=== PATIENT | male | born 1945 ===

== ENCOUNTER 2017-04-29 07:03 | Day surgery (SDC) | payer OTHER ==
[2017-04-29 08:53] VITALS: BMI 33.2
--- NOTE | 2017-04-29 10:20 | CP.SDSHP ---
Same Day Surgery H & P - History Proposed Procedure: EGD Pre-Op Diagnosis: H/o duodenal carcinoid - Previous Medical/Surgical History Previous Surgical History: EGD EMR - Allergies Allergies: Allergies iodine Allergy (Severe, Verified 01/15/17 10:44) ANAPHYLAXIS - Physical Exam General Appearance: nl Vital Signs: Vital Signs 04/29/17 08:54 Temperature 97.8 F Pulse Rate 56 L Respiratory 19 Rate Blood Pressure 126/77 O2 Sat by Pulse 97 Oximetry Mental Status: Alert & Oriented x3 Neuro: WNL Heart: WNL Lungs: WNL GI: WNL - {Optional Preform as Required} Abdomen: WNL - Impression Impression: H/o duodenal carcinoid s/p EMR, f/u egd Pt. Evaluated Today:Candidate for Anesthesia & Procedure: Yes - Date & Time Date: 04/29/17 Time: 10:20 Short Stay Discharge - Short Stay Discharge Admitting Diagnosis/Reason for Visit: MALIGNANT CARCINOID TUMOR OF THE DUODENUM Disposition: HOME/ ROUTINE
[2017-04-29] MEDS ORDERED: Propofol 10 mg/ml Inj (20 ML) ONE (10:23)
[2017-04-29 11:33] VITALS: RESP 12; TEMP 98.7
[2017-04-29 11:37] VITALS: BP 131/78
[2017-04-29 11:39] VITALS: PULSE 53; O2SAT 100
== END 2017-04-29 11:32 | disposition home or self-care (01) ==
LOC: C.ENDO 07:03
PROVIDERS: ATTEND Internal Medicine
DX: Z08 Encounter for follow-up examination after completed treatment for malignant neoplasm (principal); Z85.060 Personal history of malignant carcinoid tumor of small intestine; K44.9 Diaphragmatic hernia without obstruction or gangrene; K29.70 Gastritis, unspecified, without bleeding; I89.0 Lymphedema, not elsewhere classified
CPT/HCPCS: 43239; 88305; 88313; 88342; J2001; J2704; J3010

== ENCOUNTER 2017-12-09 08:36 | Day surgery (SDC) | payer OTHER ==
[2017-12-09 09:31] VITALS: TEMP 97
[2017-12-09] MEDS ORDERED: Propofol 10 mg/ml Inj (20 ML) ONE ×2 (10:01→10:12)
[2017-12-09 12:26] VITALS: O2SAT 100
[2017-12-09 12:32] VITALS: BP 128/75; PULSE 68; RESP 20
== END 2017-12-09 12:30 | disposition home or self-care (01) ==
LOC: C.ENDO 08:36
PROVIDERS: ATTEND Internal Medicine Gastroenterology
DX: D3A.010 Benign carcinoid tumor of the duodenum (principal); Z86.010 Personal history of colon polyps; D12.2 Benign neoplasm of ascending colon
CPT/HCPCS: 45380; 88305; J2704

== ENCOUNTER 2017-12-30 08:46 | Day surgery (SDC) | payer OTHER ==
[~2017-12-30 08:46] MED LIST: Methylene Blue 10 mg/mL(10ml) IV ONE
[2017-12-30] MEDS ORDERED: Methylene Blue 10 mg/mL(10ml) IV ONE (11:35)
[2017-12-30] MEDS ORDERED: Lidocaine Hydrochloride 5 ML INJ ONE (11:41)
[2017-12-30] MEDS ORDERED: Propofol 10 mg/ml Inj (20 ML) ONE ×3 (11:41→12:41)
[2017-12-30] MEDS ORDERED: Etomidate 20 mg/10ml Inj IV ONE ×2 (11:49→12:01)
[2017-12-30] MEDS ORDERED: ePHEDrine 50 mg/ml Inj ONE (12:02)
[2017-12-30 13:19] VITALS: TEMP 97
[2017-12-30 14:07] VITALS: BP 120/83; PULSE 75; RESP 16; O2SAT 98
== END 2017-12-30 14:05 | disposition home or self-care (01) ==
LOC: C.ENDO 08:46
PROVIDERS: ATTEND Internal Medicine
DX: Z86.010 Personal history of colon polyps (principal); D12.2 Benign neoplasm of ascending colon; D12.3 Benign neoplasm of transverse colon; K64.8 Other hemorrhoids; D17.5 Benign lipomatous neoplasm of intra-abdominal organs
CPT/HCPCS: 45380; 45381; 45385; 88305; J2704; J3010

== ENCOUNTER 2018-02-06 05:41 | Inpatient (IN) | payer MEDICAID, OTHER ==
[2018-02-06] MEDS ORDERED: metroNIDAZOLE IV 500 mg/100 ml 500 MG/100 ML BAG ONE (07:34)
[2018-02-06] MEDS ORDERED: ceFAZolin IV 2 gm in Dextrose 2 GM/50 ML BAG IVPB ONE (07:34)
[2018-02-06] MEDS: Bupivacaine HCl 0.25% PF (30 ml) Inj ONE ×2 (08:09→12:56)
[2018-02-06] MEDS ORDERED: Propofol 10 mg/ml Inj (20 ML) ONE (11:04)
[2018-02-06] MEDS ORDERED: Midazolam 2 MG/2 ML VIAL ONE (11:04)
[2018-02-06] MEDS ORDERED: ceFAZolin 1 gm FROZEN Premix 1 GM/50 ML ML IVPB ONE (12:38)
[2018-02-06] MEDS ORDERED: Bupivacaine HCl 0.25% PF (30 ml) Inj ONE (12:46)
[2018-02-06] MEDS ORDERED: Morphine 4 MG/ML VIAL ONE (13:05)
[2018-02-06] MEDS ORDERED: Albuterol 0.083% Inhal Sol (2.5 mg/3 mL) UD INH PRN (13:29)
[2018-02-06] MEDS: HYDROmorphone 0.5 mg/0.5 ml ISec IVP PRN ×4 (13:48→17:12)
--- NOTE | 2018-02-06 13:54 | PCM.SURG1 ---
Surgeon's Initial Post Op Note - Surgeon's Notes Surgeon: Dr. Green Specialty Sales Consultant: Dr. Arreguin PGY3, PGY1, Markel OMS3 Type of Anesthesia: General Endo Pre-Operative Diagnosis: Incomplete polypectomy of right colon. Tubular Adenoma Operative Findings: Tatooed mass on right colon seen on specimen. Duodenum visualized during dissection. Primary anastamosis with ileum and transverse colon with no leak detected. for details see op note Post-Operative Diagnosis: as above Operation Performed: Laparoscopic Right fabiola-colectomy Specimen/Specimens Removed: Right colon Estimated Blood Loss: EBL {In ML}: 150 Blood Products Given: N/A Drains Used: Alberto Post-Op Condition: Fair Date of Surgery/Procedure: 02/06/18 Time of Surgery/Procedure: 08:00
[2018-02-06] MEDS ORDERED: Lactated Ringer's 1,000 ML IV ONE ×2 (14:15→18:00)
[2018-02-06] MEDS ORDERED: ceFAZolin 2 GM in Sodium Chloride 0.9% 100 ML IVPB SCH (15:00)
[2018-02-06] MEDS: metroNIDAZOLE IV 500 mg/100 ml 500 MG/100 ML BAG IVPB SCH (17:10)
[2018-02-06] MEDS ORDERED: HYDROmorphone 0.5 mg/0.5 ml ISec ONE (17:14)
[2018-02-06] MEDS: Lactated Ringer's 1,000 ML IV SCH (21:56)
[2018-02-07] MEDS: ceFAZolin IV 2 gm in Dextrose 2 GM/50 ML BAG IVPB SCH ×3 (00:04→16:33)
[2018-02-07] MEDS: metroNIDAZOLE IV 500 mg/100 ml 500 MG/100 ML BAG IVPB SCH ×2 (00:49→08:44)
[2018-02-07] MEDS: Lactated Ringer's 1,000 ML IV SCH (05:30)
[2018-02-07 07:14] LABS: BASO % 0.1 % (0.0-2.0); HEMOGLOBIN 14.2 g/dL (12.0-18.0); LYMPH # 0.9 K/uL (1.0-4.3); LYMPH % 9.1 % (20.0-40.0); MEAN CORPUSCULAR HEMOGLOBIN 29.2 pg (27.0-31.0); MEAN CORPUSCULAR HGB CONC 34.4 g/dL (33.0-37.0); MEAN PLATELET VOLUME 8.9 fL (7.2-11.7); MONO # 0.7 K/uL (0.0-0.8); MONO % 6.6 % (0.0-10.0); NEUT # 8.5 K/uL (1.8-7.0); NEUT % 84.2 % (50.0-75.0); NRBC % 0.1 % (0.0-2.0); PLATELET COUNT 170 K/uL (130-400); RBC 4.87 Mil/uL (4.40-5.90); RED CELL DISTRIBUTION WIDTH 14.4 % (11.5-14.5)
[2018-02-07 07:20] LABS: WHITE BLOOD COUNT 10.1 K/uL (4.8-10.8)
[2018-02-07 08:29] LABS: BLOOD UREA NITROGEN 11 mg/dL (9-20); CALCIUM 7.8 mg/dl (8.6-10.4); GFR AFRICAN-AMERICAN > 60; GFR NON-AFRICAN AMERICAN > 60
[2018-02-07 08:38] LABS: BANDS 2 % (0-2); LYMPHOCYTE 8 % (20-40); MONOCYTE 5 % (0-10); NEUTROPHIL 85 % (50-75); PLATELET ESTIMATE NORMAL (NORMAL); TOTAL CELLS COUNTED 100
[2018-02-07] MEDS: Lidocaine 5% Patch TD SCH (09:05)
--- NOTE | 2018-02-07 09:38 | CP.PCM.PN ---
<Andrés Monaco D - Last Filed: 02/07/18 09:31> Subjective - Date & Time of Evaluation Date of Evaluation: 02/07/18 Time of Evaluation: 09:31 - Subjective Subjective: SURGERY NOTE FOR DR. COVINGTON 72M seen and examined at bedside. Patient states pain is controlled, admits to mild nausea, denies vomiting denies fevers/chills. He denies flatus/denies BM. Objective - Vital Signs/Intake and Output Vital Signs (last 24 hours): Temp Pulse Resp BP Pulse Ox 99.4 F 108 H 20 149/83 93 L 02/07/18 07:03 02/07/18 07:03 02/07/18 07:03 02/07/18 07:03 02/07/18 07:03 Intake and Output: 02/07/18 02/07/18 06:59 18:59 Output Total 715 Balance -715 - Medications Medications: Current Medications Acetaminophen (Tylenol 325mg Tab) 650 mg PO Q6 PRN PRN Reason: Fever >100.4 F Albuterol Sulfate (Albuterol 0.083% Inhal Ayleen (2.5 Mg/3 Ml) Ud) 2.5 mg INH ONCE PRN PRN Reason: Wheezing Heparin Sodium (Porcine) (Heparin) 5,000 units SC Q8 ANN Last Admin: 02/07/18 09:07 Dose: 5,000 units Hydromorphone/Sodium Chloride (Dilaudid Door Trimmer) 6 mg IV Q4H PRN; Protocol PRN Reason: Pain, moderate (4-7) Last Admin: 02/07/18 06:11 Dose: 6 mg Potassium Chloride/Dextrose/Sod Cl (Potassium Chl 20 Meq In D5-1/2ns) 1,000 mls @ 125 mls/hr IV .Q8H ANN Lactated Ringer's (Lactated Ringer's) 1,000 mls @ 125 mls/hr IV .Q8H ANN Last Admin: 02/07/18 05:30 Dose: 125 mls/hr Cefazolin Sodium/Dextrose (Ancef Iv 2 Gm Duplex) 2 gm in 50 mls @ 100 mls/hr IVPB Q8H ANN PRN Reason: Protocol Stop: 02/07/18 15:29 Last Admin: 02/07/18 06:20 Dose: 100 mls/hr Lidocaine (Lidoderm) 1 ea TD DAILY ANN Last Admin: 02/07/18 09:05 Dose: 1 ea Ondansetron HCl (Zofran Inj) 4 mg IV Q4 PRN PRN Reason: Nausea/Vomiting Last Admin: 02/07/18 09:15 Dose: 4 mg - Labs Labs: 02/07/18 06:51 02/07/18 06:51 - Constitutional Appears: Well, Non-toxic, No Acute Distress - Respiratory Exam Respiratory Exam: Clear to Ausculation Bilateral, NORMAL BREATHING PATTERN - Cardiovascular Exam Cardiovascular Exam: REGULAR RHYTHM, +S1, +S2 - GI/Abdominal Exam GI & Abdominal Exam: Distended, Soft, Tenderness. absent: Firm, Guarding, Rigid , Rebound Additional comments: incisions CDI Drain 135cc since OR of serosanguinous fluid - Extremities Exam Extremities Exam: absent: Pedal Edema, Tenderness - Neurological Exam Neurological Exam: Alert, Awake - Psychiatric Exam Psychiatric exam: Normal Affect, Normal Mood - Skin Skin Exam: Dry, Intact, Normal Color, Warm Assessment and Plan - Assessment and Plan (Free Text) Assessment: 72M s/p Laparoscopic Right Hemicolectomy POD1 for tubular adenoma which was unable to be removed endoscopically POD#1 Plan: - NPO - Pain control, keep MANUFACTURING CONTROLS ENGINEER, Lidoderm around incisions - Monitor Drain output - DC ABX in PM - Nebulizer treatments - Encourage ambulation - DC fregoso after ambulation - SCD/HeparinSC Discussed with Dr. Peter Monaco, PGY2 <Saúl Covington - Last Filed: 02/07/18 10:26> Objective - Vital Signs/Intake and Output Vital Signs (last 24 hours): Temp Pulse Resp BP Pulse Ox 99.4 F 108 H 20 149/83 93 L 02/07/18 07:03 02/07/18 07:03 02/07/18 07:03 02/07/18 07:03 02/07/18 07:03 Intake and Output: 02/07/18 02/07/18 06:59 18:59 Output Total 715 Balance -715 - Medications Medications: Current Medications Acetaminophen (Tylenol 325mg Tab) 650 mg PO Q6 PRN PRN Reason: Fever >100.4 F Albuterol Sulfate (Albuterol 0.083% Inhal Ayleen (2.5 Mg/3 Ml) Ud) 2.5 mg INH ONCE PRN PRN Reason: Wheezing Heparin Sodium (Porcine) (Heparin) 5,000 units SC Q8 ANN Last Admin: 02/07/18 09:07 Dose: 5,000 units Hydromorphone/Sodium Chloride (Dilaudid Door Trimmer) 6 mg IV Q4H PRN; Protocol PRN Reason: Pain, moderate (4-7) Last Admin: 02/07/18 06:11 Dose: 6 mg Potassium Chloride/Dextrose/Sod Cl (Potassium Chl 20 Meq In D5-1/2ns) 1,000 mls @ 125 mls/hr IV .Q8H ANN Lactated Ringer's (Lactated Ringer's) 1,000 mls @ 125 mls/hr IV .Q8H [facility] Last Admin: 02/07/18 05:30 Dose: 125 mls/hr Cefazolin Sodium/Dextrose (Ancef Iv 2 Gm Duplex) 2 gm in 50 mls @ 100 mls/hr IVPB Q8H ANN PRN Reason: Protocol Stop: 02/07/18 15:29 Last Admin: 02/07/18 06:20 Dose: 100 mls/hr Lidocaine (Lidoderm) 1 ea TD DAILY ANN Last Admin: 02/07/18 09:05 Dose: 1 ea Ondansetron HCl (Zofran Inj) 4 mg IV Q4 PRN PRN Reason: Nausea/Vomiting Last Admin: 02/07/18 09:15 Dose: 4 mg - Labs Labs: 02/07/18 06:51 02/07/18 06:51 Assessment and Plan - Assessment and Plan (Free Text) Plan: Patient seen and examined at bedside with residents staff and agree with above. Would expect post-op ileus due to length of operation and bowel manipulation. Cont. NPO. NGT if continued nausea or vomiting. D/c fregoso later today when ambulating. Pain control. DVT prophylaxis HSQ and SCD. Periop Abx to finish today. IS and breathing treatments PRN.
[2018-02-07] MEDS: Potassium Ch 20mEq in D5-1/2NS 1,000 ML IV SCH ×3 (10:11→21:10)
[2018-02-07] MEDS ORDERED: Albuterol 0.083% Inhal Sol (2.5 mg/3 mL) UD INH ONE (10:20)
[2018-02-08] MEDS: Potassium Ch 20mEq in D5-1/2NS 1,000 ML IV SCH ×3 (00:10→09:08)
[2018-02-08] MEDS: Magnesium Sulfate 1 gm in D5W 1 GM/100 ML BAG IVPB SCH ×2 (00:30)
--- NOTE | 2018-02-08 00:35 | CP.PCM.PN ---
Subjective - Date & Time of Evaluation Date of Evaluation: 02/08/18 Time of Evaluation: 00:34 - Subjective Subjective: General Surgery Progress Note for Dr. Green 12:00AM This 72M was seen and examined. Nurse Denied any acute events. Reports urine output improved. Patient reports pain under control increased incentive spirometery from 500 to 750. Patient saturating 98 on 3L when cannula removed saturation decreased to 93% so NC was continued. Of note the patients heart rate was elevated. EKG was done and compared with previous EKG. EKG on 01/28 exhibited sinus nilesh @ 56 with inferior infarct of undermined age, EKG overnight showed sinus tachycardia with inferior infarct of undetermined age. Cardiac enzymes where ordered and cardiology was consulted. Cardiac enzymes were negative. 6:00AM PT seen and examined this AM at bedside, He was awake sitting up, pulling 1000 on the incentive spirometer. He reports nausea and belching, denies vomiting, flatus, BM, chest pain or SOB. Discussed goals for the day of increasing ambulation. Objective - Vital Signs/Intake and Output Vital Signs (last 24 hours): Temp Pulse Resp BP Pulse Ox 98.4 F 100 H 22 148/78 91 L 02/07/18 15:57 02/07/18 18:43 02/07/18 15:57 02/07/18 15:57 02/07/18 18:43 Intake and Output: 02/07/18 02/08/18 18:59 06:59 Intake Total 1150 750 Output Total 50 715 Balance 1100 35 - Medications Medications: Current Medications Acetaminophen (Tylenol 325mg Tab) 650 mg PO Q6 PRN PRN Reason: Fever >100.4 F Albuterol Sulfate (Albuterol 0.083% Inhal Ayleen (2.5 Mg/3 Ml) Ud) 2.5 mg INH ONCE PRN PRN Reason: Wheezing Heparin Sodium (Porcine) (Heparin) 5,000 units SC Q8 ANN Last Admin: 02/07/18 21:10 Dose: 5,000 units Hydromorphone/Sodium Chloride (Dilaudid Casting Assistant) 6 mg IV Q4H PRN; Protocol PRN Reason: Pain, moderate (4-7) Potassium Chloride/Dextrose/Sod Cl (Potassium Chl 20 Meq In D5-1/2ns) 1,000 mls @ 100 mls/hr IV .Q10H ANN Lidocaine (Lidoderm) 1 ea TD DAILY ANN Last Admin: 02/07/18 09:05 Dose: 1 ea Ondansetron HCl (Zofran Inj) 4 mg IV Q4 PRN PRN Reason: Nausea/Vomiting Last Admin: 02/07/18 17:38 Dose: 4 mg - Labs Labs: 02/07/18 06:51 02/07/18 06:51 - Constitutional Appears: Non-toxic, No Acute Distress - Head Exam Head Exam: ATRAUMATIC, NORMOCEPHALIC - Eye Exam Eye Exam: EOMI, Normal appearance - Respiratory Exam Respiratory Exam: NORMAL BREATHING PATTERN Additional comments: 3L NC - Cardiovascular Exam Cardiovascular Exam: Tachycardia (HR 95), +S1, +S2 - GI/Abdominal Exam Additional comments: Full, appropriately tender abdomen with dressings clean dry and intact Alberto drain output 70cc serosang over 12 hours 135cc serosang over 24 hours - Neurological Exam Neurological Exam: Alert, Awake - Psychiatric Exam Psychiatric exam: Normal Affect, Normal Mood - Skin Skin Exam: Dry, Intact Assessment and Plan - Assessment and Plan (Free Text) Assessment: 72M POD#2 s/p laparoscopic right hemicolectomy for Incomplete polypectomy of right colon for tubular Adenoma HR 90-105, BP 134/81 (Baseline) Dilaudid KEG INSPECTOR received 3.4mg over the last 7 hours Urine output 100cc per hour >12 hours Alberto: 135 serosang (65am/70pm) Plan: Continue telemetry Follow up cardiology Continue NPO Continue Pepcid Monitor Outputs Lidoderm patch KEG INSPECTOR for pain D5 1/2 20K @100 Replete Phos Out of bed Ambulate Incentive spriometer SCDs Further recs per Dr. Peter Caldera PGY2
--- NOTE | 2018-02-08 00:44 | OP ---
PROCEDURE DATE: 02/06/2018 PREOPERATIVE DIAGNOSES: 1. Adenomatous polyps of colon 2. Status post colonoscopy with incomplete polypectomy 3. Obesity with body mass index between 30 and 35 4. Umbilical hernia. POSTOPERATIVE DIAGNOSES: 1. Adenomatous polyps of colon 2. Status post colonoscopy with incomplete polypectomy 3. Obesity with body mass index between 30 and 35 4. Umbilical hernia PROCEDURE PERFORMED: 1. Laparoscopic right hemicolectomy. 2. Umbilical hernia repair (as part of closure) OPERATING SURGEON: Saúl Green MD ATTENDANT SELF SERVICE STORE SURGEON: __Varsha Arreguin, PGY-4 resident; Carlin Cunningham, PGY-2 resident. OPERATIVE FINDINGS: Significant visceral adiposity of mesentery and omentum. Normal-appearing large intestine. No evidence of peritoneal or hepatic nodules. Inked margin of right colon is visible within the superior portion of the ascending colon. Please note that due to the patient's weight, obesity and BMI of 33, and the presence of significant amount of visceral adiposity dissection and identification of tissue planes and anatomic land nevarez was very difficult. It added about 60 minutes of additional work over what is considered normal for this procedure, and significant amount of time was taken to meticulously dissect out and define anatomic landmarks, especially within the mesentery while doing both the medial to lateral and also the lateral dissections of the right colon. SPECIMENS REMOVED: Right colon and terminal ileum. Additional 2-cm segment of terminal ileum ESTIMATED BLOOD LOSS: 150 mL. ANESTHESIA: General anesthesia as well as 0.25% Marcaine local anesthesia. INDICATIONS FOR OPERATION: This is a 72-year-old male who had a recent colonoscopy done about two months ago and was found to have a 3-cm and a 2-cm polyp within the ascending colon. Colonoscopic removal was attempted multiple times by the GI doctor, and there was an incomplete piecemeal removal of the more distal lesion in the ascending colon. Because of the difficulty of the procedure, they did not attempt to remove the more proximal lesion closer to the cecum. 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 He was taken to the operating room for a right hemicolectomy to rule out cancer. DESCRIPTION OF THE OPERATION: Informed consent was obtained prior to taking the patient back to the operating room. We discussed at length as well as in clinic with the patient and his the risks of the operation including but not limited to retroperitoneal injury, ureteral injury, possible need for colostomy, injury to intra-abdominal organs, bleeding, infection, and VTE. The patient understood these risks and consented to the following operation. The patient was brought back to the operating room and placed supine on the operating room table. SCDs were applied prior to induction of anesthesia. Heparin subq 5000 units were given in the preoperative area prior to bringing the patient back. Ancef 2 gm and 500 mg of Flagyl antibiotics were given within 30 minutes of incision. Following successful endotracheal intubation, Upper and lower body warmers were placed prior to incision.A Hoffmann was inserted, the patient's abdomen was shaved, prepped and draped in sterile fashion. Of note, the patient has a history of a left arm traumatic injury, which was repaired with fixation, and so his elbow had limited range of motion without full extension at the elbow. This limited my ability to tuck his left arm likely we normally do, but the patient's left arm was padded and placed in a neutral position at the side of the table on armboard. A time-out was performed prior to making the incision. We gained access to the abdominal cavity with a supraumbilical direct cut down for a 12mm port An 11-blade was used to make a skin incision. Kochers were used to grasp the fascia, and the incision was made into the fascia. There was direct visualization into the peritoneal cavity. A 12-mm port was inserted, and the abdomen was insufflated. I then placed a 10-mm 0-degree laparoscope to check for any signs of injury during our initial entry, and there were none. Of note, during this time with initial insufflation pressures up to 15 and flow rate of 40, the patient did become bradycardic, but did not drop his blood pressure. The pneumoperitoneum was immediately released from his abdomen, and the patient's belly did appear tight. As we waited for Anesthesia to catch up and after giving the patient some time as well as more muscle relaxant, the patient's heart rate came back up to his baseline, between 80 and 90. We then waited until Anesthesia was ready to reinsufflate the abdomen. The flow pressures were dropped to half. We slowly resufflated the pneumoperitoneum, the patient tolerated this well, so we proceeded with the operation. The abdominal cavity was then inspected using a 10-mm 30-degree scope for any evidence of any peritoneal lesions or liver lesions, and there were none. Additional working ports were placed. All ports were preanesthetized with 0.25% Marcaine prior to making skin incision. We placed a 5-mm port in the left upper quadrant, a 12-mm port in the left lower quadrant, and a 5-mm port in the suprapubic region. We identified the area of the right colon that was marked with tattoo, and that was easily visible up into the ascending colon, did not involve any of the transverse colon. Greater omentum was placed cephalad over the liver. We then identified the ileocecal junction, and retraction was placed laterally to begin our dissection from a medial lateral approach of the ileocecal pedicle. During this time, because of all of his visceral adiposity, it was very difficult to gain appropriate retraction and counter tension, and so this took about 15 to 20 minutes. I had to add another additional working port for my assistant center director in the the right mid abdomen lateral to the rectus muscles at the level of the umbilicus; this was a 5-mm port. After this was done, we were able to achieve somewhat adequate visualization. I started from a medial lateral approach scoring the mesentery surrounding the ileocecal pedicle, began creating my tunnel. The pedicle was then skeletonized; however, it was very difficult to achieve a clear plane again because of the adiposity and visualization. I was very meticulous to make sure that we are not entering any retroperitoneal structures prior to transecting any vessels. During this time, due to the difficulty of making any progress, I had asked for assistance from a senior colleague, Dr. Carmichael, who came into the room to just evaluate and made suggestion we switch over to a lateral dissection, and we then did that. The lateral attachments of the colon and the retroperitoneum were taken down using a combination of blunt, sharp and electrocautery with ligature energy device. Lot of pictures were taken down. Retroperitoneal fat structures were left in place, and the right colon and mesentery were dissected medially. This was done from a level of the cecum and appendix all the way up to the hepatic flexure. At this point, I then turned our attention to mobilizing the route to the small bowel at the terminal ileum taking care not to get into the retroperitoneum. The right ureter was visualized, and we dissected up further towards the duodenum for about 5 cm. I then transected the terminal ileum about 5 to 6 cm distal to the ileocecal junction. A mesenteric defect was created and a 60-mm Endo AR linear stapling device blue load was used to transect the ileum. We then turned our attention to the more superior dissection taking down the hepatocolic ligaments. I started approximately at the mid point of the transverse colon. The greater omentum was placed cephalad above the liver and identified the transverse colon. With appropriate traction, we were able to get into the lesser sac. The dissection was then continued towards the hepatic flexure without any incident. Again, this was challenging due to the weight of his mesentery from all of the visceral adiposity as well as the large epiploic appendages, so this added about 30 to 45 minutes more than usual to do this part of the procedure. Once there was adequate mobilization of the transverse colon, I then elected to exteriorize the specimen. At this point, the abdomen was desufflated, and the umbilical port site incision was extended in a vertical fashion coming right through the umbilicus for approximately 3 or 4 cm. A wound protector was then placed and the specimen exteriorized. At this point, there was clear delineation of the deascularized right colon, and we transsected the transverse colon approximately 5 to 6 cm distal to the inked margin using a 75-mm AR blue load linear stapler. Once this was done, the specimen was completely extracted and sent off the pathology. I then brought up the transected segment of the terminal ileum was also delivered through the wound protector. At this point, I tried to arrange the anastomosis externally; however due to tension on the transverse colon, I did not like the way it was going to lie, and so I elected to just internalize the specimen and proceed with intracorporeal stapled anastomosis. We reinserted the contents into the abdominal cavity. A 12-mm camera port was then reinserted through the wound protector. We then wrapped umbilical tape to ensure pneumoperitoneum was maintained, and there was no leakage of gas around the enlarged incision. We then lined the terminal ileum to the transverse colon. The orientation was made in an isoperistaltic fashion. Stay suture was placed from the tenia coli of transverse colon to the antimesenteric border of the small bowel. Enterotomies was made both in the colon and small intestine using a monopolar [place] device. Intraluminal entry was confirmed. A 60-mm Endo AR linear stapling device blue load used to make the ileocolonic anastomosis. The anastomosis was inspected from within and that seems to be patent. The common defect was then closed using 2-0 v-lock nonabsorbable barbed suture. Additional interrupted sutures were placed in a Lembert fashion to buttress the common enterotomy closure with 3-0 vicryl. There were total of 4 interrupted sutures placed. The anastomosis appeared patent and no evidence of any leakage. The abdomen was irrigated with about 250 mL of saline and suctioned, cleaned. There was some bleeding noted on the greater omentum. This was stopped with LigaSure device, and hemostasis confirmed. The omentum was then draped over the anastomosis. I placed a 19-Mongolian niko drain in the right lateral gutter where our dissection was, and this was brought out through the patient's right 5-mm port. I then elected to do a TAP block with 30 mL of 0.125 % Marcaine. All the port sites were injected under direct visualization creating a preperitoneal wheal. The remaining ports were then removed under direct visualization. We then closed the midline periumbilical incision with 1 PDS suture to close the fascial incision. The skin was then closed with wes. The laparoscopic incisions were closed with 4-0 Monocryl. Dermabond was applied to the skin incisions. The patient tolerated the operation without any complication. I was present for the entirety of the operation. All sponge, needle and instrument counts were correct at the end of the case before closing. The patient was then extubated into the operating room and taken to the PACU in stable condition. Saúl Green MD GENET
[2018-02-08] MEDS ORDERED: Metoprolol 1 mg/ml Inj IVP ONE (01:03)
[2018-02-08] MEDS ORDERED: Metoprolol 1 mg/ml Inj IVP STA (01:03)
[2018-02-08 01:22] LABS: ALB/GLOB RATIO 1.1 (1.0-2.1); ALBUMIN 2.9 g/dL (3.5-5.0); ALT/SGPT 16 U/L (21-72); AST/SGOT 26 U/L (17-59); BLOOD UREA NITROGEN 10 mg/dL (9-20); CALCIUM 7.9 mg/dl (8.6-10.4); GFR AFRICAN-AMERICAN > 60; GFR NON-AFRICAN AMERICAN > 60
[2018-02-08 01:34] LABS: CK-MB 1.53 ng/mL (0.0-3.38)
[2018-02-08] MEDS ORDERED: Sodium Phosphate 15 MMOLE in Sodium Chloride 0.9% 250 ML IVPB ONE (05:32)
[2018-02-08] MEDS: Lidocaine 5% Patch TD SCH ×2 (07:34→09:26)
--- NOTE | 2018-02-08 07:59 | RAD ---
Chest x-ray single frontal view History: Tachycardia. Comparison: 01/28/2018 Findings: Biapical pleural thickening with upper lobe granulomatous changes. Diffuse increased interstitial lung markings with some scattered nodular densities throughout both lungs. Prominent linear consolidative changes at both lung bases which may represent atelectasis and or infiltrate. Enlarged ectatic aorta. Cardiomegaly. Degenerative changes in the spine and shoulders. Impression: Biapical pleural thickening with upper lobe granulomatous changes. Diffuse increased interstitial lung markings with some scattered nodular densities throughout both lungs. Prominent linear consolidative changes at both lung bases which may represent atelectasis and or infiltrate. Enlarged ectatic aorta. Cardiomegaly.
[2018-02-08 08:25] LABS: BASO % 0.2 % (0.0-2.0); EOS # 0.1 K/uL (0.0-0.7); EOS % 0.7 % (0.0-4.0); HEMOGLOBIN 13.7 g/dL (12.0-18.0); LYMPH # 0.5 K/uL (1.0-4.3); MEAN CELL VOLUME 86.5 fL (80.0-94.0); MEAN CORPUSCULAR HEMOGLOBIN 29.9 pg (27.0-31.0); MEAN CORPUSCULAR HGB CONC 34.5 g/dL (33.0-37.0); MEAN PLATELET VOLUME 9.1 fL (7.2-11.7); MONO # 0.5 K/uL (0.0-0.8); MONO % 5.1 % (0.0-10.0); NEUT # 7.8 K/uL (1.8-7.0); PLATELET COUNT 177 K/uL (130-400); RBC 4.58 Mil/uL (4.40-5.90); RED CELL DISTRIBUTION WIDTH 14.3 % (11.5-14.5); WHITE BLOOD COUNT 8.9 K/uL (4.8-10.8)
[2018-02-08 09:14] LABS: LYMPHOCYTE 4 % (20-40); MONOCYTE 4 % (0-10); NEUTROPHIL 92 % (50-75); TOTAL CELLS COUNTED 100
[2018-02-08 09:15] LABS: PLATELET ESTIMATE NORMAL (NORMAL)
--- NOTE | 2018-02-08 14:36 | CP.PCM.CON ---
History of Present Illness - History of Present Illness History of Present Illness: 72-year-old male postoperatively, hemicolectomy, developed rapid heart rate and cardiology consult was requested. On further review of the chart patient was cleared by the medical clinic as patient has no cardiac history. EKG preop shows some Q waves in inferior leads with sinus bradycardia of 56. No investigation was done concerning low heart rate. Postoperatively patient heart rate is was in 120 sinus tachycardia with stable blood pressure. EKG showed no change from previous one with small Q's in inferior leads with sinus tachycardia. Patient has no history of diabetes coronary artery disease or [place] in the past. Physical examination patient is not in acute distress Heart S1-S2 normal. Currently the heart rate is normal after previously given IV beta-mohan. There is no murmurs or gallops. Lungs are clear to auscultation percussion Abdomen is postop with slight distention Extremity is no edema. Another repeat EKG was done incorrectly with reversal of leads. Cardiac enzymes 2 are negative. Plan Continue observation on telemetry. If the heart rate is more than 120 can give when necessary IV Lopressor if the blood pressure is more than 110 systolic. Currently patient does not need any further cardiac intervention Past Patient History - Past Medical History & Family History Past Medical History?: Yes - Past Social History Smoking Status: Never Smoked - CARDIAC Hx Cardiac Disorders: Yes - PULMONARY Hx Respiratory Disorders: Yes Hx Sleep Apnea: Yes (POSITIVE STUDY, DOES NOT HAVE C PAP MACHINE) - NEUROLOGICAL Hx Neurological Disorder: No - HEENT Hx HEENT Problems: No - RENAL Hx Chronic Kidney Disease: No - ENDOCRINE/METABOLIC Hx Endocrine Disorders: No - HEMATOLOGICAL/ONCOLOGICAL Hx Blood Disorders: No - INTEGUMENTARY Hx Dermatological Problems: No - MUSCULOSKELETAL/RHEUMATOLOGICAL Hx Musculoskeletal Disorders: No Hx Falls: No - GASTROINTESTINAL Hx Gastrointestinal Disorders: Yes Hx Gastritis: Yes Other/Comment: HX DUODENAL CARCINOID - GENITOURINARY/GYNECOLOGICAL Hx Genitourinary Disorders: No - PSYCHIATRIC Hx Psychophysiologic Disorder: No Hx Substance Use: No - SURGICAL HISTORY Hx Surgeries: Yes Hx Orthopedic Surgery: Yes (ORIF LEFT ELBOW W PLATE PLACEMENT) Other/Comment: HX: COLON POLYPECTOMY - ANESTHESIA Hx Anesthesia: Yes Hx Anesthesia Reactions: No Hx Malignant Hyperthermia: No Has any member of the family had a problem w/ anesthesia?: No Meds Allergies/Adverse Reactions: Allergies Allergy/AdvReac Type Severity Reaction Status Date / Time iodine Allergy Severe ANAPHYLAXIS Verified 12/30/17 09:17 - Medications Medications: Current Medications Acetaminophen (Tylenol 325mg Tab) 650 mg PO Q6 PRN PRN Reason: Fever >100.4 F Albuterol Sulfate (Albuterol 0.083% Inhal Ayleen (2.5 Mg/3 Ml) Ud) 2.5 mg INH ONCE PRN PRN Reason: Wheezing Famotidine (Pepcid) 20 mg IVP Q12 [facility] Last Admin: 02/08/18 09:24 Dose: 20 mg Heparin Sodium (Porcine) (Heparin) 5,000 units SC Q8 ANN Last Admin: 02/08/18 13:40 Dose: 5,000 units Hydromorphone/Sodium Chloride (Dilaudid Bowl Attendant) 6 mg IV Q4H PRN; Protocol PRN Reason: Pain, moderate (4-7) Last Admin: 02/08/18 09:25 Dose: 6 mg Potassium Chloride/Dextrose/Sod Cl (Potassium Chl 20 Meq In D5-1/2ns) 1,000 mls @ 100 mls/hr IV .Q10H [facility] Last Admin: 02/08/18 09:08 Dose: Not Given Lidocaine (Lidoderm) 1 ea TD DAILY [facility] Last Admin: 02/08/18 09:26 Dose: Not Given Ondansetron HCl (Zofran Inj) 4 mg IV Q4 PRN PRN Reason: Nausea/Vomiting Last Admin: 02/07/18 17:38 Dose: 4 mg Results - Vital Signs Recent Vital Signs: Last Vital Signs Temp 98.6 F 02/08/18 10:15 Pulse 90 02/08/18 12:00 Resp 20 02/08/18 08:27 BP 130/79 02/08/18 08:27 Pulse Ox 97 02/08/18 08:27 - Labs Result Diagrams: 02/09/18 03:04 02/09/18 03:04 Labs: Laboratory Results - last 24 hr 02/08/18 02/08/18 01:06 08:10 WBC 8.9 RBC 4.58 Hgb 13.7 Hct 39.6 MCV 86.5 MCH 29.9 MCHC 34.5 RDW 14.3 Plt Count 177 MPV 9.1 Neut % (Auto) 88.0 H Lymph % (Auto) 6.0 L [place] % (Auto) 5.1 Eos % (Auto) 0.7 Baso % (Auto) 0.2 Neut # (Auto) 7.8 H Lymph # (Auto) 0.5 L [place] # (Auto) 0.5 Eos # (Auto) 0.1 Baso # (Auto) 0.0 Neutrophils % (Manual) 92 H Lymphocytes % (Manual) 4 L Monocytes % (Manual) 4 Platelet Estimate Normal RBC Morphology Normal Sodium 138 Potassium 4.0 Chloride 102 Carbon Dioxide 29 Anion Gap 12 BUN 10 Creatinine 0.9 Est GFR ( Amer) > 60 Est GFR (Non-Af Amer) > 60 Random Glucose 144 H Calcium 7.9 L Phosphorus 1.5 L Magnesium 2.5 H Total Bilirubin 1.2 AST 26 ALT 16 L D Alkaline Phosphatase 94 CK-MB (Mass) 1.53 Troponin I < 0.0120 Total Protein 5.6 L Albumin 2.9 L D Globulin 2.7 Albumin/Globulin Ratio 1.1
[2018-02-08] MEDS ORDERED: Potassium Ch 20mEq in D5-1/2NS 1,000 ML IV SCH (15:30)
[2018-02-08 16:00] LABS: CK-MB 0.95 ng/mL (0.0-3.38)
[2018-02-08] MEDS ORDERED: Albumin Human 25% (12.5 gm/50 ml) IV ONE ×2 (17:00→18:00)
[2018-02-08 19:29] LABS: BASO % 0.3 % (0.0-2.0); EOS # 0.1 K/uL (0.0-0.7); EOS % 0.9 % (0.0-4.0); HEMOGLOBIN 14.4 g/dL (12.0-18.0); LYMPH % 9.7 % (20.0-40.0); MEAN CELL VOLUME 86.6 fL (80.0-94.0); MEAN CORPUSCULAR HEMOGLOBIN 29.3 pg (27.0-31.0); MEAN CORPUSCULAR HGB CONC 33.9 g/dL (33.0-37.0); MEAN PLATELET VOLUME 8.8 fL (7.2-11.7); MONO # 0.5 K/uL (0.0-0.8); MONO % 5.2 % (0.0-10.0); NEUT # 8.4 K/uL (1.8-7.0); NEUT % 83.9 % (50.0-75.0); PLATELET COUNT 198 K/uL (130-400); RED CELL DISTRIBUTION WIDTH 14.7 % (11.5-14.5)
[2018-02-08 19:41] LABS: ALB/GLOB RATIO 1.1 (1.0-2.1); ALBUMIN 3.2 g/dL (3.5-5.0); ALT/SGPT 19 U/L (21-72); AST/SGOT 23 U/L (17-59); BLOOD UREA NITROGEN 10 mg/dL (9-20); CALCIUM 8.1 mg/dl (8.6-10.4); GFR AFRICAN-AMERICAN > 60; GFR NON-AFRICAN AMERICAN > 60
[2018-02-08] MEDS ORDERED: Potassium Phosphate 21 MMOLE in Sodium Chloride 0.9% 250 ML IV ONE (20:00)
[2018-02-08 20:13] LABS: LYMPHOCYTE 13 % (20-40); MONOCYTE 3 % (0-10); NEUTROPHIL 84 % (50-75); PLATELET ESTIMATE NORMAL (NORMAL); TOTAL CELLS COUNTED 100
[2018-02-09 03:07] LABS: BASO % 0.3 % (0.0-2.0); EOS # 0.1 K/uL (0.0-0.7); EOS % 0.7 % (0.0-4.0); HEMOGLOBIN 13.8 g/dL (12.0-18.0); LYMPH # 0.5 K/uL (1.0-4.3); MEAN CELL VOLUME 86.4 fL (80.0-94.0); MEAN CORPUSCULAR HEMOGLOBIN 29.4 pg (27.0-31.0); MEAN CORPUSCULAR HGB CONC 34.1 g/dL (33.0-37.0); MEAN PLATELET VOLUME 8.7 fL (7.2-11.7); MONO # 0.4 K/uL (0.0-0.8); MONO % 5.2 % (0.0-10.0); NEUT # 7.5 K/uL (1.8-7.0); NEUT % 87.8 % (50.0-75.0); PLATELET COUNT 180 K/uL (130-400); RBC 4.68 Mil/uL (4.40-5.90); RED CELL DISTRIBUTION WIDTH 14.4 % (11.5-14.5); WHITE BLOOD COUNT 8.5 K/uL (4.8-10.8)
[2018-02-09 03:24] LABS: ALB/GLOB RATIO 1.1 (1.0-2.1); ALT/SGPT 14 U/L (21-72); AST/SGOT 19 U/L (17-59); BLOOD UREA NITROGEN 10 mg/dL (9-20); CALCIUM 7.9 mg/dl (8.6-10.4); GFR AFRICAN-AMERICAN > 60; GFR NON-AFRICAN AMERICAN > 60
[2018-02-09 03:34] LABS: CK-MB 0.87 ng/mL (0.0-3.38)
[2018-02-09 03:42] LABS: BANDS 4 % (0-2); LYMPHOCYTE 2 % (20-40); MONOCYTE 2 % (0-10); NEUTROPHIL 91 % (50-75); PLATELET ESTIMATE NORMAL (NORMAL); REACTIVE LYMPHOCYTES 1 % (0-0); TOTAL CELLS COUNTED 100
[2018-02-09] MEDS ORDERED: Sodium Phosphate 15 MMOLE in Sodium Chloride 0.9% 250 ML IVPB ONE (08:18)
[2018-02-09] MEDS ORDERED: Lidocaine 2% Jelly (5 ml) TOP ONE ×2 (09:10→09:30)
--- NOTE | 2018-02-09 09:14 | RAD ---
Abdomen two views History: Abdominal distention. Comparison: 02/09/2018 Findings: Multiple prominently dilated loops of small bowel seen throughout the abdomen. Surgical clips project over the lower pelvis. Cardiomegaly. Left basilar atelectasis. Small left pleural effusion. Lucency underneath the right hemidiaphragm may represent free intraperitoneal air, possibly postsurgical. Impression: Multiple dilated loops of small bowel seen throughout the abdomen concerning for ileus versus bowel obstruction. Clinical correlation. Free air underneath the right hemidiaphragm suggestive for recent surgery.
--- NOTE | 2018-02-09 09:22 | CP.PCM.PN ---
Subjective - Date & Time of Evaluation Date of Evaluation: 02/09/18 Time of Evaluation: 09:19 - Subjective Subjective: Surgery Pt seen and examined. Pt had an episode of emesis overnight: 125cc gastric output. Denies fever, diarrhea. + amb with help. - BM, - flatus. + void. Pain controlled w PSYCHIATRIC SPECIALIST Objective - Vital Signs/Intake and Output Vital Signs (last 24 hours): Temp Pulse Resp BP Pulse Ox 99.3 F 94 H 20 152/94 H 96 02/09/18 08:57 02/09/18 08:57 02/09/18 08:57 02/09/18 08:57 02/09/18 08:57 Intake and Output: 02/09/18 02/09/18 06:59 18:59 Intake Total 1650 Output Total 1880 Balance -230 - Medications Medications: Current Medications Acetaminophen (Tylenol 325mg Tab) 650 mg PO Q6 PRN PRN Reason: Fever >100.4 F Albuterol Sulfate (Albuterol 0.083% Inhal Ayleen (2.5 Mg/3 Ml) Ud) 2.5 mg INH ONCE PRN PRN Reason: Wheezing Famotidine (Pepcid) 20 mg IVP Q12 ANN Last Admin: 02/08/18 21:54 Dose: 20 mg Heparin Sodium (Porcine) (Heparin) 5,000 units SC Q8 ANN Last Admin: 02/09/18 06:25 Dose: 5,000 units Hydromorphone/Sodium Chloride (Dilaudid Caustic Cresylate Shift Superintendent) 6 mg IV Q4H PRN; Protocol PRN Reason: Pain, moderate (4-7) Last Admin: 02/08/18 09:25 Dose: 6 mg Potassium Chloride/Dextrose/Sod Cl (Potassium Chl 20 Meq In D5-1/2ns) 1,000 mls @ 75 mls/hr IV .[id number] [facility] Last Admin: 02/08/18 16:25 Dose: 75 mls/hr Sodium Phosphate 15 mmole/ (Sodium Chloride) 255 mls @ 50 mls/hr IVPB .Q5H6M ONE Stop: 02/09/18 13:23 Lidocaine (Lidoderm) 1 ea TD DAILY [facility] Last Admin: 02/08/18 09:26 Dose: Not Given Lidocaine HCl (Xylocaine 2% (Uro-Jet)) 0 ea TOP ONCE ONE Stop: 02/09/18 09:11 Ondansetron HCl (Zofran Inj) 4 mg IV Q4 PRN PRN Reason: Nausea/Vomiting Last Admin: 02/08/18 21:54 Dose: 4 mg - Labs Labs: 02/09/18 03:04 02/09/18 03:04 - Constitutional Appears: Non-toxic - Head Exam Head Exam: ATRAUMATIC, NORMAL INSPECTION, NORMOCEPHALIC - Eye Exam Eye Exam: EOMI, Normal appearance, PERRL Pupil Exam: NORMAL ACCOMODATION, PERRL - ENT Exam ENT Exam: Mucous Membranes Moist, Normal Exam - Neck Exam Neck Exam: Full ROM, Normal Inspection. absent: Lymphadenopathy - Respiratory Exam Respiratory Exam: Clear to Ausculation Bilateral, NORMAL BREATHING PATTERN - Cardiovascular Exam Cardiovascular Exam: REGULAR RHYTHM, +S1, +S2. absent: Murmur - GI/Abdominal Exam GI & Abdominal Exam: Distended. absent: Firm, Guarding, Rigid, Rebound Additional comments: Incision C/D/I. stapled. Tympanic - Exam Exam: NORMAL INSPECTION - Extremities Exam Extremities Exam: Full ROM, Normal Capillary Refill, Normal Inspection. 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 Green
[2018-02-09] MEDS: Lidocaine 5% Patch TD SCH (09:56)
[2018-02-09] MEDS: Benzocaine/Menthol (Cepacol) Lozenge MT PRN ×2 (10:13→14:06)
[2018-02-09] MEDS ORDERED: Benzocaine/Menthol (Cepacol) Lozenge MT SCH (12:00)
[2018-02-09] MEDS ORDERED: Potassium Ch 20mEq in D5-1/2NS 1,000 ML IV SCH (17:31)
[2018-02-10] MEDS: Lidocaine 5% Patch TD SCH (08:26)
[2018-02-10] MEDS: Potassium Ch 20mEq in D5-1/2NS 1,000 ML IV SCH ×3 (08:34→22:43)
[2018-02-10 09:02] LABS: BASO % 0.2 % (0.0-2.0); EOS % 0.4 % (0.0-4.0); LYMPH # 0.7 K/uL (1.0-4.3); LYMPH % 9.9 % (20.0-40.0); MEAN CELL VOLUME 85.3 fL (80.0-94.0); MEAN CORPUSCULAR HEMOGLOBIN 29.2 pg (27.0-31.0); MEAN CORPUSCULAR HGB CONC 34.2 g/dL (33.0-37.0); MEAN PLATELET VOLUME 8.9 fL (7.2-11.7); MONO # 0.6 K/uL (0.0-0.8); MONO % 8.8 % (0.0-10.0); NEUT # 5.4 K/uL (1.8-7.0); NEUT % 80.7 % (50.0-75.0); PLATELET COUNT 231 K/uL (130-400); RBC 4.78 Mil/uL (4.40-5.90); RED CELL DISTRIBUTION WIDTH 14.3 % (11.5-14.5); WHITE BLOOD COUNT 6.7 K/uL (4.8-10.8)
[2018-02-10 09:15] LABS: ALB/GLOB RATIO 1.1 (1.0-2.1); ALBUMIN 2.8 g/dL (3.5-5.0); ALT/SGPT 13 U/L (21-72); AST/SGOT 20 U/L (17-59); BLOOD UREA NITROGEN 12 mg/dL (9-20); GFR AFRICAN-AMERICAN > 60; GFR NON-AFRICAN AMERICAN > 60
[2018-02-10 09:54] LABS: EOSINOPHIL 1 % (0-4); LYMPHOCYTE 8 % (20-40); MONOCYTE 8 % (0-10); NEUTROPHIL 83 % (50-75); PLATELET ESTIMATE NORMAL (NORMAL); TOTAL CELLS COUNTED 100
[2018-02-10] MEDS ORDERED: Albumin Human 25% (12.5 gm/50 ml) IV ONE ×2 (12:53→13:30)
--- NOTE | 2018-02-10 13:15 | RAD ---
HISTORY: Ileus. COMPARISON: February 09, 2018. FINDINGS: BOWEL: Nasogastric tube in the proximal stomach, the side port at gastric shaft shield junction. Small placement would required enhancing at least 07-10cm. Persistent dilatation of small bowel. Free air identified previously has resolved. BONES: Normal. OTHER FINDINGS: None. IMPRESSION: Persistent dilatation proximal small bowel disproportionate to distal small bowel and colon. Postoperative ileus/obstruction is stable. Nasogastric tube identified in the proximal stomach. Resolution of free intraperitoneal and presumed postoperative air.
--- NOTE | 2018-02-10 13:58 | CP.PCM.PN ---
<Andrés Monaco D - Last Filed: 02/10/18 14:02> Subjective - Date & Time of Evaluation Date of Evaluation: 02/10/18 Time of Evaluation: 07:45 - Subjective Subjective: SURGERY PROGRESS NOTE FOR DR. HAMMAD COVINGTON 72M seen and examined at bedside. Patient states pain is well controlled. He denies nausea or vomiting, fevers or chills. He is having hiccups. Patient denies flatus, denies bowel movement. Objective - Vital Signs/Intake and Output Vital Signs (last 24 hours): Temp Pulse Resp BP Pulse Ox 98.5 F 90 20 113/73 95 02/10/18 09:36 02/10/18 09:36 02/10/18 09:36 02/10/18 13:49 02/10/18 09:36 Intake and Output: 02/10/18 02/10/18 06:59 18:59 Intake Total 600 Output Total 420 Balance 180 - Medications Medications: Current Medications Acetaminophen (Tylenol 325mg Tab) 650 mg PO Q6 PRN PRN Reason: Fever >100.4 F Albuterol Sulfate (Albuterol 0.083% Inhal Ayleen (2.5 Mg/3 Ml) Ud) 2.5 mg INH ONCE PRN PRN Reason: Wheezing Benzocaine/Menthol (Cepacol Sore Throat) 1 dillon MT Q4 PRN PRN Reason: Sore Throat Last Admin: 02/09/18 14:06 Dose: 1 dillon Bisacodyl (Dulcolax) 10 mg NE DAILY [facility] Last Admin: 02/10/18 13:52 Dose: 10 mg Famotidine (Pepcid) 20 mg IVP Q12 ANN Last Admin: 02/10/18 11:00 Dose: 20 mg Heparin Sodium (Porcine) (Heparin) 5,000 units SC Q8 ANN Last Admin: 02/10/18 13:32 Dose: 5,000 units Hydromorphone/Sodium Chloride (Dilaudid Merchandise Deliverer) 6 mg IV Q4H PRN; Protocol PRN Reason: Pain, moderate (4-7) Last Admin: 02/10/18 12:07 Dose: 6 mg Potassium Chloride/Dextrose/Sod Cl (Potassium Chl 20 Meq In D5-1/2ns) 1,000 mls @ 80 mls/hr IV .[id number] [facility] Last Admin: 02/10/18 08:34 Dose: 80 mls/hr Potassium Phosphate 30 mmole/ (Sodium Chloride) 260 mls @ 63 mls/hr IV ONCE ONE Stop: 02/10/18 18:07 Lidocaine (Lidoderm) 1 ea TD DAILY@0800 [facility] Last Admin: 02/10/18 08:26 Dose: 1 ea Ondansetron HCl (Zofran Inj) 4 mg IV Q4 PRN PRN Reason: Nausea/Vomiting Last Admin: 02/08/18 21:54 Dose: 4 mg - Labs Labs: 02/10/18 08:51 02/10/18 08:51 - Constitutional Appears: Well, Non-toxic, No Acute Distress - Respiratory Exam Respiratory Exam: Clear to Ausculation Bilateral - Cardiovascular Exam Cardiovascular Exam: REGULAR RHYTHM, +S1, +S2 - GI/Abdominal Exam GI & Abdominal Exam: Distended (full), Soft. absent: Firm, Guarding, Rigid, Tenderness, Rebound Additional comments: Drain in place 150cc/24hrs serous NGT in place - 120cc since insertion, bilious content Incisions CDI - Extremities Exam Extremities Exam: absent: Pedal Edema, Tenderness - Neurological Exam Neurological Exam: Alert, Awake - Skin Skin Exam: Dry, Intact, Normal Color, Warm Assessment and Plan - Assessment and Plan (Free Text) Assessment: 72M s/p laparoscopic right hemicolectomy for incomplete polypectomy of right colon for tubular Adenoma POD#4 AbdX-ray - stable persistent dilated loops of bowel consistent with ileus Plan: Continue NPO Monitor NGT output/Drain output Continue pain control Decreased IV fluid to 80cc/hr Benzocaine mouth spray Incentive spirometer Encourage ambulation SCDs Discussed with Dr. Peter Monaco, PGY2 <Hammad Covington - Last Filed: 02/11/18 09:38> Objective - Vital Signs/Intake and Output Vital Signs (last 24 hours): Temp Pulse Resp BP Pulse Ox 98.5 F 100 H 20 121/81 95 02/11/18 08:26 02/11/18 08:26 02/11/18 08:26 02/11/18 08:26 02/11/18 08:26 Intake and Output: 02/11/18 02/11/18 06:59 18:59 Intake Total 640 Output Total 1715 Balance -1075 - Medications Medications: Current Medications Acetaminophen (Tylenol 325mg Tab) 650 mg PO Q6 PRN PRN Reason: Fever >100.4 F Benzocaine/Menthol (Cepacol Sore Throat) 1 dillon MT Q4 PRN PRN Reason: Sore Throat Last Admin: 02/10/18 23:53 Dose: 1 dillon Famotidine (Pepcid) 20 mg IVP Q12 [facility] Last Admin: 02/11/18 09:22 Dose: 20 mg Heparin Sodium (Porcine) (Heparin) 5,000 units SC Q8 [facility] Last Admin: 02/11/18 06:31 Dose: Not Given Hydromorphone/Sodium Chloride (Dilaudid Merchandise Deliverer) 6 mg IV Q4H PRN; Protocol PRN Reason: Pain, severe (8-10) Potassium Chloride/Dextrose/Sod Cl (Potassium Chl 20 Meq In D5-1/2ns) 1,000 mls @ 80 mls/hr IV .[id number] [facility] Last Admin: 02/11/18 09:27 Dose: Not Given Potassium Phosphate 15 mmole/ (Dextrose) 255 mls @ 42.5 mls/hr IVPB ONCE ONE Stop: 02/11/18 19:29 Lidocaine (Lidoderm) 1 ea TD DAILY@0800 [facility] Last Admin: 02/11/18 08:31 Dose: 1 ea Ondansetron HCl (Zofran Inj) 4 mg IV Q4 PRN PRN Reason: Nausea/Vomiting Last Admin: 02/08/18 21:54 Dose: 4 mg - Labs Labs: 02/11/18 07:10 02/11/18 07:10 Assessment and Plan - Assessment and Plan (Free Text) Plan: Patient seen and examined with resident staff and agree with above. Post op ileus, volume overload, actively getting diuresed improving respiratory effort. NGT decompression with symptomatic relief. Patient admittedly not using MANAGER POWER concern of over using it. 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 Abd xry consistent with ileus. Gas seen in distal colon and some stool. Cont. NPO. IVF. NGT to LIWS. Dulcolax suppository. Replete electrolytes
[2018-02-10] MEDS ORDERED: Potassium Phosphate 30 MMOLE in Sodium Chloride 0.9% 250 ML IV ONE (14:00)
--- NOTE | 2018-02-10 14:45 | CARD ---
APPROVED REPORT EKG Measurement Heart [id number] <Conclusion> Sinus tachycardia Inferior infarct, age undetermined Abnormal ECG
[2018-02-10] MEDS: Benzocaine/Menthol (Cepacol) Lozenge MT PRN (23:53)
--- NOTE | 2018-02-11 04:02 | CP.PCM.PN ---
Subjective - Date & Time of Evaluation Date of Evaluation: 02/11/18 Time of Evaluation: 03:58 - Subjective Subjective: Overnight Update Paged for desaturation to 91% and shortness of breath. Upon evaluation, patient states shortness of breath is improved on breathing treatments which he is currently on. Patient denies chest pain, headache, weakness, fevers or chills. He does complain of throat irritation from NG tube. Patient pulling 1000ml on incentive spirometer currently. States he is now passing flatus, and had a small bowel movement last night. On evaluation patient afebrile, HR90s, BP 130/70s, saturating at 96/97% on 2LNC NAD, AAO*3 +S1/S2 RRR CTA b/l Soft, appropriately tender, abdomen full, non rigid, no rebound tenderness Chest X-ray ordered, will follow up. Sandro Monaco, PGY2 Objective - Vital Signs/Intake and Output Vital Signs (last 24 hours): Temp Pulse Resp BP Pulse Ox 99.7 F H 96 H 20 120/78 97 02/10/18 23:30 02/10/18 23:30 02/10/18 23:30 02/10/18 23:30 02/10/18 23:30 Intake and Output: 02/10/18 02/11/18 18:59 06:59 Intake Total 1050 640 Output Total 990 1060 Balance 60 -420 - Medications Medications: Current Medications Acetaminophen (Tylenol 325mg Tab) 650 mg PO Q6 PRN PRN Reason: Fever >100.4 F Albuterol Sulfate (Albuterol 0.083% Inhal Ayleen (2.5 Mg/3 Ml) Ud) 2.5 mg INH ONCE PRN PRN Reason: Wheezing Last Admin: 02/11/18 03:42 Dose: 2.5 mg Benzocaine/Menthol (Cepacol Sore Throat) 1 dillon MT Q4 PRN PRN Reason: Sore Throat Last Admin: 02/10/18 23:53 Dose: 1 dillon Famotidine (Pepcid) 20 mg IVP Q12 ANN Last Admin: 02/10/18 21:38 Dose: 20 mg Heparin Sodium (Porcine) (Heparin) 5,000 units SC Q8 ANN Last Admin: 02/10/18 21:39 Dose: 5,000 units Potassium Chloride/Dextrose/Sod Cl (Potassium Chl 20 Meq In D5-1/2ns) 1,000 mls @ 80 mls/hr IV .[id number] [facility] Last Admin: 02/10/18 22:43 Dose: 80 mls/hr Lidocaine (Lidoderm) 1 ea TD DAILY@0800 [facility] Last Admin: 02/10/18 08:26 Dose: 1 ea Ondansetron HCl (Zofran Inj) 4 mg IV Q4 PRN PRN Reason: Nausea/Vomiting Last Admin: 02/08/18 21:54 Dose: 4 mg - Labs Labs: 02/10/18 08:51 02/10/18 08:51
[2018-02-11 07:21] LABS: BASO % 0.4 % (0.0-2.0); EOS # 0.1 K/uL (0.0-0.7); EOS % 2.5 % (0.0-4.0); HEMOGLOBIN 13.2 g/dL (12.0-18.0); LYMPH # 0.7 K/uL (1.0-4.3); LYMPH % 13.9 % (20.0-40.0); MEAN CELL VOLUME 85.5 fL (80.0-94.0); MEAN CORPUSCULAR HEMOGLOBIN 29.1 pg (27.0-31.0); MEAN PLATELET VOLUME 9.4 fL (7.2-11.7); MONO # 0.5 K/uL (0.0-0.8); MONO % 10.4 % (0.0-10.0); NEUT # 3.9 K/uL (1.8-7.0); NEUT % 72.8 % (50.0-75.0); PLATELET COUNT 203 K/uL (130-400); RBC 4.53 Mil/uL (4.40-5.90); RED CELL DISTRIBUTION WIDTH 14.2 % (11.5-14.5); WHITE BLOOD COUNT 5.3 K/uL (4.8-10.8)
--- NOTE | 2018-02-11 07:27 | CP.PCM.PN ---
<MorganAllie - Last Filed: 02/11/18 07:32> Subjective - Date & Time of Evaluation Date of Evaluation: 02/11/18 Time of Evaluation: 07:18 - Subjective Subjective: Surgery Pt seen and examined. c/o sore throat. Pain controlled with ROLL MACHINE OPERATOR. Reports small bowel movement and flatus overnight. Ambulates with help. Voiding. Denies fever , nausea, diarrhea. C/O mild SOB. Pt saturated at 91% overnight. Went back up to 97%. CXR done. Uses IS. Objective - Vital Signs/Intake and Output Vital Signs (last 24 hours): Temp Pulse Resp BP Pulse Ox 99.7 F H 93 H 20 120/78 97 02/10/18 23:30 02/10/18 23:34 02/10/18 23:30 02/10/18 23:30 02/10/18 23:30 Intake and Output: 02/11/18 02/11/18 06:59 18:59 Intake Total 640 Output Total 1715 Balance -1075 - Medications Medications: Current Medications Acetaminophen (Tylenol 325mg Tab) 650 mg PO Q6 PRN PRN Reason: Fever >100.4 F Albuterol Sulfate (Albuterol 0.083% Inhal Ayleen (2.5 Mg/3 Ml) Ud) 2.5 mg INH ONCE PRN PRN Reason: Wheezing Last Admin: 02/11/18 03:42 Dose: 2.5 mg Benzocaine/Menthol (Cepacol Sore Throat) 1 dillon MT Q4 PRN PRN Reason: Sore Throat Last Admin: 02/10/18 23:53 Dose: 1 dillon Famotidine (Pepcid) 20 mg IVP Q12 [facility] Last Admin: 02/10/18 21:38 Dose: 20 mg Heparin Sodium (Porcine) (Heparin) 5,000 units SC Q8 [facility] Last Admin: 02/11/18 06:31 Dose: Not Given Potassium Chloride/Dextrose/Sod Cl (Potassium Chl 20 Meq In D5-1/2ns) 1,000 mls @ 80 mls/hr IV .[id number] [facility] Last Admin: 02/10/18 22:43 Dose: 80 mls/hr Lidocaine (Lidoderm) 1 ea TD DAILY@0800 [facility] Last Admin: 02/10/18 08:26 Dose: 1 ea Ondansetron HCl (Zofran Inj) 4 mg IV Q4 PRN PRN Reason: Nausea/Vomiting Last Admin: 02/08/18 21:54 Dose: 4 mg - Labs Labs: 02/10/18 08:51 02/10/18 08:51 - Constitutional Appears: Non-toxic - Head Exam Head Exam: ATRAUMATIC, NORMAL INSPECTION, NORMOCEPHALIC - Eye Exam Eye Exam: EOMI, Normal appearance, PERRL Pupil Exam: NORMAL ACCOMODATION, PERRL - ENT Exam ENT Exam: Mucous Membranes Moist, Normal Exam - Neck Exam Neck Exam: Full ROM, Normal Inspection. absent: Lymphadenopathy - Respiratory Exam Respiratory Exam: Clear to Ausculation Bilateral, NORMAL BREATHING PATTERN - Cardiovascular Exam Cardiovascular Exam: REGULAR RHYTHM, +S1, +S2. absent: Tachycardia, Clicks, Murmur - GI/Abdominal Exam GI & Abdominal Exam: Distended, Soft, Tenderness, Normal Bowel Sounds. absent: Firm, Guarding, Rigid Additional comments: Incision C/D/I. Stapled. Drain in place. - Exam Exam: NORMAL INSPECTION - Extremities Exam Extremities Exam: Full ROM - Back Exam Back Exam: NORMAL INSPECTION - Neurological Exam Neurological Exam: Alert, Awake, CN II-XII Intact, Normal Gait, Oriented x3 - Psychiatric Exam Psychiatric exam: Normal Affect, Normal Mood - Skin Skin Exam: Dry, Intact, Normal Color, Warm Assessment and Plan - Assessment and Plan (Free Text) Assessment: 72M s/p laparoscopic right hemicolectomy for incomplete polypectomy of right colon for tubular Adenoma POD#5 CXR : awaiting reports AbdX-ray - stable persistent dilated loops of bowel consistent with ileus Urine: 140cc/hr clear yellow Drain: 0cc/8hrs NGT: 200cc/8hrs billious Plan: f/u CXR reads f/u AM labs Replete electrolyte PRN Continue NPO NGT clamped at 730AM today. Will check residual in 4 hrs. Continue pain control Decreased IV fluid to 80cc/hr Benzocaine mouth spray Incentive spirometer Encourage ambulation SCDs Discussed with Dr. Green <Saúl Green - Last Filed: 02/11/18 10:12> Subjective - Date & Time of Evaluation Time of Evaluation: 09:30 Objective - Vital Signs/Intake and Output Vital Signs (last 24 hours): Temp Pulse Resp BP Pulse Ox 98.5 F 100 H 20 121/81 95 02/11/18 08:26 02/11/18 08:26 02/11/18 08:26 02/11/18 08:26 02/11/18 08:26 Intake and Output: 02/11/18 02/11/18 06:59 18:59 Intake Total 640 Output Total 1715 Balance -1075 - Medications Medications: Current Medications Acetaminophen (Tylenol 325mg Tab) 650 mg PO Q6 PRN PRN Reason: Fever >100.4 F Benzocaine/Menthol (Cepacol Sore Throat) 1 dillon MT Q4 PRN PRN Reason: Sore Throat Last Admin: 02/10/18 23:53 Dose: 1 dillon Famotidine (Pepcid) 20 mg IVP Q12 [facility] Last Admin: 02/11/18 09:22 Dose: 20 mg Heparin Sodium (Porcine) (Heparin) 5,000 units SC Q8 [facility] Last Admin: 02/11/18 06:31 Dose: Not Given Hydromorphone/Sodium Chloride (Dilaudid Chaplain Resident) 6 mg IV Q4H PRN; Protocol PRN Reason: Pain, severe (8-10) Potassium Chloride/Dextrose/Sod Cl (Potassium Chl 20 Meq In D5-1/2ns) 1,000 mls @ 80 mls/hr IV .[id number] [facility] Last Admin: 02/11/18 09:27 Dose: Not Given Potassium Phosphate 15 mmole/ (Dextrose) 255 mls @ 42.5 mls/hr IVPB ONCE ONE Stop: 02/11/18 19:29 Lidocaine (Lidoderm) 1 ea TD DAILY@0800 [facility] Last Admin: 02/11/18 08:31 Dose: 1 ea Ondansetron HCl (Zofran Inj) 4 mg IV Q4 PRN PRN Reason: Nausea/Vomiting Last Admin: 02/08/18 21:54 Dose: 4 mg - Labs Labs: 02/11/18 07:10 02/11/18 07:10 Assessment and Plan - Assessment and Plan (Free Text) Plan: Patient seen and examined with resident staff. Agree with above. Patient did not ambulate or get out of bed all day yesterday, significant discomfort because of NGT tube. Did have BM x2 and passing flatus overnight. reports trouble taking full breaths with NGT in place. Still not using ROLL MACHINE OPERATOR much. Abd soft, full, less distended. Post-op ileus improving. Will dc ngt tube this am and consider clears in pm if continues to pass flatus without nausea or vomiting. Must get OOB and ambulate in [place]. Other time should be spent upright in chair. PT on board. Atlectasis on CXR, L effusion and some edema. Respiratory therapy and neb treatments. Will consider further diuresis.
[2018-02-11 07:38] LABS: ALB/GLOB RATIO 1.1 (1.0-2.1); ALBUMIN 2.8 g/dL (3.5-5.0); ALT/SGPT 28 U/L (21-72); AST/SGOT 34 U/L (17-59); BLOOD UREA NITROGEN 16 mg/dL (9-20); CALCIUM 8.1 mg/dl (8.6-10.4); GFR AFRICAN-AMERICAN > 60; GFR NON-AFRICAN AMERICAN > 60
[2018-02-11] MEDS: Lidocaine 5% Patch TD SCH (08:31)
[2018-02-11] MEDS: Potassium Ch 20mEq in D5-1/2NS 1,000 ML IV SCH ×2 (09:27→21:33)
[2018-02-11 11:00] LABS: EOSINOPHIL 1 % (0-4); LYMPHOCYTE 9 % (20-40); MONOCYTE 20 % (0-10); NEUTROPHIL 70 % (50-75); PLATELET ESTIMATE NORMAL (NORMAL); TOTAL CELLS COUNTED 100
--- NOTE | 2018-02-11 11:01 | RAD ---
HISTORY: sob COMPARISON: Portable chest 02/08/2018. FINDINGS: Overlying tubing is seen in the plane of the midline mediastinum and may reflect a nasogastric tube in fact however its tip is poorly characterized in this exam. Is not confirmed entering into the abdomen. LUNGS: Limited residual linear atelectasis in the left base the remaining lung louie clear bilaterally. PLEURA: No significant pleural effusion identified, no pneumothorax apparent. CARDIOVASCULAR: Prominent cardiac silhouette appears stable. No pulmonary vascular derangement. OSSEOUS STRUCTURES: No significant abnormalities. VISUALIZED UPPER ABDOMEN: Normal. OTHER FINDINGS: None. IMPRESSION: Limited linear atelectasis left base with remainder exam reflecting stable prominent appearing cardiac silhouette. No pulmonary vascular congestion or pneumonia appreciable bilaterally.
[2018-02-11] MEDS: Albuterol-Ipratrop 3 mg / 0.5 (3 ml) UD INH SCH ×2 (13:20→20:17)
[2018-02-11] MEDS ORDERED: Potassium Phosphate 15 MMOLE in Dextrose 5% In Water 250 ML IVPB ONE (13:30)
--- NOTE | 2018-02-11 13:41 | CARD ---
APPROVED REPORT EKG Measurement Heart [id number] OH 178P [id number] <Conclusion> Normal sinus rhythm Right superior axis deviation Abnormal ECG
[2018-02-12] MEDS: Albuterol-Ipratrop 3 mg / 0.5 (3 ml) UD INH SCH ×4 (01:11→19:45)
[2018-02-12 07:01] LABS: BASO % 0.3 % (0.0-2.0); EOS # 0.2 K/uL (0.0-0.7); EOS % 4.2 % (0.0-4.0); HEMOGLOBIN 13.4 g/dL (12.0-18.0); LYMPH # 0.7 K/uL (1.0-4.3); LYMPH % 17.1 % (20.0-40.0); MEAN CELL VOLUME 86.2 fL (80.0-94.0); MEAN CORPUSCULAR HEMOGLOBIN 28.9 pg (27.0-31.0); MEAN CORPUSCULAR HGB CONC 33.5 g/dL (33.0-37.0); MONO # 0.6 K/uL (0.0-0.8); MONO % 14.7 % (0.0-10.0); NEUT # 2.6 K/uL (1.8-7.0); NEUT % 63.7 % (50.0-75.0); NRBC % 0.1 % (0.0-2.0); RBC 4.64 Mil/uL (4.40-5.90); RED CELL DISTRIBUTION WIDTH 14.6 % (11.5-14.5); WHITE BLOOD COUNT 4.1 K/uL (4.8-10.8)
[2018-02-12] MEDS: Lidocaine 5% Patch TD SCH (09:00)
--- NOTE | 2018-02-12 12:23 | CP.PCM.PN ---
Subjective - Date & Time of Evaluation Date of Evaluation: 02/12/18 Time of Evaluation: 11:00 - Subjective Subjective: SURGERY NOTE FOR DR. COVINGTON 72M seen and examined out of bed on the chair. Patient states he is well, denies pain, denies nausea,vomiting, fevers or chills. He admits to multiple bouts of bowel movements. He states he has been ambulating daily. Patient has been using incentive spirometer (>1000ml). Objective - Vital Signs/Intake and Output Vital Signs (last 24 hours): Temp Pulse Resp BP Pulse Ox 98.4 F 88 20 119/69 95 02/12/18 08:29 02/12/18 08:29 02/12/18 08:29 02/12/18 08:29 02/12/18 08:29 Intake and Output: 02/12/18 02/12/18 06:59 18:59 Output Total 305 Balance -305 - Medications Medications: Current Medications Acetaminophen (Tylenol 325mg Tab) 650 mg PO Q6 PRN PRN Reason: Fever >100.4 F Albuterol/Ipratropium (Duoneb 3 Mg/0.5 Mg (3 Ml) Ud) 3 ml INH RQ6 [facility] Last Admin: 02/12/18 01:11 Dose: 3 ml Benzocaine/Menthol (Cepacol Sore Throat) 1 dillon MT Q4 PRN PRN Reason: Sore Throat Last Admin: 02/10/18 23:53 Dose: 1 dillon Docusate Sodium (Colace) 100 mg PO DAILY [facility] Stop: 02/15/18 10:01 Last Admin: 02/12/18 09:49 Dose: Not Given Famotidine (Pepcid) 20 mg IVP Q12 [facility] Last Admin: 02/12/18 09:18 Dose: 20 mg Heparin Sodium (Porcine) (Heparin) 5,000 units SC Q8 [facility] Last Admin: 02/12/18 06:01 Dose: 5,000 units Lidocaine (Lidoderm) 1 ea TD DAILY@0800 [facility] Last Admin: 02/12/18 09:00 Dose: 1 ea Ondansetron HCl (Zofran Inj) 4 mg IV Q4 PRN PRN Reason: Nausea/Vomiting Last Admin: 02/08/18 21:54 Dose: 4 mg Tramadol HCl (Ultram) 50 mg PO TID PRN PRN Reason: Pain, moderate (4-7) - Labs Labs: 02/12/18 06:54 02/11/18 07:10 - Constitutional Appears: Well, Non-toxic, No Acute Distress - Respiratory Exam Respiratory Exam: Clear to Ausculation Bilateral, NORMAL BREATHING PATTERN - GI/Abdominal Exam GI & Abdominal Exam: Soft. 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 Peter Monaco, PGY2
[2018-02-12] MEDS: Benzocaine/Menthol (Cepacol) Lozenge MT PRN (13:06)
[2018-02-12 13:26] LABS: BLOOD UREA NITROGEN 16 mg/dL (9-20); CALCIUM 8.3 mg/dl (8.6-10.4); GFR AFRICAN-AMERICAN > 60; GFR NON-AFRICAN AMERICAN > 60
[2018-02-12] MEDS ORDERED: Potassium & Sodium Phosphate PO ONE (18:00)
[2018-02-13] MEDS: Albuterol-Ipratrop 3 mg / 0.5 (3 ml) UD INH SCH ×4 (02:42→19:31)
[2018-02-13] MEDS ORDERED: Magnesium Citrate Oral SOL (300 ml) PO ONE (07:35)
--- NOTE | 2018-02-13 07:43 | CP.PCM.PN ---
<Andrés Monaco - Last Filed: 02/13/18 07:47> Subjective - Date & Time of Evaluation Date of Evaluation: 02/13/18 Time of Evaluation: 06:30 - Subjective Subjective: SURGERY NOTE FOR DR. COVINGTON 72M seen and examined at bedside. Overnight patient had an episode of vomiting around 4AM. Vomitus was approx 350cc of dark bilious content. Patient states he currently feels much better, he denies nausea, vomiting and abdominal pain. He denies fevers or chills. Patients continues to admit to flatus and having small amounts of bowel movements. States he has been having liquid and has not tried solid food. Has been out of bed and ambulating. Objective - Vital Signs/Intake and Output Vital Signs (last 24 hours): Temp Pulse Resp BP Pulse Ox 99.3 F 97 H 20 124/75 92 L 02/12/18 23:30 02/13/18 04:36 02/12/18 23:30 02/12/18 23:30 02/12/18 23:30 Intake and Output: 02/13/18 02/13/18 06:59 18:59 Output Total 1150 Balance -1150 - Medications Medications: Current Medications Acetaminophen (Tylenol 325mg Tab) 650 mg PO Q6 PRN PRN Reason: Fever >100.4 F Albuterol/Ipratropium (Duoneb 3 Mg/0.5 Mg (3 Ml) Ud) 3 ml INH RQ6 [facility] Last Admin: 02/13/18 02:42 Dose: 3 ml Benzocaine/Menthol (Cepacol Sore Throat) 1 dillon MT Q4 PRN PRN Reason: Sore Throat Last Admin: 02/12/18 13:06 Dose: 1 dillon Docusate Sodium (Colace) 100 mg PO DAILY [facility] Stop: 02/15/18 10:01 Last Admin: 02/12/18 09:49 Dose: Not Given Famotidine (Pepcid) 20 mg IVP Q12 [facility] Last Admin: 02/12/18 22:12 Dose: 20 mg Heparin Sodium (Porcine) (Heparin) 5,000 units SC Q8 [facility] Last Admin: 02/13/18 05:35 Dose: 5,000 units Lidocaine (Lidoderm) 1 ea TD DAILY@0800 [facility] Last Admin: 02/12/18 09:00 Dose: 1 ea Ondansetron HCl (Zofran Inj) 4 mg IV Q4 PRN PRN Reason: Nausea/Vomiting Last Admin: 02/08/18 21:54 Dose: 4 mg Tramadol HCl (Ultram) 50 mg PO TID PRN PRN Reason: Pain, moderate (4-7) Last Admin: 02/12/18 12:51 Dose: 50 mg - Labs Labs: 02/12/18 06:54 02/12/18 06:51 - Constitutional Appears: Non-toxic, No Acute Distress - Respiratory Exam Respiratory Exam: Clear to Ausculation Bilateral, NORMAL BREATHING PATTERN Additional comments: Incentive spirometer - 1250ml - Cardiovascular Exam Cardiovascular Exam: REGULAR RHYTHM, +S1, +S2 - GI/Abdominal Exam GI & Abdominal Exam: Soft. 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 Peter Monaco, PGY2 <Saúl Covington - Last Filed: 02/13/18 23:31> Objective - Vital Signs/Intake and Output Vital Signs (last 24 hours): Temp Pulse Resp BP Pulse Ox 98.2 F 95 H 20 107/70 93 L 02/13/18 16:03 02/13/18 16:03 02/13/18 16:03 02/13/18 16:03 02/13/18 16:03 Intake and Output: 02/13/18 02/14/18 18:59 06:59 Output Total 650 Balance -650 - Medications Medications: Current Medications Acetaminophen (Tylenol 325mg Tab) 650 mg PO Q6 PRN PRN Reason: Fever >100.4 F Acetaminophen (Tylenol 650 Mg Supp) 650 mg MT Q4H PRN PRN Reason: Fever >100.4 F Albuterol/Ipratropium (Duoneb 3 Mg/0.5 Mg (3 Ml) Ud) 3 ml INH RQ6 [facility] Last Admin: 02/13/18 19:31 Dose: Not Given Benzocaine/Menthol (Cepacol Sore Throat) 1 dillon MT Q4 PRN PRN Reason: Sore Throat Last Admin: 02/12/18 13:06 Dose: 1 dillon Docusate Sodium (Colace) 100 mg PO DAILY [facility] Stop: 02/15/18 10:01 Last Admin: 02/13/18 09:27 Dose: Not Given Famotidine (Pepcid) 20 mg PO Q12 [facility] Heparin Sodium (Porcine) (Heparin) 5,000 units SC Q8 [facility] Last Admin: 02/13/18 22:49 Dose: 5,000 units Hydromorphone HCl (Dilaudid) 0.5 mg IVP Q4H PRN PRN Reason: Pain, moderate (4-7) Sodium Chloride (Sodium Chloride 0.9%) 1,000 mls @ 100 mls/hr IV .Q10H [facility] Last Admin: 02/13/18 19:52 Dose: 100 mls/hr Lidocaine (Lidoderm) 1 ea TD DAILY@0800 [facility] Last Admin: 02/13/18 08:13 Dose: 1 ea Ondansetron HCl (Zofran Inj) 4 mg IV Q4 PRN PRN Reason: Nausea/Vomiting Last Admin: 02/13/18 12:11 Dose: 4 mg Pantoprazole Sodium (Protonix Inj) 40 mg IVP DAILY [facility] Tramadol HCl (Ultram) 50 mg PO TID PRN PRN Reason: Pain, moderate (4-7) Last Admin: 02/12/18 12:51 Dose: 50 mg - Labs Labs: 02/13/18 08:00 02/13/18 08:00 Assessment and Plan - Assessment and Plan (Free Text) Plan: Patient was seen and examined at bedside with the resident staff later this evening around 6:54 PM. He has had a couple episodes of spontaneous bilious emesis after a trial of liquid full diet. He continues to have either ileus or obstruction after removal of NG tube a couple of days ago however he is passing gas and having bowel movements although because of his persistent nausea and vomiting we are going to obtain a CT abdomen pelvis with p.o. contrast to rule out any ileus obstruction leak or fluid collection. He continues to otherwise look well, not toxic appearing. white blood cell count is normal and his hemodynamic status is normal his abdomen is soft not exquisitely tender and continues to be distended no more so than it was the last couple of days. I suspect he has continued postop ileus but we will proceed with the plan above I discussed the plan of care at length with the patient and the patient's daughter at the bedside. We will place an NG tube and administer the oral contrast through the NG tube
[2018-02-13] MEDS: Lidocaine 5% Patch TD SCH (08:13)
[2018-02-13 08:28] LABS: ALB/GLOB RATIO 1.1 (1.0-2.1); ALT/SGPT 28 U/L (21-72); AST/SGOT 30 U/L (17-59); BLOOD UREA NITROGEN 16 mg/dL (9-20); CALCIUM 8.4 mg/dl (8.6-10.4); GFR AFRICAN-AMERICAN > 60; GFR NON-AFRICAN AMERICAN > 60
[2018-02-13 08:50] LABS: BASO % 0.3 % (0.0-2.0); EOS # 0.1 K/uL (0.0-0.7); HEMOGLOBIN 13.2 g/dL (12.0-18.0); LYMPH # 0.7 K/uL (1.0-4.3); LYMPH % 16.1 % (20.0-40.0); MEAN CELL VOLUME 85.3 fL (80.0-94.0); MEAN CORPUSCULAR HEMOGLOBIN 28.4 pg (27.0-31.0); MEAN CORPUSCULAR HGB CONC 33.3 g/dL (33.0-37.0); MEAN PLATELET VOLUME 9.3 fL (7.2-11.7); MONO # 0.6 K/uL (0.0-0.8); MONO % 12.2 % (0.0-10.0); NEUT # 3.2 K/uL (1.8-7.0); NEUT % 69.4 % (50.0-75.0); NRBC % 0.1 % (0.0-2.0); RBC 4.65 Mil/uL (4.40-5.90); RED CELL DISTRIBUTION WIDTH 14.6 % (11.5-14.5); WHITE BLOOD COUNT 4.6 K/uL (4.8-10.8)
[2018-02-13] MEDS ORDERED: Lidocaine 2% Jelly (Uro-Jet) TOP ONE (18:52)
[2018-02-13] MEDS: Sodium Chloride 0.9% 1,000 ML IV SCH (19:52)
[2018-02-13] MEDS ORDERED: Barium Sulfate Susp 2.1% w/v, 2.0% w/w 450 mL Bottle PO ONE ×2 (19:55→20:34)
--- NOTE | 2018-02-13 23:58 | CT ---
EXAM: CT Abdomen and Pelvis With Intravenous Contrast CLINICAL HISTORY: 72 years old, male; Signs and symptoms; Nausea; Prior surgery; Surgery date: 3-7 days post-operative; Surgery type: Lap right hemicolectomy; Additional info: 7 days post- op lap right hemicolectomy TECHNIQUE: Axial computed tomography images of the abdomen and pelvis with intravenous contrast. All CT scans at this facility use one or more dose reduction techniques, viz.: automated exposure control; ma/kV adjustment per patient size (including targeted exams where dose is matched to indication; i.e. head); or iterative reconstruction technique. Coronal reformatted images were created and reviewed. CONTRAST: 100 mL of VISIPAQUE 320 administered intravenously. COMPARISON: No relevant prior studies available. FINDINGS: Lung bases: Streaky bibasilar opacities secondary to atelectasis or infiltrate. ABDOMEN: Liver: The liver is within normal limits for this noncontrast study. Gallbladder and bile ducts: Mildly distended gallbladder. No calcified stones. No ductal dilation. Pancreas: There is diffuse, benign fatty infiltration of the pancreas. Spleen: Unremarkable. No splenomegaly. Adrenals: Unremarkable. No mass. Kidneys and ureters: Unremarkable. No solid mass. No hydronephrosis. Stomach and bowel: There are postsurgical changes consistent with recent right hemicolectomy and ileocolonic anastomosis. There is a moderate amount of inflammatory stranding in the mesentery surrounding the ileocolonic anastomosis. There is a collection of mottled gas in the region of the colonic resection and suture material. 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 The fistulous tract connects to the mottled gas in the colon. The caudal aspect of the fistulous tract extends to the right lateral abdominal wall and skin. The cephalad portion of the fistulous tract extends to the diaphragm anterior to the liver. A moderate amount of inflammatory stranding and trace mesenteric fluid surrounds the ileocolonic anastomosis. Moderate to severe diffuse dilatation of the proximal and mid bowel which is filled with fluid and air. There is a transition point in the mid abdomen with decompressed distal small bowel. PELVIS: Bladder: Trace amount of gas in the bladder probably secondary to previous instrumentation. Bladder is otherwise unremarkable. No mass. Reproductive: Unremarkable as visualized. ABDOMEN and PELVIS: Intraperitoneal space: No significant fluid collection. Bones/joints: No acute fracture. No dislocation. Soft tissues: Midline abdominal wall incision with overlying skin wes. Vasculature: Unremarkable. No abdominal aortic aneurysm. Lymph nodes: Unremarkable. No enlarged lymph nodes. IMPRESSION: Status post right hemicolectomy with ileocolonic anastomosis. 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 The caudal portion of the fistulous tract extends to the right lateral abdominal wall and the cephalad portion extends to the diaphragm. No focal fluid collection or drainable abscess. Moderate to severe dilatation of the proximal mid small bowel secondary to severe postoperative ileus or small bowel obstruction. Streaky bibasilar opacities secondary to atelectasis or infiltrate.
[2018-02-14] MEDS: Albuterol-Ipratrop 3 mg / 0.5 (3 ml) UD INH SCH ×4 (01:15→20:07)
[2018-02-14] MEDS: HYDROmorphone 0.5 mg/0.5 ml ISec IVP PRN ×2 (03:50→21:55)
[2018-02-14] MEDS: Sodium Chloride 0.9% 1,000 ML IV SCH ×2 (04:51→06:10)
[2018-02-14] MEDS: Lidocaine 5% Patch TD SCH (08:06)
--- NOTE | 2018-02-14 08:08 | CP.PCM.PN ---
<MorganAllie - Last Filed: 02/14/18 08:05> Subjective - Date & Time of Evaluation Date of Evaluation: 02/14/18 Time of Evaluation: 08:05 - Subjective Subjective: Surgery Pt seen and examined with attending. Pt had large amount of billious emesis yesterday. NGT placed. output 2L bilious. CT taken. + ambulate, + BM, + void. Objective - Vital Signs/Intake and Output Vital Signs (last 24 hours): Temp Pulse Resp BP Pulse Ox 98.6 F 106 H 20 117/76 94 L 02/14/18 07:00 02/14/18 07:00 02/14/18 07:00 02/14/18 07:00 02/14/18 07:00 Intake and Output: 02/14/18 02/14/18 06:59 18:59 Intake Total 1050 Output Total 2950 Balance -1900 - Medications Medications: Current Medications Acetaminophen (Tylenol 325mg Tab) 650 mg PO Q6 PRN PRN Reason: Fever >100.4 F Albuterol/Ipratropium (Duoneb 3 Mg/0.5 Mg (3 Ml) Ud) 3 ml INH RQ6 [facility] Last Admin: 02/14/18 01:15 Dose: Not Given Benzocaine/Menthol (Cepacol Sore Throat) 1 dillon MT Q4 PRN PRN Reason: Sore Throat Last Admin: 02/12/18 13:06 Dose: 1 dillon Docusate Sodium (Colace) 100 mg PO DAILY [facility] Stop: 02/15/18 10:01 Last Admin: 02/13/18 09:27 Dose: Not Given Famotidine (Pepcid) 20 mg PO Q12 [facility] Last Admin: 02/13/18 23:45 Dose: Not Given Heparin Sodium (Porcine) (Heparin) 5,000 units SC Q8 [facility] Last Admin: 02/14/18 06:05 Dose: 5,000 units Hydromorphone HCl (Dilaudid) 0.5 mg IVP Q4H PRN PRN Reason: Pain, moderate (4-7) Last Admin: 02/14/18 03:50 Dose: 0.5 mg Sodium Chloride (Sodium Chloride 0.9%) 1,000 mls @ 100 mls/hr IV .Q10H [facility] Last Admin: 02/14/18 06:10 Dose: 100 mls/hr Lidocaine (Lidoderm) 1 ea TD DAILY@0800 [facility] Last Admin: 02/13/18 08:13 Dose: 1 ea Metoclopramide HCl (Reglan) 5 mg IVP Q6 [facility] Last Admin: 02/14/18 06:05 Dose: 5 mg Ondansetron HCl (Zofran Inj) 4 mg IV Q4 PRN PRN Reason: Nausea/Vomiting Last Admin: 02/13/18 12:11 Dose: 4 mg Pantoprazole Sodium (Protonix Inj) 40 mg IVP DAILY [facility] Tramadol HCl (Ultram) 50 mg PO TID PRN PRN Reason: Pain, moderate (4-7) Last Admin: 02/12/18 12:51 Dose: 50 mg - Labs Labs: 02/13/18 08:00 02/13/18 08:00 - Constitutional Appears: In Acute Distress - Head Exam Head Exam: ATRAUMATIC, NORMAL INSPECTION, NORMOCEPHALIC - Eye Exam Eye Exam: EOMI, Normal appearance, PERRL Pupil Exam: NORMAL ACCOMODATION, PERRL - ENT Exam ENT Exam: Mucous Membranes Moist, Normal Exam - Neck Exam Neck Exam: Full ROM, Normal Inspection. absent: Lymphadenopathy - Respiratory Exam Respiratory Exam: Clear to Ausculation Bilateral. absent: Wheezes, Respiratory Distress - Cardiovascular Exam Cardiovascular Exam: Tachycardia, REGULAR RHYTHM, +S1, +S2. absent: Murmur - GI/Abdominal Exam GI & Abdominal Exam: Soft, Normal Bowel Sounds. absent: Distended, Firm, Guarding, Rigid, Tenderness - Extremities Exam Extremities Exam: Full ROM, Normal Capillary Refill, Normal Inspection. absent : Joint Swelling, Pedal Edema - Back Exam Back Exam: NORMAL INSPECTION - Neurological Exam Neurological Exam: Alert, Awake, CN II-XII Intact, Normal Gait, Oriented x3 - Psychiatric Exam Psychiatric exam: Normal Affect, Normal Mood - Skin Skin Exam: Dry, Intact, Normal Color, Warm Assessment and Plan - Assessment and Plan (Free Text) Assessment: POD 8 s/p R hemicolectomy : post op ileus -US for DVT -NPO -NGT -PPN -ambulate -IS DW Dr. Green <Saúl Green - Last Filed: 02/14/18 08:33> Objective - Vital Signs/Intake and Output Vital Signs (last 24 hours): Temp Pulse Resp BP Pulse Ox 98.6 F 106 H 20 117/76 94 L 02/14/18 07:00 02/14/18 07:00 02/14/18 07:00 02/14/18 07:00 02/14/18 07:00 Intake and Output: 02/14/18 02/14/18 06:59 18:59 Intake Total 1050 Output Total 2950 Balance -1900 - Medications Medications: Current Medications Acetaminophen (Tylenol 325mg Tab) 650 mg PO Q6 PRN PRN Reason: Fever >100.4 F Albuterol/Ipratropium (Duoneb 3 Mg/0.5 Mg (3 Ml) Ud) 3 ml INH RQ6 [facility] Last Admin: 02/14/18 07:40 Dose: 3 ml Benzocaine/Menthol (Cepacol Sore Throat) 1 dillon MT Q4 PRN PRN Reason: Sore Throat Last Admin: 02/12/18 13:06 Dose: 1 dillon Docusate Sodium (Colace) 100 mg PO DAILY [facility] Stop: 02/15/18 10:01 Last Admin: 02/13/18 09:27 Dose: Not Given Famotidine (Pepcid) 20 mg PO Q12 [facility] Last Admin: 02/13/18 23:45 Dose: Not Given Heparin Sodium (Porcine) (Heparin) 5,000 units SC Q8 [facility] Last Admin: 02/14/18 06:05 Dose: 5,000 units Hydromorphone HCl (Dilaudid) 0.5 mg IVP Q4H PRN PRN Reason: Pain, moderate (4-7) Last Admin: 02/14/18 03:50 Dose: 0.5 mg Sodium Chloride (Sodium Chloride 0.9%) 1,000 mls @ 100 mls/hr IV .Q10H [facility] Last Admin: 02/14/18 06:10 Dose: 100 mls/hr Lidocaine (Lidoderm) 1 ea TD DAILY@0800 [facility] Last Admin: 02/14/18 08:06 Dose: 1 ea Metoclopramide HCl (Reglan) 5 mg IVP Q6 [facility] Last Admin: 02/14/18 06:05 Dose: 5 mg Ondansetron HCl (Zofran Inj) 4 mg IV Q4 PRN PRN Reason: Nausea/Vomiting Last Admin: 02/13/18 12:11 Dose: 4 mg Pantoprazole Sodium (Protonix Inj) 40 mg IVP DAILY [facility] Tramadol HCl (Ultram) 50 mg PO TID PRN PRN Reason: Pain, moderate (4-7) Last Admin: 02/12/18 12:51 Dose: 50 mg - Labs Labs: 02/14/18 08:13 02/13/18 08:00 Assessment and Plan - Assessment and Plan (Free Text) Plan: Patient seen and examined with resident staff. CT study overnight reviewed and discussed with V rads radiologist. Early post-op sbo likely. No leak or intrabdominal fluid collections/abscess. Patient subjectively feels much better since NGT passing some flatus. Had 2 liquid bm's overnight. Abd soft, less distended. No tenderness. Cont. NPO. NGT LIWS. Will start PPN. Does complain of some difficulty breathing. Has basilar atelectasis on scan. Also has history of LEO, and PE. Iodine allergy. Will get chest PT and nebs, LE Duplex to r/o VTE.
[2018-02-14 08:25] LABS: BASO % 0.2 % (0.0-2.0); HEMOGLOBIN 14.1 g/dL (12.0-18.0); LYMPH # 0.7 K/uL (1.0-4.3); LYMPH % 7.7 % (20.0-40.0); MEAN CELL VOLUME 86.1 fL (80.0-94.0); MEAN CORPUSCULAR HEMOGLOBIN 28.9 pg (27.0-31.0); MEAN CORPUSCULAR HGB CONC 33.6 g/dL (33.0-37.0); MEAN PLATELET VOLUME 9.7 fL (7.2-11.7); MONO # 0.6 K/uL (0.0-0.8); MONO % 6.9 % (0.0-10.0); NEUT # 7.4 K/uL (1.8-7.0); NEUT % 85.2 % (50.0-75.0); PLATELET COUNT 309 K/uL (130-400); RBC 4.86 Mil/uL (4.40-5.90); RED CELL DISTRIBUTION WIDTH 14.5 % (11.5-14.5); WHITE BLOOD COUNT 8.7 K/uL (4.8-10.8)
[2018-02-14 08:40] LABS: ALB/GLOB RATIO 1.1 (1.0-2.1); ALBUMIN 3.2 g/dL (3.5-5.0); ALT/SGPT 29 U/L (21-72); AST/SGOT 38 U/L (17-59); BLOOD UREA NITROGEN 26 mg/dL (9-20); CALCIUM 7.9 mg/dl (8.6-10.4); GFR AFRICAN-AMERICAN > 60; GFR NON-AFRICAN AMERICAN > 60
[2018-02-14 08:50] LABS: BANDS 29 % (0-2); LYMPHOCYTE 11 % (20-40); MONOCYTE 9 % (0-10); NEUTROPHIL 49 % (50-75); PLATELET ESTIMATE NORMAL (NORMAL); REACTIVE LYMPHOCYTES 2 % (0-0); TOTAL CELLS COUNTED 100
[2018-02-14 08:51] LABS: TOXIC GRANULATION PRESENT
[2018-02-14 08:52] LABS: LARGE PLATELETS PRESENT
[2018-02-14] MEDS: Piperacill/Tazo 3.375gm in Dex 3.375 GM/50 ML BAG IVPB SCH ×3 (10:33→21:38)
--- NOTE | 2018-02-14 13:10 | VASCLAB ---
PROCEDURE: Lower Extremity Venous Duplex Exam. HISTORY: r/o DVT PAIN IN LEGS PRIORS: None. TECHNIQUE: Bilateral common femoral, femoral, popliteal and posterior tibial, peroneal and great saphenous veins were evaluated. Flow was assessed with color Doppler, compressibility, assessment of phasic flow and augmentation response. Report prepared by Kim Neal, ROMINA, RVS FINDINGS: RIGHT: 1. Common Femoral Vein: 1.1. Compressibility - Fully compressible: Thrombus - None : Flow - Phasic: Augmentation -Normal: Reflux - None. 2. Femoral Vein: 2.1. Compressibility - Fully compressible: Thrombus - None : Flow - Phasic: Augmentation -Normal: Reflux - None. 3. Popliteal Vein: 3.1. Compressibility - Fully compressible: Thrombus - None : Flow - Phasic: Augmentation -Normal: Reflux - None. 4. Posterior Tibial Vein: 4.1. Compressibility - Fully compressible: Thrombus - None: Flow - Phasic: Augmentation -Normal: Reflux - None. 5. Peroneal Vein: 5.1. Compressibility - Fully compressible: Thrombus - None: Flow - Phasic: Augmentation -Normal: Reflux - None. 6. Great Saphenous Vein: 6.1. Compressibility - Fully compressible: Thrombus - None: Flow - Phasic: Augmentation - Normal: Reflux - None. LEFT: 1. Common Femoral Vein: 1.1. Compressibility - Fully compressible: Thrombus - None: Flow - Phasic: Augmentation -Normal: Reflux - None. 2. Femoral Vein: 2.1. Compressibility - Fully compressible: Thrombus - None: Flow - Phasic: Augmentation -Normal: Reflux - None. 3. Popliteal Vein: 3.1. Compressibility - Fully compressible: Thrombus - None : Flow - Phasic: Augmentation -Normal: Reflux - None. 4. Posterior Tibial Vein: 4.1. Compressibility - Fully compressible: Thrombus - None: Flow - Phasic: Augmentation -Normal: Reflux - None. 5. Peroneal Vein: 5.1. Compressibility - Fully compressible: Thrombus - None: Flow - Phasic: Augmentation -Normal: Reflux - None. 6. Great Saphenous Vein: 6.1. Compressibility - Fully compressible: Thrombus - None: Flow - Phasic: Augmentation - Normal: Reflux - None. OTHER FINDINGS: Right: None significant. Left: None significant. IMPRESSION: Right: No evidence of deep or superficial vein thrombosis of the right lower extremity. Normal valve function noted of the right side. Left: No evidence of deep or superficial vein thrombosis of the left lower extremity. Normal valve function noted of the left side.
[2018-02-14] MEDS ORDERED: PPN#1 IV ONE (18:00)
[2018-02-14] MEDS ORDERED: Fat Emulsion 20% IV 500 ML IV SCH (18:00)
[2018-02-15] MEDS: Albuterol-Ipratrop 3 mg / 0.5 (3 ml) UD INH SCH ×4 (01:18→19:29)
[2018-02-15] MEDS: Piperacill/Tazo 3.375gm in Dex 3.375 GM/50 ML BAG IVPB SCH ×4 (03:59→22:05)
[2018-02-15] MEDS: HYDROmorphone 0.5 mg/0.5 ml ISec IVP PRN ×3 (03:59→23:12)
[2018-02-15 07:48] LABS: BASO % 0.3 % (0.0-2.0); EOS % 0.2 % (0.0-4.0); HEMOGLOBIN 14.1 g/dL (12.0-18.0); LYMPH # 0.9 K/uL (1.0-4.3); LYMPH % 10.2 % (20.0-40.0); MEAN CELL VOLUME 85.2 fL (80.0-94.0); MEAN CORPUSCULAR HEMOGLOBIN 28.7 pg (27.0-31.0); MEAN CORPUSCULAR HGB CONC 33.7 g/dL (33.0-37.0); MEAN PLATELET VOLUME 9.8 fL (7.2-11.7); MONO # 0.6 K/uL (0.0-0.8); MONO % 7.1 % (0.0-10.0); NEUT # 6.9 K/uL (1.8-7.0); NEUT % 82.2 % (50.0-75.0); RBC 4.9 Mil/uL (4.40-5.90); RED CELL DISTRIBUTION WIDTH 14.5 % (11.5-14.5); WHITE BLOOD COUNT 8.4 K/uL (4.8-10.8)
[2018-02-15 08:09] LABS: ALB/GLOB RATIO 1.1 (1.0-2.1); ALBUMIN 3.3 g/dL (3.5-5.0); CALCIUM 8.1 mg/dl (8.6-10.4)
[2018-02-15] MEDS: Lidocaine 5% Patch TD SCH (08:34)
--- NOTE | 2018-02-15 09:56 | CP.PCM.PN ---
Subjective - Date & Time of Evaluation Date of Evaluation: 02/15/18 Time of Evaluation: 09:54 - Subjective Subjective: Surgery: Dr. Carmichael (covering for Dr. Green) Pt seen and examined. No acute overnight events. Pt states he feels well & pain is well controlled. He admits to having a small BM this morning & +flatus. He denies N/V, F/C. Pt is ambulating around the hallway & denies any other complaints at this time. Objective - Vital Signs/Intake and Output Vital Signs (last 24 hours): Temp Pulse Resp BP Pulse Ox 97.7 F 86 20 110/67 91 L 02/15/18 07:46 02/15/18 07:46 02/15/18 07:46 02/15/18 07:46 02/15/18 07:46 Intake and Output: 02/15/18 02/15/18 06:59 18:59 Intake Total 740 Output Total 2400 Balance -1660 - Medications Medications: Current Medications Acetaminophen (Tylenol 325mg Tab) 650 mg PO Q6 PRN PRN Reason: Fever >100.4 F Albuterol/Ipratropium (Duoneb 3 Mg/0.5 Mg (3 Ml) Ud) 3 ml INH RQ6 ANN Last Admin: 02/15/18 08:04 Dose: 3 ml Benzocaine/Menthol (Cepacol Sore Throat) 1 dillon MT Q4 PRN PRN Reason: Sore Throat Last Admin: 02/12/18 13:06 Dose: 1 dillon Docusate Sodium (Colace) 100 mg PO DAILY [facility] Stop: 02/15/18 10:01 Last Admin: 02/13/18 09:27 Dose: Not Given Famotidine (Pepcid) 20 mg PO Q12 ANN Last Admin: 02/13/18 23:45 Dose: Not Given Heparin Sodium (Porcine) (Heparin) 5,000 units SC Q8 [facility] Last Admin: 02/15/18 05:27 Dose: 5,000 units Hydromorphone HCl (Dilaudid) 0.5 mg IVP Q4H PRN PRN Reason: Pain, moderate (4-7) Last Admin: 02/15/18 03:59 Dose: 0.5 mg Piperacillin Sod/Tazobactam Sod (Zosyn 3.375 Gm Iv Premix) 3.375 gm in 50 mls @ 100 mls/hr IVPB Q6H [facility] PRN Reason: Protocol Last Admin: 02/15/18 03:59 Dose: 100 mls/hr Sodium Chloride 15 meq/Potassium Chloride 30 meq/Magnesium Sulfate 3 meq/ Calcium Gluconate 4.5 meq/Multivitamins/Vitamin C 10 ml/Amino Acids 1,039.1663 mls @ 63 mls/hr IV .[id number] Stop: 02/15/18 10:29 Last Admin: 02/15/18 04:07 Dose: 63 mls/hr Sodium Chloride 15 meq/Potassium Chloride 30 meq/Magnesium Sulfate 3 meq/ Calcium Gluconate 4.5 meq/Amino Acids 1,029.1663 mls @ 63 mls/hr IV .[id number] [facility] Stop: 02/15/18 17:59 Fat Emulsion Intravenous (Intralipid 20%) 500 mls @ 60 mls/hr IV QOD@1800 [facility] Last Admin: 02/14/18 18:08 Dose: 60 mls/hr Sodium Chloride 15 meq/Potassium Chloride 30 meq/Magnesium Sulfate 3 meq/ Calcium Gluconate 4.5 meq/Multivitamins/Vitamin C 10 ml/Amino Acids 1,039.1663 mls @ 63 mls/hr IV .[id number] ONE Stop: 02/16/18 10:29 Sodium Chloride 15 meq/Potassium Chloride 30 meq/Magnesium Sulfate 3 meq/ Calcium Gluconate 4.5 meq/Amino Acids 1,029.1663 mls @ 63 mls/hr IV .[id number] [facility] Stop: 02/16/18 17:59 Lidocaine (Lidoderm) 1 ea TD DAILY@0800 [facility] Last Admin: 02/15/18 08:34 Dose: 1 ea Metoclopramide HCl (Reglan) 5 mg IVP Q6 [facility] Last Admin: 02/15/18 05:27 Dose: 5 mg Ondansetron HCl (Zofran Inj) 4 mg IV Q4 PRN PRN Reason: Nausea/Vomiting Last Admin: 02/13/18 12:11 Dose: 4 mg Pantoprazole Sodium (Protonix Inj) 40 mg IVP DAILY [facility] Last Admin: 02/14/18 10:33 Dose: 40 mg Tramadol HCl (Ultram) 50 mg PO TID PRN PRN Reason: Pain, moderate (4-7) Last Admin: 02/12/18 12:51 Dose: 50 mg - Labs Labs: 02/15/18 07:34 02/15/18 07:34 - Constitutional Appears: Well, No Acute Distress - Head Exam Head Exam: ATRAUMATIC, NORMOCEPHALIC - Eye Exam Eye Exam: Normal appearance - ENT Exam ENT Exam: Mucous Membranes Moist Additional comments: NGT in place with bilious drainage; 700cc/12hrs. - Respiratory Exam Respiratory Exam: NORMAL BREATHING PATTERN - Cardiovascular Exam Cardiovascular Exam: RRR - GI/Abdominal Exam GI & Abdominal Exam: Soft. absent: Distended, Guarding, Tenderness, Rebound - Extremities Exam Extremities Exam: Full ROM - Neurological Exam Neurological Exam: Alert, Awake, Oriented x3 - Skin Skin Exam: Dry, Warm Assessment and Plan - Assessment and Plan (Free Text) Assessment: 72M s/p R Laparoscopic Hemicolectomy; POD#9 Plan: - will try clamping trials with NGT & see how pt tolerates - cont PPN in the meantime - cont IV ABX - US b/l LE negative for DVT - Encourage ambulation & incentive spirometry - DVT PPx - d/w Dr. Amol Stapleton, PGY-3
[2018-02-15] MEDS ORDERED: PPN#2 IV SCH (10:30)
[2018-02-15] MEDS ORDERED: PPN#3 IV SCH (18:00)
[2018-02-15] MEDS ORDERED: PPN#3 IV ONE (18:00)
[2018-02-16] MEDS: Albuterol-Ipratrop 3 mg / 0.5 (3 ml) UD INH SCH ×3 (01:13→13:48)
[2018-02-16] MEDS: HYDROmorphone 0.5 mg/0.5 ml ISec IVP PRN ×2 (03:53→12:59)
[2018-02-16] MEDS: Piperacill/Tazo 3.375gm in Dex 3.375 GM/50 ML BAG IVPB SCH (03:56)
[2018-02-16] MEDS: PPN#4 IV SCH ×2 (06:08→13:27)
[2018-02-16] MEDS: Lidocaine 5% Patch TD SCH (08:58)
--- NOTE | 2018-02-16 09:00 | CP.PCM.PN ---
Subjective - Date & Time of Evaluation Date of Evaluation: 02/16/18 Time of Evaluation: 07:00 - Subjective Subjective: SURGERY NOTE FOR DR. HAMMAD COVINGTON 72M seen and examined at bedside. Patient resting. Denies abdominal pain, denies nausea and vomiting, admits to discomfort from NGT but tolerable. Denies fevers or chills. He continues to pass flatus and have bowel movements. Has been ambulating. Objective - Vital Signs/Intake and Output Vital Signs (last 24 hours): Temp Pulse Resp BP Pulse Ox 98.2 F 90 20 111/69 97 02/15/18 23:30 02/15/18 23:30 02/15/18 23:30 02/15/18 23:30 02/15/18 23:30 Intake and Output: 02/16/18 02/16/18 06:59 18:59 Intake Total 740 Output Total 991 Balance -251 - Medications Medications: Current Medications Acetaminophen (Tylenol 325mg Tab) 650 mg PO Q6 PRN PRN Reason: Fever >100.4 F Albuterol/Ipratropium (Duoneb 3 Mg/0.5 Mg (3 Ml) Ud) 3 ml INH RQ6 [facility] Last Admin: 02/16/18 01:13 Dose: Not Given Benzocaine/Menthol (Cepacol Sore Throat) 1 dillon MT Q4 PRN PRN Reason: Sore Throat Last Admin: 02/12/18 13:06 Dose: 1 dillon Famotidine (Pepcid) 20 mg PO Q12 [facility] Last Admin: 02/15/18 22:05 Dose: 20 mg Heparin Sodium (Porcine) (Heparin) 5,000 units SC Q8 [facility] Last Admin: 02/16/18 06:15 Dose: 5,000 units Hydromorphone HCl (Dilaudid) 0.5 mg IVP Q4H PRN PRN Reason: Pain, moderate (4-7) Last Admin: 02/16/18 03:53 Dose: 0.5 mg Fat Emulsion Intravenous (Intralipid 20%) 500 mls @ 60 mls/hr IV QOD@1800 [facility] Last Admin: 02/14/18 18:08 Dose: 60 mls/hr Sodium Chloride 15 meq/Potassium Chloride 30 meq/Potassium Phosphate 15 mmole/ Magnesium Sulfate 1.5 meq/Calcium Gluconate 4.5 meq/Amino Acids 1,033.7968 mls @ 83 mls/hr IV .[id number] [facility] Stop: 02/16/18 17:59 Last Admin: 02/16/18 06:08 Dose: Not Given Lidocaine (Lidoderm) 1 ea TD DAILY@0800 [facility] Last Admin: 02/15/18 08:34 Dose: 1 ea Metoclopramide HCl (Reglan) 5 mg IVP Q6 [facility] Last Admin: 02/16/18 06:15 Dose: 5 mg Ondansetron HCl (Zofran Inj) 4 mg IV Q4 PRN PRN Reason: Nausea/Vomiting Last Admin: 02/13/18 12:11 Dose: 4 mg Pantoprazole Sodium (Protonix Inj) 40 mg IVP DAILY [facility] Last Admin: 02/15/18 10:12 Dose: 40 mg Tramadol HCl (Ultram) 50 mg PO TID PRN PRN Reason: Pain, moderate (4-7) Last Admin: 02/12/18 12:51 Dose: 50 mg - Labs Labs: 02/15/18 07:34 02/15/18 07:34 - Constitutional Appears: Non-toxic, No Acute Distress - Respiratory Exam Respiratory Exam: Clear to Ausculation Bilateral, NORMAL BREATHING PATTERN - Cardiovascular Exam Cardiovascular Exam: REGULAR RHYTHM, +S1, +S2 - GI/Abdominal Exam GI & Abdominal Exam: Soft. 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 Peter Monaco, PGY2
[2018-02-16 09:06] LABS: BASO % 0.2 % (0.0-2.0); EOS # 0.1 K/uL (0.0-0.7); EOS % 0.9 % (0.0-4.0); HEMOGLOBIN 14.3 g/dL (12.0-18.0); LYMPH # 0.8 K/uL (1.0-4.3); LYMPH % 10.7 % (20.0-40.0); MEAN CELL VOLUME 85.6 fL (80.0-94.0); MEAN CORPUSCULAR HEMOGLOBIN 28.4 pg (27.0-31.0); MEAN CORPUSCULAR HGB CONC 33.2 g/dL (33.0-37.0); MEAN PLATELET VOLUME 9.8 fL (7.2-11.7); MONO # 0.7 K/uL (0.0-0.8); MONO % 9.8 % (0.0-10.0); NEUT # 5.7 K/uL (1.8-7.0); NEUT % 78.4 % (50.0-75.0); NRBC % 0.1 % (0.0-2.0); RBC 5.04 Mil/uL (4.40-5.90); RED CELL DISTRIBUTION WIDTH 14.8 % (11.5-14.5); WHITE BLOOD COUNT 7.3 K/uL (4.8-10.8)
[2018-02-16 09:28] LABS: ALB/GLOB RATIO 1.2 (1.0-2.1); ALBUMIN 3.6 g/dL (3.5-5.0); CALCIUM 8.3 mg/dl (8.6-10.4)
[2018-02-16] MEDS ORDERED: PPN#4 IV SCH (10:30)
[2018-02-16] MEDS: Sodium Chloride 0.9% 1,000 ML IV SCH (11:24)
[2018-02-16] MEDS: Piperacillin/Tazobact 3.375 GM in Sodium Chloride 100 ML IVPB SCH ×3 (11:28→21:40)
[2018-02-16] MEDS ORDERED: Iohexol 240 (50 ml) ONE (11:35)
--- NOTE | 2018-02-16 13:49 | CT ---
PROCEDURE: CT Abdomen and Pelvis without intravenous contrast HISTORY: eval enterocutaneous fistula COMPARISON: Comparison is made with the previous study dated 02/13/2018 TECHNIQUE: Axial and reformatted coronal and sagittal CT images of the abdomen and pelvis were obtained without IV contrast administration.. Contrast dose: 0 IV contrast. Diluted water-soluble contrast was given through the rectum. Radiation dose: Total exam DLP = 835.69 mGy-cm. This CT exam was performed using one or more of the following dose reduction techniques: Automated exposure control, adjustment of the mA and/or kV according to patient size, and/or use of iterative reconstruction technique. FINDINGS: LOWER THORAX: Bibasilar small Pat CT's are noted may represent atelectasis. The possibility of pneumonia is less likely. No evidence of pleural or pericardial effusion. LIVER: No significant interval change in the liver noted since the previous exam. GALLBLADDER AND BILE DUCTS: Mildly distended gallbladder without CT evidence of acute cholecystitis. PANCREAS: Fatty replacement of the pancreas is again noted. The main pancreatic duct is not dilated. SPLEEN: Unremarkable. ADRENALS: 10.3 millimeter nodule at the right adrenal gland is again noted. There is also 10 millimeter low-attenuation nodule at the left adrenal gland. KIDNEYS AND URETERS: No significant interval change in the kidneys noted since the previous exam. No evidence of hydronephrosis. VASCULATURE: Unremarkable. No aortic aneurysm. BOWEL: The patient is again status post right hemicolectomy. Ileo colon pannus Mahad is again noted at the right upper abdomen. There is persistent mildly dilated short segment of large bowel loop demonstrate pneumatosis and surrounding with small amount of fluid and fat stranding in the right upper abdomen. The pneumatosis in the wall of this focal dilated large bowel appears more conspicuous in the current study. There is also mild dilate a welch of the rest of the large bowel up to the rectum. Mildly dilated small bowel loops at the mid and lower abdomen demonstrate mild diffuse wall thickening are again noted. No definite evidence of enteric contrast extravasation. APPENDIX: The appendix was resected with the right colon PERITONEUM: There is a trace fluid in the right abdomen. There are foci of extraluminal air seen at the right mid and upper abdomen appears more conspicuous compared to the previous exam. LYMPH NODES: Unremarkable. No enlarged lymph nodes. BLADDER: The urinary bladder is not distended. REPRODUCTIVE: Unremarkable. BONES: No acute fracture. OTHER FINDINGS: None. IMPRESSION: Interval worsening of dilated large bowel since the previous exam. Focal dilated large bowel segment demonstrates pneumatosis and surrounding with inflammatory changes and trace fluid noted at the right mid abdomen. The possibility of ischemic changes in the large bowel at the right abdomen should be excluded. Please correlate clinically. No evidence of enteric contrast extravasation. Small droplet of extraluminal air noted at the right mid abdomen inferior to the liver border and linear shaped small tract of density and air noted again at the right upper abdomen adjacent to the liver. Persistent dilated small bowel loops. Otherwise no significant interval change.
--- NOTE | 2018-02-16 14:19 | CP.PCM.CON ---
History of Present Illness - History of Present Illness History of Present Illness: 72 yrs old male who is s/p Rt hemicolectomy for tubular adenoma about 7 days ago is seen in renal consultation because of progressive increase in BUN/Creat for the last 3 days. Pt denied hx/o kidney disease, DM or crdiac problems. There is no FHx/o DM or kidney dis. Past Patient History - Past Medical History & Family History Past Medical History?: Yes - Past Social History Smoking Status: Never Smoked - CARDIAC Hx Cardiac Disorders: Yes - PULMONARY Hx Respiratory Disorders: Yes Hx Sleep Apnea: Yes (POSITIVE STUDY, DOES NOT HAVE C PAP MACHINE) - NEUROLOGICAL Hx Neurological Disorder: No - HEENT Hx HEENT Problems: No - RENAL Hx Chronic Kidney Disease: No - ENDOCRINE/METABOLIC Hx Endocrine Disorders: No - HEMATOLOGICAL/ONCOLOGICAL Hx Blood Disorders: No - INTEGUMENTARY Hx Dermatological Problems: No - MUSCULOSKELETAL/RHEUMATOLOGICAL Hx Musculoskeletal Disorders: No Hx Falls: No - GASTROINTESTINAL Hx Gastrointestinal Disorders: Yes Hx Gastritis: Yes Other/Comment: HX DUODENAL CARCINOID - GENITOURINARY/GYNECOLOGICAL Hx Genitourinary Disorders: No - PSYCHIATRIC Hx Psychophysiologic Disorder: No Hx Substance Use: No - SURGICAL HISTORY Hx Surgeries: Yes Hx Orthopedic Surgery: Yes (ORIF LEFT ELBOW W PLATE PLACEMENT) Other/Comment: HX: COLON POLYPECTOMY - ANESTHESIA Hx Anesthesia: Yes Hx Anesthesia Reactions: No Hx Malignant Hyperthermia: No Has any member of the family had a problem w/ anesthesia?: No Meds Allergies/Adverse Reactions: Allergies Allergy/AdvReac Type Severity Reaction Status Date / Time iodine Allergy Severe ANAPHYLAXIS Verified 12/30/17 09:17 - Medications Medications: Current Medications Acetaminophen (Tylenol 325mg Tab) 650 mg PO Q6 PRN PRN Reason: Fever >100.4 F Albuterol/Ipratropium (Duoneb 3 Mg/0.5 Mg (3 Ml) Ud) 3 ml INH RQ6 [facility] Last Admin: 02/16/18 13:48 Dose: Not Given Benzocaine/Menthol (Cepacol Sore Throat) 1 dillon MT Q4 PRN PRN Reason: Sore Throat Last Admin: 02/12/18 13:06 Dose: 1 dillon Famotidine (Pepcid) 20 mg IVP DAILY [facility] Last Admin: 02/16/18 11:38 Dose: 20 mg Heparin Sodium (Porcine) (Heparin) 5,000 units SC Q8 [facility] Last Admin: 02/16/18 13:08 Dose: 5,000 units Hydromorphone HCl (Dilaudid) 0.5 mg IVP Q4H PRN PRN Reason: Pain, moderate (4-7) Last Admin: 02/16/18 12:59 Dose: 0.5 mg Sodium Chloride 15 meq/Potassium Chloride 30 meq/Potassium Phosphate 15 mmole/ Magnesium Sulfate 1.5 meq/Calcium Gluconate 4.5 meq/Amino Acids 1,033.7968 mls @ 83 mls/hr IV .[id number] [facility] Stop: 02/16/18 17:59 Last Admin: 02/16/18 13:27 Dose: 83 mls/hr Fat Emulsion Intravenous (Intralipid 20%) 500 mls @ 60 mls/hr IV QOD@1800 [facility] Stop: 02/21/18 02:19 Sodium Chloride 15 meq/Potassium Chloride 30 meq/Potassium Phosphate 15 mmole/ Calcium Gluconate 4.5 meq/Amino Acids 1,033.4274 mls @ 83 mls/hr IV .[id number] [facility] Stop: 02/17/18 18:00 Sodium Chloride 15 meq/Potassium Chloride 30 meq/Potassium Phosphate 15 mmole/ Calcium Gluconate 4.5 meq/Amino Acids 1,033.4274 mls @ 83 mls/hr IV .[id number] [facility] Stop: 02/17/18 06:30 Piperacillin Sod/Tazobactam (Sod 3.375 gm/ Sodium Chloride) 100 mls @ 200 mls/ hr IVPB Q6H [facility] PRN Reason: Protocol Last Admin: 02/16/18 11:28 Dose: 200 mls/hr Sodium Chloride (Sodium Chloride 0.9%) 1,000 mls @ 75 mls/hr IV .[id number] [facility] Last Admin: 02/16/18 11:24 Dose: 75 mls/hr Lidocaine (Lidoderm) 1 ea TD DAILY@0800 [facility] Last Admin: 02/16/18 08:58 Dose: 1 ea Metoclopramide HCl (Reglan) 5 mg IVP Q6 [facility] Last Admin: 02/16/18 12:00 Dose: Not Given Ondansetron HCl (Zofran Inj) 4 mg IV Q4 PRN PRN Reason: Nausea/Vomiting Last Admin: 02/13/18 12:11 Dose: 4 mg Pantoprazole Sodium (Protonix Inj) 40 mg IVP DAILY [facility] Last Admin: 02/16/18 10:06 Dose: 40 mg Tramadol HCl (Ultram) 50 mg PO TID PRN PRN Reason: Pain, moderate (4-7) Last Admin: 02/12/18 12:51 Dose: 50 mg Physical Exam - Constitutional Appears: No Acute Distress - Head Exam Head Exam: ATRAUMATIC, NORMOCEPHALIC - Eye Exam Additional comments: Conjunctivae pink, sclerae aanicteric - ENT Exam ENT Exam: Mucous Membranes Moist - Neck Exam Neck exam: Positive for: Normal Inspection - Respiratory Exam Respiratory Exam: NORMAL BREATHING PATTERN Additional comments: Lungs clear. No wheezing or rhonchi - Cardiovascular Exam Cardiovascular Exam: REGULAR RHYTHM, +S1, +S2 Additional comments: No gallops - GI/Abdominal Exam GI & Abdominal Exam: Soft Additional comments: Detailed exam deferred because Pt is post-op - Rectal Exam Rectal Exam: Deferred - Exam Speculum exam: Cervical Discharge - Extremities Exam Additional comments: No ECC No calf tenderness Results - Vital Signs Recent Vital Signs: Last Vital Signs Temp 97.8 F 02/16/18 07:00 Pulse 90 02/16/18 07:00 Resp 20 02/16/18 07:00 BP 109/72 02/16/18 07:00 Pulse Ox 97 02/16/18 07:00 - Labs Result Diagrams: 02/16/18 08:59 02/16/18 08:59 Labs: Laboratory Results - last 24 hr 02/16/18 02/16/18 08:59 08:59 WBC 7.3 RBC 5.04 Hgb 14.3 Hct 43.1 MCV 85.6 MCH 28.4 MCHC 33.2 RDW 14.8 H Plt Count 358 MPV 9.8 Neut % (Auto) 78.4 H Lymph % (Auto) 10.7 L [place] % (Auto) 9.8 Eos % (Auto) 0.9 Baso % (Auto) 0.2 Neut # (Auto) 5.7 Lymph # (Auto) 0.8 L [place] # (Auto) 0.7 Eos # (Auto) 0.1 Baso # (Auto) 0.0 Sodium 146 Potassium 3.3 L Chloride 103 Carbon Dioxide 30 Anion Gap 16 BUN 46 H Creatinine 1.9 H Est GFR ( Amer) 43 Est GFR (Non-Af Amer) 35 Random Glucose 147 H Calcium 8.3 L Phosphorus 4.3 Magnesium 3.2 H Total Bilirubin 1.6 H AST 36 ALT 34 Alkaline Phosphatase 117 Total Protein 6.5 Albumin 3.6 Globulin 2.9 Albumin/Globulin Ratio 1.2 Assessment & Plan - Assessment and Plan (Free Text) Assessment: Acute kidney injury.May be multifactorial e.g dehydration, ATN, . No record is noted of hypotension in periop period. Hidh serum sodium suggests dehydration. Pt is also receiving PPN which may have caused some osmotic diuresis. On CT scans kidneys are unremarkable. Plan: Continue with IV fluids. Avoid any potentially nephrotoxic agents Will order urinalysis & spot lytes Renal US Will closely follow pt with you
--- NOTE | 2018-02-16 16:43 | US ---
PROCEDURE: Ultrasound of the Kidneys HISTORY: DEL COMPARISON: None available. TECHNIQUE: Sonogram of the kidneys. FINDINGS: RIGHT KIDNEY: Measures: 11.6 x 5.5 x 5.1 cm. Normal in size, contour and echogenicity. No stone, solid mass lesion or hydronephrosis visualized. LEFT KIDNEY: Measures: 11.7 x 5.9 x 5 cm. Normal in size, contour and echogenicity. No stone, solid mass lesion or hydronephrosis visualized. OTHER FINDINGS: None. IMPRESSION: Unremarkable renal sonogram.
[2018-02-16] MEDS: PPN # 5 IV SCH (17:10)
[2018-02-16] MEDS ORDERED: Fat Emulsion 20% IV 500 ML IV SCH (18:00)
[2018-02-16] MEDS ORDERED: PPN#5 IV SCH (18:00)
[2018-02-16 23:15] LABS: SQUAMOUS EPITHIAL < 1 /hpf (0-5); URINE BACTERIA RARE (<OCC); URINE BILIRUBIN NEGATIVE (NEGATIVE); URINE BLOOD 1+ (NEGATIVE); URINE CLARITY Hazy (Clear); URINE COLOR Yellow (YELLOW); URINE GLUCOSE (UA) NORMAL (Normal); URINE LEUKOCYTE ESTERASE NEG Leu/uL (Negative); URINE PROTEIN NEGATIVE (NEGATIVE); URINE UROBILINOGEN NORMAL mg/dL (0.2-1.0)
[2018-02-16 23:20] LABS: CREATININE, RANDOM URINE 89.2 mg/dL
[2018-02-17] MEDS: Sodium Chloride 0.9% 1,000 ML IV SCH (01:42)
[2018-02-17] MEDS: Piperacillin/Tazobact 3.375 GM in Sodium Chloride 100 ML IVPB SCH ×4 (03:51→23:00)
[2018-02-17] MEDS: HYDROmorphone 0.5 mg/0.5 ml ISec IVP PRN (03:51)
[2018-02-17] MEDS: PPN # 5 IV SCH (05:28)
[2018-02-17 06:31] LABS: ALB/GLOB RATIO 1.2 (1.0-2.1); ALBUMIN 3.1 g/dL (3.5-5.0); ALT/SGPT 42 U/L (21-72); AST/SGOT 37 U/L (17-59); BLOOD UREA NITROGEN 33 mg/dL (9-20); CALCIUM 7.8 mg/dl (8.6-10.4); GFR AFRICAN-AMERICAN > 60; GFR NON-AFRICAN AMERICAN 50
[2018-02-17] MEDS ORDERED: PPN#6 IV SCH (06:31)
[2018-02-17 06:34] LABS: BASO % 0.3 % (0.0-2.0); EOS # 0.2 K/uL (0.0-0.7); EOS % 2.9 % (0.0-4.0); HEMOGLOBIN 13.4 g/dL (12.0-18.0); LYMPH # 0.9 K/uL (1.0-4.3); LYMPH % 13.4 % (20.0-40.0); MEAN CELL VOLUME 85.1 fL (80.0-94.0); MEAN CORPUSCULAR HEMOGLOBIN 28.1 pg (27.0-31.0); MEAN PLATELET VOLUME 9.5 fL (7.2-11.7); MONO # 0.5 K/uL (0.0-0.8); MONO % 6.8 % (0.0-10.0); NEUT # 5.4 K/uL (1.8-7.0); NEUT % 76.6 % (50.0-75.0); RBC 4.77 Mil/uL (4.40-5.90); RED CELL DISTRIBUTION WIDTH 15.1 % (11.5-14.5); WHITE BLOOD COUNT 7.1 K/uL (4.8-10.8)
[2018-02-17 06:37] LABS: INR 1.1
--- NOTE | 2018-02-17 07:24 | CP.PCM.PN ---
<Allie Mora - Last Filed: 02/17/18 07:21> Subjective - Date & Time of Evaluation Date of Evaluation: 02/17/18 Time of Evaluation: 07:21 - Subjective Subjective: Surgery Pt seen and examined. Received enema overnight. Had regular BM. Denies fever, nausea, vomiting. Pain controlled. Objective - Vital Signs/Intake and Output Vital Signs (last 24 hours): Temp Pulse Resp BP Pulse Ox 98 F 85 20 118/75 94 L 02/16/18 23:35 02/17/18 04:00 02/16/18 23:35 02/16/18 23:35 02/16/18 23:35 Intake and Output: 02/17/18 02/17/18 06:59 18:59 Intake Total 3008 Output Total 1700 Balance 1308 - Medications Medications: Current Medications Acetaminophen (Tylenol 325mg Tab) 650 mg PO Q6 PRN PRN Reason: Fever >100.4 F Benzocaine/Menthol (Cepacol Sore Throat) 1 dillon MT Q4 PRN PRN Reason: Sore Throat Last Admin: 02/12/18 13:06 Dose: 1 dillon Famotidine (Pepcid) 20 mg IVP DAILY [facility] Last Admin: 02/16/18 11:38 Dose: 20 mg Hydromorphone HCl (Dilaudid) 0.5 mg IVP Q4H PRN PRN Reason: Pain, moderate (4-7) Last Admin: 02/17/18 03:51 Dose: 0.5 mg Fat Emulsion Intravenous (Intralipid 20%) 500 mls @ 60 mls/hr IV QOD@1800 [facility] Stop: 02/21/18 02:19 Last Admin: 02/16/18 17:11 Dose: 60 mls/hr Piperacillin Sod/Tazobactam (Sod 3.375 gm/ Sodium Chloride) 100 mls @ 200 mls/ hr IVPB Q6H [facility] PRN Reason: Protocol Last Admin: 02/17/18 03:51 Dose: 200 mls/hr Sodium Chloride (Sodium Chloride 0.9%) 1,000 mls @ 75 mls/hr IV .[id number] [facility] Last Admin: 02/17/18 01:42 Dose: Not Given Lidocaine (Lidoderm) 1 ea TD DAILY@0800 [facility] Last Admin: 02/16/18 08:58 Dose: 1 ea Metoclopramide HCl (Reglan) 5 mg IVP Q6 [facility] Last Admin: 02/17/18 05:17 Dose: 5 mg Ondansetron HCl (Zofran Inj) 4 mg IV Q4 PRN PRN Reason: Nausea/Vomiting Last Admin: 02/13/18 12:11 Dose: 4 mg Pantoprazole Sodium (Protonix Inj) 40 mg IVP DAILY [facility] Last Admin: 02/16/18 10:06 Dose: 40 mg Tramadol HCl (Ultram) 50 mg PO TID PRN PRN Reason: Pain, moderate (4-7) Last Admin: 02/12/18 12:51 Dose: 50 mg - Labs Labs: 02/17/18 06:15 02/17/18 06:15 PT 12.0 SECONDS (9.7-12.2) 02/17/18 06:15 INR 1.1 02/17/18 06:15 APTT 30 SECONDS (21-34) 02/17/18 06:15 - Constitutional Appears: No Acute Distress - Head Exam Head Exam: ATRAUMATIC, NORMAL INSPECTION, NORMOCEPHALIC - Eye Exam Eye Exam: EOMI, Normal appearance, PERRL Pupil Exam: NORMAL ACCOMODATION, PERRL - ENT Exam ENT Exam: Mucous Membranes Moist, Normal Exam - Neck Exam Neck Exam: Full ROM, Normal Inspection. absent: Lymphadenopathy - Respiratory Exam Respiratory Exam: Clear to Ausculation Bilateral, NORMAL BREATHING PATTERN - Cardiovascular Exam Cardiovascular Exam: REGULAR RHYTHM, +S1, +S2. absent: Murmur - GI/Abdominal Exam GI & Abdominal Exam: Soft, Normal Bowel Sounds. absent: Distended, Firm, Guarding, Rigid, Tenderness Additional comments: wound bag : 20cc purulent output. Incision C/D/I - Rectal Exam Rectal Exam: NORMAL INSPECTION - Extremities Exam Extremities Exam: Full ROM, Normal Capillary Refill, Normal Inspection. absent : Joint Swelling, Pedal Edema - Back Exam Back Exam: NORMAL INSPECTION - Neurological Exam Neurological Exam: Alert, Awake, CN II-XII Intact, Normal Gait, Oriented x3 - Psychiatric Exam Psychiatric exam: Normal Affect, Normal Mood - Skin Skin Exam: Warm Assessment and Plan - Assessment and Plan (Free Text) Assessment: POD 11 s/p Lap R hemcolectomy CT: focal pneumatosis coli -NPO -IVF -PPN -ABX -Pain control -ambulate /IS -DVT/GI ppx Will DW Dr. Green <Saúl Green - Last Filed: 02/17/18 08:13> Objective - Vital Signs/Intake and Output Vital Signs (last 24 hours): Temp Pulse Resp BP Pulse Ox 98 F 85 20 118/75 94 L 02/16/18 23:35 02/17/18 04:00 02/16/18 23:35 02/16/18 23:35 02/16/18 23:35 Intake and Output: 02/17/18 02/17/18 06:59 18:59 Intake Total 3008 Output Total 1700 Balance 1308 - Medications Medications: Current Medications Acetaminophen (Tylenol 325mg Tab) 650 mg PO Q6 PRN PRN Reason: Fever >100.4 F Benzocaine/Menthol (Cepacol Sore Throat) 1 dillon MT Q4 PRN PRN Reason: Sore Throat Last Admin: 02/12/18 13:06 Dose: 1 dillon Famotidine (Pepcid) 20 mg IVP DAILY [facility] Last Admin: 02/16/18 11:38 Dose: 20 mg Hydromorphone HCl (Dilaudid) 0.5 mg IVP Q4H PRN PRN Reason: Pain, moderate (4-7) Last Admin: 02/17/18 03:51 Dose: 0.5 mg Fat Emulsion Intravenous (Intralipid 20%) 500 mls @ 60 mls/hr IV QOD@1800 [facility] Stop: 02/21/18 02:19 Last Admin: 02/16/18 17:11 Dose: 60 mls/hr Piperacillin Sod/Tazobactam (Sod 3.375 gm/ Sodium Chloride) 100 mls @ 200 mls/ hr IVPB Q6H [facility] PRN Reason: Protocol Last Admin: 02/17/18 03:51 Dose: 200 mls/hr Sodium Chloride (Sodium Chloride 0.9%) 1,000 mls @ 75 mls/hr IV .[id number] [facility] Last Admin: 02/17/18 01:42 Dose: Not Given Lidocaine (Lidoderm) 1 ea TD DAILY@0800 [facility] Last Admin: 02/16/18 08:58 Dose: 1 ea Metoclopramide HCl (Reglan) 5 mg IVP Q6 [facility] Last Admin: 02/17/18 05:17 Dose: 5 mg Ondansetron HCl (Zofran Inj) 4 mg IV Q4 PRN PRN Reason: Nausea/Vomiting Last Admin: 02/13/18 12:11 Dose: 4 mg Pantoprazole Sodium (Protonix Inj) 40 mg IVP DAILY [facility] Last Admin: 02/16/18 10:06 Dose: 40 mg Tramadol HCl (Ultram) 50 mg PO TID PRN PRN Reason: Pain, moderate (4-7) Last Admin: 02/12/18 12:51 Dose: 50 mg - Labs Labs: 02/17/18 06:15 02/17/18 06:15 PT 12.0 SECONDS (9.7-12.2) 02/17/18 06:15 INR 1.1 02/17/18 06:15 APTT 30 SECONDS (21-34) 02/17/18 06:15 Assessment and Plan - Assessment and Plan (Free Text) Plan: Patient seen and examined at bedside with resident staff. Congolese interpretation provided by nurse Melissa Resendiz. 72 M 11 days s/p lap right hemicolectomy with persistent post-op ileus vs. sbo, and new enterocutaneous fistula. Likely has leak from colonic staple line and inflammation causing obstruction at anastomosis based on CTAP which I personally reviewed. Colonic pneumotosis at distal end at staple line, likely ischemic. No intra-abdominal abscess or fluid collection. No evidence of soft tissue infection. Patient not ill appearing and without peritonitis. I discussed with the patient at length the need for exploratory laparotomy, takedown of EC fistula, bowel resection and anastomotic revision, and possible ostomy, possible wound vac placement. We discussed the risks and benefits of the above procedure including, but not limited to, bleeding, infection, anastomotic leak, and post-operative bowel obstruction. The decision of whether or not an ileostomy is needed will be determined intra-operatively and I informed him that the chances of needing an ostomy would be 50/50 based on ability to safely perform anastomosis or not. He understands the above and agreed to proceeding. Informed consent obtained. I have asked my senior tableau developer, Dr. Carmichael to be present during the case to assist as this is a complex patient.
[2018-02-17] MEDS: Lidocaine 5% Patch TD SCH (09:00)
[2018-02-17] MEDS ORDERED: Midazolam 2 MG/2 ML VIAL ONE ×2 (10:02→13:43)
[2018-02-17] MEDS ORDERED: Propofol 10 mg/ml Inj (20 ML) ONE ×2 (10:02→13:43)
[2018-02-17] MEDS ORDERED: Piperacillin/Tazobact 3.375 gm 100 ML IVPB ONE (10:05)
[2018-02-17] MEDS ORDERED: ePHEDrine 50 mg/ml Inj ONE ×2 (10:43→14:24)
[2018-02-17] MEDS ORDERED: Neostigmine Methylsulfate 3mg/3ml Syringe IV ONE ×2 (12:02→14:50)
[2018-02-17] MEDS ORDERED: HYDROmorphone 0.5 mg/0.5 ml ISec IVP PRN ×2 (13:04→16:01)
[2018-02-17] MEDS ORDERED: Lactated Ringer's 1,000 ML IV PRN (13:04)
[2018-02-17] MEDS ORDERED: Lactated Ringer's 1,000 ML IV ONE ×5 (13:20→19:30)
[2018-02-17 13:55] LABS: BASO % 0.4 % (0.0-2.0); EOS # 0.1 K/uL (0.0-0.7); EOS % 0.8 % (0.0-4.0); HEMOGLOBIN 13.7 g/dL (12.0-18.0); LYMPH # 0.9 K/uL (1.0-4.3); LYMPH % 13.2 % (20.0-40.0); MEAN CELL VOLUME 86.3 fL (80.0-94.0); MEAN CORPUSCULAR HEMOGLOBIN 29.1 pg (27.0-31.0); MEAN CORPUSCULAR HGB CONC 33.7 g/dL (33.0-37.0); MEAN PLATELET VOLUME 9.5 fL (7.2-11.7); MONO # 0.2 K/uL (0.0-0.8); MONO % 3.5 % (0.0-10.0); NEUT # 5.5 K/uL (1.8-7.0); NEUT % 82.1 % (50.0-75.0); NRBC % 0.1 % (0.0-2.0); RBC 4.69 Mil/uL (4.40-5.90); WHITE BLOOD COUNT 6.7 K/uL (4.8-10.8)
[2018-02-17] MEDS ORDERED: Acetaminophen IV 1,000 MG in Premixed IV 1 EA IV PRN (14:00)
[2018-02-17 14:13] LABS: ALB/GLOB RATIO 0.9 (1.0-2.1); ALBUMIN 2.5 g/dL (3.5-5.0); CALCIUM 7.7 mg/dl (8.6-10.4)
[2018-02-17] MEDS ORDERED: BUPIVACAINE 0.125%/0.9% NACL 600 ML IJ ONE ×2 (14:16→15:00)
[2018-02-17] MEDS ORDERED: Collagen Hemostat Powder ONE (14:20)
[2018-02-17] MEDS ORDERED: Phenylephrine 10 mg/ml Inj ONE (14:24)
[2018-02-17] MEDS ORDERED: Bupivacaine HCl 0.5% PF (30 ml) Inj ONE (14:50)
--- NOTE | 2018-02-17 16:02 | PCM.SURG1 ---
Surgeon's Initial Post Op Note - Surgeon's Notes Surgeon: Dr. Green [place] Handle Knife Assembler: Allie Mora PGY2, Dr. Carmichael Type of Anesthesia: General Endo Pre-Operative Diagnosis: Enterocuteneous fistula Operative Findings: enterocutaneous fistula, inflammed mesentery, SB and colon. Post-Operative Diagnosis: Same Operation Performed: exploratory laparotomy ileocolectomy Specimen/Specimens Removed: ileocolic bowel Estimated Blood Loss: EBL {In ML}: 100 Blood Products Given: N/A Drains Used: Rosa Post-Op Condition: Fair Date of Surgery/Procedure: 02/17/18 Time of Surgery/Procedure: 16:02
--- NOTE | 2018-02-17 16:05 | PCM.SURG1 ---
Surgeon's Initial Post Op Note - Surgeon's Notes Surgeon: Dr. Green Auto Air Conditioning Apprentice: Dr. Aren Mora PGY2 Type of Anesthesia: General Endo, Other Anesthesia Administered By: Kala Pre-Operative Diagnosis: Post op bleeding Operative Findings: mesenteric bleeding, retroperitoneal bleeding Post-Operative Diagnosis: Same Operation Performed: exploratory laparotomy, hemostatis Specimen/Specimens Removed: None Estimated Blood Loss: EBL {In ML}: 100 Blood Products Given: N/A Drains Used: Alberto Post-Op Condition: Fair Date of Surgery/Procedure: 02/17/18 Time of Surgery/Procedure: 16:04
[2018-02-17] MEDS ORDERED: HYDROmorphone 1 mg/ml ISec IVP PRN (16:08)
[2018-02-17] MEDS ORDERED: Lactated Ringer's 500 ML IV SCH (17:15)
--- NOTE | 2018-02-17 17:54 | CP.PCM.PN ---
Subjective - Date & Time of Evaluation Date of Evaluation: 02/17/18 Time of Evaluation: 12:35 - Subjective Subjective: Came to see the Pt earlier. Unable to see Pt because he was in OR. Labs were reviewed. Objective - Vital Signs/Intake and Output Vital Signs (last 24 hours): Temp Pulse Resp BP Pulse Ox 100.6 F H 97 H 20 102/60 100 02/17/18 12:59 02/17/18 13:30 02/17/18 13:30 02/17/18 13:30 02/17/18 13:30 Intake and Output: 02/17/18 02/17/18 06:59 18:59 Intake Total 3008 3650 Output Total 1700 100 Balance 1308 3550 - Medications Medications: Current Medications Acetaminophen (Tylenol 325mg Tab) 650 mg PO Q6 PRN PRN Reason: Fever >100.4 F Benzocaine/Menthol (Cepacol Sore Throat) 1 dillon MT Q4 PRN PRN Reason: Sore Throat Last Admin: 02/12/18 13:06 Dose: 1 dillon Famotidine (Pepcid) 20 mg IVP DAILY [facility] Last Admin: 02/17/18 10:00 Dose: Not Given Heparin Sodium (Porcine) (Heparin) 5,000 units SC Q12 [facility] Hydromorphone HCl (Dilaudid) 0.5 mg IVP Q4H PRN PRN Reason: Pain, moderate (4-7) Last Admin: 02/17/18 03:51 Dose: 0.5 mg Hydromorphone HCl (Dilaudid) 0.5 mg IVP Q10M PRN PRN Reason: Pain, moderate (4-7) Stop: 02/17/18 18:01 Last Admin: 02/17/18 16:15 Dose: 0.5 mg Hydromorphone HCl (Dilaudid) 1 mg IVP Q4H PRN PRN Reason: Pain, severe (8-10) Fat Emulsion Intravenous (Intralipid 20%) 500 mls @ 60 mls/hr IV QOD@1800 [facility] Stop: 02/21/18 02:19 Last Admin: 02/16/18 17:11 Dose: 60 mls/hr Piperacillin Sod/Tazobactam (Sod 3.375 gm/ Sodium Chloride) 100 mls @ 200 mls/ hr IVPB Q6H [facility] PRN Reason: Protocol Last Admin: 02/17/18 10:15 Dose: 100 mls Sodium Chloride (Sodium Chloride 0.9%) 1,000 mls @ 75 mls/hr IV .[id number] [facility] Last Admin: 02/17/18 01:42 Dose: Not Given Lactated Ringer's (Lactated Ringer's) 1,000 mls @ 1,000 mls/hr IV .Q1H PRN PRN Reason: Hypotension Acetaminophen 1,000 mg/ (Miscellaneous) 100 mls @ 400 mls/hr IV Q6 PRN PRN Reason: Pain, moderate (4-7) Stop: 02/18/18 14:01 BUPIVACAINE 0.125%/0.9% NACL (Bupivacaine-Ns 0.125% On-Q [facility]) 600 mls @ 4 mls/ hr IJ ONCE ONE Stop: 02/23/18 20:59 Sodium Chloride 15 meq/Potassium Chloride 30 meq/Potassium Phosphate 15 mmole/ Calcium Gluconate 4.5 meq/Multivitamins/Vitamin C 10 ml/Amino Acids 1,043.4274 mls @ 83 mls/hr IV .[id number] [facility] Stop: 02/18/18 06:34 Sodium Chloride 15 meq/Potassium Chloride 30 meq/Potassium Phosphate 15 mmole/ Calcium Gluconate 4.5 meq/Amino Acids 1,033.4274 mls @ 83 mls/hr IV .[id number] [facility] Stop: 02/18/18 17:59 Lactated Ringer's (Lactated Ringer's) 1,000 mls @ 125 mls/hr IV .Q8H [facility] Lactated Ringer's (Lactated Ringer's) 500 mls @ 999 mls/hr IV .Q31M [facility] Lidocaine (Lidoderm) 1 ea TD DAILY@0800 [facility] Last Admin: 02/17/18 09:00 Dose: Not Given Metoclopramide HCl (Reglan) 5 mg IVP Q6 [facility] Last Admin: 02/17/18 05:17 Dose: 5 mg Ondansetron HCl (Zofran Inj) 4 mg IV Q4 PRN PRN Reason: Nausea/Vomiting Last Admin: 02/13/18 12:11 Dose: 4 mg Pantoprazole Sodium (Protonix Inj) 40 mg IVP DAILY [facility] Last Admin: 02/17/18 10:00 Dose: Not Given Tramadol HCl (Ultram) 50 mg PO TID PRN PRN Reason: Pain, moderate (4-7) Last Admin: 02/12/18 12:51 Dose: 50 mg - Labs Labs: 02/17/18 13:52 02/17/18 13:52 PT 12.0 SECONDS (9.7-12.2) 02/17/18 06:15 INR 1.1 02/17/18 06:15 APTT 24 SECONDS (21-34) D 02/17/18 13:52 Assessment and Plan - Assessment and Plan (Free Text) Assessment: DEL secodary to prerenal azotemia Renal US reviewed Echogenecity is normal Serum creat. is improving Hypernatremia corrected S/P Rt hemicollectomy for tubular adenoma Plan: Continue with current Mx Labs in am
[2018-02-17] MEDS ORDERED: PPN # 6 IV SCH (18:00)
--- NOTE | 2018-02-17 19:57 | PCM.OP ---
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 post-operative small bowel obstruction Post-Operative Diagnosis: Colonic ischemia with necrosis; Contained Ileocolonic anastomotic leak with enterocutatnous fistula. Adhesive small bowel obstruction Indication for Surgery: This is a 52-year-old male who underwent a laparoscopic right hemicolectomy on 02/06/2018. He had persistent postoperative ileus and evidence of small bowel obstruction on CAT scan that was being treated with NGT decompression. Over the weekend he developed an enterocutaneous fistula at previous drain site in right abdominal wall. A CTAP showed there to be evidence of ischemic changes to his distal jef and significant inflammation around his ileocolonic anastomosis. However, there was no evidence of any intra- abdominal fluid collection or abscess. Hes brought to the operating room for exploratory laparotomy, takedown of EC fistula, resection and possible revision of his ileocolonic anastomosis and possible ileostomy creation. The risks and benefits of the operation were discussed with the patient in great detail including but not limited to bleeding, infection anastomotic leak, postop small bowel obstruction , ileus, intra-abdominal infection and possible need for stoma. We discussed at length reality of possibly needing an end ileostomy and that the decision would be made intraoperatively depending on the environment of the abdominal cavity as well as the blood supply and appearance of the large and small intestines. I informed the patient that I have asked my senior colleauge, Dr. Carmichael, to assist me as she is a more experienced surgeon , dealing with these complex issues. The patient understands these risks and agreed to proceed with above. Informed consent was signed prior to surgery. Operative Findings: Ischemic necrosis of distal colonic staple line, contained perforation of colonic side of ileocolonic anstomosis and EC fistula to lateral abdominal wall. Large phlegmon surrounding previous anastomosis with interloop small bowel adhesions and overlying omentum. Fundus of gallbladder entered during adhesiolysis and moblization of previous anastomosis and surrounding phlegmon, repaired with running 3-0 vicryl suture,; no bile leak at end of case. Procedure/Operation Description: The patient was given a preoperative dose of Zosyn 20 minutes before the incision. SCD boots were placed for DVT prophylaxis. Hoffmann catheter was inserted. Upper and lower body warmers placed. The patient had an orogastric tube in place already. Previous wes from vertical midline incison were removed. A tegaderm was placed over the previous drain site and whre EC fistula was. The abdomen was prepped and draped in sterile fashion. A timeout was performed prior to making incision. Previous midline incision was opened, the fascia was identified the previous sutures were removed with scissors. The skin incision was extended using a 10 blade knife approximately 6 inches cephalad in midline, Soft tissue and fascia was incised using cautery under direct vision. No significant bowel adhesions to abdominal wall were encountered. Omentum was taken down bluntly off Abdominal wall. Self retaining retractor inserted. Abdominal avity was explored. There was no evidenced of gross enteric spillage of lizzette perforation. We identified the anastomosis, which appeared as one large phlegmon in right mid abdomen and small bowel and greater omentum adhering to it. I believe this is what allowed this process to be contained. The large bowel did appear necrotic and was grossly broken down at the distal colonic staple line. Dr. Carmichael assisted throught the entirety of the procedure. Together we took down the enterocutaneous fistula and mobilized the anastomsis off adhesons to the retroperitoenum using a combination of blunt and electrocautery dissection. Omental adhesons to the inferior edege of liver also taken down with electrocautery. While taking these down, the fundus of gallbladder was entered, bile was suctioned, and fundus was repaired with 3-0 vicryl without further leakge of bile. Care was taken to carefully identify the duodenal and not cause any injury during mobilization of the anastomosis of the retroperitoneum. There was a small bleeding vessel which appeared to be a pancreaticoduodenal branch. This was suture ligated using a 3-0 silk suture, hemostasis was achieved. Interloop adhesions of small bowel that were adherent to this phlegmonous mass were also taken down using a combination of blunt and sharp dissection. This interloop adhesions seemed to explain while the patient may have been obstructed. At this point we decided to transect the small bowel that was leading into the previous anastomosis. This was done using a AR linear stapler 75 mm blue load stapling device after a mesenteric rent was made approximately 5 cm distal to the previous anastomosis. We then turned our attention to the super mesocolic region. The stomach was identified and an NG tube was guided into place with anesthesia's help and secured in position. Some of the greater omentum that was adherent to this phlegmonous mass was also taken down. Resection of the distal colon was them performed. Colon was transected using a 75 mm blue load AR stapler this was done approximately 2 cm distal to the previous anastomosis where there was healthy, well perfused colon. The mesentery was ligated and divided the Enseal energy device, care taken to be close to the small bowel as well as the colon with effort to preserve the remaining branches of the middle colic going to the left. Specimen was then completely removed and sent off to pathology. At this point Dr. Carmichael and I discussed what the best option would be weighing the risks and benefits of performing a primary anastomosis versus bringing out an end ileostomy.Given the patient's obesity and significant visceral adiposity an end ileostomy would be challenging and and is not without risks. As the patient did not have any gross intra-abdominal infection or spillage of enteric contents and the bowel looked healthy, we agreed that it would be safe to proceed with performing a [id number] stapled functional end-to-end ileocolonic to proximal- mid transverse colon anastomosis. To confirm there was adequate blood flow to the colon we waited for a period of 25 minutes to see if there is any delineation of ischemia occured. During this time, the right gutter was irrigated with warm saline 2 liters, and we closed the mesenteric defect with 3- 0 vicryl. The bowel was again inspected and appeared pink and well-perfused so we proceeded with our stapled anastomosis. The terminal ileum and transverse colon were approximated, enterotomies were made at the distal end of their staple lines respectively and a AR 75 mm blue load linear stapler device was used to make the anastomosis. Common enterotomy was closed using a 75mm TA blue load stapler. anastomotic lines were inspected and hemostatic and opening patent. A reinforcing suture was placed at the crotch of the anastomosis between the large and small intestine. Small bowel mesentery was oriented in correct position, The abodminal cavity was again irrigated with saline until clear aspirate. External fistula site skin and soft tissue excised. A 1" harpreet drain was brought in through the previous drain and laid along the right gutter. Hemostasis was confirmed at the end of the case. The midline fascia was closed with 1 looped PDS x 2 in running fashion and tied in midpoint. Skin was left open and packed with iodform gauze. Gauze and Abd pads then applied and taped. A stoma appliance was placed over the harpreet drain to allow for collection. All instrument and needle countes were correct prior to abdominal closure. I was present for the entirety of the operation and Dr. Carmichael assisted as above throught the case. The patient was extubated in the OR and brought to PACU in stable condition. During the extubation process the patient was mariela his abdomen quite vigorously and I was applying manual pressure to his incision to ensure his closure did not tear through the sutures. Estimated Blood Loss: 200ml Complications: None Specimen: ileocolonic anastomosis Discharge & Condition: Stable to PACU
[2018-02-17] MEDS: Lactated Ringer's 1,000 ML IV SCH (21:10)
--- NOTE | 2018-02-17 21:28 | PCM.OP ---
Operative Report - Operative Report Date of Surgery/Procedure: 02/17/18 Time of Surgery/Procedure: 13:45 Surgeon: Saúl Green MD; Deann Younger MD (No qualified resident available Sports Medicine Specialist: Allie Mora DO ([id number]) Anesthesia/Sedation: General anesthesia. OnQ pump local Pre-Operative Diagnosis: Post-operative hypotension s/p exploratory laparotomy, revision of ileocolonic anastomosis; Intra-abdminal bleed Post-Operative Diagnosis: Retroperitoneal venous bleeding Indication for Surgery: This is a 72-year-old male had just undergone exploratory laparotomy, takedown of enterocutaneous fistula, revision of an ileocolonic anastomosis for colonic ischemia and enterocutaneous fistula, earlier today. Within 30 minutes of returning to the PACU from the above operation the patient's blood pressure was in the systolics of high 60 low 70. He responded to fluid boluses and administration of vasopressors by anesthesia. However during the extubation process I noted that he had vigorous contractures of the abdominal/bucking and his blood pressure at that time prior to leaving the operating room was 140-150 systolics. With this low blood pressure reading I was concerned for bleeding into the abdominal cavity. In addition there was blood spotting on the patients midline dressing. As the patient was still under the effects of anesthesia, I contacted the patient's daughter Maria Del Carmen and we discussed over the phone the urgent need to return to the operating room to rule out any intra-abdominal bleeding. She understood and agreed. This was done as an emergency case. My senior marketing engineer Dr. Younger was available to help me and served as co-surgeon. Operative Findings: No evidence of acute arterial bleeding or large venous bleeding. 100ml of blood found in right gutter coming from venous retroperitoenal bleed. Hemostasis achieved with topical hemostatic agent. Additional small bleeding from above duodenum, suture ligated and hemostatic at end of case. Small oozing from free edge of omentum which was ligated and divided with Enseal energy device. No evidence of mesenteric bleeding. Procedure/Operation Description: Procedures performed: Exploratory laparotomy, abdominal washout and drain placement; placement of On-Q pump catheters. Patient was brought back to the operating room and transferred to the operating room table a supine with large left arm tucked at his side. SCD boots were placed for DVT prophylaxis the patient had previously received antibiotics from the earlier operation. The NG tube was placed to suction prior to endotracheal anesthesia following successful intubation the patient the patient's previous right abdominal [place] drain was removed the incisional packing from previous operation was removed and the patient's abdomen was prepped and draped in sterile fashion. A timeout was performed prior to making any incision. Dr. Younger agreed to be available due to the complexity of this patient and served as co-surgeon. We regain entry to the abdominal cavity through the previous incision the wound packing was removed and her sutures identify the sutures were cut with scissors and removed from the fascial edges both in both directions cephalad and caudad we then regained immediate access to abdominal cavity. There was some minor oozing from the skin edges but no gross spillage of blood upon initial entry. We first explored the lateral gutter there was some pooling of bright blood, abdominal pads were placed in a systematic fashion. We then explored the remainder if the abdominal cavity. There was some minor bleeding coming from the free edge of the greater omentum, we ligated and divided these bleeding edges with Enseal energy device and acheived hemostasis there. We then turned our attention to explore the super mesocolic area. There was no evidence of blood in the lesser sac. We inspected the anastomosis and there was no evidence of bleeding at the staple line nor was there any evidence of any bleeding at the root of the mesentery. The cut edges of our mesentery and closure mesenteric defects were inspected there is no evidence of bleeding there. There was no evidence of any arterial or pumping bleeding vessels in any of the areas inspected. We turned our attention again to the most likely source we did see was the right lateral gutter in the retroperitoneum that did appear to be some venous bleeding. We placed Surgicel hemostatic agent over this area of this and manual pressure for 15 minutes and did achieve hemostasis. There was additionally a small paraduodenal vessel that was a slowly bleeding vessel and was suture ligated using a 3-0 Vicryl suture. The pelvis was inspected and without pooling of any blood. We irrigated the abdomen with saline as well as antiseptic solution. We then placed a SUDHAKAR drain in the right gutter tracking up towards the gallbladder and again near the cecil-ileocoloinic anastomosis. This was brought out through a new 5mm skin incision in the right abdomen. 2- Nylon suture was used to seure the SUDHAKAR drain at the skin. The previous drain site in right abdomen fascia was closed from within the abdominal cavity by Dr. Younger using 0 vicryl suture. The skin wound was packed from the outside with Iodoform gauze. Dr. Younger then placed the preperitoneal On-Q pump catheters for perioperative pain control. This was done using a small stab incision in the subxiphoid skin. Introducer sheaths tracked pre-peritoneal space under direct vision bilateral subcostal regions, being sure not to enter the abdominal cavity. Catheters inserted laterally on both sides and 0.5 percent Marcaine solution 4 mL's was given in each. Catherters were secured with derabond at the insertion site and taped with tegaderm and steristrips. The midline fascia was then closed again using 1 looped PDS 2 starting on opposite ends and was tied in the middle in addition Dr. Maciel had placed interrupted 1 Prolene sutures as an interrupted fashion to help buttress the fascial closure and to help prevent the risk of dehiscence. The umbilical skin did not appear healthy and was excised with 15 blde. 3 wes were placed to approximate the wound but skin was left open and packed with iodform gauze. Gauze and Abd pads then applied and taped. All instrument and needle counts were correct prior to abdominal closure. I was present for the entirety of the operation. The patient underwent successful deep extubation by anesthesia without any violent abdominal contractions and brought to PACU in stable condition Estimated Blood Loss: 150ml Drains: 19Fr SUDHAKAR drain right abd Complications: None Discharge & Condition: Stable to PACU. Possible ICU admission.
--- NOTE | 2018-02-17 21:30 | CP.PCM.CON ---
History of Present Illness - History of Present Illness History of Present Illness: 52-year-old male with h/o laparoscopic right hemicolectomy on 02/06/2018. 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, Adhesive small bowel obstruction Post op he was hypotensive tachycardic taken to OR for exploratory lap and hemostasis On IV fluids,Systolic BP in the lower 90's Pathology of terminal ileum and Right Colon from 02/06/18 showed 3 tubular adenomas,lipoma and 2 benign lymph nodes Review of Systems - Constitutional Constitutional: Fatigue - EENT Eyes: absent: Change in Vision Ears: absent: Ear Discharge, Dizziness Nose/Mouth/Throat: absent: Sore Throat, Neck Pain - Cardiovascular Cardiovascular: absent: Chest Pain, Leg Edema, Palpitations - Respiratory Respiratory: absent: Cough, Dyspnea - Gastrointestinal Gastrointestinal: Abdominal Pain. absent: Nausea, Vomiting - Genitourinary Genitourinary: absent: Dysuria Past Patient History - Past Medical History & Family History Past Medical History?: Yes - Past Social History Smoking Status: Never Smoked - CARDIAC Hx Cardiac Disorders: Yes - PULMONARY Hx Respiratory Disorders: Yes Hx Sleep Apnea: Yes (POSITIVE STUDY, DOES NOT HAVE C PAP MACHINE) - NEUROLOGICAL Hx Neurological Disorder: No - HEENT Hx HEENT Problems: No - RENAL Hx Chronic Kidney Disease: No - ENDOCRINE/METABOLIC Hx Endocrine Disorders: No - HEMATOLOGICAL/ONCOLOGICAL Hx Blood Disorders: No - INTEGUMENTARY Hx Dermatological Problems: No - MUSCULOSKELETAL/RHEUMATOLOGICAL Hx Musculoskeletal Disorders: No Hx Falls: No - GASTROINTESTINAL Hx Gastrointestinal Disorders: Yes Hx Gastritis: Yes Other/Comment: HX DUODENAL CARCINOID - GENITOURINARY/GYNECOLOGICAL Hx Genitourinary Disorders: No - PSYCHIATRIC Hx Psychophysiologic Disorder: No Hx Substance Use: No - SURGICAL HISTORY Hx Surgeries: Yes Hx Orthopedic Surgery: Yes (ORIF LEFT ELBOW W PLATE PLACEMENT) Other/Comment: HX: COLON POLYPECTOMY - ANESTHESIA Hx Anesthesia: Yes Hx Anesthesia Reactions: No Hx Malignant Hyperthermia: No Has any member of the family had a problem w/ anesthesia?: No Meds Allergies/Adverse Reactions: Allergies Allergy/AdvReac Type Severity Reaction Status Date / Time iodine Allergy Severe ANAPHYLAXIS Verified 12/30/17 09:17 - Medications Medications: Current Medications Acetaminophen (Tylenol 325mg Tab) 650 mg PO Q6 PRN PRN Reason: Fever >100.4 F Benzocaine/Menthol (Cepacol Sore Throat) 1 dillon MT Q4 PRN PRN Reason: Sore Throat Last Admin: 02/12/18 13:06 Dose: 1 dillon Famotidine (Pepcid) 20 mg IVP DAILY [facility] Last Admin: 02/17/18 10:00 Dose: Not Given Heparin Sodium (Porcine) (Heparin) 5,000 units SC Q8 [facility] Hydromorphone HCl (Dilaudid) 0.5 mg IVP Q4H PRN PRN Reason: Pain, moderate (4-7) Last Admin: 02/17/18 03:51 Dose: 0.5 mg Hydromorphone HCl (Dilaudid) 1 mg IVP Q4H PRN PRN Reason: Pain, severe (8-10) Last Admin: 02/17/18 21:07 Dose: 1 mg Fat Emulsion Intravenous (Intralipid 20%) 500 mls @ 60 mls/hr IV QOD@1800 ANN Stop: 02/21/18 02:19 Last Admin: 02/16/18 17:11 Dose: 60 mls/hr Piperacillin Sod/Tazobactam (Sod 3.375 gm/ Sodium Chloride) 100 mls @ 200 mls/ hr IVPB Q6H [facility] PRN Reason: Protocol Last Admin: 02/17/18 18:00 Dose: 100 mls Sodium Chloride (Sodium Chloride 0.9%) 1,000 mls @ 75 mls/hr IV .[id number] [facility] Last Admin: 02/17/18 01:42 Dose: Not Given Lactated Ringer's (Lactated Ringer's) 1,000 mls @ 1,000 mls/hr IV .Q1H PRN PRN Reason: Hypotension BUPIVACAINE 0.125%/0.9% NACL (Bupivacaine-Ns 0.125% On-Q Silver Solution Mixer) 600 mls @ 4 mls/ hr IJ ONCE ONE Stop: 02/23/18 20:59 Sodium Chloride 15 meq/Potassium Chloride 30 meq/Potassium Phosphate 15 mmole/ Calcium Gluconate 4.5 meq/Multivitamins/Vitamin C 10 ml/Amino Acids 1,043.4274 mls @ 83 mls/hr IV .[id number] [facility] Stop: 02/18/18 06:34 Sodium Chloride 15 meq/Potassium Chloride 30 meq/Potassium Phosphate 15 mmole/ Calcium Gluconate 4.5 meq/Amino Acids 1,033.4274 mls @ 83 mls/hr IV .[id number] [facility] Stop: 02/18/18 17:59 Lactated Ringer's (Lactated Ringer's) 1,000 mls @ 125 mls/hr IV .Q8H [facility] Lactated Ringer's (Lactated Ringer's) 500 mls @ 999 mls/hr IV .Q31M [facility] Lidocaine (Lidoderm) 1 ea TD DAILY@0800 [facility] Last Admin: 02/17/18 09:00 Dose: Not Given Metoclopramide HCl (Reglan) 5 mg IVP Q6 [facility] Last Admin: 02/17/18 05:17 Dose: 5 mg Ondansetron HCl (Zofran Inj) 4 mg IV Q4 PRN PRN Reason: Nausea/Vomiting Last Admin: 02/13/18 12:11 Dose: 4 mg Pantoprazole Sodium (Protonix Inj) 40 mg IVP DAILY [facility] Last Admin: 02/17/18 10:00 Dose: Not Given Tramadol HCl (Ultram) 50 mg PO TID PRN PRN Reason: Pain, moderate (4-7) Last Admin: 02/12/18 12:51 Dose: 50 mg Physical Exam - Constitutional Appears: No Acute Distress - Head Exam Head Exam: ATRAUMATIC, NORMAL INSPECTION, NORMOCEPHALIC - Eye Exam Eye Exam: EOMI, Normal appearance, PERRL - ENT Exam ENT Exam: Mucous Membranes Moist - Neck Exam Neck exam: Positive for: Normal Inspection. Negative for: Tenderness - Respiratory Exam Respiratory Exam: Clear to Auscultation Bilateral - Cardiovascular Exam Cardiovascular Exam: Tachycardia, REGULAR RHYTHM. absent: JVD - GI/Abdominal Exam GI & Abdominal Exam: Tenderness Additional comments: no bowel sounds - Extremities Exam Extremities exam: Positive for: normal inspection, pedal pulses present. Negative for: calf tenderness, pedal edema - Neurological Exam Neurological exam: Alert, Oriented x3 - Psychiatric Exam Psychiatric exam: Anxious - Skin Skin Exam: Intact, Warm Results - Vital Signs Recent Vital Signs: Last Vital Signs Temp 98.9 F 02/17/18 19:30 Pulse 109 H 02/17/18 20:00 Resp 19 02/17/18 20:00 BP 94/63 L 02/17/18 20:00 Pulse Ox 100 02/17/18 20:00 - Labs Result Diagrams: 02/17/18 13:52 02/17/18 13:52 Labs: Laboratory Results - last 24 hr 02/16/18 02/16/18 02/17/18 22:48 22:49 06:15 WBC 7.1 RBC 4.77 Hgb 13.4 Hct 40.6 MCV 85.1 MCH 28.1 MCHC 33.0 RDW 15.1 H Plt Count 322 MPV 9.5 Neut % (Auto) 76.6 H Lymph % (Auto) 13.4 L [place] % (Auto) 6.8 Eos % (Auto) 2.9 Baso % (Auto) 0.3 Neut # (Auto) 5.4 Lymph # (Auto) 0.9 L [place] # (Auto) 0.5 Eos # (Auto) 0.2 Baso # (Auto) 0.0 PT INR APTT Sodium Potassium Chloride Carbon Dioxide Anion Gap BUN Creatinine Est GFR ( Amer) Est GFR (Non-Af Amer) Random Glucose Calcium Phosphorus Magnesium Total Bilirubin AST ALT Alkaline Phosphatase Total Protein Albumin Globulin Albumin/Globulin Ratio Urine Color Yellow Urine Clarity Hazy Urine pH 5.0 Ur Specific [place] 1.016 Urine Protein Negative Urine Glucose (UA) Normal Urine Ketones Negative Urine Blood 1+ H Urine Nitrate Negative Urine Bilirubin Negative Urine Urobilinogen Normal Ur Leukocyte Esterase Neg Urine WBC (Auto) 3 Urine RBC (Auto) 8 H Ur Squamous Epith Cells < 1 Urine Bacteria Rare Ur Random Creatinine 89.2 Ur Random Sodium 35 Blood Type Antibody Screen 02/17/18 02/17/18 02/17/18 06:15 06:15 09:21 WBC RBC Hgb Hct MCV MCH MCHC RDW Plt Count MPV Neut % (Auto) Lymph % (Auto) [place] % (Auto) Eos % (Auto) Baso % (Auto) Neut # (Auto) Lymph # (Auto) [place] # (Auto) Eos # (Auto) Baso # (Auto) PT 12.0 INR 1.1 APTT 30 Sodium 145 Potassium 3.7 Chloride 106 Carbon Dioxide 26 Anion Gap 17 BUN 33 H Creatinine 1.4 Est GFR ( Amer) > 60 Est GFR (Non-Af Amer) 50 Random Glucose 136 H Calcium 7.8 L Phosphorus 3.4 Magnesium 2.7 H Total Bilirubin 1.3 AST 37 ALT 42 Alkaline Phosphatase 92 Total Protein 5.7 L Albumin 3.1 L Globulin 2.6 Albumin/Globulin Ratio 1.2 Urine Color Urine Clarity Urine pH Ur Specific [place] Urine Protein Urine Glucose (UA) Urine Ketones Urine Blood Urine Nitrate Urine Bilirubin Urine Urobilinogen Ur Leukocyte Esterase Urine WBC (Auto) Urine RBC (Auto) Ur Squamous Epith Cells Urine Bacteria Ur Random Creatinine Ur Random Sodium Blood Type A POSITIVE Antibody Screen Negative 02/17/18 02/17/18 02/17/18 13:52 13:52 13:52 WBC 6.7 RBC 4.69 Hgb 13.7 Hct 40.5 MCV 86.3 MCH 29.1 MCHC 33.7 RDW 15.0 H Plt Count 372 MPV 9.5 Neut % (Auto) 82.1 H Lymph % (Auto) 13.2 L [place] % (Auto) 3.5 Eos % (Auto) 0.8 Baso % (Auto) 0.4 Neut # (Auto) 5.5 Lymph # (Auto) 0.9 L [place] # (Auto) 0.2 Eos # (Auto) 0.1 Baso # (Auto) 0.0 PT INR APTT 24 D Sodium 144 Potassium 4.0 Chloride 109 H Carbon Dioxide 26 Anion Gap 14 BUN 37 H Creatinine 1.5 Est GFR ( Amer) 56 Est GFR (Non-Af Amer) 46 Random Glucose 145 H Calcium 7.7 L Phosphorus Magnesium Total Bilirubin 1.8 H AST 75 H D ALT 57 Alkaline Phosphatase 88 Total Protein 5.3 L Albumin 2.5 L Globulin 2.8 Albumin/Globulin Ratio 0.9 L Urine Color Urine Clarity Urine pH Ur Specific [place] Urine Protein Urine Glucose (UA) Urine Ketones Urine Blood Urine Nitrate Urine Bilirubin Urine Urobilinogen Ur Leukocyte Esterase Urine WBC (Auto) Urine RBC (Auto) Ur Squamous Epith Cells Urine Bacteria Ur Random Creatinine Ur Random Sodium Blood Type Antibody Screen Assessment & Plan - Assessment and Plan (Free Text) Assessment: 1.s/p exploratory laparoscopy ileocolectomy today for Colonic ischemia with necrosis; 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 Tubular adenoma Colon 3.Post op hypotension-f/u CBC,transfuse PRN, IVF
[2018-02-17 22:41] LABS: BASO % 0.1 % (0.0-2.0); HEMOGLOBIN 13.5 g/dL (12.0-18.0); LYMPH # 0.9 K/uL (1.0-4.3); LYMPH % 6.3 % (20.0-40.0); MEAN CELL VOLUME 85.1 fL (80.0-94.0); MEAN CORPUSCULAR HEMOGLOBIN 27.7 pg (27.0-31.0); MEAN CORPUSCULAR HGB CONC 32.6 g/dL (33.0-37.0); MEAN PLATELET VOLUME 9.2 fL (7.2-11.7); MONO # 0.5 K/uL (0.0-0.8); MONO % 3.7 % (0.0-10.0); NEUT # 12.3 K/uL (1.8-7.0); NEUT % 89.9 % (50.0-75.0); PLATELET COUNT 361 K/uL (130-400); RBC 4.88 Mil/uL (4.40-5.90); RED CELL DISTRIBUTION WIDTH 14.8 % (11.5-14.5); WHITE BLOOD COUNT 13.7 K/uL (4.8-10.8)
[2018-02-17 23:09] LABS: ALB/GLOB RATIO 0.8 (1.0-2.1)
[2018-02-17 23:21] LABS: BANDS 31 % (0-2); LYMPHOCYTE 3 % (20-40); MONOCYTE 5 % (0-10); NEUTROPHIL 61 % (50-75); TOTAL CELLS COUNTED 100
[2018-02-17 23:22] LABS: HYPOCHROMIC SLIGHT; MICROCYTOSIS SLIGHT; PLATELET ESTIMATE NORMAL (NORMAL)
[2018-02-17 23:23] LABS: LARGE PLATELETS PRESENT; OVALOCYTES SLIGHT
[2018-02-18] MEDS: metroNIDAZOLE IV 500 mg/100 ml 500 MG/100 ML BAG IVPB SCH ×4 (00:10→23:00)
[2018-02-18] MEDS: Lactated Ringer's 1,000 ML IV SCH ×2 (00:15→11:30)
[2018-02-18] MEDS: HYDROmorphone 0.5 mg/0.5 ml ISec IVP PRN ×3 (01:30→22:50)
[2018-02-18] MEDS: Piperacillin/Tazobact 3.375 GM in Sodium Chloride 100 ML IVPB SCH ×4 (04:25→22:00)
[2018-02-18] MEDS ORDERED: Lactated Ringer's 1,000 ML IV SCH ×2 (06:07→11:00)
[2018-02-18 06:34] LABS: BASO % 0.3 % (0.0-2.0); HEMOGLOBIN 13.2 g/dL (12.0-18.0); LYMPH # 0.8 K/uL (1.0-4.3); LYMPH % 7.3 % (20.0-40.0); MEAN CELL VOLUME 85.9 fL (80.0-94.0); MEAN CORPUSCULAR HEMOGLOBIN 28.3 pg (27.0-31.0); MEAN PLATELET VOLUME 9.9 fL (7.2-11.7); MONO # 0.5 K/uL (0.0-0.8); MONO % 4.3 % (0.0-10.0); NEUT # 10.1 K/uL (1.8-7.0); NEUT % 88.1 % (50.0-75.0); PLATELET COUNT 371 K/uL (130-400); RBC 4.65 Mil/uL (4.40-5.90); WHITE BLOOD COUNT 11.5 K/uL (4.8-10.8)
[2018-02-18] MEDS ORDERED: PPN IV SCH (06:35)
[2018-02-18] MEDS ORDERED: Lactated Ringer's 1,000 ML IV ONE ×2 (06:40→10:46)
[2018-02-18 06:56] LABS: ALB/GLOB RATIO 0.9 (1.0-2.1); ALBUMIN 2.1 g/dL (3.5-5.0); ALT/SGPT 52 U/L (21-72); AST/SGOT 37 U/L (17-59); BLOOD UREA NITROGEN 32 mg/dL (9-20); CALCIUM 7.1 mg/dl (8.6-10.4); GFR AFRICAN-AMERICAN > 60; GFR NON-AFRICAN AMERICAN 50
[2018-02-18 08:22] LABS: BANDS 15 % (0-2); LYMPHOCYTE 5 % (20-40); MONOCYTE 2 % (0-10); NEUTROPHIL 78 % (50-75); PLATELET ESTIMATE NORMAL (NORMAL); TOTAL CELLS COUNTED 100
--- NOTE | 2018-02-18 08:37 | CP.PCM.CON ---
<Terra Walton - Last Filed: 02/18/18 14:02> History of Present Illness - History of Present Illness History of Present Illness: Patient was seen and examined at bedside. Patient reports his pain is well controlled. Denied any passing flatus or BM. Patient is OOB into chair. Hoffmann in place. Past Patient History - Past Medical History & Family History Past Medical History?: Yes - Past Social History Smoking Status: Never Smoked - CARDIAC Hx Cardiac Disorders: Yes - PULMONARY Hx Respiratory Disorders: Yes Hx Sleep Apnea: Yes (POSITIVE STUDY, DOES NOT HAVE C PAP MACHINE) - NEUROLOGICAL Hx Neurological Disorder: No - HEENT Hx HEENT Problems: No - RENAL Hx Chronic Kidney Disease: No - ENDOCRINE/METABOLIC Hx Endocrine Disorders: No - HEMATOLOGICAL/ONCOLOGICAL Hx Blood Disorders: No - INTEGUMENTARY Hx Dermatological Problems: No - MUSCULOSKELETAL/RHEUMATOLOGICAL Hx Musculoskeletal Disorders: No Hx Falls: No - GASTROINTESTINAL Hx Gastrointestinal Disorders: Yes Hx Gastritis: Yes Other/Comment: HX DUODENAL CARCINOID - GENITOURINARY/GYNECOLOGICAL Hx Genitourinary Disorders: No - PSYCHIATRIC Hx Psychophysiologic Disorder: No Hx Substance Use: No - SURGICAL HISTORY Hx Surgeries: Yes Hx Orthopedic Surgery: Yes (ORIF LEFT ELBOW W PLATE PLACEMENT) Other/Comment: HX: COLON POLYPECTOMY - ANESTHESIA Hx Anesthesia: Yes Hx Anesthesia Reactions: No Hx Malignant Hyperthermia: No Has any member of the family had a problem w/ anesthesia?: No Meds Allergies/Adverse Reactions: Allergies Allergy/AdvReac Type Severity Reaction Status Date / Time iodine Allergy Severe ANAPHYLAXIS Verified 12/30/17 09:17 - Medications Medications: Current Medications Acetaminophen (Tylenol 325mg Tab) 650 mg PO Q6 PRN PRN Reason: Fever >100.4 F Benzocaine/Menthol (Cepacol Sore Throat) 1 dillon MT Q4 PRN PRN Reason: Sore Throat Last Admin: 02/12/18 13:06 Dose: 1 dillon Famotidine (Pepcid) 20 mg IVP DAILY [facility] Last Admin: 02/17/18 10:00 Dose: Not Given Heparin Sodium (Porcine) (Heparin) 5,000 units SC Q8 ANN Last Admin: 02/18/18 06:05 Dose: 5,000 units Hydromorphone HCl (Dilaudid) 0.5 mg IVP Q4H PRN PRN Reason: Pain, moderate (4-7) Last Admin: 02/18/18 06:20 Dose: 0.5 mg Fat Emulsion Intravenous (Intralipid 20%) 500 mls @ 60 mls/hr IV QOD@1800 [facility] Stop: 02/21/18 02:19 Last Admin: 02/16/18 17:11 Dose: 60 mls/hr Piperacillin Sod/Tazobactam (Sod 3.375 gm/ Sodium Chloride) 100 mls @ 200 mls/ hr IVPB Q6H [facility] PRN Reason: Protocol Last Admin: 02/18/18 04:25 Dose: 200 mls/hr Lactated Ringer's (Lactated Ringer's) 1,000 mls @ 1,000 mls/hr IV .Q1H PRN PRN Reason: Hypotension BUPIVACAINE 0.125%/0.9% NACL (Bupivacaine-Ns 0.125% On-Q Transfer Specialist) 600 mls @ 4 mls/ hr IJ ONCE ONE Stop: 02/23/18 20:59 Sodium Chloride 15 meq/Potassium Chloride 30 meq/Potassium Phosphate 15 mmole/ Calcium Gluconate 4.5 meq/Amino Acids 1,033.4274 mls @ 83 mls/hr IV .[id number] [facility] Stop: 02/18/18 17:59 Last Admin: 02/18/18 06:05 Dose: 83 mls/hr Metronidazole (Flagyl) 500 mg in 100 mls @ 100 mls/hr IVPB Q8H [facility] PRN Reason: Protocol Last Admin: 02/18/18 06:30 Dose: 100 mls/hr Lactated Ringer's (Lactated Ringer's) 1,000 mls @ 100 mls/hr IV .Q10H ONE Stop: 02/18/18 16:39 Last Admin: 02/18/18 07:00 Dose: 100 mls/hr Lidocaine (Lidoderm) 1 ea TD DAILY@0800 [facility] Last Admin: 02/17/18 09:00 Dose: Not Given Metoclopramide HCl (Reglan) 5 mg IVP Q6 [facility] Last Admin: 02/18/18 05:00 Dose: 5 mg Ondansetron HCl (Zofran Inj) 4 mg IV Q4 PRN PRN Reason: Nausea/Vomiting Last Admin: 02/13/18 12:11 Dose: 4 mg Pantoprazole Sodium (Protonix Inj) 40 mg IVP DAILY [facility] Last Admin: 02/17/18 10:00 Dose: Not Given Tramadol HCl (Ultram) 50 mg PO TID PRN PRN Reason: Pain, moderate (4-7) Last Admin: 02/12/18 12:51 Dose: 50 mg Physical Exam - Constitutional Appears: No Acute Distress - Head Exam Head Exam: NORMAL INSPECTION, NORMOCEPHALIC - Eye Exam Eye Exam: EOMI, Normal appearance, PERRL Pupil Exam: NORMAL ACCOMODATION - Respiratory Exam Respiratory Exam: Clear to Auscultation Bilateral, NORMAL BREATHING PATTERN - Cardiovascular Exam Cardiovascular Exam: REGULAR RHYTHM - GI/Abdominal Exam GI & Abdominal Exam: Soft, Tenderness Additional comments: dressing C/D/I- surgical site - has no erythema, cellulitis noted. Q ball in place - Extremities Exam Extremities exam: Positive for: normal inspection, pedal pulses present. Negative for: pedal edema, tenderness - Neurological Exam Neurological exam: Alert, CN II-XII Intact, Oriented x3 - Psychiatric Exam Psychiatric exam: Normal Affect, Normal Mood - Skin Skin Exam: Dry, Intact, Normal Color, Warm Results - Vital Signs Recent Vital Signs: Last Vital Signs Temp 97.9 F 02/18/18 07:55 Pulse 104 H 02/18/18 07:55 Resp 20 02/18/18 07:55 BP 113/72 02/18/18 07:55 Pulse Ox 100 02/18/18 07:55 - Labs Result Diagrams: 02/18/18 06:28 02/18/18 06:27 Labs: Laboratory Results - last 24 hr 02/17/18 02/17/18 02/17/18 09:21 13:52 13:52 WBC 6.7 RBC 4.69 Hgb 13.7 Hct 40.5 MCV 86.3 MCH 29.1 MCHC 33.7 RDW 15.0 H Plt Count 372 MPV 9.5 Neut % (Auto) 82.1 H Lymph % (Auto) 13.2 L Hubbard % (Auto) 3.5 Eos % (Auto) 0.8 Baso % (Auto) 0.4 Neut # (Auto) 5.5 Lymph # (Auto) 0.9 L Hubbard # (Auto) 0.2 Eos # (Auto) 0.1 Baso # (Auto) 0.0 Neutrophils % (Manual) Band Neutrophils % Lymphocytes % (Manual) Monocytes % (Manual) Platelet Estimate Large Platelets Hypochromasia (manual) Microcytosis (manual) Ovalocytes APTT Sodium 144 Potassium 4.0 Chloride 109 H Carbon Dioxide 26 Anion Gap 14 BUN 37 H Creatinine 1.5 Est GFR ( Amer) 56 Est GFR (Non-Af Amer) 46 Random Glucose 145 H Calcium 7.7 L Phosphorus Magnesium Total Bilirubin 1.8 H AST 75 H D ALT 57 Alkaline Phosphatase 88 Total Protein 5.3 L Albumin 2.5 L Globulin 2.8 Albumin/Globulin Ratio 0.9 L Blood Type A POSITIVE Antibody Screen Negative 02/17/18 02/17/18 02/17/18 13:52 22:00 22:56 WBC 13.7 H D RBC 4.88 Hgb 13.5 Hct 41.5 MCV 85.1 MCH 27.7 MCHC 32.6 L RDW 14.8 H Plt Count 361 MPV 9.2 Neut % (Auto) 89.9 H Lymph % (Auto) 6.3 L Hubbard % (Auto) 3.7 Eos % (Auto) 0.0 Baso % (Auto) 0.1 Neut # (Auto) 12.3 H Lymph # (Auto) 0.9 L Hubbard # (Auto) 0.5 Eos # (Auto) 0.0 Baso # (Auto) 0.0 Neutrophils % (Manual) 61 Band Neutrophils % 31 H* Lymphocytes % (Manual) 3 L Monocytes % (Manual) 5 Platelet Estimate Normal Large Platelets Present Hypochromasia (manual) Slight Microcytosis (manual) Slight Ovalocytes Slight APTT 24 D Sodium 141 Potassium 4.5 Chloride 110 H Carbon Dioxide 23 Anion Gap 13 BUN 34 H Creatinine 1.6 H Est GFR ( Amer) 52 Est GFR (Non-Af Amer) 43 Random Glucose 139 H Calcium 7.0 L Phosphorus Magnesium Total Bilirubin 2.0 H AST 50 ALT 59 Alkaline Phosphatase 67 Total Protein 4.4 L Albumin 2.0 L Globulin 2.4 Albumin/Globulin Ratio 0.8 L Blood Type Antibody Screen 02/18/18 02/18/18 06:27 06:28 WBC 11.5 H RBC 4.65 Hgb 13.2 Hct 39.9 MCV 85.9 MCH 28.3 MCHC 33.0 RDW 15.0 H Plt Count 371 MPV 9.9 Neut % (Auto) 88.1 H Lymph % (Auto) 7.3 L Hubbard % (Auto) 4.3 Eos % (Auto) 0.0 Baso % (Auto) 0.3 Neut # (Auto) 10.1 H Lymph # (Auto) 0.8 L Hubbard # (Auto) 0.5 Eos # (Auto) 0.0 Baso # (Auto) 0.0 Neutrophils % (Manual) 78 H Band Neutrophils % 15 H* Lymphocytes % (Manual) 5 L Monocytes % (Manual) 2 Platelet Estimate Normal Large Platelets Hypochromasia (manual) Microcytosis (manual) Ovalocytes APTT Sodium 142 Potassium 4.8 Chloride 110 H Carbon Dioxide 24 Anion Gap 13 BUN 32 H Creatinine 1.4 Est GFR ( Amer) > 60 Est GFR (Non-Af Amer) 50 Random Glucose 171 H Calcium 7.1 L Phosphorus 3.7 Magnesium 2.1 Total Bilirubin 1.5 H AST 37 ALT 52 Alkaline Phosphatase 59 Total Protein 4.4 L Albumin 2.1 L Globulin 2.3 Albumin/Globulin Ratio 0.9 L Blood Type Antibody Screen Assessment & Plan - Assessment and Plan (Free Text) Assessment: This is a 72 year old male with PMHx of PVD, DVT, and LEO who underwent laparoscopic right hemicolectomy (POD #12) 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 He had persistent postoperative ileus and evidence of small bowel obstruction with colonic ischemia with necrosis s/p exploratory laparoscopy ileocolectomy 02/17/18 (POD #1) he returned to the OR shortly after for ex lap and hemostasis 2/2 hypotensive shock. Admitted to ICU for close monitoring. Plan: Neuro: GCS 15 Cardio: A: LEO - Sleep study performed 2016 Pulm: - Incentive Spirometer - Duonebs as needed GI: A: Tubular Adenoma General Surgery- Dr. Saúl Green - laparoscopic right hemicolectomy (POD #12) 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 He had persistent postoperative ileus and evidence of small bowel obstruction with colonic ischemia with necrosis s/p exploratory laparoscopy ileocolectomy 02/17/18 (POD #1) he returned to the OR shortly after for ex lap and hemostasis 2/2 hypotensive shock. - Monitor in ICU - Flagyl 500 Q8 (02/17) - OFirmev, dilaudid PRN for pain, Qball in place - LR @ 75, PPN feedings ID: - Mane cultured Prophylaxis - Protonix - SCDs, Hep Q8 - PT eval - Lines: peripherals- consult placed for PICC Line Access DW Dr. Jones, Terra Walton DO, PGY1 <Brian Jones - Last Filed: 02/18/18 14:31> Meds - Medications Medications: Current Medications Albuterol/Ipratropium (Duoneb 3 Mg/0.5 Mg (3 Ml) Ud) 3 ml INH RQ4 PRN PRN Reason: Shortness of Breath Benzocaine/Menthol (Cepacol Sore Throat) 1 dillon MT Q4 PRN PRN Reason: Sore Throat Last Admin: 02/12/18 13:06 Dose: 1 dillon Heparin Sodium (Porcine) (Heparin) 5,000 units SC Q8 ANN Last Admin: 02/18/18 06:05 Dose: 5,000 units Hydromorphone HCl (Dilaudid) 0.5 mg IVP Q2 PRN PRN Reason: Pain, severe (8-10) Piperacillin Sod/Tazobactam (Sod 3.375 gm/ Sodium Chloride) 100 mls @ 200 mls/ hr IVPB Q6H [facility] PRN Reason: Protocol Last Admin: 02/18/18 11:00 Dose: 200 mls/hr BUPIVACAINE 0.125%/0.9% NACL (Bupivacaine-Ns 0.125% On-Q Transfer Specialist) 600 mls @ 4 mls/ hr IJ ONCE ONE Stop: 02/23/18 20:59 Sodium Chloride 15 meq/Potassium Chloride 30 meq/Potassium Phosphate 15 mmole/ Calcium Gluconate 4.5 meq/Amino Acids 1,033.4274 mls @ 83 mls/hr IV .[id number] ANN Stop: 02/18/18 17:59 Last Admin: 02/18/18 06:05 Dose: 83 mls/hr Metronidazole (Flagyl) 500 mg in 100 mls @ 100 mls/hr IVPB Q8H [facility] PRN Reason: Protocol Last Admin: 02/18/18 06:30 Dose: 100 mls/hr Acetaminophen 1,000 mg/ (Miscellaneous) 100 mls @ 400 mls/hr IV Q6 PRN PRN Reason: Pain, Mild (1-3) Stop: 02/19/18 10:34 Sodium Chloride 15 meq/Magnesium Sulfate 3 meq/Calcium Gluconate 4.5 meq/ Multivitamins/Vitamin C 10 ml/Amino Acids 1,024.1663 mls @ 63 mls/hr IV .[id number] [facility] Stop: 02/19/18 10:15 Sodium Chloride 15 meq/Magnesium Sulfate 3 meq/Calcium Gluconate 4.5 meq/Amino Acids 1,014.1663 mls @ 63 mls/hr IV .[id number] [facility] Stop: 02/19/18 17:59 Fat Emulsion Intravenous (Intralipid 20%) 500 mls @ 60 mls/hr IV QOD@1800 [facility] Stop: 02/24/18 18:01 Lactated Ringer's (Lactated Ringer's) 1,000 mls @ 75 mls/hr IV .[id number] [facility] Lidocaine (Lidoderm) 1 ea TD DAILY@0800 [facility] Last Admin: 02/17/18 09:00 Dose: Not Given Metoclopramide HCl (Reglan) 5 mg IVP Q6 [facility] Last Admin: 02/18/18 11:43 Dose: 5 mg Ondansetron HCl (Zofran Inj) 4 mg IV Q4 PRN PRN Reason: Nausea/Vomiting Last Admin: 02/18/18 09:24 Dose: 4 mg Pantoprazole Sodium (Protonix Inj) 40 mg IVP DAILY [facility] Last Admin: 02/18/18 09:23 Dose: 40 mg Results - Vital Signs Recent Vital Signs: Last Vital Signs Temp 97.9 F 02/18/18 07:55 Pulse 104 H 02/18/18 07:55 Resp 20 02/18/18 07:55 BP 113/72 02/18/18 07:55 Pulse Ox 100 02/18/18 07:55 - Labs Result Diagrams: 02/18/18 06:28 02/18/18 06:27 Labs: Laboratory Results - last 24 hr 02/16/18 02/17/18 02/17/18 15:18 22:00 22:56 WBC 13.7 H D RBC 4.88 Hgb 13.5 Hct 41.5 MCV 85.1 MCH 27.7 MCHC 32.6 L RDW 14.8 H Plt Count 361 MPV 9.2 Neut % (Auto) 89.9 H Lymph % (Auto) 6.3 L Hubbard % (Auto) 3.7 Eos % (Auto) 0.0 Baso % (Auto) 0.1 Neut # (Auto) 12.3 H Lymph # (Auto) 0.9 L Hubbard # (Auto) 0.5 Eos # (Auto) 0.0 Baso # (Auto) 0.0 Neutrophils % (Manual) 61 Band Neutrophils % 31 H* Lymphocytes % (Manual) 3 L Monocytes % (Manual) 5 Platelet Estimate Normal Large Platelets Present Hypochromasia (manual) Slight Microcytosis (manual) Slight Ovalocytes Slight Sodium 141 Potassium 4.5 Chloride 110 H Carbon Dioxide 23 Anion Gap 13 BUN 34 H Creatinine 1.6 H Est GFR ( Amer) 52 Est GFR (Non-Af Amer) 43 POC Glucose (mg/dL) Random Glucose 139 H Calcium 7.0 L Phosphorus Magnesium Total Bilirubin 2.0 H AST 50 ALT 59 Alkaline Phosphatase 67 Total Protein 4.4 L Albumin 2.0 L Globulin 2.4 Albumin/Globulin Ratio 0.8 L Urine Chloride 24 L 02/18/18 02/18/18 02/18/18 06:27 06:28 11:18 WBC 11.5 H RBC 4.65 Hgb 13.2 Hct 39.9 MCV 85.9 MCH 28.3 MCHC 33.0 RDW 15.0 H Plt Count 371 MPV 9.9 Neut % (Auto) 88.1 H Lymph % (Auto) 7.3 L Hubbard % (Auto) 4.3 Eos % (Auto) 0.0 Baso % (Auto) 0.3 Neut # (Auto) 10.1 H Lymph # (Auto) 0.8 L Hubbard # (Auto) 0.5 Eos # (Auto) 0.0 Baso # (Auto) 0.0 Neutrophils % (Manual) 78 H Band Neutrophils % 15 H* Lymphocytes % (Manual) 5 L Monocytes % (Manual) 2 Platelet Estimate Normal Large Platelets Hypochromasia (manual) Microcytosis (manual) Ovalocytes Sodium 142 Potassium 4.8 Chloride 110 H Carbon Dioxide 24 Anion Gap 13 BUN 32 H Creatinine 1.4 Est GFR ( Amer) > 60 Est GFR (Non-Af Amer) 50 POC Glucose (mg/dL) 162 H Random Glucose 171 H Calcium 7.1 L Phosphorus 3.7 Magnesium 2.1 Total Bilirubin 1.5 H AST 37 ALT 52 Alkaline Phosphatase 59 Total Protein 4.4 L Albumin 2.1 L Globulin 2.3 Albumin/Globulin Ratio 0.9 L Urine Chloride Attending/Attestation - Attestation I have personally seen and examined this patient.: Yes I have fully participated in the care of the patient.: Yes I have reviewed all pertinent clinical information: Yes Notes (Text): 02/18/18 14:31 Today: Sunday, February 18, 2018 The Patient was seen and examined at the bedside, Medical records reviewed, and management issues were discussed and formulated with the house staff. I have reviewed all the relevant clinical, laboratory, hemodynamic, radiographic data and medications Events reviewed Pain issues, skin care, head of the bed elevation, glycemic control were addressed. Agree with above resident's assessment and treatment plans of care as transcribed in Dr. Walton note.
--- NOTE | 2018-02-18 10:03 | RAD ---
PROCEDURE: CHEST RADIOGRAPH, 1 VIEW HISTORY: post op COMPARISON: Comparison made with chest radiograph 02/11/2018. Comparison also made with the CT scan abdomen pelvis 02/16/2018 which imaged both lung bases. FINDINGS: In situ NGT, the tip of which has not been included on this exam though does lie well below EG junction. LUNGS: Mild bibasilar atelectasis. PLEURA: No pneumothorax or pleural fluid seen. CARDIOVASCULAR: Cardiomegaly. OSSEOUS STRUCTURES: Mild multilevel degenerative spondylosis of the thoracic spine VISUALIZED UPPER ABDOMEN: Normal. OTHER FINDINGS: None. IMPRESSION: In situ NGT, the tip of which has not been included on this exam though does lie well below EG junction. Mild bibasilar atelectasis.
[2018-02-18] MEDS ORDERED: HYDROmorphone 0.5 mg/0.5 ml ISec IVP PRN (10:33)
[2018-02-18] MEDS ORDERED: Acetaminophen IV 1,000 MG in Premixed IV 1 EA IV PRN (10:33)
[2018-02-18] MEDS ORDERED: Albuterol-Ipratrop 3 mg / 0.5 (3 ml) UD INH PRN (10:44)
--- NOTE | 2018-02-18 13:44 | CP.PCM.PN ---
<Andrés Monaco D - Last Filed: 02/18/18 13:39> Subjective - Date & Time of Evaluation Date of Evaluation: 02/18/18 Time of Evaluation: 13:39 - Subjective Subjective: SURGERY PROGRESS NOTE FOR DR. GREEN 72M seen and examined at bedside. States he is having some pain which the medications help with sometimes. Denies nausea, vomiting, fevers or chills. Patient is current out of bed to chair. Objective - Vital Signs/Intake and Output Vital Signs (last 24 hours): Temp Pulse Resp BP Pulse Ox 97.9 F 104 H 20 113/72 100 02/18/18 07:55 02/18/18 07:55 02/18/18 07:55 02/18/18 07:55 02/18/18 07:55 Intake and Output: 02/18/18 02/18/18 06:59 18:59 Intake Total 1772 266 Output Total 1540 265 Balance 232 1 - Medications Medications: Current Medications Albuterol/Ipratropium (Duoneb 3 Mg/0.5 Mg (3 Ml) Ud) 3 ml INH RQ4 PRN PRN Reason: Shortness of Breath Benzocaine/Menthol (Cepacol Sore Throat) 1 dillon MT Q4 PRN PRN Reason: Sore Throat Last Admin: 02/12/18 13:06 Dose: 1 dillon Heparin Sodium (Porcine) (Heparin) 5,000 units SC Q8 ANN Last Admin: 02/18/18 06:05 Dose: 5,000 units Hydromorphone HCl (Dilaudid) 0.5 mg IVP Q2 PRN PRN Reason: Pain, severe (8-10) Piperacillin Sod/Tazobactam (Sod 3.375 gm/ Sodium Chloride) 100 mls @ 200 mls/ hr IVPB Q6H ANN PRN Reason: Protocol Last Admin: 02/18/18 11:00 Dose: 200 mls/hr BUPIVACAINE 0.125%/0.9% NACL (Bupivacaine-Ns 0.125% On-Q Sound Recordist) 600 mls @ 4 mls/ hr IJ ONCE ONE Stop: 02/23/18 20:59 Sodium Chloride 15 meq/Potassium Chloride 30 meq/Potassium Phosphate 15 mmole/ Calcium Gluconate 4.5 meq/Amino Acids 1,033.4274 mls @ 83 mls/hr IV .[id number] [facility] Stop: 02/18/18 17:59 Last Admin: 02/18/18 06:05 Dose: 83 mls/hr Metronidazole (Flagyl) 500 mg in 100 mls @ 100 mls/hr IVPB Q8H ANN PRN Reason: Protocol Last Admin: 02/18/18 06:30 Dose: 100 mls/hr Acetaminophen 1,000 mg/ (Miscellaneous) 100 mls @ 400 mls/hr IV Q6 PRN PRN Reason: Pain, Mild (1-3) Stop: 02/19/18 10:34 Sodium Chloride 15 meq/Magnesium Sulfate 3 meq/Calcium Gluconate 4.5 meq/ Multivitamins/Vitamin C 10 ml/Amino Acids 1,024.1663 mls @ 63 mls/hr IV .[id number] [facility] Stop: 02/19/18 10:15 Sodium Chloride 15 meq/Magnesium Sulfate 3 meq/Calcium Gluconate 4.5 meq/Amino Acids 1,014.1663 mls @ 63 mls/hr IV .Q16H6M [facility] Stop: 02/19/18 17:59 Fat Emulsion Intravenous (Intralipid 20%) 500 mls @ 60 mls/hr IV QOD@1800 ANN Stop: 02/24/18 18:01 Lactated Ringer's (Lactated Ringer's) 1,000 mls @ 75 mls/hr IV .[id number] [facility] Lidocaine (Lidoderm) 1 ea TD DAILY@0800 [facility] Last Admin: 02/17/18 09:00 Dose: Not Given Metoclopramide HCl (Reglan) 5 mg IVP Q6 [facility] Last Admin: 02/18/18 11:43 Dose: 5 mg Ondansetron HCl (Zofran Inj) 4 mg IV Q4 PRN PRN Reason: Nausea/Vomiting Last Admin: 02/18/18 09:24 Dose: 4 mg Pantoprazole Sodium (Protonix Inj) 40 mg IVP DAILY [facility] Last Admin: 02/18/18 09:23 Dose: 40 mg - Labs Labs: 02/18/18 06:28 02/18/18 06:27 PT 12.0 SECONDS (9.7-12.2) 02/17/18 06:15 INR 1.1 02/17/18 06:15 APTT 24 SECONDS (21-34) D 02/17/18 13:52 - Constitutional Appears: Non-toxic, No Acute Distress - Respiratory Exam Respiratory Exam: Clear to Ausculation Bilateral, NORMAL BREATHING PATTERN - Cardiovascular Exam Cardiovascular Exam: REGULAR RHYTHM, +S1, +S2 - GI/Abdominal Exam GI & Abdominal Exam: Soft, Tenderness. absent: Distended, Firm, Guarding, Rigid Additional comments: Dresisng CDI Drain 50cc overnight, serosang NGT 100cc overnight - Extremities Exam Extremities Exam: absent: Pedal Edema, Tenderness - Neurological Exam Neurological Exam: Alert, Awake - Skin Skin Exam: Dry, Intact, Normal Color, Warm Assessment and Plan - Assessment and Plan (Free Text) Assessment: 72M presents s/p ex-lap with ileo-colic resection at site of previous anastomosis POD#1 Plan: NPO, decrease IVF Pain control- increase pain med rate/ increase on-Q ball. Continue antibiotics Monitor urine output DC Fregoso today Continue to encourage out of bed and ambulation Discussed with Dr. Peter Monaco, PGY2 <Saúl Green - Last Filed: 02/18/18 17:13> Objective - Vital Signs/Intake and Output Vital Signs (last 24 hours): Temp Pulse Resp BP Pulse Ox 97.9 F 116 H 16 117/75 96 02/18/18 12:00 02/18/18 13:00 02/18/18 14:00 02/18/18 15:00 02/18/18 15:00 Intake and Output: 02/18/18 02/18/18 06:59 18:59 Intake Total 1772 1372 Output Total 1540 995 Balance 232 377 - Medications Medications: Current Medications Albuterol/Ipratropium (Duoneb 3 Mg/0.5 Mg (3 Ml) Ud) 3 ml INH RQ4 PRN PRN Reason: Shortness of Breath Benzocaine/Menthol (Cepacol Sore Throat) 1 dillon MT Q4 PRN PRN Reason: Sore Throat Last Admin: 02/12/18 13:06 Dose: 1 dillon Heparin Sodium (Porcine) (Heparin) 5,000 units SC Q8 ANN Last Admin: 02/18/18 14:31 Dose: 5,000 units Hydromorphone HCl (Dilaudid) 0.5 mg IVP Q2 PRN PRN Reason: Pain, severe (8-10) Piperacillin Sod/Tazobactam (Sod 3.375 gm/ Sodium Chloride) 100 mls @ 200 mls/ hr IVPB Q6H [facility] PRN Reason: Protocol Last Admin: 02/18/18 11:00 Dose: 200 mls/hr BUPIVACAINE 0.125%/0.9% NACL (Bupivacaine-Ns 0.125% On-Q Sound Recordist) 600 mls @ 4 mls/ hr IJ ONCE ONE Stop: 02/23/18 20:59 Sodium Chloride 15 meq/Potassium Chloride 30 meq/Potassium Phosphate 15 mmole/ Calcium Gluconate 4.5 meq/Amino Acids 1,033.4274 mls @ 83 mls/hr IV .[id number] [facility] Stop: 02/18/18 17:59 Last Admin: 02/18/18 06:05 Dose: 83 mls/hr Metronidazole (Flagyl) 500 mg in 100 mls @ 100 mls/hr IVPB Q8H [facility] PRN Reason: Protocol Last Admin: 02/18/18 15:30 Dose: 100 mls/hr Acetaminophen 1,000 mg/ (Miscellaneous) 100 mls @ 400 mls/hr IV Q6 PRN PRN Reason: Pain, Mild (1-3) Stop: 02/19/18 10:34 Sodium Chloride 15 meq/Magnesium Sulfate 3 meq/Calcium Gluconate 4.5 meq/ Multivitamins/Vitamin C 10 ml/Amino Acids 1,024.1663 mls @ 63 mls/hr IV .[id number] [facility] Stop: 02/19/18 10:15 Sodium Chloride 15 meq/Magnesium Sulfate 3 meq/Calcium Gluconate 4.5 meq/Amino Acids 1,014.1663 mls @ 63 mls/hr IV .Q16H6M [facility] Stop: 02/19/18 17:59 Fat Emulsion Intravenous (Intralipid 20%) 500 mls @ 60 mls/hr IV QOD@1800 [facility] Stop: 02/24/18 18:01 Lactated Ringer's (Lactated Ringer's) 1,000 mls @ 75 mls/hr IV .[id number] [facility] Last Admin: 02/18/18 11:30 Dose: 75 mls/hr Lidocaine (Lidoderm) 1 ea TD DAILY@0800 [facility] Last Admin: 02/17/18 09:00 Dose: Not Given Metoclopramide HCl (Reglan) 5 mg IVP Q6 [facility] Last Admin: 02/18/18 11:43 Dose: 5 mg Ondansetron HCl (Zofran Inj) 4 mg IV Q4 PRN PRN Reason: Nausea/Vomiting Last Admin: 02/18/18 09:24 Dose: 4 mg Pantoprazole Sodium (Protonix Inj) 40 mg IVP DAILY [facility] Last Admin: 02/18/18 09:23 Dose: 40 mg - Labs Labs: 02/18/18 06:28 02/18/18 06:27 PT 12.0 SECONDS (9.7-12.2) 02/17/18 06:15 INR 1.1 02/17/18 06:15 APTT 24 SECONDS (21-34) D 02/17/18 13:52 Assessment and Plan - Assessment and Plan (Free Text) Plan: Patient seen and examined at bedside with resident staff. Patient's family at bedside and daughter interpreting [place] to citizen of [place]. In chair at present. Pain moderately controlled. Some discomfort from having just moved into chair. Slight tachycardia and SBP 90's overnight, improved this am following fluid boluses and increase rate overnight. Adequate urine output. drain is serosanguinous and 50cc since OR. abd soft but full. Dressings c/d/i. Patient is now POD13 from laporscopic right hemicolectomy, POD1 from exploratory laparotomy, takedown of ECF and revision of ileocolonic anastomosis for colon ischemia and necrotic staple line, also POD1 from emergent takeback and re-exploration of retroperitoenal venous bleeding. I expect he will have some degree of SIRS type of inflammatory response for first 24-48 hours post- op. Supportive care. - OnQ pain infusion increased to 7mL/hr. Can increase PRN dilaudid to q2 for breakthrough if blood pressure unaffected. - Maintain SBP >100 to ensure proper perfusion to anastomosis. Avoid hypotension. Can use phenylephrine if needed. Monitor tachycardia, likely related inflammatory state - STRICT NPO. NGT to Low INTERMITTENT wall suction at all times. NGT to remain in place until flatus. Abdominal wounds - dressing to be taken down in AM. Continue wet-to-dry dressing. BID. SUDHAKAR drain to bulb suction. Monitor for bleeding, bile, detect anastomotic leak. Will plan to remove after patient taking PO at later date. - continue Zosyn and flagyl until WBC and bandemia resolved. Can add Vancomycin if needed for broad coverage of abdominal infection - Pulmonary toilet and supplemental 02 to maintain sat>92. History of COPD and ? LEO. Also required diuresis earlier this admission following initial operation. Hx of PE 5 years ago, LLE DVT found to be the source, finished 6 months coumadin at that time. This admission he had repeat LE Duplex which was negative for DVT. HSQ 5000U q8h for prophylaxis. SCD to be worn at all times while in bed or in chair. Can remove for ambulation and PT - Strict I/O's. LR decreased to 75ml.hr. PPN at 83ml/hr. Can switch to TPN with PICC placement tomorrow. Avoid fluid overload. Titrate total IVF rate for urine output goal of 0.5cc/kg/hr. Had DEL prior to last surgery, Nephrology following. Ok to discontinue fregoso - PPI BID. 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 - Glycemic control. Insulin as needed. BG goal :130-160 - OOB to chair. PT following, will assess if rehab or home PT may be needed.
[2018-02-18] MEDS ORDERED: PPN#8 IV SCH (18:00)
[2018-02-18] MEDS: Fat Emulsion 20% IV 500 ML IV SCH (18:02)
[2018-02-19] MEDS: HYDROmorphone 0.5 mg/0.5 ml ISec IVP PRN ×5 (02:00→19:29)
[2018-02-19] MEDS: Piperacillin/Tazobact 3.375 GM in Sodium Chloride 100 ML IVPB SCH ×4 (05:00→22:05)
[2018-02-19] MEDS: Lactated Ringer's 1,000 ML IV SCH ×2 (05:00→16:54)
[2018-02-19 06:17] LABS: BASO % 0.1 % (0.0-2.0); EOS # 0.1 K/uL (0.0-0.7); EOS % 0.5 % (0.0-4.0); HEMOGLOBIN 11.1 g/dL (12.0-18.0); LYMPH # 0.8 K/uL (1.0-4.3); LYMPH % 6.7 % (20.0-40.0); MEAN CELL VOLUME 86.1 fL (80.0-94.0); MEAN CORPUSCULAR HEMOGLOBIN 28.5 pg (27.0-31.0); MEAN CORPUSCULAR HGB CONC 33.1 g/dL (33.0-37.0); MEAN PLATELET VOLUME 9.7 fL (7.2-11.7); MONO # 0.5 K/uL (0.0-0.8); MONO % 4.1 % (0.0-10.0); NEUT # 10.4 K/uL (1.8-7.0); NEUT % 88.6 % (50.0-75.0); PLATELET COUNT 324 K/uL (130-400); RBC 3.89 Mil/uL (4.40-5.90); RED CELL DISTRIBUTION WIDTH 14.6 % (11.5-14.5); WHITE BLOOD COUNT 11.7 K/uL (4.8-10.8)
[2018-02-19] MEDS: metroNIDAZOLE IV 500 mg/100 ml 500 MG/100 ML BAG IVPB SCH ×2 (06:30→15:45)
[2018-02-19 06:33] LABS: ALB/GLOB RATIO 0.9 (1.0-2.1); ALBUMIN 2.1 g/dL (3.5-5.0); ALT/SGPT 47 U/L (21-72); AST/SGOT 24 U/L (17-59); BLOOD UREA NITROGEN 25 mg/dL (9-20); CALCIUM 7.1 mg/dl (8.6-10.4); GFR AFRICAN-AMERICAN > 60; GFR NON-AFRICAN AMERICAN 60
[2018-02-19] MEDS ORDERED: DiphenhydrAMINE 50 mg/ml Inj IVP STA (07:56)
[2018-02-19] MEDS ORDERED: Potassium Phosphate 30 MMOLE in Sodium Chloride 0.9% 250 ML IV ONE (07:56)
[2018-02-19 09:04] LABS: BANDS 2 % (0-2); LYMPHOCYTE 9 % (20-40); MONOCYTE 4 % (0-10); MYELOCYTE 1 % (0-0); NEUTROPHIL 84 % (50-75); PLATELET ESTIMATE NORMAL (NORMAL); TOTAL CELLS COUNTED 100
[2018-02-19 09:05] LABS: ANISOCYTOSIS SLIGHT; HYPOCHROMIC SLIGHT; OVALOCYTES SLIGHT; POIKILOCYTOSIS SLIGHT
[2018-02-19] MEDS: Potassium & Sodium Phosphate PO SCH ×2 (09:43→11:01)
[2018-02-19] MEDS ORDERED: PPN#9 IV SCH (10:16)
--- NOTE | 2018-02-19 10:17 | RAD ---
HISTORY: verify right PICC COMPARISON: 02/18/2018 FINDINGS: LUNGS: No active pulmonary disease. PLEURA: No significant pleural effusion identified, no pneumothorax apparent. CARDIOVASCULAR: New right PICC catheter terminating in the region of the right atrium. No pneumothorax. Nasogastric tube extends beneath the diaphragm. Normal heart size. No congestive change. OSSEOUS STRUCTURES: No significant abnormalities. VISUALIZED UPPER ABDOMEN: Normal. OTHER FINDINGS: None. IMPRESSION: New right PICC catheter. Otherwise no change.
--- NOTE | 2018-02-19 10:42 | CP.PCM.PN ---
<Oseas Caldera - Last Filed: 02/19/18 11:32> Subjective - Date & Time of Evaluation Date of Evaluation: 02/19/18 Time of Evaluation: 10:41 - Subjective Subjective: General Surgery Progress Note for Dr. Green This 72M was seen and evaluated this AM at bedside. No acute events reported overnight however the patient had episodes of urinary incontinence so a [place] condom catheter was placed. He complains of pain with ambulation. Objective - Vital Signs/Intake and Output Vital Signs (last 24 hours): Temp Pulse Resp BP Pulse Ox 99 F 111 H 27 H 109/57 L 96 02/19/18 04:00 02/19/18 07:00 02/19/18 07:00 02/19/18 07:00 02/19/18 07:00 Intake and Output: 02/19/18 02/19/18 06:59 18:59 Intake Total 2143 138 Output Total 1450 Balance 693 138 - Medications Medications: Current Medications Albuterol/Ipratropium (Duoneb 3 Mg/0.5 Mg (3 Ml) Ud) 3 ml INH RQ4 PRN PRN Reason: Shortness of Breath Benzocaine/Menthol (Cepacol Sore Throat) 1 dillon MT Q4 PRN PRN Reason: Sore Throat Last Admin: 02/12/18 13:06 Dose: 1 dillon Heparin Sodium (Porcine) (Heparin) 5,000 units SC Q8 [facility] Last Admin: 02/19/18 05:05 Dose: 5,000 units Hydromorphone HCl (Dilaudid) 0.5 mg IVP Q2 PRN PRN Reason: Pain, severe (8-10) Last Admin: 02/19/18 08:07 Dose: 0.5 mg Piperacillin Sod/Tazobactam (Sod 3.375 gm/ Sodium Chloride) 100 mls @ 200 mls/ hr IVPB Q6H [facility] PRN Reason: Protocol Last Admin: 02/19/18 10:26 Dose: 200 mls/hr BUPIVACAINE 0.125%/0.9% NACL (Bupivacaine-Ns 0.125% On-Q Distribution Tech) 600 mls @ 4 mls/ hr IJ ONCE ONE Stop: 02/23/18 20:59 Metronidazole (Flagyl) 500 mg in 100 mls @ 100 mls/hr IVPB Q8H [facility] PRN Reason: Protocol Last Admin: 02/19/18 06:30 Dose: 100 mls/hr Sodium Chloride 15 meq/Magnesium Sulfate 3 meq/Calcium Gluconate 4.5 meq/Amino Acids 1,014.1663 mls @ 63 mls/hr IV .Q16H6M [facility] Stop: 02/19/18 17:59 Last Admin: 02/19/18 10:26 Dose: 63 mls/hr Fat Emulsion Intravenous (Intralipid 20%) 500 mls @ 60 mls/hr IV QOD@1800 [facility] Stop: 02/24/18 18:01 Last Admin: 02/18/18 18:02 Dose: 60 mls/hr Lactated Ringer's (Lactated Ringer's) 1,000 mls @ 75 mls/hr IV .[id number] [facility] Last Admin: 02/19/18 05:00 Dose: 75 mls/hr Potassium Phosphate 30 mmole/ (Sodium Chloride) 260 mls @ 63 mls/hr IV ONCE ONE Stop: 02/19/18 11:54 Last Admin: 02/19/18 09:43 Dose: 63 mls/hr Lidocaine (Lidoderm) 1 ea TD DAILY@0800 [facility] Last Admin: 02/17/18 09:00 Dose: Not Given Metoclopramide HCl (Reglan) 5 mg IVP Q6 [facility] Last Admin: 02/19/18 05:05 Dose: 5 mg Ondansetron HCl (Zofran Inj) 4 mg IV Q4 PRN PRN Reason: Nausea/Vomiting Last Admin: 02/18/18 09:24 Dose: 4 mg Pantoprazole Sodium (Protonix Inj) 40 mg IVP DAILY [facility] Last Admin: 02/19/18 10:26 Dose: 40 mg Potassium Phos/Sodium Phos (Neutra-Phos) 1 pkt PO Q4H [facility] Stop: 02/19/18 12:01 Last Admin: 02/19/18 09:43 Dose: 1 pkt - Labs Labs: 02/19/18 06:07 02/19/18 06:04 PT 12.0 SECONDS (9.7-12.2) 02/17/18 06:15 INR 1.1 02/17/18 06:15 APTT 24 SECONDS (21-34) D 02/17/18 13:52 - Constitutional Appears: Non-toxic, No Acute Distress - Head Exam Head Exam: ATRAUMATIC, NORMOCEPHALIC - Eye Exam Eye Exam: EOMI. absent: Scleral icterus - ENT Exam ENT Exam: Mucous Membranes Moist Additional comments: NGT in place on suction with 400cc bilious output over 24 hours - Respiratory Exam Respiratory Exam: NORMAL BREATHING PATTERN Additional comments: 2L NC, IS 750 - Cardiovascular Exam Cardiovascular Exam: Tachycardia, +S1, +S2 - GI/Abdominal Exam GI & Abdominal Exam: Soft. 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 Coli , Blood cultures 02/18 pending, Zosyn 3.375 Q6, Flagyl 500mg Q8 Heme: Hgb/Hct 11.1/35.5 Plt 324, Hsq 5000Q8 GI: POD# 2 s/p s/p ex-lap with ileo-colic resection, NGT 400cc bilious /24hr, NGT remains on suction, Black drain 50cc serosanguinous overnight, keep to buyulb suction, NPO, PPN @63ml/hr, 500cc lipid emulsion QD,Will consult nutrition for TPN orders, history of GERD, Protonix 40IV BID Endo: Pt euglycemic, no active issues Psych: Pt is in good spirits Other: Pt currently with SCDs, Seen and treated by physcial therapy today, Ambulating Further Recs Per Dr. Peter Caldera PGY2 <Saúl Green - Last Filed: 02/20/18 09:31> Objective - Vital Signs/Intake and Output Vital Signs (last 24 hours): Temp Pulse Resp BP Pulse Ox 98.7 F 95 H 18 109/63 93 L 02/20/18 07:30 02/20/18 08:03 02/20/18 07:30 02/20/18 07:30 02/20/18 07:30 Intake and Output: 02/20/18 02/20/18 06:59 18:59 Intake Total 828 Output Total 1805 420 Balance -977 -420 - Medications Medications: Current Medications Albuterol/Ipratropium (Duoneb 3 Mg/0.5 Mg (3 Ml) Ud) 3 ml INH RQ4 PRN PRN Reason: Shortness of Breath Benzocaine/Menthol (Cepacol Sore Throat) 1 dillon MT Q4 PRN PRN Reason: Sore Throat Last Admin: 02/12/18 13:06 Dose: 1 dillon Heparin Sodium (Porcine) (Heparin) 5,000 units SC Q8 ANN Last Admin: 02/20/18 05:44 Dose: 5,000 units Hydromorphone HCl (Dilaudid) 0.5 mg IVP Q2 PRN PRN Reason: Pain, severe (8-10) Last Admin: 02/20/18 00:17 Dose: 0.5 mg Piperacillin Sod/Tazobactam (Sod 3.375 gm/ Sodium Chloride) 100 mls @ 200 mls/ hr IVPB Q6H [facility] PRN Reason: Protocol Last Admin: 02/20/18 03:35 Dose: 200 mls/hr BUPIVACAINE 0.125%/0.9% NACL (Bupivacaine-Ns 0.125% On-Q Distribution Tech) 600 mls @ 4 mls/ hr IJ ONCE ONE Stop: 02/23/18 20:59 Metronidazole (Flagyl) 500 mg in 100 mls @ 100 mls/hr IVPB Q8H [facility] PRN Reason: Protocol Last Admin: 02/20/18 06:30 Dose: 100 mls/hr Fat Emulsion Intravenous (Intralipid 20%) 500 mls @ 60 mls/hr IV QOD@1800 [facility] Stop: 02/24/18 18:01 Last Admin: 02/18/18 18:02 Dose: 60 mls/hr Sodium Chloride 15 meq/Magnesium Sulfate 3 meq/Calcium Gluconate 4.5 meq/ Multivitamins/Vitamin C 10 ml/Amino Acids 1,024.1663 mls @ 63 mls/hr IV .[id number] [facility] Stop: 02/20/18 10:15 Last Admin: 02/19/18 19:34 Dose: 63 mls/hr Sodium Chloride 15 meq/Magnesium Sulfate 3 meq/Calcium Gluconate 4.5 meq/Amino Acids 1,014.1663 mls @ 63 mls/hr IV .Q16H6M [facility] Stop: 02/20/18 17:59 BUPIVACAINE 0.125%/0.9% NACL (Bupivacaine-Ns 0.125% On-Q Distribution Tech) 600 mls @ 4 mls/ hr IJ ONCE ONE Stop: 02/25/18 23:16 Last Admin: 02/19/18 22:47 Dose: 4 mls/hr Lactated Ringer's (Lactated Ringer's) 1,000 mls @ 20 mls/hr IV .Q24H [facility] Last Admin: 02/20/18 08:27 Dose: Not Given Ketorolac Tromethamine (Toradol) 15 mg IVP Q6 PRN PRN Reason: Pain, moderate (4-7) Lidocaine (Lidoderm) 1 ea TD DAILY@0800 [facility] Last Admin: 02/20/18 08:34 Dose: 1 ea Metoclopramide HCl (Reglan) 5 mg IVP Q6 [facility] Last Admin: 02/20/18 05:44 Dose: 5 mg Ondansetron HCl (Zofran Inj) 4 mg IV Q4 PRN PRN Reason: Nausea/Vomiting Last Admin: 02/18/18 09:24 Dose: 4 mg Pantoprazole Sodium (Protonix Inj) 40 mg IVP DAILY [facility] Last Admin: 02/19/18 10:26 Dose: 40 mg - Labs Labs: 02/20/18 07:09 02/20/18 07:09 PT 12.0 SECONDS (9.7-12.2) 02/17/18 06:15 INR 1.1 02/17/18 06:15 APTT 24 SECONDS (21-34) D 02/17/18 13:52 Assessment and Plan - Assessment and Plan (Free Text) Plan: Patient having PICC placed when attempted to see this am. Discussed events and plan of care with ICU team on rounds. No acute events. HDS. Labs improving. Ok to transfer to floor with telemetry. Continue current plans. Await return of bowel function. Ileus to be expected.
--- NOTE | 2018-02-19 10:59 | CP.CCUPN ---
<Terra Walton - Last Filed: 02/19/18 10:56> CCU Subjective - Physician Review Subjective (Free Text): Patient was seen and examined at bedside. Patient reports his pain is well controlled. Patient transferred to TELEMETRY. CCU Objective - Vital Signs / Intake & Output Vital Signs (Last 4 hours): Vital Signs Pulse Resp BP Pulse Ox 02/19/18 07:00 111 H 27 H 109/57 L 96 Intake and Output (Last 8hrs): Intake & Output 02/18/18 02/19/18 02/19/18 22:59 06:59 14:59 Intake Total 1116 1473 138 Output Total 650 1250 Balance 466 223 138 Weight 198 lb Intake: Intake, IV Amount 1116 1473 138 Right Antecubital 425 675 75 Right Distal Port Hand 126 294 Right Hand 565 504 63 Output: Gastric Amount 400 Nares 400 Drainage 50 Right Abdomen 50 Urine 650 800 Condom 800 Urethral (Hoffmann) 450 Urine, Voided 200 - Physical Exam Other physical findings (Free Text): - Constitutional Appears: No Acute Distress - Head Exam Head Exam: NORMAL INSPECTION, NORMOCEPHALIC - Eye Exam Eye Exam: EOMI, Normal appearance, PERRL Pupil Exam: NORMAL ACCOMODATION - Respiratory Exam Respiratory Exam: Clear to Auscultation Bilateral, NORMAL BREATHING PATTERN - Cardiovascular Exam Cardiovascular Exam: REGULAR RHYTHM - GI/Abdominal Exam GI & Abdominal Exam: Soft, Tenderness Additional comments: dressing C/D/I- surgical site - has no erythema, cellulitis noted. Q ball in place - Extremities Exam Extremities exam: Positive for: normal inspection, pedal pulses present. Negative for: pedal edema, tenderness - Neurological Exam Neurological exam: Alert, CN II-XII Intact, Oriented x3 - Psychiatric Exam Psychiatric exam: Normal Affect, Normal Mood - Skin Skin Exam: Dry, Intact, Normal Color, Warm - Medications Active Medications: Active Medications Generic Name Dose Route Start Last Admin Trade Name Freq PRN Reason Stop Dose Admin Albuterol/Ipratropium 3 ml 02/18/18 10:44 Duoneb 3 Mg/0.5 Mg (3 Ml) Ud INH RQ4 PRN Shortness of Breath Benzocaine/Menthol 1 dillon 02/09/18 09:57 02/12/18 13:06 Cepacol Sore Throat MT 1 dillon Q4 PRN Administration Sore Throat Heparin Sodium (Porcine) 5,000 units 02/18/18 06:00 02/19/18 05:05 Heparin SC 5,000 units Q8 ANN Administration Hydromorphone HCl 0.5 mg 02/18/18 13:39 02/19/18 10:42 Dilaudid IVP 0.5 mg Q2 PRN Administration Pain, severe (8-10) Piperacillin Sod/Tazobactam 100 mls @ 200 mls/hr 02/16/18 10:30 02/19/18 10: 26 Sod 3.375 gm/ Sodium Chloride IVPB 200 mls/hr Q6H ANN Administration Protocol BUPIVACAINE 0.125%/0.9% NACL 600 mls @ 4 mls/hr 02/17/18 15:00 Bupivacaine-Ns 0.125% On-Q Bread Baker IJ 02/23/18 20:59 ONCE ONE Metronidazole 500 mg in 100 mls @ 100 mls/hr 02/17/18 23:30 02/19/18 06:30 Flagyl IVPB 100 mls/hr Q8H ANN Administration Protocol Sodium Chloride 15 meq/ 1,014.1663 mls @ 63 mls/hr 02/19/18 10:16 02/19/18 10 :26 Magnesium Sulfate 3 meq/ IV 02/19/18 17:59 63 mls/hr Calcium Gluconate 4.5 meq/ .Q16H6M ANN Administration Amino Acids Fat Emulsion Intravenous 500 mls @ 60 mls/hr 02/18/18 18:00 02/18/18 18:02 Intralipid 20% IV 02/24/18 18:01 60 mls/hr QOD@1800 ANN Administration Lactated Ringer's 1,000 mls @ 75 mls/hr 02/18/18 13:38 02/19/18 05:00 Lactated Ringer's IV 75 mls/hr .[id number] ANN Administration Potassium Phosphate 30 mmole/ 260 mls @ 63 mls/hr 02/19/18 07:56 02/19/18 09: 43 Sodium Chloride IV 02/19/18 11:54 63 mls/hr ONCE ONE Administration Lidocaine 1 ea 02/10/18 08:00 02/17/18 09:00 Lidoderm TD Not Given DAILY@0800 ON LICENSE OF [facility] Metoclopramide HCl 5 mg 02/14/18 06:00 02/19/18 05:05 Reglan IVP 5 mg Q6 ANN Administration Ondansetron HCl 4 mg 02/06/18 16:00 02/18/18 09:24 Zofran Inj IV 4 mg Q4 PRN Administration Nausea/Vomiting Pantoprazole Sodium 40 mg 02/14/18 10:00 02/19/18 10:26 Protonix Inj IVP 40 mg DAILY ANN Administration Potassium Phos/Sodium Phos 1 pkt 02/19/18 08:00 02/19/18 09:43 Neutra-Phos PO 02/19/18 12:01 1 pkt Q4H ANN Administration - Patient Studies Lab Studies: Microbiology Studies 02/18/18 00:37 Blood Culture - Preliminary Blood NO GROWTH AFTER 24 HOURS 02/18/18 00:37 Blood Culture - Preliminary Blood NO GROWTH AFTER 24 HOURS Lab Studies 02/19/18 02/19/18 02/18/18 Range/Units 06:07 06:04 11:18 WBC 11.7 H (4.8-10.8) K/uL RBC 3.89 L (4.40-5.90) Mil/uL Hgb 11.1 L D (12.0-18.0) g/dL Hct 33.5 L (35.0-51.0) % MCV 86.1 (80.0-94.0) fL MCH 28.5 (27.0-31.0) pg MCHC 33.1 (33.0-37.0) g/dL RDW 14.6 H (11.5-14.5) % Plt Count 324 (130-400) K/uL MPV 9.7 (7.2-11.7) fL Neut % (Auto) 88.6 H (50.0-75.0) % Lymph % (Auto) 6.7 L (20.0-40.0) % [place] % (Auto) 4.1 (0.0-10.0) % Eos % (Auto) 0.5 (0.0-4.0) % Baso % (Auto) 0.1 (0.0-2.0) % Neut # (Auto) 10.4 H (1.8-7.0) K/uL Lymph # (Auto) 0.8 L (1.0-4.3) K/uL [place] # (Auto) 0.5 (0.0-0.8) K/uL Eos # (Auto) 0.1 (0.0-0.7) K/uL Baso # (Auto) 0.0 (0.0-0.2) K/uL Neutrophils % (Manual) 84 H (50-75) % Band Neutrophils % 2 (0-2) % Lymphocytes % (Manual) 9 L (20-40) % Monocytes % (Manual) 4 (0-10) % Myelocytes % 1 H (0-0) % Platelet Estimate Normal (NORMAL) Hypochromasia (manual) Slight Poikilocytosis (manual Slight Anisocytosis (manual) Slight Ovalocytes Slight Sodium 143 (132-148) mmol/L Potassium 3.8 (3.6-5.2) mmol/L Chloride 111 H (98-107) mmol/L Carbon Dioxide 25 (22-30) mmol/L Anion Gap 11 (10-20) BUN 25 H (9-20) mg/dL Creatinine 1.2 (0.8-1.5) mg/dL Est GFR ( Amer) > 60 Est GFR (Non-Af Amer) 60 POC Glucose (mg/dL) 162 H (65-110) mg/dL Random Glucose 156 H (75-110) mg/dL Calcium 7.1 L (8.6-10.4) mg/dl Phosphorus 2.1 L (2.5-4.5) mg/dL Magnesium 2.2 (1.6-2.3) mg/dL Total Bilirubin 0.8 (0.2-1.3) mg/dL AST 24 (17-59) U/L ALT 47 (21-72) U/L Alkaline Phosphatase 62 (38-126) U/L Total Protein 4.4 L (6.3-8.3) g/dL Albumin 2.1 L (3.5-5.0) g/dL Globulin 2.4 (2.2-3.9) gm/dL Albumin/Globulin Ratio 0.9 L (1.0-2.1) Laboratory Results - last 24 hr 02/18/18 02/19/18 02/19/18 11:18 06:04 06:07 WBC 11.7 H RBC 3.89 L Hgb 11.1 L D Hct 33.5 L MCV 86.1 MCH 28.5 MCHC 33.1 RDW 14.6 H Plt Count 324 MPV 9.7 Neut % (Auto) 88.6 H Lymph % (Auto) 6.7 L [place] % (Auto) 4.1 Eos % (Auto) 0.5 Baso % (Auto) 0.1 Neut # (Auto) 10.4 H Lymph # (Auto) 0.8 L [place] # (Auto) 0.5 Eos # (Auto) 0.1 Baso # (Auto) 0.0 Neutrophils % (Manual) 84 H Band Neutrophils % 2 Lymphocytes % (Manual) 9 L Monocytes % (Manual) 4 Myelocytes % 1 H Platelet Estimate Normal Hypochromasia (manual) Slight Poikilocytosis (manual Slight Anisocytosis (manual) Slight Ovalocytes Slight Sodium 143 Potassium 3.8 Chloride 111 H Carbon Dioxide 25 Anion Gap 11 BUN 25 H Creatinine 1.2 Est GFR ( Amer) > 60 Est GFR (Non-Af Amer) 60 POC Glucose (mg/dL) 162 H Random Glucose 156 H Calcium 7.1 L Phosphorus 2.1 L Magnesium 2.2 Total Bilirubin 0.8 AST 24 ALT 47 Alkaline Phosphatase 62 Total Protein 4.4 L Albumin 2.1 L Globulin 2.4 Albumin/Globulin Ratio 0.9 L Critical Care Progress Note - Nutrition Nutrition: Nutrition Category Date Time Status NPO Diet [DIET] Diets 02/16/18 Breakfast Active Assessment/Plan - Assessment and Plan (Free Text) Assessment: This is a 72 year old male with PMHx of PVD, DVT, and LEO who underwent laparoscopic right hemicolectomy (POD #12) 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 He had persistent postoperative ileus and evidence of small bowel obstruction with colonic ischemia with necrosis s/p exploratory laparoscopy ileocolectomy 02/17/18 (POD #1) he returned to the OR shortly after for ex lap and hemostasis 2/2 hypotensive shock. Admitted to ICU for close monitoring. Plan: Neuro: GCS 15 Cardio: A: LEO - Sleep study performed 2016 Pulm: - Incentive Spirometer - Duonebs as needed GI: A: Tubular Adenoma General Surgery- Dr. Saúl Green - laparoscopic right hemicolectomy (POD #13) on 02/06/2018 for tubular adenoma (5 /31/18 -pathology). He had persistent postoperative ileus and evidence of small bowel obstruction with colonic ischemia with necrosis s/p exploratory laparoscopy ileocolectomy 02/17/18 (POD #2) he returned to the OR shortly after for ex lap and hemostasis 2/2 hypotensive shock. - Monitor in ICU - Flagyl 500 Q8 (02/17), Zosyn Q6 (02/17) - OFirmev, dilaudid PRN for pain, Qball in place - LR @ 75, PPN feedings ID: - Mane cultured Prophylaxis - Protonix - SCDs, Hep Q8 - PT eval - Lines: peripherals- consult placed for PICC Line Access Disposition: Patient downgraded to TELEMETRY DW Dr. Sosa, Terra Walton DO, PGY1 <Vaibhav Sosa S - Last Filed: 02/19/18 17:33> CCU Objective - Vital Signs / Intake & Output Vital Signs (Last 4 hours): Vital Signs Temp Pulse Resp BP Pulse Ox 02/19/18 17:25 98.0 F 96 H 20 115/71 96 02/19/18 15:48 98.5 F 92 H 18 111/65 98 Intake and Output (Last 8hrs): Intake & Output 02/19/18 02/19/18 02/19/18 06:59 14:59 22:59 Intake Total 1473 853 405 Output Total 1250 775 230 Balance 223 78 175 Weight 198 lb 198 lb Intake: Intake, IV Amount 1473 853 225 Right Antecubital 675 475 Right Distal Port Hand 294 Right Hand 504 378 225 TPN/PPN 180 Output: Gastric Amount 400 200 Nares 400 200 Drainage 50 30 Right Abdomen 50 30 Urine 800 775 Condom 800 775 Other: # Voids Condom 1 # Bowel Movements 0 - Medications Active Medications: Active Medications Generic Name Dose Route Start Last Admin Trade Name Freq PRN Reason Stop Dose Admin Albuterol/Ipratropium 3 ml 02/18/18 10:44 Duoneb 3 Mg/0.5 Mg (3 Ml) Ud INH RQ4 PRN Shortness of Breath Benzocaine/Menthol 1 dillon 02/09/18 09:57 02/12/18 13:06 Cepacol Sore Throat MT 1 dillon Q4 PRN Administration Sore Throat Heparin Sodium (Porcine) 5,000 units 02/18/18 06:00 02/19/18 13:48 Heparin SC 5,000 units Q8 ANN Administration Hydromorphone HCl 0.5 mg 02/18/18 13:39 02/19/18 13:53 Dilaudid IVP 0.5 mg Q2 PRN Administration Pain, severe (8-10) Piperacillin Sod/Tazobactam 100 mls @ 200 mls/hr 02/16/18 10:30 02/19/18 16: 15 Sod 3.375 gm/ Sodium Chloride IVPB 200 mls/hr Q6H ON LICENSE OF [facility] Administration Protocol BUPIVACAINE 0.125%/0.9% NACL 600 mls @ 4 mls/hr 02/17/18 15:00 Bupivacaine-Ns 0.125% On-Q Bread Baker IJ 02/23/18 20:59 ONCE ONE Metronidazole 500 mg in 100 mls @ 100 mls/hr 02/17/18 23:30 02/19/18 15:45 Flagyl IVPB 100 mls/hr Q8H ON LICENSE OF [facility] Administration Protocol Sodium Chloride 15 meq/ 1,014.1663 mls @ 63 mls/hr 02/19/18 10:16 02/19/18 10 :26 Magnesium Sulfate 3 meq/ IV 02/19/18 17:59 63 mls/hr Calcium Gluconate 4.5 meq/ .Q16H6M ANN Administration Amino Acids Fat Emulsion Intravenous 500 mls @ 60 mls/hr 02/18/18 18:00 02/18/18 18:02 Intralipid 20% IV 02/24/18 18:01 60 mls/hr QOD@1800 ANN Administration Lactated Ringer's 1,000 mls @ 75 mls/hr 02/18/18 13:38 02/19/18 16:54 Lactated Ringer's IV Not Given .[id number] ANN Sodium Chloride 15 meq/ 1,024.1663 mls @ 63 mls/hr 02/19/18 18:00 Magnesium Sulfate 3 meq/ IV 02/20/18 10:15 Calcium Gluconate 4.5 meq/ .[id number] ON LICENSE OF [facility] Multivitamins/Vitamin C 10 ml/ Amino Acids Sodium Chloride 15 meq/ 1,014.1663 mls @ 63 mls/hr 02/20/18 10:16 Magnesium Sulfate 3 meq/ IV 02/20/18 17:59 Calcium Gluconate 4.5 meq/ .Q16H6M ANN Amino Acids BUPIVACAINE 0.125%/0.9% NACL 600 mls @ 4 mls/hr 02/19/18 17:17 Bupivacaine-Ns 0.125% On-Q Bread Baker IJ 02/25/18 23:16 ONCE ONE Lidocaine 1 ea 02/10/18 08:00 02/19/18 11:01 Lidoderm TD 1 ea DAILY@0800 ANN Administration Metoclopramide HCl 5 mg 02/14/18 06:00 02/19/18 17:02 Reglan IVP 5 mg Q6 ANN Administration Ondansetron HCl 4 mg 02/06/18 16:00 02/18/18 09:24 Zofran Inj IV 4 mg Q4 PRN Administration Nausea/Vomiting Pantoprazole Sodium 40 mg 02/14/18 10:00 02/19/18 10:26 Protonix Inj IVP 40 mg DAILY ANN Administration - Patient Studies Lab Studies: Microbiology Studies 02/17/18 22:37 MRSA Culture (Admit) - Final Naris MRSA NOT DETECTED 02/18/18 00:37 Urine Culture - Final Urine,Catheterized No Growth (<1,000 CFU/ML) 02/18/18 00:37 Blood Culture - Preliminary Blood NO GROWTH AFTER 24 HOURS 02/18/18 00:37 Blood Culture - Preliminary Blood NO GROWTH AFTER 24 HOURS Lab Studies 02/19/18 02/19/18 Range/Units 06:07 06:04 WBC 11.7 H (4.8-10.8) K/uL RBC 3.89 L (4.40-5.90) Mil/uL Hgb 11.1 L D (12.0-18.0) g/dL Hct 33.5 L (35.0-51.0) % MCV 86.1 (80.0-94.0) fL MCH 28.5 (27.0-31.0) pg MCHC 33.1 (33.0-37.0) g/dL RDW 14.6 H (11.5-14.5) % Plt Count 324 (130-400) K/uL MPV 9.7 (7.2-11.7) fL Neut % (Auto) 88.6 H (50.0-75.0) % Lymph % (Auto) 6.7 L (20.0-40.0) % [place] % (Auto) 4.1 (0.0-10.0) % Eos % (Auto) 0.5 (0.0-4.0) % Baso % (Auto) 0.1 (0.0-2.0) % Neut # (Auto) 10.4 H (1.8-7.0) K/uL Lymph # (Auto) 0.8 L (1.0-4.3) K/uL [place] # (Auto) 0.5 (0.0-0.8) K/uL Eos # (Auto) 0.1 (0.0-0.7) K/uL Baso # (Auto) 0.0 (0.0-0.2) K/uL Neutrophils % (Manual) 84 H (50-75) % Band Neutrophils % 2 (0-2) % Lymphocytes % (Manual) 9 L (20-40) % Monocytes % (Manual) 4 (0-10) % Myelocytes % 1 H (0-0) % Platelet Estimate Normal (NORMAL) Hypochromasia (manual) Slight Poikilocytosis (manual Slight Anisocytosis (manual) Slight Ovalocytes Slight Sodium 143 (132-148) mmol/L Potassium 3.8 (3.6-5.2) mmol/L Chloride 111 H (98-107) mmol/L Carbon Dioxide 25 (22-30) mmol/L Anion Gap 11 (10-20) BUN 25 H (9-20) mg/dL Creatinine 1.2 (0.8-1.5) mg/dL Est GFR ( Amer) > 60 Est GFR (Non-Af Amer) 60 Random Glucose 156 H (75-110) mg/dL Calcium 7.1 L (8.6-10.4) mg/dl Phosphorus 2.1 L (2.5-4.5) mg/dL Magnesium 2.2 (1.6-2.3) mg/dL Total Bilirubin 0.8 (0.2-1.3) mg/dL AST 24 (17-59) U/L ALT 47 (21-72) U/L Alkaline Phosphatase 62 (38-126) U/L Total Protein 4.4 L (6.3-8.3) g/dL Albumin 2.1 L (3.5-5.0) g/dL Globulin 2.4 (2.2-3.9) gm/dL Albumin/Globulin Ratio 0.9 L (1.0-2.1) Laboratory Results - last 24 hr 02/19/18 02/19/18 06:04 06:07 WBC 11.7 H RBC 3.89 L Hgb 11.1 L D Hct 33.5 L MCV 86.1 MCH 28.5 MCHC 33.1 RDW 14.6 H Plt Count 324 MPV 9.7 Neut % (Auto) 88.6 H Lymph % (Auto) 6.7 L [place] % (Auto) 4.1 Eos % (Auto) 0.5 Baso % (Auto) 0.1 Neut # (Auto) 10.4 H Lymph # (Auto) 0.8 L [place] # (Auto) 0.5 Eos # (Auto) 0.1 Baso # (Auto) 0.0 Neutrophils % (Manual) 84 H Band Neutrophils % 2 Lymphocytes % (Manual) 9 L Monocytes % (Manual) 4 Myelocytes % 1 H Platelet Estimate Normal Hypochromasia (manual) Slight Poikilocytosis (manual Slight Anisocytosis (manual) Slight Ovalocytes Slight Sodium 143 Potassium 3.8 Chloride 111 H Carbon Dioxide 25 Anion Gap 11 BUN 25 H Creatinine 1.2 Est GFR ( Amer) > 60 Est GFR (Non-Af Amer) 60 Random Glucose 156 H Calcium 7.1 L Phosphorus 2.1 L Magnesium 2.2 Total Bilirubin 0.8 AST 24 ALT 47 Alkaline Phosphatase 62 Total Protein 4.4 L Albumin 2.1 L Globulin 2.4 Albumin/Globulin Ratio 0.9 L Critical Care Progress Note - Nutrition Nutrition: Nutrition Category Date Time Status NPO Diet [DIET] Diets 02/16/18 Breakfast Active Attending/Attestation - Attestation I have personally seen and examined this patient.: Yes I have fully participated in the care of the patient.: Yes I have reviewed all pertinent clinical information: Yes Notes (Text): 02/19/18 17:28 patient seen and examined in the intensive care unit. status post laparoscopic right hemicolectomy (POD #13) on 02/06/2018 for tubular adenoma (02/06/18 -pathology). He had persistent postoperative ileus and evidence of small bowel obstruction with colonic ischemia with necrosis s/p exploratory laparoscopy ileocolectomy 6/11/18 (POD #2) he returned to the OR shortly after for ex lap and hemostasis 2/2 hypotensive shock. stable for transfer to floor
[2018-02-19] MEDS: Lidocaine 5% Patch TD SCH (11:01)
--- NOTE | 2018-02-19 13:02 | CP.PCM.PN ---
Subjective - Date & Time of Evaluation Date of Evaluation: 02/19/18 Time of Evaluation: 12:45 - Subjective Subjective: Events noted. Pt is now S/P eploratory lap & Rt ileocolectomy on 02/17 for persistent ileus & colonic aschemia & necrosis . Transferred to ICU because of hypotension & tachycardia. Seen in follow up for renal evaluation Objective - Vital Signs/Intake and Output Vital Signs (last 24 hours): Temp Pulse Resp BP Pulse Ox 99.3 F 101 H 23 96/62 L 96 02/19/18 12:00 02/19/18 12:00 02/19/18 12:00 02/19/18 12:00 02/19/18 12:00 Intake and Output: 02/19/18 02/19/18 06:59 18:59 Intake Total 2143 853 Output Total 1450 775 Balance 693 78 - Medications Medications: Current Medications Albuterol/Ipratropium (Duoneb 3 Mg/0.5 Mg (3 Ml) Ud) 3 ml INH RQ4 PRN PRN Reason: Shortness of Breath Benzocaine/Menthol (Cepacol Sore Throat) 1 dillon MT Q4 PRN PRN Reason: Sore Throat Last Admin: 02/12/18 13:06 Dose: 1 dillon Heparin Sodium (Porcine) (Heparin) 5,000 units SC Q8 ANN Last Admin: 02/19/18 05:05 Dose: 5,000 units Hydromorphone HCl (Dilaudid) 0.5 mg IVP Q2 PRN PRN Reason: Pain, severe (8-10) Last Admin: 02/19/18 10:42 Dose: 0.5 mg Piperacillin Sod/Tazobactam (Sod 3.375 gm/ Sodium Chloride) 100 mls @ 200 mls/ hr IVPB Q6H ANN PRN Reason: Protocol Last Admin: 02/19/18 10:26 Dose: 200 mls/hr BUPIVACAINE 0.125%/0.9% NACL (Bupivacaine-Ns 0.125% On-Q Public Health Representative) 600 mls @ 4 mls/ hr IJ ONCE ONE Stop: 02/23/18 20:59 Metronidazole (Flagyl) 500 mg in 100 mls @ 100 mls/hr IVPB Q8H ANN PRN Reason: Protocol Last Admin: 02/19/18 06:30 Dose: 100 mls/hr Sodium Chloride 15 meq/Magnesium Sulfate 3 meq/Calcium Gluconate 4.5 meq/Amino Acids 1,014.1663 mls @ 63 mls/hr IV .Q16H6M [facility] Stop: 02/19/18 17:59 Last Admin: 02/19/18 10:26 Dose: 63 mls/hr Fat Emulsion Intravenous (Intralipid 20%) 500 mls @ 60 mls/hr IV QOD@1800 [facility] Stop: 02/24/18 18:01 Last Admin: 02/18/18 18:02 Dose: 60 mls/hr Lactated Ringer's (Lactated Ringer's) 1,000 mls @ 75 mls/hr IV .[id number] [facility] Last Admin: 02/19/18 05:00 Dose: 75 mls/hr Sodium Chloride 15 meq/Magnesium Sulfate 3 meq/Calcium Gluconate 4.5 meq/ Multivitamins/Vitamin C 10 ml/Amino Acids 1,024.1663 mls @ 63 mls/hr IV .[id number] [facility] Stop: 02/20/18 10:15 Sodium Chloride 15 meq/Magnesium Sulfate 3 meq/Calcium Gluconate 4.5 meq/Amino Acids 1,014.1663 mls @ 63 mls/hr IV .Q16H6M [facility] Stop: 02/20/18 17:59 Lidocaine (Lidoderm) 1 ea TD DAILY@0800 [facility] Last Admin: 02/19/18 11:01 Dose: 1 ea Metoclopramide HCl (Reglan) 5 mg IVP Q6 [facility] Last Admin: 02/19/18 11:38 Dose: 5 mg Ondansetron HCl (Zofran Inj) 4 mg IV Q4 PRN PRN Reason: Nausea/Vomiting Last Admin: 02/18/18 09:24 Dose: 4 mg Pantoprazole Sodium (Protonix Inj) 40 mg IVP DAILY [facility] Last Admin: 02/19/18 10:26 Dose: 40 mg - Labs Labs: 02/19/18 06:07 02/19/18 06:04 PT 12.0 SECONDS (9.7-12.2) 02/17/18 06:15 INR 1.1 02/17/18 06:15 APTT 24 SECONDS (21-34) D 02/17/18 13:52 - Constitutional Appears: No Acute Distress - Respiratory Exam Respiratory Exam: NORMAL BREATHING PATTERN Additional comments: lungs clear - Cardiovascular Exam Cardiovascular Exam: REGULAR RHYTHM - GI/Abdominal Exam Additional comments: Deferred Assessment and Plan - Assessment and Plan (Free Text) Assessment: Prerenal azotemia is resolved & creat remains normal Hyper natremia is also corrected. Plan: Will see pt as needed. Please call if renal evaluation is needed
[2018-02-19] MEDS ORDERED: BUPIVACAINE 0.125%/0.9% NACL 600 ML IJ ONE (17:17)
[2018-02-19] MEDS ORDERED: PPN#10 IV SCH (18:00)
[2018-02-20] MEDS: metroNIDAZOLE IV 500 mg/100 ml 500 MG/100 ML BAG IVPB SCH ×3 (00:03→15:08)
[2018-02-20] MEDS: Lactated Ringer's 1,000 ML IV SCH ×3 (00:09→08:27)
[2018-02-20] MEDS: HYDROmorphone 0.5 mg/0.5 ml ISec IVP PRN ×5 (00:17→21:55)
[2018-02-20] MEDS: Piperacillin/Tazobact 3.375 GM in Sodium Chloride 100 ML IVPB SCH ×4 (03:35→22:03)
[2018-02-20 07:24] LABS: BASO % 0.3 % (0.0-2.0); EOS # 0.1 K/uL (0.0-0.7); EOS % 1.3 % (0.0-4.0); HEMOGLOBIN 10.3 g/dL (12.0-18.0); LYMPH # 0.8 K/uL (1.0-4.3); LYMPH % 7.9 % (20.0-40.0); MEAN CELL VOLUME 87.1 fL (80.0-94.0); MEAN CORPUSCULAR HEMOGLOBIN 28.4 pg (27.0-31.0); MEAN CORPUSCULAR HGB CONC 32.7 g/dL (33.0-37.0); MEAN PLATELET VOLUME 9.4 fL (7.2-11.7); MONO # 0.4 K/uL (0.0-0.8); MONO % 4.3 % (0.0-10.0); NEUT # 8.5 K/uL (1.8-7.0); NEUT % 86.2 % (50.0-75.0); NRBC % 0.1 % (0.0-2.0); PLATELET COUNT 311 K/uL (130-400); RBC 3.62 Mil/uL (4.40-5.90); RED CELL DISTRIBUTION WIDTH 15.3 % (11.5-14.5); WHITE BLOOD COUNT 9.9 K/uL (4.8-10.8)
[2018-02-20 07:40] LABS: ALB/GLOB RATIO 0.9 (1.0-2.1); ALBUMIN 2.1 g/dL (3.5-5.0); ALT/SGPT 40 U/L (21-72); AST/SGOT 27 U/L (17-59); BLOOD UREA NITROGEN 23 mg/dL (9-20); CALCIUM 7.3 mg/dl (8.6-10.4); GFR AFRICAN-AMERICAN > 60; GFR NON-AFRICAN AMERICAN 60
[2018-02-20 08:32] LABS: BANDS 1 % (0-2); EOSINOPHIL 3 % (0-4); LYMPHOCYTE 8 % (20-40); TOTAL CELLS COUNTED 100
[2018-02-20 08:33] LABS: MONOCYTE 2 % (0-10); NEUTROPHIL 86 % (50-75); PLATELET ESTIMATE NORMAL (NORMAL)
[2018-02-20] MEDS: Lidocaine 5% Patch TD SCH ×2 (08:34→17:59)
--- NOTE | 2018-02-20 09:42 | CP.PCM.PN ---
<MorganAllie - Last Filed: 02/20/18 09:44> Subjective - Date & Time of Evaluation Date of Evaluation: 02/20/18 Time of Evaluation: 09:41 - Subjective Subjective: Surgery Pt seen and examined. No acute events. PICC placed yesterday. Denies fever, nausea, vomiting, CP, SOB. Denies flatus, BM. Voiding freely. OOB to void. Pain controlled. Objective - Vital Signs/Intake and Output Vital Signs (last 24 hours): Temp Pulse Resp BP Pulse Ox 98.7 F 95 H 18 109/63 93 L 02/20/18 07:30 02/20/18 08:03 02/20/18 07:30 02/20/18 07:30 02/20/18 07:30 Intake and Output: 02/20/18 02/20/18 06:59 18:59 Intake Total 828 Output Total 1805 420 Balance -977 -420 - Medications Medications: Current Medications Albuterol/Ipratropium (Duoneb 3 Mg/0.5 Mg (3 Ml) Ud) 3 ml INH RQ4 PRN PRN Reason: Shortness of Breath Benzocaine/Menthol (Cepacol Sore Throat) 1 dillon MT Q4 PRN PRN Reason: Sore Throat Last Admin: 02/12/18 13:06 Dose: 1 dillon Heparin Sodium (Porcine) (Heparin) 5,000 units SC Q8 ANN Last Admin: 02/20/18 05:44 Dose: 5,000 units Hydromorphone HCl (Dilaudid) 0.5 mg IVP Q2 PRN PRN Reason: Pain, severe (8-10) Last Admin: 02/20/18 00:17 Dose: 0.5 mg Piperacillin Sod/Tazobactam (Sod 3.375 gm/ Sodium Chloride) 100 mls @ 200 mls/ hr IVPB Q6H ANN PRN Reason: Protocol Last Admin: 02/20/18 03:35 Dose: 200 mls/hr BUPIVACAINE 0.125%/0.9% NACL (Bupivacaine-Ns 0.125% On-Q Delivery Department Supervisor) 600 mls @ 4 mls/ hr IJ ONCE ONE Stop: 02/23/18 20:59 Metronidazole (Flagyl) 500 mg in 100 mls @ 100 mls/hr IVPB Q8H ANN PRN Reason: Protocol Last Admin: 02/20/18 06:30 Dose: 100 mls/hr Fat Emulsion Intravenous (Intralipid 20%) 500 mls @ 60 mls/hr IV QOD@1800 [facility] Stop: 02/24/18 18:01 Last Admin: 02/18/18 18:02 Dose: 60 mls/hr Sodium Chloride 15 meq/Magnesium Sulfate 3 meq/Calcium Gluconate 4.5 meq/ Multivitamins/Vitamin C 10 ml/Amino Acids 1,024.1663 mls @ 63 mls/hr IV .[id number] [facility] Stop: 02/20/18 10:15 Last Admin: 02/19/18 19:34 Dose: 63 mls/hr Sodium Chloride 15 meq/Magnesium Sulfate 3 meq/Calcium Gluconate 4.5 meq/Amino Acids 1,014.1663 mls @ 63 mls/hr IV .Q16H6M [facility] Stop: 02/20/18 17:59 BUPIVACAINE 0.125%/0.9% NACL (Bupivacaine-Ns 0.125% On-Q Delivery Department Supervisor) 600 mls @ 4 mls/ hr IJ ONCE ONE Stop: 02/25/18 23:16 Last Admin: 02/19/18 22:47 Dose: 4 mls/hr Lactated Ringer's (Lactated Ringer's) 1,000 mls @ 20 mls/hr IV .Q24H [facility] Last Admin: 02/20/18 08:27 Dose: Not Given Ketorolac Tromethamine (Toradol) 15 mg IVP Q6 PRN PRN Reason: Pain, moderate (4-7) Lidocaine (Lidoderm) 1 ea TD DAILY@0800 [facility] Last Admin: 02/20/18 08:34 Dose: 1 ea Metoclopramide HCl (Reglan) 5 mg IVP Q6 [facility] Last Admin: 02/20/18 05:44 Dose: 5 mg Ondansetron HCl (Zofran Inj) 4 mg IV Q4 PRN PRN Reason: Nausea/Vomiting Last Admin: 02/18/18 09:24 Dose: 4 mg Pantoprazole Sodium (Protonix Inj) 40 mg IVP DAILY [facility] Last Admin: 02/19/18 10:26 Dose: 40 mg - Labs Labs: 02/20/18 07:09 02/20/18 07:09 PT 12.0 SECONDS (9.7-12.2) 06/11/18 06:15 INR 1.1 02/17/18 06:15 APTT 24 SECONDS (21-34) D 02/17/18 13:52 - Constitutional Appears: No Acute Distress - Head Exam Head Exam: ATRAUMATIC, NORMAL INSPECTION, NORMOCEPHALIC - Eye Exam Eye Exam: EOMI, Normal appearance, PERRL Pupil Exam: NORMAL ACCOMODATION, PERRL - ENT Exam ENT Exam: Mucous Membranes Moist, Normal Exam - Neck Exam Neck Exam: Full ROM, Normal Inspection. absent: Lymphadenopathy - Respiratory Exam Respiratory Exam: Clear to Ausculation Bilateral, NORMAL BREATHING PATTERN - Cardiovascular Exam Cardiovascular Exam: REGULAR RHYTHM, +S1, +S2. absent: Murmur - GI/Abdominal Exam GI & Abdominal Exam: Soft, Tenderness, Normal Bowel Sounds. absent: Distended, Firm, Guarding, Rigid Additional comments: Incision open. MIld drainage. Wet and dry dressing applied. Stapled. - Exam Exam: NORMAL INSPECTION - Extremities Exam Extremities Exam: Full ROM, Normal Capillary Refill, Normal Inspection. absent : Joint Swelling, Pedal Edema - Back Exam Back Exam: NORMAL INSPECTION - Neurological Exam Neurological Exam: Alert, Awake, CN II-XII Intact, Normal Gait, Oriented x3 - Psychiatric Exam Psychiatric exam: Normal Affect, Normal Mood - Skin Skin Exam: Warm Assessment and Plan - Assessment and Plan (Free Text) Assessment: POD 14 colectomy POD 3 exploratory laparotomy , colectomy -MOnitor Bowelk function -TPN -ABX -DVT/ GI ppx -pain controll -REpete electrolyte PRN -IS/ OOB / ambulate DW Dr. Green <Saúl Green - Last Filed: 02/21/18 02:46> Subjective - Subjective Subjective: I personally saw and examined the patient at bedside this am with resident staff and again this afternoon independently. Mr. Narvaez is slowly improving in terms of pain, hemodynamics and infectious markers. Abd soft, wound clean with packing, serosang SUDHAKAR drainage. Continue current course and await bowel function. Objective - Vital Signs/Intake and Output Vital Signs (last 24 hours): Temp Pulse Resp BP Pulse Ox 98.1 F 85 20 148/72 97 02/20/18 23:50 02/21/18 02:18 02/20/18 23:50 02/20/18 23:50 02/20/18 23:50 Intake and Output: 02/20/18 02/21/18 18:59 06:59 Intake Total 893 1110 Output Total 1135 545 Balance -242 565 - Medications Medications: Current Medications Albuterol/Ipratropium (Duoneb 3 Mg/0.5 Mg (3 Ml) Ud) 3 ml INH RQ4 PRN PRN Reason: Shortness of Breath Benzocaine/Menthol (Cepacol Sore Throat) 1 dillon MT Q4 PRN PRN Reason: Sore Throat Last Admin: 02/12/18 13:06 Dose: 1 dillon Diphenhydramine HCl (Benadryl) 50 mg IVP HS PRN PRN Reason: Insomnia Last Admin: 02/20/18 21:55 Dose: 50 mg Heparin Sodium (Porcine) (Heparin) 5,000 units SC Q8 ANN Last Admin: 02/20/18 21:55 Dose: 5,000 units Hydromorphone HCl (Dilaudid) 0.5 mg IVP Q2 PRN PRN Reason: Pain, severe (8-10) Last Admin: 02/21/18 02:05 Dose: 0.5 mg Piperacillin Sod/Tazobactam (Sod 3.375 gm/ Sodium Chloride) 100 mls @ 200 mls/ hr IVPB Q6H ANN PRN Reason: Protocol Last Admin: 02/20/18 22:03 Dose: 200 mls/hr BUPIVACAINE 0.125%/0.9% NACL (Bupivacaine-Ns 0.125% On-Q Delivery Department Supervisor) 600 mls @ 4 mls/ hr IJ ONCE ONE Stop: 02/23/18 20:59 Metronidazole (Flagyl) 500 mg in 100 mls @ 100 mls/hr IVPB Q8H ANN PRN Reason: Protocol Last Admin: 02/21/18 00:00 Dose: 100 mls/hr BUPIVACAINE 0.125%/0.9% NACL (Bupivacaine-Ns 0.125% On-Q Delivery Department Supervisor) 600 mls @ 4 mls/ hr IJ ONCE ONE Stop: 02/25/18 23:16 Last Admin: 02/19/18 22:47 Dose: 4 mls/hr Lactated Ringer's (Lactated Ringer's) 1,000 mls @ 20 mls/hr IV .Q24H [facility] Last Admin: 02/20/18 08:27 Dose: Not Given Sodium Chloride 15 meq/Potassium Phosphate 15 mmole/Magnesium Sulfate 3 meq/ Calcium Gluconate 4.6 meq/Heparin Sodium (Porcine) 1,000 units/ Chromium/Copper/ Manganese/Zinc 1 ml/ Amino Acids 1,021.3813 mls @ 80 mls/hr IV .[id number] [facility] Stop: 02/21/18 17:59 Ketorolac Tromethamine (Toradol) 15 mg IVP Q6 PRN PRN Reason: Pain, moderate (4-7) Ketorolac Tromethamine (Toradol) 15 mg IVP Q6 [facility] Stop: 02/21/18 06:01 Last Admin: 02/21/18 00:04 Dose: 15 mg Lidocaine (Lidoderm) 1 ea TD DAILY@0800 [facility] Last Admin: 02/20/18 08:34 Dose: 1 ea Lidocaine (Lidoderm) 1 ea TD DAILY [facility] Last Admin: 02/20/18 17:59 Dose: 1 ea Metoclopramide HCl (Reglan) 5 mg IVP Q6 [facility] Last Admin: 02/21/18 00:02 Dose: 5 mg Ondansetron HCl (Zofran Inj) 4 mg IV Q4 PRN PRN Reason: Nausea/Vomiting Last Admin: 02/18/18 09:24 Dose: 4 mg Pantoprazole Sodium (Protonix Inj) 40 mg IVP DAILY [facility] Last Admin: 02/20/18 11:21 Dose: 40 mg - Labs Labs: 02/20/18 07:09 02/20/18 07:09 PT 12.0 SECONDS (9.7-12.2) 02/17/18 06:15 INR 1.1 02/17/18 06:15 APTT 24 SECONDS (21-34) D 02/17/18 13:52
[2018-02-20] MEDS ORDERED: PPN#11 IV SCH (10:16)
--- NOTE | 2018-02-20 14:12 | RAD ---
HISTORY: Postoperative ileus. COMPARISON: No prior. FINDINGS: BOWEL: No evidence of obstruction or free air. Nasogastric tube identified in the stomach. BONES: Normal. OTHER FINDINGS: None. IMPRESSION: Satisfactory postoperative status.
[2018-02-20 15:31] LABS: SQUAMOUS EPITHIAL < 1 /hpf (0-5); URINE BILIRUBIN NEGATIVE (NEGATIVE); URINE BLOOD NEGATIVE (NEGATIVE); URINE CLARITY Clear (Clear); URINE COLOR Yellow (YELLOW); URINE GLUCOSE (UA) NORMAL (Normal); URINE LEUKOCYTE ESTERASE NEG Leu/uL (Negative); URINE PROTEIN NEGATIVE (NEGATIVE); URINE UROBILINOGEN NORMAL mg/dL (0.2-1.0)
[2018-02-20] MEDS ORDERED: Potassium Phosphate 15 MMOLE in Dextrose 5% In Water 250 ML IVPB ONE (16:00)
[2018-02-20 16:11] VITALS: RESP 20
[2018-02-20] MEDS ORDERED: TPN IV SCH (18:00)
[2018-02-20] MEDS ORDERED: Fat Emulsion 20% IV 250 ML IV ONE (18:00)
[2018-02-20] MEDS: Fat Emulsion 20% IV 500 ML IV SCH (20:12)
[2018-02-20] MEDS: DiphenhydrAMINE 50 mg/ml Inj IVP PRN (21:55)
[2018-02-21] MEDS: HYDROmorphone 0.5 mg/0.5 ml ISec IVP PRN ×5 (02:05→21:34)
[2018-02-21] MEDS: Piperacillin/Tazobact 3.375 GM in Sodium Chloride 100 ML IVPB SCH ×4 (04:30→21:33)
[2018-02-21] MEDS: **TPN #2 IV SCH ×2 (05:55→10:54)
[2018-02-21] MEDS: metroNIDAZOLE IV 500 mg/100 ml 500 MG/100 ML BAG IVPB SCH ×4 (06:50→22:26)
--- NOTE | 2018-02-21 07:27 | CP.PCM.PN ---
Subjective - Date & Time of Evaluation Date of Evaluation: 02/21/18 Time of Evaluation: 07:25 - Subjective Subjective: Surgery Pt seen and examined. No acute events. Pain controlled. Received 1 dose of dilaudid 0.5mg overnight. Denies fever, nausea. NGT in place. AMbulates with help. VOiding without difficulty. Denies flatus, BM. Dressing changed this AM . Objective - Vital Signs/Intake and Output Vital Signs (last 24 hours): Temp Pulse Resp BP Pulse Ox 98.1 F 84 20 130/77 96 02/21/18 04:20 02/21/18 04:20 02/21/18 04:20 02/21/18 04:20 02/21/18 04:20 Intake and Output: 02/21/18 02/21/18 06:59 18:59 Intake Total 2060 Output Total 1365 Balance 695 - Medications Medications: Current Medications Albuterol/Ipratropium (Duoneb 3 Mg/0.5 Mg (3 Ml) Ud) 3 ml INH RQ4 PRN PRN Reason: Shortness of Breath Benzocaine/Menthol (Cepacol Sore Throat) 1 dillon MT Q4 PRN PRN Reason: Sore Throat Last Admin: 02/12/18 13:06 Dose: 1 dillon Diphenhydramine HCl (Benadryl) 50 mg IVP HS PRN PRN Reason: Insomnia Last Admin: 02/20/18 21:55 Dose: 50 mg Heparin Sodium (Porcine) (Heparin) 5,000 units SC Q8 ANN Last Admin: 02/21/18 05:54 Dose: 5,000 units Hydromorphone HCl (Dilaudid) 0.5 mg IVP Q2 PRN PRN Reason: Pain, severe (8-10) Last Admin: 02/21/18 02:05 Dose: 0.5 mg Piperacillin Sod/Tazobactam (Sod 3.375 gm/ Sodium Chloride) 100 mls @ 200 mls/ hr IVPB Q6H ANN PRN Reason: Protocol Last Admin: 02/21/18 04:30 Dose: 200 mls/hr BUPIVACAINE 0.125%/0.9% NACL (Bupivacaine-Ns 0.125% On-Q Software Project Lead) 600 mls @ 4 mls/ hr IJ ONCE ONE Stop: 02/23/18 20:59 Metronidazole (Flagyl) 500 mg in 100 mls @ 100 mls/hr IVPB Q8H ANN PRN Reason: Protocol Last Admin: 02/21/18 06:50 Dose: 100 mls/hr BUPIVACAINE 0.125%/0.9% NACL (Bupivacaine-Ns 0.125% On-Q Software Project Lead) 600 mls @ 4 mls/ hr IJ ONCE ONE Stop: 02/25/18 23:16 Last Admin: 02/19/18 22:47 Dose: 4 mls/hr Lactated Ringer's (Lactated Ringer's) 1,000 mls @ 20 mls/hr IV .Q24H [facility] Last Admin: 02/20/18 08:27 Dose: Not Given Sodium Chloride 15 meq/Potassium Phosphate 15 mmole/Magnesium Sulfate 3 meq/ Calcium Gluconate 4.6 meq/Heparin Sodium (Porcine) 1,000 units/ Chromium/Copper/ Manganese/Zinc 1 ml/ Amino Acids 1,021.3813 mls @ 80 mls/hr IV .[id number] [facility] Stop: 02/21/18 17:59 Last Admin: 02/21/18 05:55 Dose: Not Given Ketorolac Tromethamine (Toradol) 15 mg IVP Q6 PRN PRN Reason: Pain, moderate (4-7) Lidocaine (Lidoderm) 1 ea TD DAILY@0800 [facility] Last Admin: 02/20/18 08:34 Dose: 1 ea Lidocaine (Lidoderm) 1 ea TD DAILY [facility] Last Admin: 02/20/18 17:59 Dose: 1 ea Metoclopramide HCl (Reglan) 5 mg IVP Q6 [facility] Last Admin: 02/21/18 05:50 Dose: 5 mg Ondansetron HCl (Zofran Inj) 4 mg IV Q4 PRN PRN Reason: Nausea/Vomiting Last Admin: 02/18/18 09:24 Dose: 4 mg Pantoprazole Sodium (Protonix Inj) 40 mg IVP DAILY [facility] Last Admin: 02/20/18 11:21 Dose: 40 mg - Labs Labs: 02/20/18 07:09 02/20/18 07:09 PT 12.0 SECONDS (9.7-12.2) 02/17/18 06:15 INR 1.1 02/17/18 06:15 APTT 24 SECONDS (21-34) D 02/17/18 13:52 - Constitutional Appears: No Acute Distress - Head Exam Head Exam: ATRAUMATIC, NORMAL INSPECTION, NORMOCEPHALIC - Eye Exam Eye Exam: EOMI, Normal appearance, PERRL Pupil Exam: NORMAL ACCOMODATION, PERRL - ENT Exam ENT Exam: Mucous Membranes Moist, Normal Exam Additional comments: NGT in place: 100cc overnight bilious - Neck Exam Neck Exam: Full ROM, Normal Inspection. absent: Lymphadenopathy - Respiratory Exam Respiratory Exam: Clear to Ausculation Bilateral, NORMAL BREATHING PATTERN - Cardiovascular Exam Cardiovascular Exam: REGULAR RHYTHM, +S1, +S2. absent: Murmur - GI/Abdominal Exam GI & Abdominal Exam: Soft, Tenderness, Normal Bowel Sounds. absent: Guarding, Rigid, Mass Additional comments: full. Incision open. packed with wed gauze. Drain 20cc SS overnight. - Exam Exam: NORMAL INSPECTION - Extremities Exam Extremities Exam: Full ROM, Normal Capillary Refill, Normal Inspection. absent : Joint Swelling, Pedal Edema - Back Exam Back Exam: NORMAL INSPECTION - Neurological Exam Neurological Exam: Alert, Awake, CN II-XII Intact, Normal Gait, Oriented x3 - Psychiatric Exam Psychiatric exam: Normal Affect, Normal Mood - Skin Skin Exam: Normal Color, Warm Assessment and Plan - Assessment and Plan (Free Text) Assessment: POD 15 colectomy POD 4 exploratory laparotomy , colectomy Drain 20cc ss overnight, 50cc ss/24hrs NGT: 50cc biliuous overnight, 200cc/24hrs Urine 100cc/hr -Monitor Bowel function -Total fluids at 100cc/hr -TPN -ABX -DVT/ GI ppx -pain control -Replete electrolyte PRN -IS/ OOB / ambulate will JUNITO Green
[2018-02-21 07:33] LABS: BASO % 0.4 % (0.0-2.0); EOS # 0.2 K/uL (0.0-0.7); EOS % 4.1 % (0.0-4.0); LYMPH # 0.7 K/uL (1.0-4.3); MEAN CELL VOLUME 86.5 fL (80.0-94.0); MEAN CORPUSCULAR HEMOGLOBIN 28.8 pg (27.0-31.0); MEAN CORPUSCULAR HGB CONC 33.2 g/dL (33.0-37.0); MEAN PLATELET VOLUME 9.4 fL (7.2-11.7); MONO # 0.3 K/uL (0.0-0.8); MONO % 5.5 % (0.0-10.0); NEUT # 4.6 K/uL (1.8-7.0); RBC 3.48 Mil/uL (4.40-5.90); WHITE BLOOD COUNT 5.9 K/uL (4.8-10.8)
[2018-02-21 07:37] LABS: ALB/GLOB RATIO 0.9 (1.0-2.1); ALBUMIN 2.2 g/dL (3.5-5.0); ALT/SGPT 44 U/L (21-72); AST/SGOT 31 U/L (17-59); BLOOD UREA NITROGEN 20 mg/dL (9-20); CALCIUM 7.3 mg/dl (8.6-10.4); GFR AFRICAN-AMERICAN > 60; GFR NON-AFRICAN AMERICAN > 60
[2018-02-21] MEDS: Lidocaine 5% Patch TD SCH ×2 (08:22→09:13)
[2018-02-21] MEDS: Lactated Ringer's 1,000 ML IV SCH (08:23)
[2018-02-21] MEDS ORDERED: Potassium Phosphate 15 MMOLE in Dextrose 5% In Water 250 ML IVPB ONE ×2 (09:30→16:00)
[2018-02-21] MEDS ORDERED: TPN #3 IV SCH (18:00)
[2018-02-21] MEDS: DiphenhydrAMINE 50 mg/ml Inj IVP PRN (22:20)
[2018-02-22] MEDS: HYDROmorphone 0.5 mg/0.5 ml ISec IVP PRN ×5 (00:18→19:05)
[2018-02-22] MEDS: Piperacillin/Tazobact 3.375 GM in Sodium Chloride 100 ML IVPB SCH (04:52)
[2018-02-22] MEDS: Lactated Ringer's 1,000 ML IV SCH (06:12)
[2018-02-22] MEDS: metroNIDAZOLE IV 500 mg/100 ml 500 MG/100 ML BAG IVPB SCH (06:35)
[2018-02-22] MEDS ORDERED: TPN #4 IV SCH (07:00)
[2018-02-22 07:36] LABS: BASO % 0.4 % (0.0-2.0); EOS # 0.2 K/uL (0.0-0.7); EOS % 3.2 % (0.0-4.0); HEMOGLOBIN 10.1 g/dL (12.0-18.0); LYMPH # 0.7 K/uL (1.0-4.3); LYMPH % 10.6 % (20.0-40.0); MEAN CELL VOLUME 86.4 fL (80.0-94.0); MEAN CORPUSCULAR HEMOGLOBIN 28.8 pg (27.0-31.0); MEAN CORPUSCULAR HGB CONC 33.4 g/dL (33.0-37.0); MEAN PLATELET VOLUME 9.4 fL (7.2-11.7); MONO # 0.4 K/uL (0.0-0.8); MONO % 6.4 % (0.0-10.0); NEUT % 79.4 % (50.0-75.0); RBC 3.51 Mil/uL (4.40-5.90); RED CELL DISTRIBUTION WIDTH 14.8 % (11.5-14.5); WHITE BLOOD COUNT 6.3 K/uL (4.8-10.8)
[2018-02-22 08:04] LABS: ALB/GLOB RATIO 0.9 (1.0-2.1); ALBUMIN 2.2 g/dL (3.5-5.0); ALT/SGPT 43 U/L (21-72); AST/SGOT 40 U/L (17-59); BLOOD UREA NITROGEN 17 mg/dL (9-20); CALCIUM 7.5 mg/dl (8.6-10.4); GFR AFRICAN-AMERICAN > 60; GFR NON-AFRICAN AMERICAN > 60
--- NOTE | 2018-02-22 08:14 | CP.PCM.PN ---
<Allie Mora - Last Filed: 02/22/18 08:33> Subjective - Date & Time of Evaluation Date of Evaluation: 02/22/18 Time of Evaluation: 08:18 - Subjective Subjective: Surgery Pt seen and examined. No acute events. Pt had multiple BM yesterday. Reports passing flatus. Denies nausea, vomiting, CP, SOB. Ambulated multiple times yesterday. OnQ pump DCed. Dressing changed this AM. Objective - Vital Signs/Intake and Output Vital Signs (last 24 hours): Temp Pulse Resp BP Pulse Ox 97.7 F 85 20 139/76 97 02/22/18 07:05 02/22/18 07:05 02/22/18 07:05 02/22/18 07:05 02/22/18 07:05 Intake and Output: 02/22/18 02/22/18 06:59 18:59 Intake Total 1060 Output Total 1140 Balance -80 - Medications Medications: Current Medications Albuterol/Ipratropium (Duoneb 3 Mg/0.5 Mg (3 Ml) Ud) 3 ml INH RQ4 PRN PRN Reason: Shortness of Breath Benzocaine/Menthol (Cepacol Sore Throat) 1 dillon MT Q4 PRN PRN Reason: Sore Throat Last Admin: 02/12/18 13:06 Dose: 1 dillon Diphenhydramine HCl (Benadryl) 50 mg IVP HS PRN PRN Reason: Insomnia Last Admin: 02/21/18 22:20 Dose: 50 mg Furosemide (Lasix) 5 mg IVP STAT [facility] Stop: 02/22/18 08:09 Heparin Sodium (Porcine) (Heparin) 5,000 units SC Q8 ANN Last Admin: 02/22/18 06:13 Dose: 5,000 units Hydromorphone HCl (Dilaudid) 0.5 mg IVP Q2 PRN PRN Reason: Pain, severe (8-10) Last Admin: 02/22/18 04:48 Dose: 0.5 mg BUPIVACAINE 0.125%/0.9% NACL (Bupivacaine-Ns 0.125% On-Q Mental Telepathist) 600 mls @ 4 mls/ hr IJ ONCE ONE Stop: 02/23/18 20:59 Metronidazole (Flagyl) 500 mg in 100 mls @ 100 mls/hr IVPB Q8H ANN PRN Reason: Protocol Last Admin: 02/22/18 06:35 Dose: 100 mls/hr BUPIVACAINE 0.125%/0.9% NACL (Bupivacaine-Ns 0.125% On-Q Mental Telepathist) 600 mls @ 4 mls/ hr IJ ONCE ONE Stop: 02/25/18 23:16 Last Admin: 02/19/18 22:47 Dose: 4 mls/hr Sodium Chloride 15 meq/Potassium Phosphate 15 mmole/Magnesium Sulfate 3 meq/ Calcium Gluconate 4.6 meq/Heparin Sodium (Porcine) 1,000 units/ Chromium/Copper/ Manganese/Zinc 1 ml/ Potassium Chloride 40 meq/ Amino Acids 1,041.3813 mls @ 80 mls/hr IV .Q13H2M [facility] Stop: 02/22/18 18:00 Last Admin: 02/22/18 06:36 Dose: 80 mls/hr Piperacillin Sod/Tazobactam (Sod 3.375 gm/ Dextrose) 50 mls @ 200 mls/hr IVPB Q6H [facility] PRN Reason: Protocol Ketorolac Tromethamine (Toradol) 15 mg IVP Q6 PRN PRN Reason: Pain, moderate (4-7) Last Admin: 02/21/18 16:45 Dose: 15 mg Ketorolac Tromethamine (Toradol) 15 mg IVP Q6 [facility] Lidocaine (Lidoderm) 1 ea TD DAILY@0800 [facility] Last Admin: 02/21/18 08:22 Dose: 1 ea Lidocaine (Lidoderm) 1 ea TD DAILY [facility] Last Admin: 02/21/18 09:13 Dose: 1 ea Metoclopramide HCl (Reglan) 5 mg IVP Q6 [facility] Last Admin: 02/22/18 06:13 Dose: 5 mg Ondansetron HCl (Zofran Inj) 4 mg IV Q4 PRN PRN Reason: Nausea/Vomiting Last Admin: 02/18/18 09:24 Dose: 4 mg Pantoprazole Sodium (Protonix Inj) 40 mg IVP DAILY [facility] Last Admin: 02/21/18 09:14 Dose: 40 mg - Labs Labs: 02/22/18 07:21 02/22/18 07:21 PT 12.0 SECONDS (9.7-12.2) 02/17/18 06:15 INR 1.1 02/17/18 06:15 APTT 24 SECONDS (21-34) D 02/17/18 13:52 - Constitutional Appears: No Acute Distress - Head Exam Head Exam: ATRAUMATIC, NORMAL INSPECTION, NORMOCEPHALIC - Eye Exam Eye Exam: EOMI, Normal appearance, PERRL Pupil Exam: NORMAL ACCOMODATION, PERRL - ENT Exam ENT Exam: Mucous Membranes Moist, Normal Exam Additional comments: NGT clamped. - Neck Exam Neck Exam: Full ROM, Normal Inspection. absent: Lymphadenopathy - Respiratory Exam Respiratory Exam: Clear to Ausculation Bilateral, NORMAL BREATHING PATTERN - Cardiovascular Exam Cardiovascular Exam: REGULAR RHYTHM, +S1, +S2. absent: Murmur - GI/Abdominal Exam GI & Abdominal Exam: Soft, Normal Bowel Sounds. absent: Distended, Firm, Guarding, Rigid, Tenderness Additional comments: wet to dry dressing in place. dold Drain - Exam Exam: NORMAL INSPECTION - Extremities Exam Extremities Exam: Full ROM, Normal Capillary Refill, Normal Inspection. absent : Joint Swelling, Pedal Edema - Back Exam Back Exam: NORMAL INSPECTION - Neurological Exam Neurological Exam: Alert, Awake, CN II-XII Intact, Normal Gait, Oriented x3 - Psychiatric Exam Psychiatric exam: Normal Affect, Normal Mood - Skin Skin Exam: Normal Color, Warm Assessment and Plan - Assessment and Plan (Free Text) Assessment: POD 16 colectomy POD 5 exploratory laparotomy , colectomy Drain 15cc ss overnight, 90cc ss/24hrs NGT: 0cc biliuous overnight Urine 100cc/hr -DC NGT -CLD -TPN -ABX -DVT/ GI ppx -pain control -Replete electrolyte PRN -IS/ OOB / ambulate DW Dr. Green <Saúl Green - Last Filed: 02/22/18 11:00> Objective - Vital Signs/Intake and Output Vital Signs (last 24 hours): Temp Pulse Resp BP Pulse Ox 97.7 F 86 20 119/74 97 02/22/18 07:05 02/22/18 09:25 02/22/18 07:05 02/22/18 09:25 02/22/18 07:05 Intake and Output: 02/22/18 02/22/18 06:59 18:59 Intake Total 1060 Output Total 1140 Balance -80 - Medications Medications: Current Medications Albuterol/Ipratropium (Duoneb 3 Mg/0.5 Mg (3 Ml) Ud) 3 ml INH RQ4 PRN PRN Reason: Shortness of Breath Benzocaine/Menthol (Cepacol Sore Throat) 1 dillon MT Q4 PRN PRN Reason: Sore Throat Last Admin: 02/12/18 13:06 Dose: 1 dillon Diphenhydramine HCl (Benadryl) 50 mg IVP HS PRN PRN Reason: Insomnia Last Admin: 02/21/18 22:20 Dose: 50 mg Heparin Sodium (Porcine) (Heparin) 5,000 units SC Q8 [facility] Last Admin: 02/22/18 06:13 Dose: 5,000 units Hydromorphone HCl (Dilaudid) 0.5 mg IVP Q2 PRN PRN Reason: Pain, severe (8-10) Last Admin: 02/22/18 09:40 Dose: 0.5 mg BUPIVACAINE 0.125%/0.9% NACL (Bupivacaine-Ns 0.125% On-Q Mental Telepathist) 600 mls @ 4 mls/ hr IJ ONCE ONE Stop: 02/23/18 20:59 Metronidazole (Flagyl) 500 mg in 100 mls @ 100 mls/hr IVPB Q8H [facility] PRN Reason: Protocol Last Admin: 02/22/18 06:35 Dose: 100 mls/hr BUPIVACAINE 0.125%/0.9% NACL (Bupivacaine-Ns 0.125% On-Q Mental Telepathist) 600 mls @ 4 mls/ hr IJ ONCE ONE Stop: 02/25/18 23:16 Last Admin: 02/19/18 22:47 Dose: 4 mls/hr Sodium Chloride 15 meq/Potassium Phosphate 15 mmole/Magnesium Sulfate 3 meq/ Calcium Gluconate 4.6 meq/Heparin Sodium (Porcine) 1,000 units/ Chromium/Copper/ Manganese/Zinc 1 ml/ Potassium Chloride 40 meq/ Amino Acids 1,041.3813 mls @ 80 mls/hr IV .Q13H2M [facility] Stop: 02/22/18 18:00 Last Admin: 02/22/18 06:36 Dose: 80 mls/hr Piperacillin Sod/Tazobactam (Sod 3.375 gm/ Dextrose) 50 mls @ 200 mls/hr IVPB Q6H [facility] PRN Reason: Protocol Last Admin: 02/22/18 09:40 Dose: 200 mls/hr Potassium Phosphate 15 mmole/ (Dextrose) 255 mls @ 42.5 mls/hr IVPB ONCE ONE Stop: 02/22/18 21:59 Ketorolac Tromethamine (Toradol) 15 mg IVP Q6 PRN PRN Reason: Pain, moderate (4-7) Last Admin: 02/21/18 16:45 Dose: 15 mg Ketorolac Tromethamine (Toradol) 15 mg IVP Q6 [facility] Lidocaine (Lidoderm) 1 ea TD DAILY@0800 [facility] Last Admin: 02/22/18 08:38 Dose: 1 ea Lidocaine (Lidoderm) 1 ea TD DAILY [facility] Last Admin: 02/22/18 09:31 Dose: 1 ea Metoclopramide HCl (Reglan) 5 mg IVP Q6 [facility] Last Admin: 02/22/18 06:13 Dose: 5 mg Ondansetron HCl (Zofran Inj) 4 mg IV Q4 PRN PRN Reason: Nausea/Vomiting Last Admin: 02/18/18 09:24 Dose: 4 mg Pantoprazole Sodium (Protonix Inj) 40 mg IVP DAILY [facility] Last Admin: 02/22/18 09:25 Dose: 40 mg - Labs Labs: 02/22/18 07:21 02/22/18 07:21 PT 12.0 SECONDS (9.7-12.2) 02/17/18 06:15 INR 1.1 02/17/18 06:15 APTT 24 SECONDS (21-34) D 02/17/18 13:52 Assessment and Plan - Assessment and Plan (Free Text) Plan: Patient seen and examined at bedside independent of resident staf. Agree with above assessment and plan. NGt min output after overnight clamp trial. Passing flatus and BM's. No nausea. Pain controlled. Not really asking for much IV meds. Abd soft, full, dressings clean. SUDHAKAR drain serous. Will d.c NGT and do trial so clears. Will progress diet slowly day to day. Diurese today- lasix + albumin. Goal net negative 1L in 24 hours. Cont. TPN only, and Stop MIVF. OOB and ambulate in [place]. SCD at all times when in bed or chair. HSQ and PPI. Will discontinue Abx. Dispo plan: tentatively home Saturday or Saturday. Plan discussed with patient and at bedside and patient's son over the phone at patient's request.
[2018-02-22] MEDS: Lidocaine 5% Patch TD SCH ×2 (08:38→09:31)
[2018-02-22] MEDS ORDERED: Albumin Human 25% (12.5 gm/50 ml) IV ONE (10:00)
[2018-02-22] MEDS ORDERED: Piperacillin/Tazobact 3.375 GM in Dextrose 5% In Water 50 ML IVPB SCH (10:30)
[2018-02-22] MEDS: Magnesium Sulfate 1 gm in D5W 1 GM/100 ML BAG IVPB SCH ×2 (10:34→12:41)
[2018-02-22] MEDS ORDERED: Calcium Chloride 1000 mg/10 ml Syringe IV ONE ×2 (11:10)
[2018-02-22] MEDS ORDERED: Potassium Phosphate 15 MMOLE in Dextrose 5% In Water 250 ML IVPB ONE ×2 (11:45→16:00)
[2018-02-22] MEDS ORDERED: Potassium Phosphate 30 MMOLE in Dextrose 5% In Water 250 ML IVPB ONE (16:00)
[2018-02-22] MEDS ORDERED: TPN#5 IV ONE (18:00)
[2018-02-22] MEDS ORDERED: Fat Emulsion 20% IV 500 ML IV ONE (18:00)
[2018-02-22] MEDS: DiphenhydrAMINE 50 mg/ml Inj IVP PRN (21:32)
[2018-02-23] MEDS: HYDROmorphone 0.5 mg/0.5 ml ISec IVP PRN (02:11)
[2018-02-23] MEDS: Pantoprazole 40 mg Susp UD PO SCH (05:49)
[2018-02-23] MEDS ORDERED: TPN#6 IV SCH (06:16)
[2018-02-23 07:47] LABS: BLOOD UREA NITROGEN 13 mg/dL (9-20); CALCIUM 7.5 mg/dl (8.6-10.4); GFR AFRICAN-AMERICAN > 60; GFR NON-AFRICAN AMERICAN > 60
[2018-02-23] MEDS ORDERED: Tramadol 25 mg PO PRN (08:12)
[2018-02-23] MEDS ORDERED: Potassium Phosphate 30 MMOLE in Sodium Chloride 0.9% 250 ML IV ONE ×2 (08:12→18:30)
[2018-02-23] MEDS ORDERED: SODIUM CHLORIDE IV SCH (08:31)
[2018-02-23] MEDS ORDERED: [UNRECOGNIZED DRUG - OTHER] IV SCH (08:31)
[2018-02-23] MEDS ORDERED: MAGNESIUM SULFATE IV SCH (08:31)
[2018-02-23] MEDS: Lidocaine 5% Patch TD SCH ×2 (09:29→09:30)
[2018-02-23] MEDS ORDERED: Potassium & Sodium Phosphate PO ONE (09:31)
[2018-02-23] MEDS ORDERED: TPN #7 IV SCH (10:15)
--- NOTE | 2018-02-23 10:23 | CP.PCM.PN ---
Subjective - Date & Time of Evaluation Date of Evaluation: 02/23/18 Time of Evaluation: 07:00 - Subjective Subjective: General Surgery Progress Note for Dr. Green This 72M was seen and evaluated this AM at bedside. No acute events overnight. PT reports that he is ambulating, tolerating clear liquids denies nause or vomiting. He reports that he has liquid bowel movements overnight and more formed BM this morning. He reports that his pain is well controlled with the medication. Dressing and packing was changed this AM, and SCDs were replaced. Nurse reports that since the patient has less IV lines connected he is more ambulatory, he has also been voiding in the restroom without recording outputs. Objective - Vital Signs/Intake and Output Vital Signs (last 24 hours): Temp Pulse Resp BP Pulse Ox 98.1 F 76 20 117/77 96 02/23/18 08:10 02/23/18 08:10 02/23/18 08:10 02/23/18 08:10 02/23/18 08:10 Intake and Output: 02/23/18 02/23/18 06:59 18:59 Intake Total 1824 Output Total 962 Balance 862 - Medications Medications: Current Medications Albuterol/Ipratropium (Duoneb 3 Mg/0.5 Mg (3 Ml) Ud) 3 ml INH RQ4 PRN PRN Reason: Shortness of Breath Benzocaine/Menthol (Cepacol Sore Throat) 1 dillon MT Q4 PRN PRN Reason: Sore Throat Last Admin: 02/12/18 13:06 Dose: 1 dillon Diphenhydramine HCl (Benadryl) 50 mg IVP HS PRN PRN Reason: Insomnia Last Admin: 02/22/18 21:32 Dose: 50 mg Heparin Sodium (Porcine) (Heparin) 5,000 units SC Q8 ANN Last Admin: 02/23/18 05:50 Dose: 5,000 units BUPIVACAINE 0.125%/0.9% NACL (Bupivacaine-Ns 0.125% On-Q Rubber Roller Grinder Operator) 600 mls @ 4 mls/ hr IJ ONCE ONE Stop: 02/23/18 20:59 BUPIVACAINE 0.125%/0.9% NACL (Bupivacaine-Ns 0.125% On-Q Rubber Roller Grinder Operator) 600 mls @ 4 mls/ hr IJ ONCE ONE Stop: 02/25/18 23:16 Last Admin: 02/19/18 22:47 Dose: 4 mls/hr Sodium Chloride 15 meq/Magnesium Sulfate 6 meq/Heparin Sodium (Porcine) 1,000 units/ Chromium/Copper/Manganese/Seleni/Zn 1 ml/Amino Acids 1,007.2278 mls @ 45 mls/hr IV [id number] Stop: 02/23/18 18:00 Fat Emulsion Intravenous (Intralipid 20%) 500 mls @ 45 mls/hr IV ONCE ONE Stop: 02/23/18 22:06 Potassium Phosphate 30 mmole/ (Sodium Chloride) 260 mls @ 43.333 mls/hr IV ONCE ONE Stop: 02/24/18 00:29 Lidocaine (Lidoderm) 1 ea TD DAILY@0800 [facility] Last Admin: 02/23/18 09:29 Dose: 1 ea Lidocaine (Lidoderm) 1 ea TD DAILY [facility] Last Admin: 02/23/18 09:30 Dose: 1 ea Metoclopramide HCl (Reglan) 5 mg IVP Q6 [facility] Last Admin: 02/23/18 05:50 Dose: 5 mg Ondansetron HCl (Zofran Inj) 4 mg IV Q4 PRN PRN Reason: Nausea/Vomiting Last Admin: 02/18/18 09:24 Dose: 4 mg Pantoprazole Sodium (Protonix Susp) 40 mg PO 0600 [facility] Last Admin: 02/23/18 05:49 Dose: 40 mg Tramadol HCl (Ultram) 50 mg PO TID PRN PRN Reason: Pain, severe (8-10) - Labs Labs: 02/22/18 07:21 02/23/18 07:23 PT 12.0 SECONDS (9.7-12.2) 02/17/18 06:15 INR 1.1 02/17/18 06:15 APTT 24 SECONDS (21-34) D 02/17/18 13:52 - Constitutional Appears: Non-toxic, No Acute Distress - Head Exam Head Exam: ATRAUMATIC, NORMOCEPHALIC - Eye Exam Eye Exam: EOMI, Normal appearance - ENT Exam ENT Exam: Mucous Membranes Moist - Respiratory Exam Respiratory Exam: NORMAL BREATHING PATTERN. absent: Respiratory Distress Additional comments: On Room air - Cardiovascular Exam Cardiovascular Exam: +S1, +S2 - GI/Abdominal Exam GI & Abdominal Exam: Soft. absent: Distended, Firm, Guarding, Rigid, Tenderness Additional comments: Midline and drain site packing changed this AM no purulence noted, packing and dressing with pink serous output. Alberto drain 55cc serous output over 24hr. - Extremities Exam Extremities Exam: Normal Inspection Additional comments: No calf tendernes - Neurological Exam Neurological Exam: Alert, Awake - Psychiatric Exam Psychiatric exam: Normal Affect, Normal Mood - Skin Skin Exam: Normal Color Assessment and Plan - Assessment and Plan (Free Text) Assessment: 72M POD 17 S/P robotic right hemicolectomy due to incomplete excision of adenomatous polyp, POD#6 s/p exlap ileocolectomy for EC fistula Alberto drain 55cc/24hr Urine output not accurately recorded Afebrile, No Leukocytosis K 3.7, Phos 2.4, Mg 2.1 Plan: - Advance to [facility] - D/C TPN when currently running order expires - D/C IV Pain medication, Starting Ultram - Continue ABX - Continue DVT/ GI ppx - Replete Potassium and Phos - IS/ OOB / ambulate - Discuss D/C planning with home services with case management Further recs per Dr. Peter Caldera PGY2
[2018-02-23] MEDS ORDERED: Fat Emulsion 20% IV 500 ML IV ONE (11:00)
[2018-02-23] MEDS ORDERED: HYDROmorphone 0.5 mg/0.5 ml ISec IVP STA (14:04)
[2018-02-23] MEDS ORDERED: Acetaminophen 650mg/20.3ml solution UD PO PRN (14:05)
[2018-02-23] MEDS: Oxycodone/Acetaminophen 5/325 mg Tab PO PRN (21:56)
[2018-02-23] MEDS: DiphenhydrAMINE 50 mg/ml Inj IVP PRN (22:53)
[2018-02-24] MEDS: Pantoprazole 40 mg Susp UD PO SCH (05:26)
[2018-02-24] MEDS: Oxycodone/Acetaminophen 5/325 mg Tab PO PRN (05:26)
[2018-02-24 06:43] LABS: ALBUMIN 2.8 g/dL (3.5-5.0); ALT/SGPT 42 U/L (21-72); AST/SGOT 35 U/L (17-59); BLOOD UREA NITROGEN 10 mg/dL (9-20); CALCIUM 8.2 mg/dl (8.6-10.4); GFR AFRICAN-AMERICAN > 60; GFR NON-AFRICAN AMERICAN > 60
--- NOTE | 2018-02-24 07:13 | CP.PCM.PN ---
<MorganAllie - Last Filed: 02/24/18 07:09> Subjective - Date & Time of Evaluation Date of Evaluation: 02/24/18 Time of Evaluation: 07:09 - Subjective Subjective: Surgery Pt seen and examined. No acute events. Pain controlled. Denies feer, nausea, diarrea. Pt is voiding freely. Had BM overnight. Pt ambulated and is OOB. Dressing changed this AM. Objective - Vital Signs/Intake and Output Vital Signs (last 24 hours): Temp Pulse Resp BP Pulse Ox 98 F 90 20 113/72 96 02/23/18 23:40 02/23/18 23:40 02/23/18 23:40 02/23/18 23:40 02/23/18 23:40 Intake and Output: 02/24/18 02/24/18 06:59 18:59 Intake Total 315 Output Total 265 Balance 50 - Medications Medications: Current Medications Albuterol/Ipratropium (Duoneb 3 Mg/0.5 Mg (3 Ml) Ud) 3 ml INH RQ4 PRN PRN Reason: Shortness of Breath Benzocaine/Menthol (Cepacol Sore Throat) 1 dillon MT Q4 PRN PRN Reason: Sore Throat Last Admin: 02/12/18 13:06 Dose: 1 dillon Diphenhydramine HCl (Benadryl) 50 mg IVP HS PRN PRN Reason: Insomnia Last Admin: 02/23/18 22:53 Dose: 50 mg Docusate Sodium (Colace) 100 mg PO DAILY [facility] Heparin Sodium (Porcine) (Heparin) 5,000 units SC Q8 [facility] Last Admin: 02/24/18 05:27 Dose: 5,000 units BUPIVACAINE 0.125%/0.9% NACL (Bupivacaine-Ns 0.125% On-Q Die Press Operator) 600 mls @ 4 mls/ hr IJ ONCE ONE Stop: 02/25/18 23:16 Last Admin: 02/19/18 22:47 Dose: 4 mls/hr Lidocaine (Lidoderm) 1 ea TD DAILY@0800 [facility] Last Admin: 02/23/18 09:29 Dose: 1 ea Lidocaine (Lidoderm) 1 ea TD DAILY [facility] Last Admin: 02/23/18 09:30 Dose: 1 ea Metoclopramide HCl (Reglan) 5 mg IVP Q6 [facility] Last Admin: 02/24/18 05:26 Dose: 5 mg Ondansetron HCl (Zofran Inj) 4 mg IV Q4 PRN PRN Reason: Nausea/Vomiting Last Admin: 02/18/18 09:24 Dose: 4 mg Oxycodone/Acetaminophen (Percocet 5/325 Mg Tab) 1 tab PO Q4H PRN PRN Reason: Pain, moderate (4-7) Stop: 02/26/18 18:12 Last Admin: 02/24/18 05:26 Dose: 1 tab Pantoprazole Sodium (Protonix Susp) 40 mg PO 0600 [facility] Last Admin: 02/24/18 05:26 Dose: 40 mg - Labs Labs: 02/22/18 07:21 02/24/18 06:18 PT 12.0 SECONDS (9.7-12.2) 02/17/18 06:15 INR 1.1 02/17/18 06:15 APTT 24 SECONDS (21-34) D 02/17/18 13:52 - Constitutional Appears: No Acute Distress - Head Exam Head Exam: ATRAUMATIC, NORMAL INSPECTION, NORMOCEPHALIC - Eye Exam Eye Exam: EOMI, Normal appearance, PERRL Pupil Exam: NORMAL ACCOMODATION, PERRL - ENT Exam ENT Exam: Mucous Membranes Moist, Normal Exam - Neck Exam Neck Exam: Full ROM, Normal Inspection. absent: Lymphadenopathy - Respiratory Exam Respiratory Exam: Clear to Ausculation Bilateral, NORMAL BREATHING PATTERN - Cardiovascular Exam Cardiovascular Exam: REGULAR RHYTHM, +S1, +S2. absent: Murmur - GI/Abdominal Exam GI & Abdominal Exam: Soft, Normal Bowel Sounds. absent: Distended, Firm, Guarding, Rigid, Tenderness, Mass, Rebound Additional comments: Dressing applied. [address] No signs of infection. 40cm incision open. - Exam Exam: NORMAL INSPECTION - Extremities Exam Extremities Exam: Full ROM, Normal Capillary Refill, Normal Inspection. absent : Joint Swelling, Pedal Edema - Back Exam Back Exam: NORMAL INSPECTION - Neurological Exam Neurological Exam: Alert, Awake, CN II-XII Intact, Normal Gait, Oriented x3 - Psychiatric Exam Psychiatric exam: Normal Affect, Normal Mood - Skin Skin Exam: Warm. absent: Erythema, Intact Assessment and Plan - Assessment and Plan (Free Text) Assessment: 72M POD 18 S/P robotic right hemicolectomy due to incomplete excision of adenomatous polyp, POD#7 s/p exlap ileocolectomy for EC fistula Alberto drain 25cc/24hr serous, 5cc/8hrs. Urine output not accurately recorded: voiding freely. Plan: - Low residual diet -Pain control: Percocet - Continue DVT/ GI ppx - Replete electrolyte PRN - IS/ OOB / ambulate - Discuss D/C planning with home services with case management: Recommends home care -Possible DC soon Further recs per Dr. Green <Saúl Green - Last Filed: 02/24/18 09:53> Objective - Vital Signs/Intake and Output Vital Signs (last 24 hours): Temp Pulse Resp BP Pulse Ox 98.0 F 84 20 107/69 95 02/24/18 07:00 02/24/18 07:00 02/24/18 07:00 02/24/18 07:00 02/24/18 07:00 Intake and Output: 02/24/18 02/24/18 06:59 18:59 Intake Total 515 Output Total 265 Balance 250 - Medications Medications: Current Medications Albuterol/Ipratropium (Duoneb 3 Mg/0.5 Mg (3 Ml) Ud) 3 ml INH RQ4 PRN PRN Reason: Shortness of Breath Benzocaine/Menthol (Cepacol Sore Throat) 1 dillon MT Q4 PRN PRN Reason: Sore Throat Last Admin: 02/12/18 13:06 Dose: 1 dillon Diphenhydramine HCl (Benadryl) 50 mg IVP HS PRN PRN Reason: Insomnia Last Admin: 02/23/18 22:53 Dose: 50 mg Docusate Sodium (Colace) 100 mg PO DAILY [facility] Heparin Sodium (Porcine) (Heparin) 5,000 units SC Q8 [facility] Last Admin: 02/24/18 05:27 Dose: 5,000 units BUPIVACAINE 0.125%/0.9% NACL (Bupivacaine-Ns 0.125% On-Q Die Press Operator) 600 mls @ 4 mls/ hr IJ ONCE ONE Stop: 02/25/18 23:16 Last Admin: 02/19/18 22:47 Dose: 4 mls/hr Lidocaine (Lidoderm) 1 ea TD DAILY@0800 [facility] Last Admin: 02/24/18 08:40 Dose: 1 ea Lidocaine (Lidoderm) 1 ea TD DAILY [facility] Last Admin: 02/23/18 09:30 Dose: 1 ea Metoclopramide HCl (Reglan) 5 mg IVP Q6 [facility] Last Admin: 02/24/18 05:26 Dose: 5 mg Ondansetron HCl (Zofran Inj) 4 mg IV Q4 PRN PRN Reason: Nausea/Vomiting Last Admin: 02/18/18 09:24 Dose: 4 mg Oxycodone/Acetaminophen (Percocet 5/325 Mg Tab) 1 tab PO Q4H PRN PRN Reason: Pain, moderate (4-7) Stop: 02/26/18 18:12 Last Admin: 02/24/18 05:26 Dose: 1 tab Pantoprazole Sodium (Protonix Susp) 40 mg PO 0600 [facility] Last Admin: 02/24/18 05:26 Dose: 40 mg - Labs Labs: 02/24/18 07:36 02/24/18 06:18 PT 12.0 SECONDS (9.7-12.2) 02/17/18 06:15 INR 1.1 02/17/18 06:15 APTT 24 SECONDS (21-34) D 02/17/18 13:52 Assessment and Plan - Assessment and Plan (Free Text) Plan: Patient seen and examined at bedside independent of resident staff. Agree with above assessment and plan. Return of bowel function over the weekend. Tolerating fulls/ low fiber diet. No nausea/vomiting. Passing BM and flatus. Abd soft, non-tender. Incision healing nicely with wet to dry packing. HLIV. PO meds. Dispo home today or tomorrow pending home needs set up per SW. 5 days PO abx with cipro/flagyl. Follow up [facility] in 2-3 weeks after discharge.
[2018-02-24 07:41] LABS: BASO # 0.1 K/uL (0.0-0.2); BASO % 0.6 % (0.0-2.0); EOS # 0.3 K/uL (0.0-0.7); EOS % 2.5 % (0.0-4.0); LYMPH # 1.3 K/uL (1.0-4.3); LYMPH % 11.4 % (20.0-40.0); MEAN CELL VOLUME 85.3 fL (80.0-94.0); MEAN CORPUSCULAR HEMOGLOBIN 27.8 pg (27.0-31.0); MEAN CORPUSCULAR HGB CONC 32.6 g/dL (33.0-37.0); MEAN PLATELET VOLUME 9.7 fL (7.2-11.7); MONO # 0.5 K/uL (0.0-0.8); MONO % 4.5 % (0.0-10.0); NEUT # 9.3 K/uL (1.8-7.0); RBC 3.96 Mil/uL (4.40-5.90); RED CELL DISTRIBUTION WIDTH 14.6 % (11.5-14.5)
[2018-02-24 07:42] LABS: WHITE BLOOD COUNT 11.4 K/uL (4.8-10.8)
[2018-02-24] MEDS: Lidocaine 5% Patch TD SCH ×3 (08:00→11:00)
--- NOTE | 2018-02-24 14:47 | CP.PCM.DIS ---
Provider - Provider Date of Admission: 02/06/18 13:28 Attending physician: Saúl Green MD Time Spent in preparation of Discharge (in minutes): 45 Hospital Course - Lab Results Lab Results: Micro Results 02/18/18 00:37 Blood Blood Culture - Final NO GROWTH AFTER 5 DAYS 02/18/18 00:37 Blood Gram Stain - Final TEST NOT PERFORMED 02/18/18 00:37 Blood Blood Culture - Final NO GROWTH AFTER 5 DAYS 02/18/18 00:37 Blood Gram Stain - Final TEST NOT PERFORMED 02/19/18 17:28 Nose MRSA Culture (Admit) - Final MRSA NOT DETECTED 02/17/18 22:37 Naris MRSA Culture (Admit) - Final MRSA NOT DETECTED 02/18/18 00:37 Urine,Catheterized Urine Culture - Final No Growth (<1,000 CFU/ML) 02/15/18 19:44 Abdomen Gram Stain - Final 02/15/18 19:44 Abdomen Wound Culture - Final Escherichia Coli Most Recent Lab Values WBC 11.4 K/uL (4.8-10.8) H D 02/24/18 07:36 RBC 3.96 Mil/uL (4.40-5.90) L 02/24/18 07:36 Hgb 11.0 g/dL (12.0-18.0) L 02/24/18 07:36 Hct 33.8 % (35.0-51.0) L 02/24/18 07:36 MCV 85.3 fL (80.0-94.0) 02/24/18 07:36 MCH 27.8 pg (27.0-31.0) 02/24/18 07:36 MCHC 32.6 g/dL (33.0-37.0) L 02/24/18 07:36 RDW 14.6 % (11.5-14.5) H 02/24/18 07:36 Plt Count 401 K/uL (130-400) H 02/24/18 07:36 MPV 9.7 fL (7.2-11.7) 02/24/18 07:36 Neut % (Auto) 81.0 % (50.0-75.0) H 02/24/18 07:36 Lymph % (Auto) 11.4 % (20.0-40.0) L 02/24/18 07:36 [place] % (Auto) 4.5 % (0.0-10.0) 02/24/18 07:36 Eos % (Auto) 2.5 % (0.0-4.0) 02/24/18 07:36 Baso % (Auto) 0.6 % (0.0-2.0) 02/24/18 07:36 Neut # (Auto) 9.3 K/uL (1.8-7.0) H 02/24/18 07:36 Lymph # (Auto) 1.3 K/uL (1.0-4.3) 02/24/18 07:36 [place] # (Auto) 0.5 K/uL (0.0-0.8) 02/24/18 07:36 Eos # (Auto) 0.3 K/uL (0.0-0.7) 02/24/18 07:36 Baso # (Auto) 0.1 K/uL (0.0-0.2) 02/24/18 07:36 Neutrophils % (Manual) 86 % (50-75) H 02/20/18 07:09 Band Neutrophils % 1 % (0-2) 02/20/18 07:09 Lymphocytes % (Manual) 8 % (20-40) L 02/20/18 07:09 Reactive Lymphs % 2 % (0-0) H 02/14/18 08:13 Monocytes % (Manual) 2 % (0-10) 02/20/18 07:09 Eosinophils % (Manual) 3 % (0-4) 02/20/18 07:09 Myelocytes % 1 % (0-0) H 02/19/18 06:07 Toxic Granulation Present 02/14/18 08:13 Platelet Estimate Normal (NORMAL) 02/20/18 07:09 Large Platelets Present 02/17/18 22:00 RBC Morphology Normal 02/14/18 08:13 Hypochromasia (manual) Slight 02/19/18 06:07 Poikilocytosis (manual Slight 02/19/18 06:07 Anisocytosis (manual) Slight 02/19/18 06:07 Microcytosis (manual) Slight 02/17/18 22:00 Ovalocytes Slight 02/19/18 06:07 PT 12.0 SECONDS (9.7-12.2) 02/17/18 06:15 INR 1.1 02/17/18 06:15 APTT 24 SECONDS (21-34) D 02/17/18 13:52 Sodium 146 mmol/L (132-148) 02/24/18 06:18 Potassium 4.1 mmol/L (3.6-5.2) 02/24/18 06:18 Chloride 111 mmol/L (98-107) H 02/24/18 06:18 Carbon Dioxide 26 mmol/L (22-30) 02/24/18 06:18 Anion Gap 14 (10-20) 02/24/18 06:18 BUN 10 mg/dL (9-20) 02/24/18 06:18 Creatinine 1.0 mg/dL (0.8-1.5) 02/24/18 06:18 Est GFR ( Amer) > 60 02/24/18 06:18 Est GFR (Non-Af Amer) > 60 02/24/18 06:18 POC Glucose (mg/dL) 162 mg/dL (65-110) H 02/18/18 11:18 Random Glucose 116 mg/dL (75-110) H 02/24/18 06:18 Calcium 8.2 mg/dl (8.6-10.4) L 02/24/18 06:18 Ionized Calcium 4.8 mg/dL (4.80-5.60) 02/08/18 08:10 Phosphorus 2.9 mg/dL (2.5-4.5) 02/24/18 06:18 Magnesium 2.1 mg/dL (1.6-2.3) 02/24/18 06:18 Total Bilirubin 0.8 mg/dL (0.2-1.3) 02/24/18 06:18 AST 35 U/L (17-59) 02/24/18 06:18 ALT 42 U/L (21-72) 02/24/18 06:18 Alkaline Phosphatase 121 U/L (38-126) 02/24/18 06:18 Total Creatine Kinase 145 U/L (55-170) 02/09/18 03:04 CK-MB (Mass) 0.87 ng/mL (0.0-3.38) 02/09/18 03:04 Troponin I < 0.0120 ng/mL (0.00-0.120) 02/09/18 03:04 Total Protein 5.7 g/dL (6.3-8.3) L 02/24/18 06:18 Albumin 2.8 g/dL (3.5-5.0) L D 02/24/18 06:18 Globulin 2.9 gm/dL (2.2-3.9) 02/24/18 06:18 Albumin/Globulin Ratio 1.0 (1.0-2.1) 02/24/18 06:18 Urine Color Yellow (YELLOW) 02/20/18 15:15 Urine Clarity Clear (Clear) 02/20/18 15:15 Urine pH 5.0 (5.0-8.0) 02/20/18 15:15 Ur Specific [place] 1.012 (1.003-1.030) 02/20/18 15:15 Urine Protein Negative mg/dL (NEGATIVE) 02/20/18 15:15 Urine Glucose (UA) Normal mg/dL (Normal) 02/20/18 15:15 Urine Ketones Negative mg/dL (NEGATIVE) 02/20/18 15:15 Urine Blood Negative (NEGATIVE) 02/20/18 15:15 Urine Nitrate Negative (NEGATIVE) 02/20/18 15:15 Urine Bilirubin Negative (NEGATIVE) 02/20/18 15:15 Urine Urobilinogen Normal mg/dL (0.2-1.0) 02/20/18 15:15 Ur Leukocyte Esterase Neg [place]/uL (Negative) 02/20/18 15:15 Urine WBC (Auto) 1 /hpf (0-5) 02/20/18 15:15 Urine RBC (Auto) 1 /hpf (0-3) 02/20/18 15:15 Ur Squamous Epith Cells < 1 /hpf (0-5) 02/20/18 15:15 Urine Bacteria Rare (<OCC) 02/16/18 22:48 Ur Random Creatinine 89.2 mg/dL 02/16/18 22:49 Ur Random Sodium 35 mmol/L 02/16/18 22:49 Urine Chloride 24 mmol/L (32-290) L 02/16/18 15:18 Blood Type A POSITIVE 02/17/18 09:21 Antibody Screen Negative 02/17/18 09:21 - Hospital Course Hospital Course: This is a 72 year old male with PMHx of PVD, DVT,LEO , duodenal carcinoid who underwent laparoscopic right hemicolectomy 02/06/2018 for 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 He had persistent postoperative ileus and evidence of small bowel obstruction with colonic ischemia with necrosis s/p exploratory laparoscopy ileocolectomy 02/17/18 he returned to the OR shortly after for ex lap and hemostasis 2/2 hypotensive shock. Admitted to ICU for close monitoring. During his hospital stay he had BM, tolerated diet and ambulated. Pain controlled. Educated family with dressing care. Pt is set up for home visit. Physical therapy recommended DC home. Discharge Exam - Head Exam Head Exam: ATRAUMATIC, NORMAL INSPECTION, NORMOCEPHALIC - Eye Exam Eye Exam: EOMI, Normal appearance, PERRL Pupil Exam: NORMAL ACCOMODATION, PERRL - Respiratory Exam Respiratory Exam: NORMAL BREATHING PATTERN - Cardiovascular Exam Cardiovascular Exam: REGULAR RHYTHM, +S1, +S2 - GI/Abdominal Exam GI & Abdominal Exam: Normal Bowel Sounds, Tenderness. absent: Distended, Firm, Hernia Additional comments: Incision open: packed with wet kerlix. [address] 40cm incision. - Extremities Exam Extremities exam: full ROM - Back Exam Back exam: FULL ROM - Neurological Exam Neurological exam: Alert, CN II-XII Intact, Normal Gait, Oriented x3, Reflexes Normal - Psychiatric Exam Psychiatric exam: Normal Affect, Normal Mood - Skin Skin Exam: Warm Discharge Plan - Discharge Medications Prescriptions: Ciprofloxacin [Cipro] 500 mg PO BID #10 tab Docusate Sodium [Colace] 100 mg PO DAILY #10 capsule metroNIDAZOLE [Flagyl] 500 mg PO BID #10 tab Oxycodone HCl/Acetaminophen [Percocet 10-325 mg Tablet] 1 each PO Q4 PRN #15 tablet PRN Reason: Pain, Moderate (4-7) - Follow Up Plan Condition: GOOD Disposition: HOME/ ROUTINE Instructions: Ciprofloxacin (Systemic), Low Fiber Diet, Metronidazole (Systemic ), Colectomy, Laparoscopic Surgery, Exploratory Laparotomy (DC), Docusate, Oxycodone and Acetaminophen, Managing Pain After Surgery Additional Instructions: 1) follow up at Dr. Green's office in 1-2 weeks 2) Dressing change twice a day with wet kerlix inside midline incision and rights abdomen prior drain site and dry 4x4 gauze on top with tape. 3) Take percocet as needed for pain every 4hrs. 4) Take colace to prevent constipation 5) Take Ciprofloxacin and flagyl twice a day with meal for 5 days. 6) Physical therapy Referrals: Saúl Green MD [Staff Provider] -
[2018-02-24 14:57] VITALS: BP 124/81; PULSE 96; TEMP 98.4; O2SAT 96
== END 2018-02-24 15:04 | disposition home or self-care (01) | DRG 329 ==
LOC: C.SDS 05:41 → C.9S 13:28 → C.6T 19:16 → C.9I 02-17 21:28 → C.6T 02-19 17:22
PROVIDERS: ADMIT Surgery; ATTEND Surgery
PROC: 0DQV4ZZ Repair Mesentery, Percutaneous Endoscopic Approach (ICD-10-PCS; 2018-02-06)
PROC: 0W9F40Z Drainage of Abdominal Wall with Drainage Device, Percutaneous Endoscopic Approach (ICD-10-PCS; 2018-02-06)
PROC: 3E0336Z Introduction of Nutritional Substance into Peripheral Vein, Percutaneous Approach (ICD-10-PCS; 2018-02-06)
PROC: 0DTF4ZZ Resection of Right Large Intestine, Percutaneous Endoscopic Approach (ICD-10-PCS; principal; 2018-02-06 07:30)
PROC: 0DBE0ZZ Excision of Large Intestine, Open Approach (ICD-10-PCS; 2018-02-17)
PROC: 0DNU0ZZ Release Omentum, Open Approach (ICD-10-PCS; 2018-02-17)
PROC: 0JB80ZZ Excision of Abdomen Subcutaneous Tissue and Fascia, Open Approach (ICD-10-PCS; 2018-02-17)
DX: D12.2 Benign neoplasm of ascending colon (principal); N17.0 Acute kidney failure with tubular necrosis; R57.8 Other shock; K91.30 Postprocedural intestinal obstruction, unspecified as to partial versus complete; E87.0 Hyperosmolality and hypernatremia; K55.1 Chronic vascular disorders of intestine; K63.2 Fistula of intestine; K63.0 Abscess of intestine; Y83.2 Surgical operation with anastomosis, bypass or graft as the cause of abnormal reaction of the patient, or of later complication, without mention of misadventure at the time of the procedure; E66.9 Obesity, unspecified; Z68.35 Body mass index [BMI] 35.0-35.9, adult; E86.0 Dehydration; G47.33 Obstructive sleep apnea (adult) (pediatric); I95.81 Postprocedural hypotension; K21.9 Gastro-esophageal reflux disease without esophagitis; K42.9 Umbilical hernia without obstruction or gangrene

== ENCOUNTER 2018-03-03 16:19 | Inpatient (IN) | payer MEDICAID, OTHER ==
[2018-03-03 16:20] VITALS: BMI 33.2
[2018-03-03 17:32] LABS: BASO % 0.6 % (0.0-2.0); EOS # 0.1 K/uL (0.0-0.7); EOS % 1.9 % (0.0-4.0); LYMPH # 0.9 K/uL (1.0-4.3); LYMPH % 13.2 % (20.0-40.0); MEAN CELL VOLUME 84.2 fL (80.0-94.0); MEAN CORPUSCULAR HEMOGLOBIN 28.1 pg (27.0-31.0); MEAN CORPUSCULAR HGB CONC 33.3 g/dL (33.0-37.0); MEAN PLATELET VOLUME 8.5 fL (7.2-11.7); MONO # 0.5 K/uL (0.0-0.8); MONO % 7.5 % (0.0-10.0); NEUT # 5.2 K/uL (1.8-7.0); NEUT % 76.8 % (50.0-75.0); RBC 3.92 Mil/uL (4.40-5.90); RED CELL DISTRIBUTION WIDTH 14.9 % (11.5-14.5); WHITE BLOOD COUNT 6.7 K/uL (4.8-10.8)
[2018-03-03 17:44] LABS: ALB/GLOB RATIO 0.8 (1.0-2.1); ALBUMIN 2.7 g/dL (3.5-5.0); ALT/SGPT 29 U/L (21-72); AST/SGOT 37 U/L (17-59); BLOOD UREA NITROGEN 9 mg/dL (9-20); CALCIUM 7.8 mg/dl (8.6-10.4); GFR AFRICAN-AMERICAN > 60; GFR NON-AFRICAN AMERICAN > 60; LIPASE 201 U/L (23-300)
[2018-03-03] MEDS ORDERED: Lactated Ringer's 1,000 ML IVB ONE (17:54)
[2018-03-03 17:55] LABS: SQUAMOUS EPITHIAL 2 /hpf (0-5); URINE BACTERIA FEW (<OCC); URINE BILIRUBIN NEGATIVE (NEGATIVE); URINE BLOOD NEGATIVE (NEGATIVE); URINE CLARITY Clear (Clear); URINE COLOR Yellow (YELLOW); URINE GLUCOSE (UA) NORMAL (Normal); URINE LEUKOCYTE ESTERASE 2+ Leu/uL (Negative); URINE PROTEIN NEGATIVE (NEGATIVE); URINE UROBILINOGEN NORMAL mg/dL (0.2-1.0)
[2018-03-03] MEDS ORDERED: Lactated Ringer's 1,000 ML ONE (18:21)
[2018-03-03] MEDS ORDERED: Oxycodone/Acetaminophen 5/325 mg Tab PO STA (18:33)
[2018-03-03] MEDS ORDERED: Oxycodone/Acetaminophen 5/325 mg Tab ONE (18:37)
--- NOTE | 2018-03-03 18:38 | RAD ---
PROCEDURE: CHEST RADIOGRAPH, 1 VIEW HISTORY: Cough, s/p abdominal surgery COMPARISON: 02/19/2018. FINDINGS: LUNGS: No active pulmonary disease. PLEURA: No pneumothorax or pleural fluid seen. CARDIOVASCULAR: No radiographic findings to suggest acute or significant cardiovascular disease.Removal of support apparatus since the prior study: PICC line. OSSEOUS STRUCTURES: No significant abnormalities. VISUALIZED UPPER ABDOMEN: Normal. OTHER FINDINGS: None. IMPRESSION: No active disease.No significant interval change compared to the prior examination(s).
[2018-03-03] MEDS ORDERED: Iohexol 240 (50 ml) ONE (20:16)
[2018-03-03] MEDS ORDERED: Iohexol 240 (50 ml) PO ONE (20:30)
--- NOTE | 2018-03-04 00:03 | CP.PCM.HP ---
History of Present Illness - History of Present Illness History of Present Illness: HISTORY AND PHYSICAL FOR Shelly PETRE 72M presents to [facility] with cough and fever. Patients family is bedside and state he was having fevers measuring 101.5 measured via armpit yesterday. He used over the counter tylenol to help with this. Cough has been non-productive. He also states to feel a general malaise and weakness. He denies abdominal pain, denies nausea, vomiting. He has been eating and tolerating diet, and he also has been having normal bowel movements. PMH: right colon adenoma, EC fistula, DEL PSH: Right hemicolectomy, exploratomy laparotomy Social: denies tobacco, denies alcohol use Allergies: Iodine Present on Admission - Present on Admission Any Indicators Present on Admission: No Past Patient History - Past Medical History & Family History Past Medical History?: Yes - Past Social History Smoking Status: Never Smoked - CARDIAC Hx Cardiac Disorders: Yes - PULMONARY Hx Respiratory Disorders: Yes Hx Sleep Apnea: Yes (POSITIVE STUDY, DOES NOT HAVE C PAP MACHINE) - NEUROLOGICAL Hx Neurological Disorder: No - HEENT Hx HEENT Problems: No - RENAL Hx Chronic Kidney Disease: No - ENDOCRINE/METABOLIC Hx Endocrine Disorders: No - HEMATOLOGICAL/ONCOLOGICAL Hx Blood Disorders: No - INTEGUMENTARY Hx Dermatological Problems: No - MUSCULOSKELETAL/RHEUMATOLOGICAL Hx Musculoskeletal Disorders: Yes Hx Arthritis: Yes - GASTROINTESTINAL Hx Gastrointestinal Disorders: Yes Hx Gastritis: Yes Other/Comment: HX DUODENAL CARCINOID - GENITOURINARY/GYNECOLOGICAL Hx Genitourinary Disorders: No - PSYCHIATRIC Hx Substance Use: No - SURGICAL HISTORY Hx Surgeries: Yes Hx Orthopedic Surgery: Yes (ORIF LEFT ELBOW W PLATE PLACEMENT) Other/Comment: HX: COLON POLYPECTOMY - ANESTHESIA Hx Anesthesia: Yes Hx Anesthesia Reactions: No Hx Malignant Hyperthermia: No Meds Allergies/Adverse Reactions: Allergies Allergy/AdvReac Type Severity Reaction Status Date / Time iodine Allergy Severe ANAPHYLAXIS Verified 03/03/18 16:37 Physical Exam - Constitutional Appears: Non-toxic, No Acute Distress - Eye Exam Eye Exam: EOMI, PERRL - ENT Exam ENT Exam: Mucous Membranes Dry - Respiratory Exam Respiratory Exam: Clear to Auscultation Bilateral, NORMAL BREATHING PATTERN - Cardiovascular Exam Cardiovascular Exam: REGULAR RHYTHM, +S1, +S2 - GI/Abdominal Exam GI & Abdominal Exam: Soft, Tenderness (mildly tender in RLQ). absent: Distended , Firm, Guarding, Rebound, Rigid Additional comments: midline incision - two wes in place, draining serosang fluid, fibrinous exudates on wound bed Previous drain site- small fibronous exudate at drain site - Extremities Exam Extremities exam: Negative for: pedal edema, tenderness - Neurological Exam Neurological exam: Alert, Oriented x3 - Psychiatric Exam Psychiatric exam: Normal Affect, Normal Mood - Skin Skin Exam: Dry, Intact, Normal Color, Warm Results - Vital Signs Recent Vital Signs: Last Vital Signs Temp 99.2 F 03/03/18 23:50 Pulse 96 H 03/03/18 23:50 Resp 22 03/03/18 23:50 BP 107/68 03/03/18 23:50 Pulse Ox 98 03/03/18 23:50 - Labs Result Diagrams: 03/03/18 17:27 03/03/18 17:27 Labs: Laboratory Results - last 24 hr 03/03/18 03/03/18 03/03/18 17:27 17:27 17:29 WBC 6.7 RBC 3.92 L Hgb 11.0 L Hct 33.0 L MCV 84.2 MCH 28.1 MCHC 33.3 RDW 14.9 H Plt Count 351 MPV 8.5 Neut % (Auto) 76.8 H Lymph % (Auto) 13.2 L [place] % (Auto) 7.5 Eos % (Auto) 1.9 Baso % (Auto) 0.6 Neut # (Auto) 5.2 Lymph # (Auto) 0.9 L [place] # (Auto) 0.5 Eos # (Auto) 0.1 Baso # (Auto) 0.0 Sodium 139 Potassium 3.9 Chloride 102 Carbon Dioxide 31 H Anion Gap 9 L BUN 9 Creatinine 1.0 Est GFR ( Amer) > 60 Est GFR (Non-Af Amer) > 60 Random Glucose 154 H Calcium 7.8 L Total Bilirubin 0.4 AST 37 ALT 29 Alkaline Phosphatase 215 H D Total Protein 6.0 L Albumin 2.7 L Globulin 3.2 Albumin/Globulin Ratio 0.8 L Lipase 201 Urine Color Yellow Urine Clarity Clear Urine pH 5.0 Ur Specific [place] 1.014 Urine Protein Negative Urine Glucose (UA) Normal Urine Ketones Negative Urine Blood Negative Urine Nitrate Negative Urine Bilirubin Negative Urine Urobilinogen Normal Ur Leukocyte Esterase 2+ H Urine WBC (Auto) 16 H Urine RBC (Auto) 3 Ur Squamous Epith Cells 2 Urine Bacteria Few H Assessment & Plan - Assessment and Plan (Free Text) Assessment: 72M s/p right hemicolectomy with re-operation for leak/ES fistula/necrotic anastomosis POD#25 Plan: - Admit patient - NPO, IVF - Pain control - Wet-dry dressing for wounds - Repeat AM labs - CT scan Chest/Abd/Pelvis PO contrast - Possible antibiotics pending CT report Discussed with Dr. Peter Monaco, PGY2
[2018-03-04] MEDS: Sodium Chloride 0.9% 1,000 ML IV SCH ×5 (00:13→21:58)
--- NOTE | 2018-03-04 00:17 | C.PDOC ---
History Of Present Illness Pt c/o generalized weakness. 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 Family states pt had a fever yesterday. Time Seen by Provider: 03/03/18 16:45 Chief Complaint (Nursing): Medical Clearance History Per: Patient, Family Onset/Duration Of Symptoms: Days Current Symptoms Are (Timing): Still Present Severity: Moderate Reports Recently: Hospitalized Additional History Per: Prior Records Past Medical History Reviewed: Historical Data, Nursing Documentation, Vital Signs Vital Signs: Last Vital Signs Temp 99.2 F 03/03/18 23:50 Pulse 96 H 03/03/18 23:50 Resp 22 03/03/18 23:50 BP 107/68 03/03/18 23:50 Pulse Ox 98 03/03/18 23:50 - Medical History PMH: Arthritis, Colonic Polyps, Deep Vein Thrombosis ("one year ago" as per patient), Gastritis, Sleep Apnea (POSITIVE STUDY, DOES NOT HAVE C PAP MACHINE) Surgical History: Endoscopy Other Surgeries: Hemocolectomy - [facility] (02/06/18) DRAINAGE OF ABD WALL WITH DRAIN DEV, PERC ENDO APPROACH (02/06/18) EXCISION OF ABD SUBCU/FASCIA, OPEN APPROACH (02/06/18) EXCISION OF LARGE INTESTINE, OPEN APPROACH (02/06/18) INTRODUCTION OF NUTRITIONAL INTO PERIPH VEIN, PERC APPROACH (02/06/18) REPAIR MESENTERY, PERCUTANEOUS ENDOSCOPIC APPROACH (02/06/18) RESECTION OF RIGHT LARGE INTESTINE, PERC ENDO APPROACH (02/06/18) Family History: States: Unknown Family Hx - Social History Hx Alcohol Use: No Hx Substance Use: No - Immunization History Hx Tetanus Toxoid Vaccination: No Hx Influenza Vaccination: No Hx Pneumococcal Vaccination: Yes Review Of Systems Except As Marked, All Systems Reviewed And Found Negative. Constitutional: Positive for: Fever, Weakness, Malaise Cardiovascular: Negative for: Chest Pain Respiratory: Positive for: Cough. Negative for: Shortness of Breath Gastrointestinal: Positive for: Abdominal Pain. Negative for: Vomiting Musculoskeletal: Negative for: Neck Pain, Back Pain Skin: Negative for: Rash Neurological: Negative for: Weakness, Numbness Physical Exam - Physical Exam Appears: Non-toxic, No Acute Distress Skin: Normal Color, Warm, Dry Head: Atraumatic, Normacephalic Eye(s): bilateral: PERRL, EOMI Neck: Normal ROM, Supple Cardiovascular: Rhythm Regular Respiratory: Normal Breath Sounds, No Accessory Muscle Use Gastrointestinal/Abdominal: Soft, Other (Open surgical wound packed with gauze) Back: No CVA Tenderness Extremity: Normal ROM, No Pedal Edema, No Calf Tenderness Neurological/Psych: Oriented x3, Normal Motor, Normal Sensation ED Course And Treatment - Laboratory Results Result Diagrams: 03/03/18 17:27 03/03/18 17:27 O2 Sat by Pulse Oximetry: 98 Pulse Ox Interpretation: Normal - Radiology CXR: Interpreted by Me, Viewed By Me CXR Interpretation: Yes: Other (Atelectasis) Progress Note: Pt was evaluated by the surgery resident who d/w Dr. Saúl Green. They ordered a CT scan of chest/abd/pelv and they will admit pt to their service and follow up with CT scan. Progress - Interventions Interventions:: Observation, Intravenous fluid - Medications Administered Oral: Opiate - Data Reviewed Data Reviewed: Lab, Diagnostic imaging, Old records - Patient Status Patient status: Partially improved - Continuity of Care Discussed patient case with:: Patient, Family-HIPPA compliant, ED Nurse Discussed pt. case with field technical support consultant/specialty: General Surgery - Patient Plan Patient Plan: Admission Disposition Counseled Patient/Family Regarding: Studies Performed, Diagnosis - Disposition Disposition: HOSPITALIZED Disposition Time: 00:21 Condition: FAIR - Clinical Impression Clinical Impression: Postoperative fever, Postoperative abdominal pain
[2018-03-04] MEDS ORDERED: HYDROmorphone 1 mg/ml ISec IVP PRN (00:51)
[2018-03-04] MEDS: Piperacillin/Tazobact 3.375 GM in Sodium Chloride 100 ML IVPB SCH ×4 (01:33→18:22)
[2018-03-04 03:14] VITALS: RESP 20
--- NOTE | 2018-03-04 07:41 | CP.PCM.PN ---
Subjective - Date & Time of Evaluation Date of Evaluation: 03/04/18 Time of Evaluation: 07:38 - Subjective Subjective: Surgery Pt seen and examined. C/O abd pain. REceived one dose of 1mg overnight. Denies nausea, vomiting, diarrhea. Had BM yesterday. Passing flatus. + ambulating. voiding freely. Denies coughing, CP, SOB. Dressing changed this AM Objective - Vital Signs/Intake and Output Vital Signs (last 24 hours): Temp Pulse Resp BP Pulse Ox 98.5 F 99 H 20 122/74 96 03/04/18 02:00 03/04/18 02:00 03/04/18 02:00 03/04/18 02:00 03/04/18 02:00 - Medications Medications: Current Medications Acetaminophen (Tylenol 650 Mg Supp) 650 mg PA Q4 PRN PRN Reason: Fever >100.4 F Hydromorphone HCl (Dilaudid) 1 mg IVP Q4H PRN PRN Reason: Pain, severe (8-10) Last Admin: 03/04/18 02:19 Dose: 1 mg Sodium Chloride (Sodium Chloride 0.9%) 1,000 mls @ 125 mls/hr IV .Q8H [facility] Last Admin: 03/04/18 00:13 Dose: 125 mls/hr Piperacillin Sod/Tazobactam (Sod 3.375 gm/ Sodium Chloride) 100 mls @ 200 mls/ hr IVPB Q6H ANN PRN Reason: Protocol Last Admin: 03/04/18 06:45 Dose: 200 mls/hr Ondansetron HCl (Zofran Inj) 4 mg IVP Q4 PRN PRN Reason: Nausea/Vomiting - Labs Labs: 03/03/18 17:27 03/03/18 17:27 - Constitutional Appears: No Acute Distress - Head Exam Head Exam: ATRAUMATIC, NORMAL INSPECTION, NORMOCEPHALIC - Eye Exam Eye Exam: EOMI, Normal appearance, PERRL Pupil Exam: NORMAL ACCOMODATION, PERRL - ENT Exam ENT Exam: Mucous Membranes Moist, Normal Exam - Neck Exam Neck Exam: Full ROM, Normal Inspection. absent: Lymphadenopathy - Respiratory Exam Respiratory Exam: NORMAL BREATHING PATTERN - Cardiovascular Exam Cardiovascular Exam: REGULAR RHYTHM - GI/Abdominal Exam GI & Abdominal Exam: Soft, Tenderness. absent: Distended, Firm, Guarding, Rigid , Mass, Pulsatile Mass, Rebound Additional comments: midline Incision is open. 3x 50cm x 2cm. Forming granulation tissues. sutures exposed. few lose sutures in the lower end. No eviceration. Dressing changed. - Exam Exam: NORMAL INSPECTION - Extremities Exam Extremities Exam: Full ROM, Normal Capillary Refill, Normal Inspection. absent : Joint Swelling, Pedal Edema, Tenderness - Back Exam Back Exam: NORMAL INSPECTION - Neurological Exam Neurological Exam: Alert, Awake, CN II-XII Intact, Normal Gait, Oriented x3 - Psychiatric Exam Psychiatric exam: Normal Affect, Normal Mood - Skin Skin Exam: Warm. absent: Intact Assessment and Plan - Assessment and Plan (Free Text) Assessment: 72M came with wound dehiscence and fever s/p right hemicolectomy with re- operation for leak/ES fistula/necrotic anastomosis POD#26 Afebrile overnight Plan: -IR evaluation - NPO, IVF - Pain control - Wet-dry dressing for wounds - Repeat AM labs - CT scan Chest/Abd/Pelvis PO contrast follow up official reads. - Possible antibiotics pending CT report will Discuss with Dr. Green
[2018-03-04 08:32] LABS: BASO % 0.5 % (0.0-2.0); EOS # 0.1 K/uL (0.0-0.7); EOS % 1.9 % (0.0-4.0); HEMOGLOBIN 10.9 g/dL (12.0-18.0); LYMPH # 1.5 K/uL (1.0-4.3); LYMPH % 20.1 % (20.0-40.0); MEAN CORPUSCULAR HEMOGLOBIN 28.3 pg (27.0-31.0); MEAN CORPUSCULAR HGB CONC 33.3 g/dL (33.0-37.0); MONO # 0.6 K/uL (0.0-0.8); NEUT # 5.1 K/uL (1.8-7.0); NEUT % 69.5 % (50.0-75.0); NRBC % 0.2 % (0.0-2.0); RBC 3.84 Mil/uL (4.40-5.90); WHITE BLOOD COUNT 7.3 K/uL (4.8-10.8)
[2018-03-04 09:32] LABS: ALB/GLOB RATIO 0.8 (1.0-2.1); ALBUMIN 2.6 g/dL (3.5-5.0); ALT/SGPT 28 U/L (21-72); AST/SGOT 40 U/L (17-59); BLOOD UREA NITROGEN 8 mg/dL (9-20); CALCIUM 8.2 mg/dl (8.6-10.4); GFR AFRICAN-AMERICAN > 60; GFR NON-AFRICAN AMERICAN > 60
--- NOTE | 2018-03-04 12:13 | CT ---
PROCEDURE: CT Chest, Abdomen and Pelvis without intravenous contrast HISTORY: cough, fever, abd pain COMPARISON: 02/16/2018 TECHNIQUE: Radiation dose: Total exam DLP = mGy-cm. This CT exam was performed using one or more of the following dose reduction techniques: Automated exposure control, adjustment of the mA and/or kV according to patient size, and/or use of iterative reconstruction technique. FINDINGS: CT CHEST WITHOUT CONTRAST: LUNGS: Mild bibasilar subpleural thickening and discoid atelectasis. MEDIASTINUM: Unremarkable. Normal caliber aorta and pulmonary arterial trunk. Normal size heart. LYMPH NODES: Unremarkable. PLEURA: Unremarkable. No pneumothorax. No pleural fluid. BONES: Unremarkable. OTHER FINDINGS: None. CT ABDOMEN AND PELVIS: LIVER: Unremarkable. No gross lesion or ductal dilatation. GALLBLADDER AND BILE DUCTS: Unremarkable. PANCREAS: Unremarkable. No gross lesion or ductal dilatation. SPLEEN: Unremarkable. ADRENALS: Unremarkable. No mass. KIDNEYS AND URETERS: Unremarkable. No hydronephrosis. No solid mass. VASCULATURE: Unremarkable. No aortic aneurysm. BOWEL: Status post right hemicolectomy with extensive post surgical or inflammatory changes with mesenteric infiltration and fluid in the right mid abdomen. No drainable abscess at this time; recommend follow-up. APPENDIX: Normal appendix. PERITONEUM: Unremarkable. No free fluid. No free air. LYMPH NODES: Unremarkable. No enlarged lymph nodes. BLADDER: Unremarkable. REPRODUCTIVE: Unremarkable. BONES: No acute fracture. OTHER FINDINGS: Open incision noted in the ventral abdominal wall. . IMPRESSION: Status post right hemicolectomy with extensive post surgical or inflammatory changes with mesenteric infiltration and fluid in the right mid abdomen. No drainable abscess at this time; recommend follow-up.
[2018-03-04 20:48] LABS: ALB/GLOB RATIO 0.8 (1.0-2.1); ALBUMIN 2.3 g/dL (3.5-5.0); ALT/SGPT 21 U/L (21-72); AST/SGOT 26 U/L (17-59); BLOOD UREA NITROGEN 8 mg/dL (9-20); CALCIUM 7.5 mg/dl (8.6-10.4); GFR AFRICAN-AMERICAN > 60; GFR NON-AFRICAN AMERICAN > 60
[2018-03-04] MEDS ORDERED: Acetaminophen 650mg/20.3ml solution UD PO PRN (22:16)
[2018-03-05] MEDS: Sodium Chloride 0.9% 1,000 ML IV SCH ×3 (00:08→16:23)
[2018-03-05] MEDS: Piperacillin/Tazobact 3.375 GM in Sodium Chloride 100 ML IVPB SCH ×4 (00:48→18:48)
[2018-03-05] MEDS: Pantoprazole 40 mg Susp UD PO SCH ×2 (06:07→16:23)
[2018-03-05 07:14] LABS: BASO % 0.4 % (0.0-2.0); EOS # 0.3 K/uL (0.0-0.7); EOS % 5.2 % (0.0-4.0); HEMOGLOBIN 9.8 g/dL (12.0-18.0); LYMPH # 1.2 K/uL (1.0-4.3); LYMPH % 18.2 % (20.0-40.0); MEAN CELL VOLUME 83.9 fL (80.0-94.0); MEAN CORPUSCULAR HEMOGLOBIN 27.8 pg (27.0-31.0); MEAN CORPUSCULAR HGB CONC 33.1 g/dL (33.0-37.0); MEAN PLATELET VOLUME 8.8 fL (7.2-11.7); MONO # 0.4 K/uL (0.0-0.8); MONO % 6.4 % (0.0-10.0); NEUT # 4.4 K/uL (1.8-7.0); NEUT % 69.8 % (50.0-75.0); RBC 3.54 Mil/uL (4.40-5.90); RED CELL DISTRIBUTION WIDTH 15.4 % (11.5-14.5); WHITE BLOOD COUNT 6.4 K/uL (4.8-10.8)
[2018-03-05 07:39] LABS: ALB/GLOB RATIO 0.8 (1.0-2.1); ALBUMIN 2.3 g/dL (3.5-5.0); ALT/SGPT 30 U/L (21-72); AST/SGOT 30 U/L (17-59); BLOOD UREA NITROGEN 7 mg/dL (9-20); CALCIUM 7.7 mg/dl (8.6-10.4); GFR AFRICAN-AMERICAN > 60; GFR NON-AFRICAN AMERICAN > 60
--- NOTE | 2018-03-05 12:43 | CP.PCM.PN ---
Subjective - Date & Time of Evaluation Date of Evaluation: 03/05/18 Time of Evaluation: 12:40 - Subjective Subjective: Surgery Pt seen and examined with wound care. Denies fever, nausea, diarrhea. Had regular BM. TOlerating CLD. Pain controlled. Took 1 toradol overnight. OOB. Voiding freely. Dressing changed this AM by wound care nurse. REcommends wound vac. Objective - Vital Signs/Intake and Output Vital Signs (last 24 hours): Temp Pulse Resp BP Pulse Ox 98 F 85 20 112/72 97 03/05/18 08:16 03/05/18 08:16 03/05/18 08:16 03/05/18 08:16 03/05/18 08:16 Intake and Output: 03/05/18 03/05/18 06:59 18:59 Intake Total 2320 Output Total 400 Balance 1920 - Medications Medications: Current Medications Acetaminophen (Tylenol 650mg/20.3ml Solution Ud) 650 mg PO Q6 PRN PRN Reason: Pain, Mild (1-3) Heparin Sodium (Porcine) (Heparin) 5,000 units SC Q8 [facility] Last Admin: 03/05/18 06:07 Dose: 5,000 units Sodium Chloride (Sodium Chloride 0.9%) 1,000 mls @ 125 mls/hr IV .Q8H [facility] Last Admin: 03/05/18 06:59 Dose: 125 mls/hr Piperacillin Sod/Tazobactam (Sod 3.375 gm/ Sodium Chloride) 100 mls @ 200 mls/ hr IVPB Q6H ANN PRN Reason: Protocol Last Admin: 03/05/18 06:06 Dose: 200 mls/hr Ketorolac Tromethamine (Toradol) 30 mg IVP Q6 PRN PRN Reason: Pain, moderate (4-7) Last Admin: 03/04/18 22:31 Dose: 30 mg Ondansetron HCl (Zofran Inj) 4 mg IVP Q4 PRN PRN Reason: Nausea/Vomiting Pantoprazole Sodium (Protonix Susp) 40 mg PO 0600,1600 [facility] Last Admin: 03/05/18 06:07 Dose: 40 mg - Labs Labs: 03/05/18 07:01 03/05/18 07:01 - Constitutional Appears: No Acute Distress - Head Exam Head Exam: ATRAUMATIC, NORMAL INSPECTION, NORMOCEPHALIC - Eye Exam Eye Exam: EOMI, Normal appearance, PERRL Pupil Exam: NORMAL ACCOMODATION, PERRL - ENT Exam ENT Exam: Mucous Membranes Moist, Normal Exam - Neck Exam Neck Exam: Full ROM, Normal Inspection. absent: Lymphadenopathy - Respiratory Exam Respiratory Exam: NORMAL BREATHING PATTERN - Cardiovascular Exam Cardiovascular Exam: absent: Tachycardia - GI/Abdominal Exam GI & Abdominal Exam: Soft, Tenderness. absent: Distended, Firm, Guarding, Rigid , Hernia, Mass, Rebound Additional comments: [id number] lower wound opening. exposed sutures. one loose running suture. Granulation tissues. [id number] mid open wound. granulation tissues and exposed sutures. MInimal drainage. TTP. BInder in place. R lower abd old drain site closed. - Exam Exam: NORMAL INSPECTION - Extremities Exam Extremities Exam: Full ROM, Normal Capillary Refill, Normal Inspection. absent : Joint Swelling, Pedal Edema - Back Exam Back Exam: NORMAL INSPECTION - Neurological Exam Neurological Exam: Alert, Awake, CN II-XII Intact, Normal Gait, Oriented x3 - Psychiatric Exam Psychiatric exam: Normal Affect, Normal Mood - Skin Skin Exam: Warm. absent: Intact Assessment and Plan - Assessment and Plan (Free Text) Assessment: open wound s/p exploratory laparotomy Will place wound vac and wound debridement per wound care recommendation Possible home wound vac Soft diet, no carbonated liquids. ABX f/u urine cx VS fu labs Nutrition consult Ambulate DW Dr. Green
[2018-03-06] MEDS: Piperacillin/Tazobact 3.375 GM in Sodium Chloride 100 ML IVPB SCH ×4 (00:21→19:50)
[2018-03-06] MEDS: Pantoprazole 40 mg Susp UD PO SCH ×2 (06:05→16:55)
[2018-03-06 07:44] LABS: BASO % 0.5 % (0.0-2.0); EOS # 0.3 K/uL (0.0-0.7); EOS % 6.3 % (0.0-4.0); HEMOGLOBIN 10.1 g/dL (12.0-18.0); LYMPH # 1.1 K/uL (1.0-4.3); LYMPH % 21.6 % (20.0-40.0); MEAN CELL VOLUME 84.3 fL (80.0-94.0); MEAN CORPUSCULAR HEMOGLOBIN 27.6 pg (27.0-31.0); MEAN CORPUSCULAR HGB CONC 32.7 g/dL (33.0-37.0); MEAN PLATELET VOLUME 8.6 fL (7.2-11.7); MONO # 0.4 K/uL (0.0-0.8); MONO % 7.2 % (0.0-10.0); NEUT # 3.3 K/uL (1.8-7.0); NEUT % 64.4 % (50.0-75.0); NRBC % 0.1 % (0.0-2.0); RBC 3.65 Mil/uL (4.40-5.90); RED CELL DISTRIBUTION WIDTH 14.9 % (11.5-14.5); WHITE BLOOD COUNT 5.2 K/uL (4.8-10.8)
[2018-03-06 08:15] LABS: ALB/GLOB RATIO 0.8 (1.0-2.1); ALBUMIN 2.4 g/dL (3.5-5.0); ALT/SGPT 31 U/L (21-72); AST/SGOT 35 U/L (17-59); BLOOD UREA NITROGEN 8 mg/dL (9-20); CALCIUM 7.9 mg/dl (8.6-10.4); GFR AFRICAN-AMERICAN > 60; GFR NON-AFRICAN AMERICAN > 60
[2018-03-06] MEDS: Lidocaine 5% Patch TD SCH (09:44)
[2018-03-06] MEDS ORDERED: Potassium & Sodium Phosphate PO ONE (12:07)
--- NOTE | 2018-03-06 12:13 | CP.PCM.PN ---
<Oseas Caldera - Last Filed: 03/06/18 12:16> Subjective - Date & Time of Evaluation Date of Evaluation: 03/06/18 Time of Evaluation: 12:10 - Subjective Subjective: General Surgery Progress Note for Dr. Green This 72M was seen and evaluated this AM at bedside. Overnight he required one dose of toradol at 11pm and afterwards he slept through the night. He is tolerating diet, reports BM and flatus. He is ambulating. He denies dysuria, chest pain or SOB. Objective - Vital Signs/Intake and Output Vital Signs (last 24 hours): Temp Pulse Resp BP Pulse Ox 97.7 F 77 20 122/80 98 03/06/18 07:50 03/06/18 07:50 03/06/18 07:50 03/06/18 07:50 03/06/18 07:50 Intake and Output: 03/06/18 03/06/18 06:59 18:59 Intake Total 1470 Output Total 400 Balance 1070 - Medications Medications: Current Medications Acetaminophen (Tylenol 650mg/20.3ml Solution Ud) 650 mg PO Q6 PRN PRN Reason: Pain, Mild (1-3) Fluconazole (Diflucan) 50 mg PO DAILY ANN PRN Reason: Protocol Last Admin: 03/06/18 09:45 Dose: 50 mg Heparin Sodium (Porcine) (Heparin) 5,000 units SC Q8 [facility] Last Admin: 03/06/18 06:04 Dose: 5,000 units Piperacillin Sod/Tazobactam (Sod 3.375 gm/ Sodium Chloride) 100 mls @ 200 mls/ hr IVPB Q6H [facility] PRN Reason: Protocol Last Admin: 03/06/18 06:04 Dose: 200 mls/hr Multivitamins/Vitamin C 10 ml/ (Amino Acids) 1,010 mls @ 63 mls/hr IV .Q16H2M [facility] Stop: 03/07/18 10:01 Amino Acids (Clinimix 4.25/5 % "E" (1000 Ml)) 1,000 mls @ 63 mls/hr IV .[id number] [facility] Stop: 03/07/18 17:59 Ketorolac Tromethamine (Toradol) 30 mg IVP Q6 PRN PRN Reason: Pain, moderate (4-7) Last Admin: 03/05/18 23:24 Dose: 30 mg Lidocaine (Lidoderm) 1 ea TD DAILY [facility] Last Admin: 03/06/18 09:44 Dose: 1 ea Pantoprazole Sodium (Protonix Susp) 40 mg PO 0600,1600 [facility] Last Admin: 03/06/18 06:05 Dose: 40 mg Potassium Phos/Sodium Phos (Neutra-Phos) 1 pkt PO ONCE ONE Stop: 03/06/18 12:08 - Labs Labs: 03/06/18 07:32 03/06/18 07:32 - Constitutional Appears: Non-toxic, No Acute Distress - Head Exam Head Exam: ATRAUMATIC, NORMOCEPHALIC - Eye Exam Eye Exam: EOMI - ENT Exam ENT Exam: Mucous Membranes Moist - Respiratory Exam Respiratory Exam: NORMAL BREATHING PATTERN - Cardiovascular Exam Cardiovascular Exam: +S1, +S2 - GI/Abdominal Exam GI & Abdominal Exam: Soft, Tenderness. absent: Distended, Firm, Guarding, Rigid Additional comments: Midline wound with wound vac in place inadequate suction so it was changed this AM, now without any air leak. - Neurological Exam Neurological Exam: Alert, Awake - Psychiatric Exam Psychiatric exam: Normal Affect, Normal Mood - Skin Skin Exam: Dry, Intact Assessment and Plan - Assessment and Plan (Free Text) Assessment: 72M came with wound dehiscence and fever s/p right hemicolectomy with re- operation for leak/ES fistula/necrotic anastomosis POD#28 Wound vac changed this AM Urine CX yeast started on diflucan today Continue Zosyn Albumin 2.3 consult PPN, consult nutrition Electrolytes replete PO tylenol and IV toradol for pain Continue PPI Continue HSQ for DVT PPX Will round on pt with Dr. Younger who will be covering D/W Dr. Peter Caldera PGY2 <Thigao Younger B - Last Filed: 03/09/18 19:21> Objective - Vital Signs/Intake and Output Vital Signs (last 24 hours): Temp Pulse Resp BP Pulse Ox 98.2 F 67 20 115/77 95 03/09/18 15:00 03/09/18 15:00 03/09/18 15:00 03/09/18 15:00 03/09/18 15:00 Intake and Output: 03/09/18 03/10/18 18:59 06:59 Intake Total 580 Balance 580 - Medications Medications: Current Medications Acetaminophen (Tylenol 650mg/20.3ml Solution Ud) 650 mg PO Q6 PRN PRN Reason: Pain, Mild (1-3) Albuterol/Ipratropium (Duoneb 3 Mg/0.5 Mg (3 Ml) Ud) 3 ml INH RQ2 PRN PRN Reason: Shortness of Breath Last Admin: 03/09/18 07:15 Dose: 3 ml Docusate Sodium (Colace) 100 mg PO DAILY [facility] Last Admin: 03/09/18 10:06 Dose: 100 mg Fluconazole (Diflucan) 50 mg PO DAILY [facility] PRN Reason: Protocol Last Admin: 03/09/18 10:06 Dose: 50 mg Guaifenesin (Robitussin) 100 mg PO Q4H PRN PRN Reason: Cough Heparin Sodium (Porcine) (Heparin) 5,000 units SC Q8 [facility] Last Admin: 03/09/18 15:00 Dose: 5,000 units Piperacillin Sod/Tazobactam (Sod 3.375 gm/ Sodium Chloride) 100 mls @ 200 mls/ hr IVPB Q8H ANN PRN Reason: Protocol Last Admin: 03/09/18 16:38 Dose: 200 mls/hr Ketorolac Tromethamine (Toradol) 15 mg IVP Q6 PRN PRN Reason: Pain, severe (8-10) Last Admin: 03/08/18 11:41 Dose: 15 mg Lidocaine (Lidoderm) 1 ea TD DAILY [facility] Last Admin: 03/09/18 10:06 Dose: 1 ea Pantoprazole Sodium (Protonix Susp) 40 mg PO 0600,1600 [facility] Last Admin: 03/09/18 16:39 Dose: 40 mg Tramadol HCl (Ultram) 50 mg PO TID PRN PRN Reason: Pain, Mild (1-3) Zolpidem Tartrate (Ambien) 5 mg PO HS PRN PRN Reason: Insomnia - Labs Labs: 03/08/18 07:46 03/08/18 07:46 Attending/Attestation - Attestation I have personally seen and examined this patient.: Yes I have fully participated in the care of the patient.: Yes I have reviewed all pertinent clinical information, including history, physical exam and plan: Yes Notes (Text): Pt was seen and examined at bedside Agree with above note and assessment Pt with Postoperative wound infection with wound vac Pt is tolerating diet C/W IV antibiotics High protein diet c.w current mx Plan d.w pt in detail Risk and benefit explained in detail.
[2018-03-06] MEDS ORDERED: PPN#1 IV SCH (18:00)
[2018-03-06] MEDS ORDERED: Fat Emulsion 20% IV 250 ML IV ONE (18:00)
[2018-03-07] MEDS: Piperacillin/Tazobact 3.375 GM in Sodium Chloride 100 ML IVPB SCH ×3 (00:10→17:00)
[2018-03-07] MEDS: Pantoprazole 40 mg Susp UD PO SCH ×2 (05:35→17:00)
[2018-03-07 07:38] LABS: BASO % 0.5 % (0.0-2.0); EOS # 0.3 K/uL (0.0-0.7); EOS % 6.2 % (0.0-4.0); HEMOGLOBIN 10.2 g/dL (12.0-18.0); LYMPH # 1.5 K/uL (1.0-4.3); MEAN CELL VOLUME 83.2 fL (80.0-94.0); MEAN CORPUSCULAR HEMOGLOBIN 28.1 pg (27.0-31.0); MEAN CORPUSCULAR HGB CONC 33.7 g/dL (33.0-37.0); MEAN PLATELET VOLUME 8.4 fL (7.2-11.7); MONO # 0.4 K/uL (0.0-0.8); MONO % 7.4 % (0.0-10.0); NEUT % 57.9 % (50.0-75.0); NRBC % 0.2 % (0.0-2.0); RBC 3.62 Mil/uL (4.40-5.90); RED CELL DISTRIBUTION WIDTH 14.8 % (11.5-14.5); WHITE BLOOD COUNT 5.2 K/uL (4.8-10.8)
[2018-03-07 08:03] LABS: ALB/GLOB RATIO 0.8 (1.0-2.1); ALBUMIN 2.5 g/dL (3.5-5.0); ALT/SGPT 25 U/L (21-72); AST/SGOT 30 U/L (17-59); BLOOD UREA NITROGEN 8 mg/dL (9-20); CALCIUM 8.1 mg/dl (8.6-10.4); GFR AFRICAN-AMERICAN > 60; GFR NON-AFRICAN AMERICAN > 60
[2018-03-07] MEDS ORDERED: guaiFENesin 100 mg/5 ml Syrup UD PO PRN (08:58)
[2018-03-07] MEDS: Lidocaine 5% Patch TD SCH (09:55)
[2018-03-07] MEDS ORDERED: PPN#2 IV SCH (10:02)
[2018-03-08] MEDS: Piperacillin/Tazobact 3.375 GM in Sodium Chloride 100 ML IVPB SCH ×3 (00:30→16:21)
[2018-03-08] MEDS: Pantoprazole 40 mg Susp UD PO SCH ×2 (05:38→16:24)
[2018-03-08 08:10] LABS: BASO % 0.7 % (0.0-2.0); EOS # 0.2 K/uL (0.0-0.7); HEMOGLOBIN 10.3 g/dL (12.0-18.0); LYMPH # 1.5 K/uL (1.0-4.3); LYMPH % 31.7 % (20.0-40.0); MEAN CELL VOLUME 82.6 fL (80.0-94.0); MEAN CORPUSCULAR HEMOGLOBIN 27.8 pg (27.0-31.0); MEAN CORPUSCULAR HGB CONC 33.7 g/dL (33.0-37.0); MEAN PLATELET VOLUME 8.4 fL (7.2-11.7); MONO # 0.4 K/uL (0.0-0.8); NEUT # 2.6 K/uL (1.8-7.0); NEUT % 54.6 % (50.0-75.0); NRBC % 0.1 % (0.0-2.0); RBC 3.7 Mil/uL (4.40-5.90); RED CELL DISTRIBUTION WIDTH 15.1 % (11.5-14.5); WHITE BLOOD COUNT 4.8 K/uL (4.8-10.8)
[2018-03-08 08:52] LABS: ALB/GLOB RATIO 0.8 (1.0-2.1); ALBUMIN 2.6 g/dL (3.5-5.0); ALT/SGPT 30 U/L (21-72); AST/SGOT 37 U/L (17-59); BLOOD UREA NITROGEN 7 mg/dL (9-20); CALCIUM 8.4 mg/dl (8.6-10.4); GFR AFRICAN-AMERICAN > 60; GFR NON-AFRICAN AMERICAN > 60
[2018-03-08] MEDS: Lidocaine 5% Patch TD SCH (10:31)
[2018-03-08] MEDS: Albuterol-Ipratrop 3 mg / 0.5 (3 ml) UD INH PRN (11:30)
[2018-03-09] MEDS: Piperacillin/Tazobact 3.375 GM in Sodium Chloride 100 ML IVPB SCH ×3 (00:18→16:38)
[2018-03-09] MEDS: Pantoprazole 40 mg Susp UD PO SCH ×2 (05:13→16:39)
[2018-03-09] MEDS: Albuterol-Ipratrop 3 mg / 0.5 (3 ml) UD INH PRN (07:15)
--- NOTE | 2018-03-09 08:44 | CP.PCM.PN ---
<Oseas Caldera - Last Filed: 03/09/18 08:41> Subjective - Date & Time of Evaluation Date of Evaluation: 03/09/18 Time of Evaluation: 08:41 - Subjective Subjective: General Surgery Progress Note for Dr. Green This 72M was seen and evaluated this AM at bedside. Overnight he required no pain medication overnight however he is complaining of trouble sleeping. He is tolerating diet, reports BM and flatus. He is ambulating. He chest pain or SOB. Objective - Vital Signs/Intake and Output Vital Signs (last 24 hours): Temp Pulse Resp BP Pulse Ox 98.2 F 80 20 123/75 96 03/09/18 00:00 03/09/18 00:00 03/09/18 00:00 03/09/18 00:00 03/09/18 00:00 Intake and Output: 03/09/18 03/09/18 06:59 18:59 Intake Total 850 Balance 850 - Medications Medications: Current Medications Acetaminophen (Tylenol 650mg/20.3ml Solution Ud) 650 mg PO Q6 PRN PRN Reason: Pain, Mild (1-3) Albuterol/Ipratropium (Duoneb 3 Mg/0.5 Mg (3 Ml) Ud) 3 ml INH RQ2 PRN PRN Reason: Shortness of Breath Last Admin: 03/09/18 07:15 Dose: 3 ml Docusate Sodium (Colace) 100 mg PO DAILY [facility] Last Admin: 03/08/18 10:32 Dose: 100 mg Fluconazole (Diflucan) 50 mg PO DAILY [facility] PRN Reason: Protocol Last Admin: 03/08/18 10:32 Dose: 50 mg Guaifenesin (Robitussin) 100 mg PO Q4H PRN PRN Reason: Cough Heparin Sodium (Porcine) (Heparin) 5,000 units SC Q8 [facility] Last Admin: 03/09/18 05:13 Dose: 5,000 units Piperacillin Sod/Tazobactam (Sod 3.375 gm/ Sodium Chloride) 100 mls @ 200 mls/ hr IVPB Q8H [facility] PRN Reason: Protocol Last Admin: 03/09/18 00:18 Dose: 200 mls/hr Ketorolac Tromethamine (Toradol) 15 mg IVP Q6 PRN PRN Reason: Pain, severe (8-10) Last Admin: 03/08/18 11:41 Dose: 15 mg Lidocaine (Lidoderm) 1 ea TD DAILY [facility] Last Admin: 03/08/18 10:31 Dose: 1 ea Pantoprazole Sodium (Protonix Susp) 40 mg PO 0600,1600 [facility] Last Admin: 03/09/18 05:13 Dose: 40 mg Tramadol HCl (Ultram) 50 mg PO TID PRN PRN Reason: Pain, Mild (1-3) Zolpidem Tartrate (Ambien) 5 mg PO HS PRN PRN Reason: Insomnia - Labs Labs: 03/08/18 07:46 03/08/18 07:46 - Constitutional Appears: Non-toxic, No Acute Distress - Head Exam Head Exam: ATRAUMATIC, NORMOCEPHALIC - Eye Exam Eye Exam: EOMI - ENT Exam ENT Exam: Mucous Membranes Moist - Respiratory Exam Respiratory Exam: NORMAL BREATHING PATTERN - Cardiovascular Exam Cardiovascular Exam: +S1, +S2 - GI/Abdominal Exam GI & Abdominal Exam: Soft, Tenderness. absent: Distended, Firm, Guarding, Rigid Additional comments: Midline wound with wound vac in place superior sponge compressed distal sponge appears to have inadequate suction. - Neurological Exam Neurological Exam: Alert, Awake - Psychiatric Exam Psychiatric exam: Normal Affect, Normal Mood - Skin Skin Exam: Dry, Intact Assessment and Plan - Assessment and Plan (Free Text) Assessment: 72M came with wound dehiscence and fever s/p right hemicolectomy with re- operation for leak/ES fistula/necrotic anastomosis POD#30 Plan: Change wound vac today Urine Yeast Diflucan day 3 of 14 Continue Zosyn day 5 Heart healthy diet supplemented by prostat PO tylenol and IV toradol for pain Continue PPI Continue HSQ for DVT PPX D/W Dr. Aren Caldera PGY2 <Thiago Younger - Last Filed: 03/09/18 19:21> Objective - Vital Signs/Intake and Output Vital Signs (last 24 hours): Temp Pulse Resp BP Pulse Ox 98.2 F 67 20 115/77 95 03/09/18 15:00 03/09/18 15:00 03/09/18 15:00 03/09/18 15:00 03/09/18 15:00 Intake and Output: 03/09/18 03/10/18 18:59 06:59 Intake Total 580 Balance 580 - Medications Medications: Current Medications Acetaminophen (Tylenol 650mg/20.3ml Solution Ud) 650 mg PO Q6 PRN PRN Reason: Pain, Mild (1-3) Albuterol/Ipratropium (Duoneb 3 Mg/0.5 Mg (3 Ml) Ud) 3 ml INH RQ2 PRN PRN Reason: Shortness of Breath Last Admin: 03/09/18 07:15 Dose: 3 ml Docusate Sodium (Colace) 100 mg PO DAILY [facility] Last Admin: 03/09/18 10:06 Dose: 100 mg Fluconazole (Diflucan) 50 mg PO DAILY [facility] PRN Reason: Protocol Last Admin: 03/09/18 10:06 Dose: 50 mg Guaifenesin (Robitussin) 100 mg PO Q4H PRN PRN Reason: Cough Heparin Sodium (Porcine) (Heparin) 5,000 units SC Q8 [facility] Last Admin: 03/09/18 15:00 Dose: 5,000 units Piperacillin Sod/Tazobactam (Sod 3.375 gm/ Sodium Chloride) 100 mls @ 200 mls/ hr IVPB Q8H [facility] PRN Reason: Protocol Last Admin: 03/09/18 16:38 Dose: 200 mls/hr Ketorolac Tromethamine (Toradol) 15 mg IVP Q6 PRN PRN Reason: Pain, severe (8-10) Last Admin: 03/08/18 11:41 Dose: 15 mg Lidocaine (Lidoderm) 1 ea TD DAILY [facility] Last Admin: 03/09/18 10:06 Dose: 1 ea Pantoprazole Sodium (Protonix Susp) 40 mg PO 0600,1600 [facility] Last Admin: 03/09/18 16:39 Dose: 40 mg Tramadol HCl (Ultram) 50 mg PO TID PRN PRN Reason: Pain, Mild (1-3) Zolpidem Tartrate (Ambien) 5 mg PO HS PRN PRN Reason: Insomnia - Labs Labs: 03/08/18 07:46 03/08/18 07:46 Attending/Attestation - Attestation I have fully participated in the care of the patient.: Yes I have reviewed all pertinent clinical information, including history, physical exam and plan: Yes Notes (Text): Pt with Postoperative wound infection with wound vac Pt is tolerating diet C/W IV antibiotics High protein diet c.w current mx Plan d.w pt in detail
[2018-03-09] MEDS: Lidocaine 5% Patch TD SCH (10:06)
--- NOTE | 2018-03-09 19:22 | CP.PCM.PN ---
<Oseas Caldera - Last Filed: 03/09/18 19:19> Subjective - Date & Time of Evaluation Date of Evaluation: 03/08/18 Time of Evaluation: 06:00 - Subjective Subjective: General Surgery Progress Note for Dr. Green This 72M was seen and evaluated this AM at bedside. He is tolerating diet, reports BM and flatus. He is ambulating. He denies pain however complained of polyuria we discussed his positive urin culture and treatment plan. No new complaints at this time such as chest pain or SOB. Objective - Vital Signs/Intake and Output Vital Signs (last 24 hours): Temp Pulse Resp BP Pulse Ox 98.2 F 67 20 115/77 95 03/09/18 15:00 03/09/18 15:00 03/09/18 15:00 03/09/18 15:00 03/09/18 15:00 Intake and Output: 03/09/18 03/10/18 18:59 06:59 Intake Total 580 Balance 580 - Medications Medications: Current Medications Acetaminophen (Tylenol 650mg/20.3ml Solution Ud) 650 mg PO Q6 PRN PRN Reason: Pain, Mild (1-3) Albuterol/Ipratropium (Duoneb 3 Mg/0.5 Mg (3 Ml) Ud) 3 ml INH RQ2 PRN PRN Reason: Shortness of Breath Last Admin: 03/09/18 07:15 Dose: 3 ml Docusate Sodium (Colace) 100 mg PO DAILY [facility] Last Admin: 03/09/18 10:06 Dose: 100 mg Fluconazole (Diflucan) 50 mg PO DAILY ANN PRN Reason: Protocol Last Admin: 03/09/18 10:06 Dose: 50 mg Guaifenesin (Robitussin) 100 mg PO Q4H PRN PRN Reason: Cough Heparin Sodium (Porcine) (Heparin) 5,000 units SC Q8 ANN Last Admin: 03/09/18 15:00 Dose: 5,000 units Piperacillin Sod/Tazobactam (Sod 3.375 gm/ Sodium Chloride) 100 mls @ 200 mls/ hr IVPB Q8H ANN PRN Reason: Protocol Last Admin: 03/09/18 16:38 Dose: 200 mls/hr Ketorolac Tromethamine (Toradol) 15 mg IVP Q6 PRN PRN Reason: Pain, severe (8-10) Last Admin: 03/08/18 11:41 Dose: 15 mg Lidocaine (Lidoderm) 1 ea TD DAILY ANN Last Admin: 03/09/18 10:06 Dose: 1 ea Pantoprazole Sodium (Protonix Susp) 40 mg PO 0600,1600 ANN Last Admin: 03/09/18 16:39 Dose: 40 mg Tramadol HCl (Ultram) 50 mg PO TID PRN PRN Reason: Pain, Mild (1-3) Zolpidem Tartrate (Ambien) 5 mg PO HS PRN PRN Reason: Insomnia - Labs Labs: 03/08/18 07:46 03/08/18 07:46 - Constitutional Appears: Non-toxic, No Acute Distress - Head Exam Head Exam: ATRAUMATIC, NORMOCEPHALIC - Eye Exam Eye Exam: EOMI - ENT Exam ENT Exam: Mucous Membranes Moist - Respiratory Exam Respiratory Exam: NORMAL BREATHING PATTERN - Cardiovascular Exam Cardiovascular Exam: +S1, +S2 - GI/Abdominal Exam GI & Abdominal Exam: Soft, Tenderness. absent: Distended, Firm, Guarding, Rigid Additional comments: Midline wound with wound vac in place on suction with good seal. - Neurological Exam Neurological Exam: Alert, Awake - Psychiatric Exam Psychiatric exam: Normal Affect, Normal Mood - Skin Skin Exam: Dry, Intact Assessment and Plan - Assessment and Plan (Free Text) Assessment: 72M came with wound dehiscence and fever s/p right hemicolectomy with re- operation for leak/ES fistula/necrotic anastomosis POD#28 Plan: Wound vac change tomorrow AM Urine CX Diflucan day 2 of 14 Continue Zosyn Electrolytes replete PO tylenol and IV toradol for pain Continue PPI Continue HSQ for DVT PPX D/W Dr. Aren Caldera PGY2 <Thiago Younger - Last Filed: 03/09/18 20:50> Objective - Vital Signs/Intake and Output Vital Signs (last 24 hours): Temp Pulse Resp BP Pulse Ox 98.2 F 67 20 115/77 95 03/09/18 15:00 03/09/18 15:00 03/09/18 15:00 03/09/18 15:00 03/09/18 15:00 Intake and Output: 03/09/18 03/10/18 18:59 06:59 Intake Total 580 Balance 580 - Medications Medications: Current Medications Acetaminophen (Tylenol 650mg/20.3ml Solution Ud) 650 mg PO Q6 PRN PRN Reason: Pain, Mild (1-3) Albuterol/Ipratropium (Duoneb 3 Mg/0.5 Mg (3 Ml) Ud) 3 ml INH RQ2 PRN PRN Reason: Shortness of Breath Last Admin: 03/09/18 07:15 Dose: 3 ml Docusate Sodium (Colace) 100 mg PO DAILY [facility] Last Admin: 03/09/18 10:06 Dose: 100 mg Fluconazole (Diflucan) 50 mg PO DAILY ANN PRN Reason: Protocol Last Admin: 03/09/18 10:06 Dose: 50 mg Guaifenesin (Robitussin) 100 mg PO Q4H PRN PRN Reason: Cough Heparin Sodium (Porcine) (Heparin) 5,000 units SC Q8 [facility] Last Admin: 03/09/18 15:00 Dose: 5,000 units Piperacillin Sod/Tazobactam (Sod 3.375 gm/ Sodium Chloride) 100 mls @ 200 mls/ hr IVPB Q8H ANN PRN Reason: Protocol Last Admin: 03/09/18 16:38 Dose: 200 mls/hr Ketorolac Tromethamine (Toradol) 15 mg IVP Q6 PRN PRN Reason: Pain, severe (8-10) Last Admin: 03/08/18 11:41 Dose: 15 mg Lidocaine (Lidoderm) 1 ea TD DAILY [facility] Last Admin: 03/09/18 10:06 Dose: 1 ea Pantoprazole Sodium (Protonix Susp) 40 mg PO 0600,1600 [facility] Last Admin: 03/09/18 16:39 Dose: 40 mg Tramadol HCl (Ultram) 50 mg PO TID PRN PRN Reason: Pain, Mild (1-3) Zolpidem Tartrate (Ambien) 5 mg PO HS PRN PRN Reason: Insomnia - Labs Labs: 03/08/18 07:46 03/08/18 07:46 Attending/Attestation - Attestation I have personally seen and examined this patient.: Yes I have fully participated in the care of the patient.: Yes I have reviewed all pertinent clinical information, including history, physical exam and plan: Yes Notes (Text): Pt was seen and examined at bedside Agree with above note and assessment Pt is improving clinically High protein diet Wound vac change tomorrow C/W IV antibiotics Plan d.w pt in detail
--- NOTE | 2018-03-09 19:27 | CP.PCM.PN ---
Subjective - Date & Time of Evaluation Date of Evaluation: 03/07/18 Time of Evaluation: 06:15 - Subjective Subjective: General Surgery Progress Note for Dr. Younger This 72M was seen and evaluated this AM at bedside. No acute events Overnight. He is moving his bowels and ambulating with the aide of his . He denies any new or concerning symptoms. Objective - Vital Signs/Intake and Output Vital Signs (last 24 hours): Temp Pulse Resp BP Pulse Ox 98.2 F 67 20 115/77 95 03/09/18 15:00 03/09/18 15:00 03/09/18 15:00 03/09/18 15:00 03/09/18 15:00 Intake and Output: 03/09/18 03/10/18 18:59 06:59 Intake Total 580 Balance 580 - Medications Medications: Current Medications Acetaminophen (Tylenol 650mg/20.3ml Solution Ud) 650 mg PO Q6 PRN PRN Reason: Pain, Mild (1-3) Albuterol/Ipratropium (Duoneb 3 Mg/0.5 Mg (3 Ml) Ud) 3 ml INH RQ2 PRN PRN Reason: Shortness of Breath Last Admin: 03/09/18 07:15 Dose: 3 ml Docusate Sodium (Colace) 100 mg PO DAILY [facility] Last Admin: 03/09/18 10:06 Dose: 100 mg Fluconazole (Diflucan) 50 mg PO DAILY ANN PRN Reason: Protocol Last Admin: 03/09/18 10:06 Dose: 50 mg Guaifenesin (Robitussin) 100 mg PO Q4H PRN PRN Reason: Cough Heparin Sodium (Porcine) (Heparin) 5,000 units SC Q8 [facility] Last Admin: 03/09/18 15:00 Dose: 5,000 units Piperacillin Sod/Tazobactam (Sod 3.375 gm/ Sodium Chloride) 100 mls @ 200 mls/ hr IVPB Q8H ANN PRN Reason: Protocol Last Admin: 03/09/18 16:38 Dose: 200 mls/hr Ketorolac Tromethamine (Toradol) 15 mg IVP Q6 PRN PRN Reason: Pain, severe (8-10) Last Admin: 03/08/18 11:41 Dose: 15 mg Lidocaine (Lidoderm) 1 ea TD DAILY [facility] Last Admin: 03/09/18 10:06 Dose: 1 ea Pantoprazole Sodium (Protonix Susp) 40 mg PO 0600,1600 ANN Last Admin: 03/09/18 16:39 Dose: 40 mg Tramadol HCl (Ultram) 50 mg PO TID PRN PRN Reason: Pain, Mild (1-3) Zolpidem Tartrate (Ambien) 5 mg PO HS PRN PRN Reason: Insomnia - Labs Labs: 03/08/18 07:46 03/08/18 07:46 - Constitutional Appears: Non-toxic, No Acute Distress - Head Exam Head Exam: ATRAUMATIC, NORMOCEPHALIC - Eye Exam Eye Exam: EOMI - ENT Exam ENT Exam: Mucous Membranes Moist - Respiratory Exam Respiratory Exam: NORMAL BREATHING PATTERN - Cardiovascular Exam Cardiovascular Exam: +S1, +S2 - GI/Abdominal Exam GI & Abdominal Exam: Soft, Tenderness. absent: Distended, Firm, Guarding, Rigid Additional comments: Midline wound with wound vac in place with good suction - Neurological Exam Neurological Exam: Alert, Awake - Psychiatric Exam Psychiatric exam: Normal Affect, Normal Mood - Skin Skin Exam: Dry, Intact Assessment and Plan - Assessment and Plan (Free Text) Assessment: 72M came with wound dehiscence and fever s/p right hemicolectomy with re- operation for leak/ES fistula/necrotic anastomosis POD#29 Plan: Wound vac to suction Urine CX yeast diflucan day 1 of 14 Continue Zosyn Continue regular diet supplemented with prostat Electrolytes replete PO tylenol and IV toradol for pain Continue PPI Continue HSQ for DVT PPX Ambulate D/W Dr. Aren Caldera PGY2
--- NOTE | 2018-03-09 19:32 | CP.PCM.PN ---
<Oseas Caldera - Last Filed: 03/09/18 19:29> Subjective - Date & Time of Evaluation Date of Evaluation: 03/07/18 Time of Evaluation: 19:30 - Subjective Subjective: General Surgery Progress Note for Dr. Younger This 72M was seen and evaluated this AM at bedside. No acute events Overnight. He is moving his bowels and ambulating with the aide of his . He denies any new or concerning symptoms. Objective - Vital Signs/Intake and Output Vital Signs (last 24 hours): Temp Pulse Resp BP Pulse Ox 98.2 F 67 20 115/77 95 03/09/18 15:00 03/09/18 15:00 03/09/18 15:00 03/09/18 15:00 03/09/18 15:00 Intake and Output: 03/09/18 03/10/18 18:59 06:59 Intake Total 580 Balance 580 - Medications Medications: Current Medications Acetaminophen (Tylenol 650mg/20.3ml Solution Ud) 650 mg PO Q6 PRN PRN Reason: Pain, Mild (1-3) Albuterol/Ipratropium (Duoneb 3 Mg/0.5 Mg (3 Ml) Ud) 3 ml INH RQ2 PRN PRN Reason: Shortness of Breath Last Admin: 03/09/18 07:15 Dose: 3 ml Docusate Sodium (Colace) 100 mg PO DAILY [facility] Last Admin: 03/09/18 10:06 Dose: 100 mg Fluconazole (Diflucan) 50 mg PO DAILY ANN PRN Reason: Protocol Last Admin: 03/09/18 10:06 Dose: 50 mg Guaifenesin (Robitussin) 100 mg PO Q4H PRN PRN Reason: Cough Heparin Sodium (Porcine) (Heparin) 5,000 units SC Q8 ANN Last Admin: 03/09/18 15:00 Dose: 5,000 units Piperacillin Sod/Tazobactam (Sod 3.375 gm/ Sodium Chloride) 100 mls @ 200 mls/ hr IVPB Q8H ANN PRN Reason: Protocol Last Admin: 03/09/18 16:38 Dose: 200 mls/hr Ketorolac Tromethamine (Toradol) 15 mg IVP Q6 PRN PRN Reason: Pain, severe (8-10) Last Admin: 03/08/18 11:41 Dose: 15 mg Lidocaine (Lidoderm) 1 ea TD DAILY [facility] Last Admin: 03/09/18 10:06 Dose: 1 ea Pantoprazole Sodium (Protonix Susp) 40 mg PO 0600,1600 [facility] Last Admin: 03/09/18 16:39 Dose: 40 mg Tramadol HCl (Ultram) 50 mg PO TID PRN PRN Reason: Pain, Mild (1-3) Zolpidem Tartrate (Ambien) 5 mg PO HS PRN PRN Reason: Insomnia - Labs Labs: 03/08/18 07:46 03/08/18 07:46 - Constitutional Appears: Non-toxic, No Acute Distress - Head Exam Head Exam: ATRAUMATIC, NORMOCEPHALIC - Eye Exam Eye Exam: EOMI - ENT Exam ENT Exam: Mucous Membranes Moist - Respiratory Exam Respiratory Exam: NORMAL BREATHING PATTERN - Cardiovascular Exam Cardiovascular Exam: +S1, +S2 - GI/Abdominal Exam GI & Abdominal Exam: Soft, Tenderness. absent: Distended, Firm, Guarding, Rigid Additional comments: Midline wound with wound vac in place with good suction - Neurological Exam Neurological Exam: Alert, Awake - Psychiatric Exam Psychiatric exam: Normal Affect, Normal Mood - Skin Skin Exam: Dry, Intact Assessment and Plan - Assessment and Plan (Free Text) Assessment: 72M came with wound dehiscence and fever s/p right hemicolectomy with re- operation for leak/ES fistula/necrotic anastomosis POD#29 Plan: Wound vac to suction Urine CX yeast diflucan day 1 of 14 Continue Zosyn Continue regular diet supplemented with prostat Electrolytes replete PO tylenol and IV toradol for pain Continue PPI Continue HSQ for DVT PPX Ambulate D/W Dr. Aren Caldera PGY2 <Thiaog Younger - Last Filed: 03/09/18 20:51> Objective - Vital Signs/Intake and Output Vital Signs (last 24 hours): Temp Pulse Resp BP Pulse Ox 98.2 F 67 20 115/77 95 03/09/18 15:00 03/09/18 15:00 03/09/18 15:00 03/09/18 15:00 03/09/18 15:00 Intake and Output: 03/09/18 03/10/18 18:59 06:59 Intake Total 580 Balance 580 - Medications Medications: Current Medications Acetaminophen (Tylenol 650mg/20.3ml Solution Ud) 650 mg PO Q6 PRN PRN Reason: Pain, Mild (1-3) Albuterol/Ipratropium (Duoneb 3 Mg/0.5 Mg (3 Ml) Ud) 3 ml INH RQ2 PRN PRN Reason: Shortness of Breath Last Admin: 03/09/18 07:15 Dose: 3 ml Docusate Sodium (Colace) 100 mg PO DAILY [facility] Last Admin: 03/09/18 10:06 Dose: 100 mg Fluconazole (Diflucan) 50 mg PO DAILY ANN PRN Reason: Protocol Last Admin: 03/09/18 10:06 Dose: 50 mg Guaifenesin (Robitussin) 100 mg PO Q4H PRN PRN Reason: Cough Heparin Sodium (Porcine) (Heparin) 5,000 units SC Q8 [facility] Last Admin: 03/09/18 15:00 Dose: 5,000 units Piperacillin Sod/Tazobactam (Sod 3.375 gm/ Sodium Chloride) 100 mls @ 200 mls/ hr IVPB Q8H ANN PRN Reason: Protocol Last Admin: 03/09/18 16:38 Dose: 200 mls/hr Ketorolac Tromethamine (Toradol) 15 mg IVP Q6 PRN PRN Reason: Pain, severe (8-10) Last Admin: 03/08/18 11:41 Dose: 15 mg Lidocaine (Lidoderm) 1 ea TD DAILY [facility] Last Admin: 03/09/18 10:06 Dose: 1 ea Pantoprazole Sodium (Protonix Susp) 40 mg PO 0600,1600 [facility] Last Admin: 03/09/18 16:39 Dose: 40 mg Tramadol HCl (Ultram) 50 mg PO TID PRN PRN Reason: Pain, Mild (1-3) Zolpidem Tartrate (Ambien) 5 mg PO HS PRN PRN Reason: Insomnia - Labs Labs: 03/08/18 07:46 03/08/18 07:46 Attending/Attestation - Attestation I have personally seen and examined this patient.: Yes I have fully participated in the care of the patient.: Yes I have reviewed all pertinent clinical information, including history, physical exam and plan: Yes Notes (Text): Pt was seen and examined at bedside Agree with above note and assessment Pt with wound vac Improving clinically High protein diet DC TPN C/W IV antibiotics Plan d.w pt in detail
[2018-03-10] MEDS: Piperacillin/Tazobact 3.375 GM in Sodium Chloride 100 ML IVPB SCH ×2 (00:39→09:11)
[2018-03-10] MEDS: Pantoprazole 40 mg Susp UD PO SCH (05:22)
[2018-03-10] MEDS: Albuterol-Ipratrop 3 mg / 0.5 (3 ml) UD INH PRN ×2 (07:21→12:00)
[2018-03-10] MEDS: Lidocaine 5% Patch TD SCH (09:10)
--- NOTE | 2018-03-10 09:54 | CP.PCM.PN ---
Subjective - Date & Time of Evaluation Date of Evaluation: 03/10/18 Time of Evaluation: 06:30 - Subjective Subjective: General Surgery Progress Note for Dr. Green 72 yo M was seen and evaluated this AM at bedside. Overnight he required no pain medication. He is tolerating diet, reports BM and flatus. He is ambulating. Objective - Vital Signs/Intake and Output Vital Signs (last 24 hours): Temp Pulse Resp BP Pulse Ox 98.0 F 93 H 20 114/70 95 03/10/18 07:18 03/10/18 07:18 03/10/18 07:18 03/10/18 07:18 03/10/18 07:18 Intake and Output: 03/10/18 03/10/18 06:59 18:59 Intake Total 460 1540 Balance 460 1540 - Medications Medications: Current Medications Acetaminophen (Tylenol 650mg/20.3ml Solution Ud) 650 mg PO Q6 PRN PRN Reason: Pain, Mild (1-3) Albuterol/Ipratropium (Duoneb 3 Mg/0.5 Mg (3 Ml) Ud) 3 ml INH RQ2 PRN PRN Reason: Shortness of Breath Last Admin: 03/10/18 07:21 Dose: 3 ml Docusate Sodium (Colace) 100 mg PO DAILY [facility] Last Admin: 03/10/18 09:10 Dose: 100 mg Fluconazole (Diflucan) 50 mg PO DAILY ANN PRN Reason: Protocol Last Admin: 03/10/18 09:10 Dose: 50 mg Guaifenesin (Robitussin) 100 mg PO Q4H PRN PRN Reason: Cough Heparin Sodium (Porcine) (Heparin) 5,000 units SC Q8 ANN Last Admin: 03/10/18 05:21 Dose: 5,000 units Lidocaine (Lidoderm) 1 ea TD DAILY ANN Last Admin: 03/10/18 09:10 Dose: 1 ea Pantoprazole Sodium (Protonix Susp) 40 mg PO 0600,1600 [facility] Last Admin: 03/10/18 05:22 Dose: 40 mg Tramadol HCl (Ultram) 50 mg PO TID PRN PRN Reason: Pain, Mild (1-3) Zolpidem Tartrate (Ambien) 5 mg PO HS PRN PRN Reason: Insomnia - Labs Labs: 03/08/18 07:46 03/08/18 07:46 - Constitutional Appears: Well - Head Exam Head Exam: ATRAUMATIC, NORMAL INSPECTION, NORMOCEPHALIC - Eye Exam Eye Exam: EOMI, Normal appearance, PERRL - ENT Exam ENT Exam: Mucous Membranes Moist, Normal Exam - Neck Exam Neck Exam: Full ROM, Normal Inspection. absent: Lymphadenopathy - Respiratory Exam Respiratory Exam: Clear to Ausculation Bilateral, NORMAL BREATHING PATTERN - Cardiovascular Exam Cardiovascular Exam: REGULAR RHYTHM, +S1, +S2. absent: Murmur - GI/Abdominal Exam GI & Abdominal Exam: Soft, Normal Bowel Sounds. absent: Firm, Guarding, Rigid, Tenderness Additional comments: Midline wound with wound vac in place with adequate suction. - Extremities Exam Extremities Exam: Full ROM, Normal Capillary Refill, Normal Inspection. absent : Joint Swelling, Pedal Edema - Neurological Exam Neurological Exam: Alert, Awake, CN II-XII Intact, Normal Gait, Oriented x3 Assessment and Plan - Assessment and Plan (Free Text) Assessment: 72M came with wound dehiscence and fever s/p right hemicolectomy with re- operation for leak/EC fistula/necrotic anastomosis POD#32 Plan: Change wound vac yesterday. Will change every 3 days. Urine Yeast Diflucan day 4 of 14 DC Zosyn Heart healthy diet supplemented by prostat PO tylenol for pain Continue HSQ for DVT PPX Patient received portable wound vac and will D/W Dr. Younger about further care instructions/discharge planning. Joey Hand PGY-6
[2018-03-11 07:50] VITALS: O2SAT 95
[2018-03-11] MEDS: Lidocaine 5% Patch TD SCH (11:01)
--- NOTE | 2018-03-11 15:41 | CP.PCM.DIS ---
Provider - Provider Date of Admission: 03/04/18 00:22 Attending physician: Saúl Green MD Time Spent in preparation of Discharge (in minutes): 20 Hospital Course - Lab Results Lab Results: Micro Results 03/03/18 20:00 Blood Blood Culture - Final NO GROWTH AFTER 5 DAYS 03/03/18 20:00 Blood Gram Stain - Final TEST NOT PERFORMED 03/03/18 19:30 Blood Blood Culture - Final NO GROWTH AFTER 5 DAYS 03/03/18 19:30 Blood Gram Stain - Final TEST NOT PERFORMED 03/05/18 14:18 Urine Urine Culture - Final No Growth (<1,000 CFU/ML) 03/03/18 21:34 Urine Urine Culture - Final Yeast Species Most Recent Lab Values WBC 4.8 K/uL (4.8-10.8) 03/08/18 07:46 RBC 3.70 Mil/uL (4.40-5.90) L 03/08/18 07:46 Hgb 10.3 g/dL (12.0-18.0) L 03/08/18 07:46 Hct 30.6 % (35.0-51.0) L 03/08/18 07:46 MCV 82.6 fL (80.0-94.0) 03/08/18 07:46 MCH 27.8 pg (27.0-31.0) 03/08/18 07:46 MCHC 33.7 g/dL (33.0-37.0) 03/08/18 07:46 RDW 15.1 % (11.5-14.5) H 03/08/18 07:46 Plt Count 364 K/uL (130-400) 03/08/18 07:46 MPV 8.4 fL (7.2-11.7) 03/08/18 07:46 Neut % (Auto) 54.6 % (50.0-75.0) 03/08/18 07:46 Lymph % (Auto) 31.7 % (20.0-40.0) 03/08/18 07:46 [place] % (Auto) 8.0 % (0.0-10.0) 03/08/18 07:46 Eos % (Auto) 5.0 % (0.0-4.0) H 03/08/18 07:46 Baso % (Auto) 0.7 % (0.0-2.0) 03/08/18 07:46 Neut # (Auto) 2.6 K/uL (1.8-7.0) 03/08/18 07:46 Lymph # (Auto) 1.5 K/uL (1.0-4.3) 03/08/18 07:46 [place] # (Auto) 0.4 K/uL (0.0-0.8) 03/08/18 07:46 Eos # (Auto) 0.2 K/uL (0.0-0.7) 03/08/18 07:46 Baso # (Auto) 0.0 K/uL (0.0-0.2) 03/08/18 07:46 Sodium 143 mmol/L (132-148) 03/08/18 07:46 Potassium 3.8 mmol/L (3.6-5.2) 03/08/18 07:46 Chloride 107 mmol/L (98-107) 03/08/18 07:46 Carbon Dioxide 29 mmol/L (22-30) 03/08/18 07:46 Anion Gap 11 (10-20) 03/08/18 07:46 BUN 7 mg/dL (9-20) L 03/08/18 07:46 Creatinine 0.9 mg/dL (0.8-1.5) 03/08/18 07:46 Est GFR ( Amer) > 60 03/08/18 07:46 Est GFR (Non-Af Amer) > 60 03/08/18 07:46 Random Glucose 110 mg/dL (75-110) 03/08/18 07:46 Calcium 8.4 mg/dl (8.6-10.4) L 03/08/18 07:46 Phosphorus 2.9 mg/dL (2.5-4.5) 03/08/18 07:46 Magnesium 2.2 mg/dL (1.6-2.3) 03/08/18 07:46 Total Bilirubin 0.5 mg/dL (0.2-1.3) 03/08/18 07:46 AST 37 U/L (17-59) 03/08/18 07:46 ALT 30 U/L (21-72) 03/08/18 07:46 Alkaline Phosphatase 217 U/L (38-126) H 03/08/18 07:46 Total Protein 5.9 g/dL (6.3-8.3) L 03/08/18 07:46 Albumin 2.6 g/dL (3.5-5.0) L 03/08/18 07:46 Globulin 3.2 gm/dL (2.2-3.9) 03/08/18 07:46 Albumin/Globulin Ratio 0.8 (1.0-2.1) L 03/08/18 07:46 Lipase 201 U/L (23-300) 03/03/18 17:27 Urine Color Yellow (YELLOW) 03/03/18 17:29 Urine Clarity Clear (Clear) 03/03/18 17: Urine pH 5.0 (5.0-8.0) 03/03/18 17: Ur Specific [place] 1.014 (1.003-1.030) 03/03/18 17:29 Urine Protein Negative mg/dL (NEGATIVE) 03/03/18 17:29 Urine Glucose (UA) Normal mg/dL (Normal) 03/03/18 17:29 Urine Ketones Negative mg/dL (NEGATIVE) 03/03/18 17:29 Urine Blood Negative (NEGATIVE) 03/03/18 17:29 Urine Nitrate Negative (NEGATIVE) 03/03/18 17:29 Urine Bilirubin Negative (NEGATIVE) 03/03/18 17: Urine Urobilinogen Normal mg/dL (0.2-1.0) 03/03/18 17:29 Ur Leukocyte Esterase 2+ [place]/uL (Negative) H 03/03/18 17:29 Urine WBC (Auto) 16 /hpf (0-5) H 03/03/18 17:29 Urine RBC (Auto) 3 /hpf (0-3) 03/03/18 17:29 Ur Squamous Epith Cells 2 /hpf (0-5) 03/03/18 17:29 Urine Bacteria Few (<OCC) H 03/03/18 17:29 - Hospital Course Hospital Course: 72M s/p right hemicolectomy with re-operation for leak/EC fistula/necrotic anastomosis, presented to the ED with a cough and fever on 03/03/18. Wound dehiscence was visualized. Patient had wound vac that was being changed every 3 days, which was continued during hospital stay. Pt was started on antibiotics for infection and antifungals after positive urine cultures for yeast. Pts pain was controlled, electrolytes repleted, and diet advanced to heart healthy with prostat as tolerated. Pt was able to receive a portable wound vac. Taught pt and family how to use the portable wound vac. They will return to the fast track ED every 3 days to change the wound vac. Above is a brief summary of the patient's stay. Please refer to medical records for detailed summary of patient's stay. Discharge Exam - Head Exam Head Exam: ATRAUMATIC, NORMAL INSPECTION, NORMOCEPHALIC - Eye Exam Eye Exam: EOMI, Normal appearance, PERRL - Neck Exam Neck exam: Normal Inspection - Respiratory Exam Respiratory Exam: absent: Accessory Muscle Use, Chest Wall Tenderness, Respiratory Distress - Cardiovascular Exam Cardiovascular Exam: REGULAR RHYTHM, +S1, +S2 - GI/Abdominal Exam GI & Abdominal Exam: Normal Bowel Sounds. absent: Diminished Bowel Sounds, Distended, Guarding - Skin Skin Exam: Dry, Intact, Normal Color, Warm Additional comments: Wound vac in place over midline incision. No leakage from site. Sealed. Discharge Plan - Discharge Medications Prescriptions: Fluconazole [Diflucan] 50 mg PO DAILY #9 tab - Follow Up Plan Condition: FAIR Disposition: HOME/ ROUTINE Instructions: Acute Abdomen (Belly Pain), Adult (DC), Postoperative Pain (DC) Referrals: Saúl Green MD [Staff Provider] -
[2018-03-11 16:33] VITALS: BP 113/75; PULSE 85; TEMP 98.3
== END 2018-03-11 20:35 | disposition home or self-care (01) | DRG 863 ==
LOC: C.ER 16:19 → C.3T 03-04 00:22
PROVIDERS: ADMIT Surgery; ATTEND Surgery
DX: T81.4XXA Infection following a procedure, initial encounter (principal); T81.31XA Disruption of external operation (surgical) wound, not elsewhere classified, initial encounter; B37.49 Other urogenital candidiasis; R50.82 Postprocedural fever; Y83.8 Other surgical procedures as the cause of abnormal reaction of the patient, or of later complication, without mention of misadventure at the time of the procedure; G89.18 Other acute postprocedural pain; B99.9 Unspecified infectious disease; Z98.0 Intestinal bypass and anastomosis status

== ENCOUNTER 2018-03-13 18:32 | Emergency (ER) | payer MEDICAID, OTHER ==
[2018-03-13 18:32] VITALS: BMI 33.2
[2018-03-13 18:45] VITALS: BP 120/80; TEMP 98.6
--- NOTE | 2018-03-13 19:20 | C.PDOC ---
History Of Present Illness 72 y/o male presents to ED for dressing a wound change for his dehiscence surgical wound after right hemicolectomy. Denies any other physical complaints. Time Seen by Provider: 03/13/18 19:20 Chief Complaint (Nursing): Abnormal Skin Integrity History Per: Patient History/Exam Limitations: no limitations Onset/Duration Of Symptoms: Hrs Current Symptoms Are (Timing): Still Present Location Of Injury: Anterior: Abdomen Quality Of Symptoms: denies: Itching, Swollen Severity: Moderate Pain Scale Rating Of: 4 Recent travel outside of the [place]: No Past Medical History Reviewed: Historical Data, Nursing Documentation, Vital Signs Vital Signs: Last Vital Signs Temp 98.6 F 03/13/18 18:43 Pulse 96 H 03/13/18 18:43 Resp 18 03/13/18 18:43 BP 120/80 03/13/18 18:43 Pulse Ox 98 03/13/18 19:25 - Medical History PMH: Arthritis, Colonic Polyps, Deep Vein Thrombosis ("one year ago" as per patient), Gastritis, Sleep Apnea (POSITIVE STUDY (last year)) Surgical History: Endoscopy - [facility] Procedures (02/06/18) DRAINAGE OF ABD WALL WITH DRAIN DEV, PERC ENDO APPROACH (02/06/18) EXCISION OF ABD SUBCU/FASCIA, OPEN APPROACH (02/06/18) EXCISION OF LARGE INTESTINE, OPEN APPROACH (02/06/18) INTRODUCTION OF NUTRITIONAL INTO PERIPH VEIN, PERC APPROACH (02/06/18) REPAIR MESENTERY, PERCUTANEOUS ENDOSCOPIC APPROACH (02/06/18) RESECTION OF RIGHT LARGE INTESTINE, PERC ENDO APPROACH (02/06/18) Family History: States: Unknown Family Hx - Social History Hx Alcohol Use: No Hx Substance Use: No - Immunization History Hx Tetanus Toxoid Vaccination: No Hx Influenza Vaccination: No Hx Pneumococcal Vaccination: Yes Review Of Systems Constitutional: Negative for: Fever, Chills Gastrointestinal: Negative for: Nausea, Vomiting, Abdominal Pain, Diarrhea Genitourinary: Positive for: Other (Dressing wound change for dehiscence surgical wound after right hemicolectomy) Skin: Negative for: Rash Neurological: Negative for: Weakness, Numbness Psych: Negative for: Anxiety Physical Exam - Physical Exam Appears: Non-toxic, No Acute Distress Skin: Warm, Dry Head: Normacephalic Eye(s): bilateral: Normal Inspection Oral Mucosa: Moist Neck: Supple Chest: Symmetrical Cardiovascular: Rhythm Regular Respiratory: No Rales, No Rhonchi, No Wheezing Gastrointestinal/Abdominal: Soft, No Tenderness, Other (2 Abdominal wounds, each wound with granulation tissue, no foreign material visualized, no tenderness) Extremity: Normal ROM Extremity: Bilateral: Atraumatic, Normal Color And Temperature, Normal ROM Neurological/Psych: Oriented x3, Normal Speech Gait: Steady ED Course And Treatment O2 Sat by Pulse Oximetry: 98 (RA) Pulse Ox Interpretation: Normal Progress Note: workforce development vice president at bed-side reapplied wound VAC. Provided patient with wound care instructions. Disposition Counseled Patient/Family Regarding: Studies Performed, Diagnosis, Need For Followup - Disposition Referrals: Thiago Younger MD [Staff Provider] - Disposition: HOME/ ROUTINE Disposition Time: 19:20 Condition: FAIR Instructions: Negative Pressure Wound Therapy Forms: [employer] (Mexican) - Clinical Impression Clinical Impression: Encounter for postoperative wound check - Scribe Statement The provider has reviewed the documentation as recorded by the Scribdane Ferris All medical record entries made by the Scribe were at my direction and personally dictated by me. I have reviewed the chart and agree that the record accurately reflects my personal performance of the history, physical exam, medical decision making, and the department course for this patient. I have also personally directed, reviewed, and agree with the discharge instructions and disposition.
--- NOTE | 2018-03-13 20:10 | CP.PCM.CON ---
<Mynor Walter - Last Filed: 03/13/18 20:11> History of Present Illness - History of Present Illness History of Present Illness: Surgery: Dr. Younger CC: Non-function wound vac HPI: 72M w. chronic wound 2/2 to dehiscence s/p hemicolectomy which is being managed with wound vac / local wound care presents to ED for wound vac leak. PMH: right colon adenoma, EC fistula, DEL PSH: Right hemicolectomy, exploratomy laparotomy Meds: MAR reviewed Social: denies tobacco, denies alcohol use Allergies: Iodine Review of Systems - Review of Systems All systems: reviewed and no additional remarkable complaints except (HPI) Past Patient History - Past Medical History & Family History Past Medical History?: Yes - Past Social History Smoking Status: Former Smoker - PULMONARY Hx Sleep Apnea: Yes (POSITIVE STUDY (last year)) - NEUROLOGICAL Hx Neurological Disorder: No - HEENT Hx HEENT Problems: No - RENAL Hx Chronic Kidney Disease: No - ENDOCRINE/METABOLIC Hx Endocrine Disorders: No - HEMATOLOGICAL/ONCOLOGICAL Hx Blood Disorders: No - INTEGUMENTARY Hx Dermatological Problems: No - MUSCULOSKELETAL/RHEUMATOLOGICAL Hx Arthritis: Yes - GASTROINTESTINAL Hx Gastritis: Yes - GENITOURINARY/GYNECOLOGICAL Hx Genitourinary Disorders: No - PSYCHIATRIC Hx Substance Use: No - SURGICAL HISTORY Hx Surgeries: Yes Hx Orthopedic Surgery: Yes (ORIF LEFT ELBOW W PLATE PLACEMENT) Other/Comment: HX: COLON POLYPECTOMY, R hemicolectomy done (02/06) Re-operation for leak of EC fistula/necrotic anastomosis (02/19) - ANESTHESIA Hx Anesthesia: Yes Hx Anesthesia Reactions: No Hx Malignant Hyperthermia: No Meds Allergies/Adverse Reactions: Allergies Allergy/AdvReac Type Severity Reaction Status Date / Time iodine Allergy Severe ANAPHYLAXIS Verified 03/13/18 18:45 Physical Exam - Constitutional Appears: Non-toxic, No Acute Distress - Head Exam Head Exam: ATRAUMATIC, NORMOCEPHALIC - Eye Exam Eye Exam: EOMI - ENT Exam ENT Exam: Mucous Membranes Moist - Neck Exam Neck exam: Positive for: Full Rom, Normal Inspection - Respiratory Exam Respiratory Exam: NORMAL BREATHING PATTERN. absent: Accessory Muscle Use, Respiratory Distress - GI/Abdominal Exam GI & Abdominal Exam: Soft. absent: Distended, Firm, Guarding, Rebound, Rigid Additional comments: midline wound, grannulation tissue at base, no pus/erythema - Extremities Exam Extremities exam: Positive for: normal inspection. Negative for: calf tenderness - Neurological Exam Neurological exam: Alert, Oriented x3 - Skin Skin Exam: Dry, Normal Color, Warm Results - Vital Signs Recent Vital Signs: Last Vital Signs Temp 98.6 F 03/13/18 18:43 Pulse 96 H 03/13/18 18:43 Resp 18 03/13/18 18:43 BP 120/80 03/13/18 18:43 Pulse Ox 98 03/13/18 19:53 Assessment & Plan - Assessment and Plan (Free Text) Assessment: 72M w. midline wound -Wound vac changed at bedside -Pt to have vac changed in 3 days -d/w attending Jose Angel PGY4 <Thiago Younger - Last Filed: 03/13/18 21:13> Results - Vital Signs Recent Vital Signs: Last Vital Signs Temp 98.6 F 03/13/18 18:43 Pulse 80 03/13/18 20:15 Resp 14 03/13/18 20:15 BP 120/80 03/13/18 20:15 Pulse Ox 99 03/13/18 20:15 Attending/Attestation - Attestation I have fully participated in the care of the patient.: Yes I have reviewed all pertinent clinical information: Yes Notes (Text): Pt with wound vac on abdominal wound High protein diet Local wound care c.w home meds Wound vac change every 3 days f/u as out pt Plan d.w pt in detail
[2018-03-13 20:24] VITALS: PULSE 80; RESP 14; O2SAT 99
== END 2018-03-13 20:15 | disposition home or self-care (01) ==
LOC: C.ER 18:32
DX: Z48.89 Encounter for other specified surgical aftercare (principal)

== ENCOUNTER 2018-03-16 14:43 | Emergency (ER) | payer OTHER ==
[2018-03-16 14:58] VITALS: BMI 31.4
[2018-03-16 15:00] VITALS: RESP 18
--- NOTE | 2018-03-16 15:20 | C.PDOC ---
History Of Present Illness 72 year old male presents to ED s/p hemicolectomy for evaluation of wound check. Pt states he was instructed to return for wound vac in 3 days. Denies any other complaints. Time Seen by Provider: 03/16/18 15:11 Chief Complaint (Nursing): Wound Check History Per: Patient History/Exam Limitations: no limitations Past Medical History Reviewed: Historical Data, Nursing Documentation, Vital Signs Vital Signs: Last Vital Signs Temp 98 F 03/16/18 16:26 Pulse 100 H 03/16/18 16:26 Resp 18 03/16/18 16:26 BP 118/72 03/16/18 16:26 Pulse Ox 100 03/16/18 16:26 - Medical History PMH: Arthritis, Colonic Polyps, Deep Vein Thrombosis ("one year ago" as per patient), Gastritis, Sleep Apnea (POSITIVE STUDY (last year)) Denies: Chronic Kidney Disease Surgical History: Endoscopy - [facility] Procedures (02/06/18) DRAINAGE OF ABD WALL WITH DRAIN DEV, PERC ENDO APPROACH (02/06/18) EXCISION OF ABD SUBCU/FASCIA, OPEN APPROACH (02/06/18) EXCISION OF LARGE INTESTINE, OPEN APPROACH (02/06/18) INTRODUCTION OF NUTRITIONAL INTO PERIPH VEIN, PERC APPROACH (02/06/18) REPAIR MESENTERY, PERCUTANEOUS ENDOSCOPIC APPROACH (02/06/18) RESECTION OF RIGHT LARGE INTESTINE, PERC ENDO APPROACH (02/06/18) Family History: States: Unknown Family Hx - Social History Hx Alcohol Use: No Hx Substance Use: No - Immunization History Hx Tetanus Toxoid Vaccination: No Hx Influenza Vaccination: No Hx Pneumococcal Vaccination: Yes Review Of Systems Except As Marked, All Systems Reviewed And Found Negative. Constitutional: Negative for: Fever, Chills Gastrointestinal: Negative for: Nausea, Vomiting, Diarrhea Skin: Positive for: Other (wound check to abdomen) Physical Exam - Physical Exam Appears: Non-toxic, No Acute Distress Skin: Normal Color, Warm, Dry Head: Atraumatic, Normacephalic Eye(s): bilateral: Normal Inspection Oral Mucosa: Moist Neck: Normal ROM, Supple Cardiovascular: Rhythm Regular, No Murmur Respiratory: Normal Breath Sounds, No Rales, No Rhonchi, No Wheezing Gastrointestinal/Abdominal: Soft, No Tenderness, Other (wound vac to upper abdomen) Extremity: Normal ROM Neurological/Psych: Oriented x3, Normal Speech ED Course And Treatment O2 Sat by Pulse Oximetry: 97 Pulse Ox Interpretation: Normal Medical Decision Making Medical Decision Making: pt for wound chekc. later states he vomitted yesterday x 1. abd soft no ttp. offered labs ivf and zofran. refuses. observed eating in bedside in nad. vac changed by surgery. Disposition - Disposition Disposition: HOME/ ROUTINE Disposition Time: 07:00 Condition: STABLE Additional Instructions: please follow up with your doctor. return to er with worsening symptoms or concerns. you are declining iv fluids and labs tests but you are able to return to any er with any concern. Instructions: Wound Dehiscence, Wound Care (DC) Forms: [employer] (Salvadorean) - Clinical Impression Clinical Impression: Encounter for management of wound VAC, Encounter for postoperative wound check - Scribe Statement The provider has reviewed the documentation as recorded by the Scribe KP All medical record entries made by the Scribe were at my direction and personally dictated by me. I have reviewed the chart and agree that the record accurately reflects my personal performance of the history, physical exam, medical decision making, and the department course for this patient. I have also personally directed, reviewed, and agree with the discharge instructions and disposition.
--- NOTE | 2018-03-16 16:22 | CP.PCM.CON ---
History of Present Illness - History of Present Illness History of Present Illness: Surgery: Dr. Green CC: Wound Vac change HPI: 72M w. chronic wound 2/2 to dehiscence s/p hemicolectomy which is being managed with wound vac / local wound care presents to ED for wound vac change. PMH: right colon adenoma, EC fistula, DEL PSH: Right hemicolectomy, exploratomy laparotomy Meds: MAR reviewed Social: denies tobacco, denies alcohol use Allergies: Iodine Review of Systems - Review of Systems All systems: reviewed and no additional remarkable complaints except (HPI) Past Patient History - Past Medical History & Family History Past Medical History?: Yes - Past Social History Smoking Status: Former Smoker - PULMONARY Hx Sleep Apnea: Yes (POSITIVE STUDY (last year)) - NEUROLOGICAL Hx Neurological Disorder: No - HEENT Hx HEENT Problems: No - RENAL Hx Chronic Kidney Disease: No - ENDOCRINE/METABOLIC Hx Endocrine Disorders: No - HEMATOLOGICAL/ONCOLOGICAL Hx Blood Disorders: No - INTEGUMENTARY Hx Dermatological Problems: No - MUSCULOSKELETAL/RHEUMATOLOGICAL Hx Arthritis: Yes - GASTROINTESTINAL Hx Gastritis: Yes - GENITOURINARY/GYNECOLOGICAL Hx Genitourinary Disorders: No - PSYCHIATRIC Hx Substance Use: No - SURGICAL HISTORY Hx Surgeries: Yes Hx Orthopedic Surgery: Yes (ORIF LEFT ELBOW W PLATE PLACEMENT) Other/Comment: HX: COLON POLYPECTOMY, R hemicolectomy done (02/06) Re-operation for leak of EC fistula/necrotic anastomosis (02/19) - ANESTHESIA Hx Anesthesia: Yes Hx Anesthesia Reactions: No Hx Malignant Hyperthermia: No Meds Allergies/Adverse Reactions: Allergies Allergy/AdvReac Type Severity Reaction Status Date / Time iodine Allergy Severe ANAPHYLAXIS Verified 03/16/18 14:56 Physical Exam - Constitutional Appears: Non-toxic, No Acute Distress - Head Exam Head Exam: ATRAUMATIC, NORMOCEPHALIC - Eye Exam Eye Exam: EOMI. absent: Scleral icterus - ENT Exam ENT Exam: Mucous Membranes Moist - Neck Exam Neck exam: Positive for: Full Rom - Respiratory Exam Respiratory Exam: NORMAL BREATHING PATTERN. absent: Accessory Muscle Use, Respiratory Distress - GI/Abdominal Exam Additional comments: midline wound 9x2cm and 2x2.5cm w. patel fibrin at wound bed, no erythema, no pus , non-tender - Extremities Exam Extremities exam: Negative for: calf tenderness, pedal edema - Neurological Exam Neurological exam: Alert, Oriented x3 - Psychiatric Exam Psychiatric exam: Normal Affect, Normal Mood - Skin Skin Exam: Dry, Normal Color, Warm Results - Vital Signs Recent Vital Signs: Last Vital Signs Temp 98.1 F 03/16/18 14:58 Pulse 101 H 03/16/18 14:58 Resp 18 03/16/18 14:58 BP 112/76 03/16/18 14:58 Pulse Ox 97 03/16/18 15:26 Assessment & Plan - Assessment and Plan (Free Text) Assessment: 72M w. midline wound -wound-vac changed at bedside -pt to follow up w. Dr. Green this -Return to ED if problems arise -d/w attending Zemaitis PGY4
[2018-03-16 16:26] VITALS: BP 118/72; PULSE 100; TEMP 98
[2018-03-16 19:26] VITALS: O2SAT 97
== END 2018-03-16 16:26 | disposition home or self-care (01) ==
LOC: C.ER 14:43
DX: Z48.01 Encounter for change or removal of surgical wound dressing (principal)

== ENCOUNTER 2018-04-17 10:37 | Inpatient (IN) | payer OTHER ==
[2018-04-17 10:44] VITALS: BMI 31.8
[2018-04-17] MEDS ORDERED: Iohexol 240 (50 ml) PO STA (11:38)
[2018-04-17] MEDS ORDERED: Sodium Chloride 0.9% 500 ML IV ONE (11:43)
[2018-04-17 11:58] LABS: BASO % 0.3 % (0.0-2.0); EOS # 0.2 K/uL (0.0-0.7); EOS % 3.3 % (0.0-4.0); LYMPH # 1.6 K/uL (1.0-4.3); MEAN CORPUSCULAR HEMOGLOBIN 27.1 pg (27.0-31.0); MEAN CORPUSCULAR HGB CONC 33.3 g/dL (33.0-37.0); MEAN PLATELET VOLUME 8.1 fL (7.2-11.7); MONO # 0.4 K/uL (0.0-0.8); MONO % 6.4 % (0.0-10.0); NEUT # 4.1 K/uL (1.8-7.0); RBC 4.44 Mil/uL (4.40-5.90); RED CELL DISTRIBUTION WIDTH 15.9 % (11.5-14.5); WHITE BLOOD COUNT 6.3 K/uL (4.8-10.8)
[2018-04-17 12:00] LABS: MEAN CELL VOLUME 81.4 fL (80.0-94.0)
[2018-04-17 12:05] LABS: URINE BILIRUBIN NEGATIVE (NEGATIVE); URINE BLOOD NEGATIVE (NEGATIVE); URINE CLARITY Clear (Clear); URINE COLOR Yellow (YELLOW); URINE GLUCOSE (UA) NORMAL (Normal); URINE LEUKOCYTE ESTERASE TRACE Leu/uL (Negative); URINE PROTEIN NEGATIVE (NEGATIVE); URINE UROBILINOGEN NORMAL mg/dL (0.2-1.0)
--- NOTE | 2018-04-17 12:08 | RAD ---
Date of service: 04/17/2018 PROCEDURE: CHEST RADIOGRAPH, 1 VIEW HISTORY: Pre Op COMPARISON: 03/03/2018 FINDINGS: LUNGS: Clear. PLEURA: No pneumothorax or pleural fluid seen. CARDIOVASCULAR: Normal. OSSEOUS STRUCTURES: No significant abnormalities. VISUALIZED UPPER ABDOMEN: Normal. OTHER FINDINGS: None. IMPRESSION: No active disease.
[2018-04-17 12:10] LABS: INR 1.1
[2018-04-17] MEDS ORDERED: Iohexol 240 (50 ml) ONE (12:21)
[2018-04-17 12:29] LABS: ALB/GLOB RATIO 1.2 (1.0-2.1); ALBUMIN 3.4 g/dL (3.5-5.0); ALT/SGPT 23 U/L (21-72); AST/SGOT 22 U/L (17-59); BLOOD UREA NITROGEN 10 mg/dL (9-20); CALCIUM 8.6 mg/dl (8.6-10.4); GFR AFRICAN-AMERICAN > 60; GFR NON-AFRICAN AMERICAN > 60
--- NOTE | 2018-04-17 13:39 | C.PDOC ---
History Of Present Illness 72 y/o male presents to ED for further evaluation of wound infection. Patient had surgery [address] Green and had wound check in clinic today, noted to have purulent drainage for several days. Patient denies fever or any other complaints at this time. Time Seen by Provider: 04/17/18 10:53 Chief Complaint (Nursing): Abdominal Pain History Per: Patient History/Exam Limitations: no limitations Onset/Duration Of Symptoms: Days Current Symptoms Are (Timing): Still Present Location Of Pain/Discomfort: Diffuse Past Medical History Reviewed: Historical Data, Nursing Documentation, Vital Signs Vital Signs: Last Vital Signs Temp 98.0 F 04/17/18 17:54 Pulse 81 04/17/18 17:54 Resp 20 04/17/18 17:54 BP 131/82 04/17/18 17:54 Pulse Ox 95 04/17/18 17:54 - Medical History PMH: Arthritis, Colonic Polyps, Deep Vein Thrombosis ("one year ago" as per patient), Gastritis, Sleep Apnea (POSITIVE STUDY (last year)) Surgical History: Endoscopy - [facility] Procedures (02/06/18) DRAINAGE OF ABD WALL WITH DRAIN DEV, PERC ENDO APPROACH (02/06/18) EXCISION OF ABD SUBCU/FASCIA, OPEN APPROACH (02/06/18) EXCISION OF LARGE INTESTINE, OPEN APPROACH (02/06/18) INTRODUCTION OF NUTRITIONAL INTO PERIPH VEIN, PERC APPROACH (02/06/18) REPAIR MESENTERY, PERCUTANEOUS ENDOSCOPIC APPROACH (02/06/18) RESECTION OF RIGHT LARGE INTESTINE, PERC ENDO APPROACH (02/06/18) Family History: States: No Known Family Hx - Social History Hx Alcohol Use: No Hx Substance Use: No - Immunization History Hx Tetanus Toxoid Vaccination: No Hx Influenza Vaccination: No Hx Pneumococcal Vaccination: Yes Review Of Systems Constitutional: Negative for: Fever, Chills Gastrointestinal: Positive for: Abdominal Pain. Negative for: Nausea, Vomiting Skin: Negative for: Rash Physical Exam - Physical Exam Appears: Non-toxic, No Acute Distress Skin: Warm, Dry, No Rash Head: Atraumatic, Normacephalic Eye(s): bilateral: Normal Inspection Oral Mucosa: Moist Neck: Supple Cardiovascular: Rhythm Regular Respiratory: Normal Breath Sounds, No Rales, No Rhonchi, No Wheezing Gastrointestinal/Abdominal: Soft, No Tenderness, No Guarding, No Rebound, Other (large mid abdomen wound with active purulent drainage) Back: No CVA Tenderness, No Paraspinal Tenderness Extremity: Normal ROM, Capillary Refill (<2 seconds) Neurological/Psych: Oriented x3, Normal Speech, Normal Cognition ED Course And Treatment - Laboratory Results Result Diagrams: 04/17/18 11:53 04/17/18 11:53 O2 Sat by Pulse Oximetry: 96 (RA) Pulse Ox Interpretation: Normal Medical Decision Making Medical Decision Making: The case was discussed with Dr. Saúl Green, who wants to admit the patient for IV antibiotics as the patient has active purulent drainage. Disposition - Disposition Disposition: HOSPITALIZED Disposition Time: 13:38 Condition: STABLE - Clinical Impression Clinical Impression: Postoperative abdominal pain, Intra-abdominal infection - PA / WOODWORKING MACHINIST / Resident Statement MD/DO has reviewed & agrees with the documentation as recorded. - Scribe Statement The provider has reviewed the documentation as recorded by the Jvibdane Neumann All medical record entries made by the Jvibdane were at my direction and personally dictated by me. I have reviewed the chart and agree that the record accurately reflects my personal performance of the history, physical exam, medical decision making, and the department course for this patient. I have also personally directed, reviewed, and agree with the discharge instructions and disposition.
[2018-04-17] MEDS ORDERED: Piperacillin/Tazobact 3.375 gm 100 ML IV STA (13:42)
[2018-04-17] MEDS ORDERED: Fluconazole IV 400mg/200ml NS 200 ML IVPB STA (13:43)
[2018-04-17] MEDS ORDERED: metroNIDAZOLE IV 500 mg/100 ml 500 MG/100 ML BAG IV SCH (13:45)
[2018-04-17] MEDS ORDERED: Piperacillin/Tazobact 3.375 gm 100 ML IVPB ONE (14:07)
--- NOTE | 2018-04-17 15:26 | CT ---
Date of service: 04/17/2018 PROCEDURE: CT Abdomen and Pelvis without intravenous contrast HISTORY: ? intra-abd infection, ? fistula, COMPARISON: 04/09/2018 TECHNIQUE: Without contrast.. Contrast dose: 0 Radiation dose: Total exam DLP = 1174.20 mGy-cm. This CT exam was performed using one or more of the following dose reduction techniques: Automated exposure control, adjustment of the mA and/or kV according to patient size, and/or use of iterative reconstruction technique. FINDINGS: LOWER THORAX: Linear scar/ atelectasis in right lower lobe. LIVER: Unremarkable. No gross lesion or ductal dilatation. GALLBLADDER AND BILE DUCTS: Unremarkable. PANCREAS: Unremarkable. No gross lesion or ductal dilatation. SPLEEN: Unremarkable. ADRENALS: 12 mm right adrenal nodule, likely adrenal adenoma. Too small to characterize in terms of attenuation. Unremarkable left adrenal gland. . KIDNEYS AND URETERS: Unremarkable. No hydronephrosis. No solid mass. VASCULATURE: Unremarkable. No aortic aneurysm. BOWEL: Status post right hemicolectomy. Ileocolic anastomosis in right upper quadrant. No bowel obstruction. Abnormal soft tissue density along the anterior wall of small bowel loops in the mid/ upper abdomen unchanged in appearance compared to prior examination. There is associated mural thickening of these loops of small bowel adjacent to the anterior abdominal wall. A similar process is seen involving at least 1 loop of small bowel along the right lateral abdominal wall. Possible postsurgical changes. This is again unchanged in appearance when compared to the prior examination. There is an apparent in capsulated structure containing soft tissue and fat attenuation in the right upper quadrant of the abdomen just inferior to the gallbladder with calcification or calcified suture material in its wall at several points. This is unchanged in appearance compared to the prior examination. This may represent an area of necrosis, possibly related to prior surgery. There is no gas to suggest an acute infectious process. APPENDIX: Right hemicolectomy PERITONEUM: No ascites. No pneumoperitoneum. LYMPH NODES: Unremarkable. No enlarged lymph nodes. BLADDER: Unremarkable. REPRODUCTIVE: Normal prostate BONES: No acute fracture. OTHER FINDINGS: None. IMPRESSION: No significant change since 04/09/2018. Possible fat necrosis in right upper quadrant. Loops of small bowel apparent to the anterior right lateral abdominal wall with mural thickening along the anti mesenteric border, possibly infectious/inflammatory but not changed since 04/09/2018. No drainable collection identified. Status post right hemicolectomy and ileocolonic anastomosis. No other significant abnormality.
[2018-04-17] MEDS ORDERED: metroNIDAZOLE IV 500 mg/100 ml 500 MG/100 ML BAG ONE (15:33)
[2018-04-17] MEDS ORDERED: metroNIDAZOLE IV 500 mg/100 ml 500 MG/100 ML BAG IV ONE (16:00)
[2018-04-17 16:53] VITALS: RESP 20
[2018-04-17] MEDS: Sodium Chloride 0.9% 1,000 ML IV SCH (16:56)
--- NOTE | 2018-04-17 19:15 | CP.PCM.HP ---
<Mynor Walter - Last Filed: 04/17/18 19:34> History of Present Illness - History of Present Illness History of Present Illness: Surgery: Dr. Green CC: Chronic non-healing wound HPI: 72M with psh of Laparoscopic R hemicolectomy in January 2018 complicated by enterocutaneous fistula and post-operative bleeding requiring take backs. Pt presents for chronic non-healing midline wound and complaints of general weakness and fatigue. Pt's wound has been managed out patient with local wound care with minimal progress. The inferior portion of the wound is now starting to drain sero/purulent fluid. The pt denies any fevers or chills. He has decreased appetite but is able to tolerate diet. He denies nausea and vomiting, he is having normal BM. He does have complaints of constant R thigh pain with no alleviating or aggravating factors which has been increasing in severity over past month. PMH: right colon adenoma, EC fistula, DVT, LEO PSH: Right hemicolectomy, exploratomy laparotomy Meds: MAR reviewed Social: denies tobacco, denies alcohol use Allergies: Iodine Family hx: non-contributory Present on Admission - Present on Admission Any Indicators Present on Admission: Yes History of DVT/PE: Yes Review of Systems - Review of Systems All systems: reviewed and no additional remarkable complaints except (HPI) Past Patient History - Past Medical History & Family History Past Medical History?: Yes - Past Social History Smoking Status: Former Smoker - PULMONARY Hx Sleep Apnea: Yes (POSITIVE STUDY (last year)) - NEUROLOGICAL Hx Neurological Disorder: No - HEENT Hx HEENT Problems: No - RENAL Hx Chronic Kidney Disease: No - ENDOCRINE/METABOLIC Hx Endocrine Disorders: No - HEMATOLOGICAL/ONCOLOGICAL Hx Blood Disorders: No - INTEGUMENTARY Hx Dermatological Problems: No - MUSCULOSKELETAL/RHEUMATOLOGICAL Hx Arthritis: Yes - GASTROINTESTINAL Hx Gastritis: Yes - GENITOURINARY/GYNECOLOGICAL Hx Genitourinary Disorders: No - PSYCHIATRIC Hx Substance Use: No - SURGICAL HISTORY Other/Comment: bowel resection - ANESTHESIA Hx Anesthesia: Yes Hx Anesthesia Reactions: No Hx Malignant Hyperthermia: No Meds Allergies/Adverse Reactions: Allergies Allergy/AdvReac Type Severity Reaction Status Date / Time iodine Allergy Severe ANAPHYLAXIS Verified 04/17/18 10:42 Physical Exam - Constitutional Appears: Non-toxic, No Acute Distress - Head Exam Head Exam: ATRAUMATIC, NORMOCEPHALIC - Eye Exam Eye Exam: EOMI - ENT Exam ENT Exam: Mucous Membranes Moist, Normal External Ear Exam - Neck Exam Neck exam: Positive for: Full Rom - Respiratory Exam Respiratory Exam: NORMAL BREATHING PATTERN. absent: Accessory Muscle Use, Respiratory Distress - Cardiovascular Exam Cardiovascular Exam: REGULAR RHYTHM - GI/Abdominal Exam GI & Abdominal Exam: Soft. absent: Distended, Firm, Guarding, Rebound, Rigid, Tenderness Additional comments: chronic midline wound 9x2cm and 2x2.5cm w. patel fibrin at wound bed, decreased from prior exams, non-tender, some purulent drainage noted from lower wound, no odor - Extremities Exam Additional comments: R thigh pain, normal ROM, no obvious deformity - Neurological Exam Neurological exam: Alert, Oriented x3 - Psychiatric Exam Psychiatric exam: Normal Affect, Normal Mood Results - Vital Signs Recent Vital Signs: Last Vital Signs Temp 98.0 F 04/17/18 17:54 Pulse 81 04/17/18 17:54 Resp 20 04/17/18 17:54 BP 131/82 04/17/18 17:54 Pulse Ox 96 04/17/18 18:54 - Labs Result Diagrams: 04/17/18 11:53 04/17/18 11:53 Labs: Laboratory Results - last 24 hr 04/17/18 04/17/18 04/17/18 11:53 11:53 11:53 WBC 6.3 RBC 4.44 Hgb 12.0 Hct 36.1 MCV 81.4 D MCH 27.1 MCHC 33.3 RDW 15.9 H Plt Count 252 MPV 8.1 Neut % (Auto) 65.0 Lymph % (Auto) 25.0 [place] % (Auto) 6.4 Eos % (Auto) 3.3 Baso % (Auto) 0.3 Neut # (Auto) 4.1 Lymph # (Auto) 1.6 [place] # (Auto) 0.4 Eos # (Auto) 0.2 Baso # (Auto) 0.0 PT INR APTT Sodium 144 Potassium 3.6 Chloride 106 Carbon Dioxide 30 Anion Gap 11 BUN 10 Creatinine 1.0 Est GFR ( Amer) > 60 Est GFR (Non-Af Amer) > 60 POC Glucose (mg/dL) Random Glucose 125 H Calcium 8.6 Phosphorus 2.3 L Magnesium 1.9 Total Bilirubin 0.3 AST 22 ALT 23 Alkaline Phosphatase 140 H D Total Protein 6.3 Albumin 3.4 L Globulin 2.9 Albumin/Globulin Ratio 1.2 Prealbumin Vitamin B12 Urine Color Yellow Urine Clarity Clear Urine pH 5.0 Ur Specific [place] 1.014 Urine Protein Negative Urine Glucose (UA) Normal Urine Ketones Negative Urine Blood Negative Urine Nitrate Negative Urine Bilirubin Negative Urine Urobilinogen Normal Ur Leukocyte Esterase Trace Urine WBC (Auto) 1 Urine RBC (Auto) < 1 04/17/18 04/17/18 04/17/18 11:53 11:53 11:53 WBC RBC Hgb Hct MCV MCH MCHC RDW Plt Count MPV Neut % (Auto) Lymph % (Auto) [place] % (Auto) Eos % (Auto) Baso % (Auto) Neut # (Auto) Lymph # (Auto) [place] # (Auto) Eos # (Auto) Baso # (Auto) PT 12.0 INR 1.1 APTT 32 Sodium Potassium Chloride Carbon Dioxide Anion Gap BUN Creatinine Est GFR ( Amer) Est GFR (Non-Af Amer) POC Glucose (mg/dL) Random Glucose Calcium Phosphorus Magnesium Total Bilirubin AST ALT Alkaline Phosphatase Total Protein Albumin Globulin Albumin/Globulin Ratio Prealbumin 24.5 Vitamin B12 224 L Urine Color Urine Clarity Urine pH Ur Specific [place] Urine Protein Urine Glucose (UA) Urine Ketones Urine Blood Urine Nitrate Urine Bilirubin Urine Urobilinogen Ur Leukocyte Esterase Urine WBC (Auto) Urine RBC (Auto) 04/17/18 17:22 WBC RBC Hgb Hct MCV MCH MCHC RDW Plt Count MPV Neut % (Auto) Lymph % (Auto) [place] % (Auto) Eos % (Auto) Baso % (Auto) Neut # (Auto) Lymph # (Auto) [place] # (Auto) Eos # (Auto) Baso # (Auto) PT INR APTT Sodium Potassium Chloride Carbon Dioxide Anion Gap BUN Creatinine Est GFR ( Amer) Est GFR (Non-Af Amer) POC Glucose (mg/dL) 95 Random Glucose Calcium Phosphorus Magnesium Total Bilirubin AST ALT Alkaline Phosphatase Total Protein Albumin Globulin Albumin/Globulin Ratio Prealbumin Vitamin B12 Urine Color Urine Clarity Urine pH Ur Specific [place] Urine Protein Urine Glucose (UA) Urine Ketones Urine Blood Urine Nitrate Urine Bilirubin Urine Urobilinogen Ur Leukocyte Esterase Urine WBC (Auto) Urine RBC (Auto) - Imaging and Cardiology CT scan - abdomen Status: Image reviewed by me, Report reviewed by me Assessment & Plan - Assessment and Plan (Free Text) Assessment: 72M s/p colectomy complicated by EC fistula and bleeding presents with chronic non-healing wound w. concerns for fistula -NPO w. ice chips -PICC line ordered, will start TPN when line in place -Consult ID- broad spectrum abx -Wound Care consulted, will place wound vac -F/U cxs -GI/DVT ppx -d/w attending Jose Angel PGY4 Decision To Admit - Pt Status Changed To: Hospital Disposition Of: Inpatient - Admit Certification Admit to Inpatient:: After my assessment, the patient will require hospitalization for at least two midnights. This is because of the severity of symptoms shown, intensity of services needed, and/or the medical risk in this patient being treated as an outpatient. - InPatient: Physician Admission Certification:: yes - . Bed Request Type: Regular <Saúl Green - Last Filed: 04/17/18 20:32> Results - Vital Signs Recent Vital Signs: Last Vital Signs Temp 98.0 F 04/17/18 17:54 Pulse 81 04/17/18 17:54 Resp 20 04/17/18 17:54 BP 131/82 04/17/18 17:54 Pulse Ox 96 04/17/18 18:54 - Labs Result Diagrams: 04/17/18 11:53 04/17/18 11:53 Labs: Laboratory Results - last 24 hr 04/17/18 04/17/18 04/17/18 11:53 11:53 11:53 WBC 6.3 RBC 4.44 Hgb 12.0 Hct 36.1 MCV 81.4 D MCH 27.1 MCHC 33.3 RDW 15.9 H Plt Count 252 MPV 8.1 Neut % (Auto) 65.0 Lymph % (Auto) 25.0 [place] % (Auto) 6.4 Eos % (Auto) 3.3 Baso % (Auto) 0.3 Neut # (Auto) 4.1 Lymph # (Auto) 1.6 [place] # (Auto) 0.4 Eos # (Auto) 0.2 Baso # (Auto) 0.0 PT INR APTT Sodium 144 Potassium 3.6 Chloride 106 Carbon Dioxide 30 Anion Gap 11 BUN 10 Creatinine 1.0 Est GFR ( Amer) > 60 Est GFR (Non-Af Amer) > 60 POC Glucose (mg/dL) Random Glucose 125 H Calcium 8.6 Phosphorus 2.3 L Magnesium 1.9 Total Bilirubin 0.3 AST 22 ALT 23 Alkaline Phosphatase 140 H D Total Protein 6.3 Albumin 3.4 L Globulin 2.9 Albumin/Globulin Ratio 1.2 Prealbumin Vitamin B12 Urine Color Yellow Urine Clarity Clear Urine pH 5.0 Ur Specific [place] 1.014 Urine Protein Negative Urine Glucose (UA) Normal Urine Ketones Negative Urine Blood Negative Urine Nitrate Negative Urine Bilirubin Negative Urine Urobilinogen Normal Ur Leukocyte Esterase Trace Urine WBC (Auto) 1 Urine RBC (Auto) < 1 04/17/18 04/17/18 04/17/18 11:53 11:53 11:53 WBC RBC Hgb Hct MCV MCH MCHC RDW Plt Count MPV Neut % (Auto) Lymph % (Auto) [place] % (Auto) Eos % (Auto) Baso % (Auto) Neut # (Auto) Lymph # (Auto) [place] # (Auto) Eos # (Auto) Baso # (Auto) PT 12.0 INR 1.1 APTT 32 Sodium Potassium Chloride Carbon Dioxide Anion Gap BUN Creatinine Est GFR ( Amer) Est GFR (Non-Af Amer) POC Glucose (mg/dL) Random Glucose Calcium Phosphorus Magnesium Total Bilirubin AST ALT Alkaline Phosphatase Total Protein Albumin Globulin Albumin/Globulin Ratio Prealbumin 24.5 Vitamin B12 224 L Urine Color Urine Clarity Urine pH Ur Specific [place] Urine Protein Urine Glucose (UA) Urine Ketones Urine Blood Urine Nitrate Urine Bilirubin Urine Urobilinogen Ur Leukocyte Esterase Urine WBC (Auto) Urine RBC (Auto) 04/17/18 17:22 WBC RBC Hgb Hct MCV MCH MCHC RDW Plt Count MPV Neut % (Auto) Lymph % (Auto) [place] % (Auto) Eos % (Auto) Baso % (Auto) Neut # (Auto) Lymph # (Auto) [place] # (Auto) Eos # (Auto) Baso # (Auto) PT INR APTT Sodium Potassium Chloride Carbon Dioxide Anion Gap BUN Creatinine Est GFR ( Amer) Est GFR (Non-Af Amer) POC Glucose (mg/dL) 95 Random Glucose Calcium Phosphorus Magnesium Total Bilirubin AST ALT Alkaline Phosphatase Total Protein Albumin Globulin Albumin/Globulin Ratio Prealbumin Vitamin B12 Urine Color Urine Clarity Urine pH Ur Specific [place] Urine Protein Urine Glucose (UA) Urine Ketones Urine Blood Urine Nitrate Urine Bilirubin Urine Urobilinogen Ur Leukocyte Esterase Urine WBC (Auto) Urine RBC (Auto) Assessment & Plan - Assessment and Plan (Free Text) Plan: I personally saw and examined the patient with the resident staff and agree with the above assessment and plan. I personally reviewed the available diagnostic images and imaging reports. See clinic visit progress note for further details
[2018-04-17] MEDS: (Novolin R) Insulin Human Regular 100 units/ml vial SC SCH (21:57)
[2018-04-18] MEDS: metroNIDAZOLE IV 500 mg/100 ml 500 MG/100 ML BAG IVPB SCH ×4 (00:09→23:56)
[2018-04-18] MEDS: Piperacill/Tazo 3.375gm in Dex 3.375 GM/50 ML BAG IVPB SCH ×4 (00:10→23:56)
[2018-04-18] MEDS: (Novolin R) Insulin Human Regular 100 units/ml vial SC SCH ×4 (07:39→21:22)
[2018-04-18] MEDS: Sodium Chloride 0.9% 1,000 ML IV SCH (07:45)
[2018-04-18 09:29] LABS: HEMOGLOBIN 11.6 g/dL (12.0-18.0); MEAN CELL VOLUME 80.6 fL (80.0-94.0); MEAN CORPUSCULAR HEMOGLOBIN 26.7 pg (27.0-31.0); MEAN CORPUSCULAR HGB CONC 33.1 g/dL (33.0-37.0); MEAN PLATELET VOLUME 8.3 fL (7.2-11.7); RBC 4.35 Mil/uL (4.40-5.90); RED CELL DISTRIBUTION WIDTH 15.5 % (11.5-14.5); WHITE BLOOD COUNT 5.2 K/uL (4.8-10.8)
[2018-04-18 09:52] LABS: BLOOD UREA NITROGEN 5 mg/dL (9-20); CALCIUM 8.5 mg/dl (8.6-10.4); GFR AFRICAN-AMERICAN > 60; GFR NON-AFRICAN AMERICAN > 60
[2018-04-18] MEDS: Enoxaparin 30 mg Syringe SC SCH (09:56)
[2018-04-18] MEDS: Collagenase 250 Units/gm Ointment(30 gm) TOP SCH (11:07)
--- NOTE | 2018-04-18 11:31 | RAD ---
Date of service: 04/18/2018 HISTORY: PICC Insertion COMPARISON: 04/17/2018 FINDINGS: LUNGS: No active pulmonary disease. PLEURA: No significant pleural effusion identified, no pneumothorax apparent. CARDIOVASCULAR: New right PICC catheter terminating in the region of superior vena cava. OSSEOUS STRUCTURES: No significant abnormalities. VISUALIZED UPPER ABDOMEN: Normal. OTHER FINDINGS: None. IMPRESSION: New right PICC catheter terminating in the region of the superior vena cava. Otherwise unremarkable.
--- NOTE | 2018-04-18 13:45 | CP.PCM.PN ---
Subjective - Date & Time of Evaluation Date of Evaluation: 04/18/18 Time of Evaluation: 13:44 - Subjective Subjective: Surgery: Dr. Green Pt seen and examine. No acute events overnight. Pt is resting comfortably in bed. No F/C. No abd pain. No N/V/D. Objective - Vital Signs/Intake and Output Vital Signs (last 24 hours): Temp Pulse Resp BP Pulse Ox 97.9 F 72 20 122/82 97 04/18/18 08:00 04/18/18 08:00 04/18/18 08:00 04/18/18 08:00 04/18/18 08:00 Intake and Output: 04/18/18 04/18/18 06:59 18:59 Output Total 600 Balance -600 - Medications Medications: Current Medications Collagenase (Santyl) 1 gm TOP DAILY [facility] Last Admin: 04/18/18 11:07 Dose: 1 applic Enoxaparin Sodium (Lovenox) 30 mg SC DAILY [facility] Last Admin: 04/18/18 09:56 Dose: 30 mg Gabapentin (Neurontin) 100 mg PO TID [facility] Last Admin: 04/18/18 13:08 Dose: 100 mg Sodium Chloride (Sodium Chloride 0.9%) 1,000 mls @ 75 mls/hr IV .[id number] [facility] Last Admin: 04/18/18 07:45 Dose: 75 mls/hr Piperacillin Sod/Tazobactam Sod (Zosyn 3.375 Gm Iv Premix) 3.375 gm in 50 mls @ 100 mls/hr IVPB Q8H [facility] PRN Reason: Protocol Last Admin: 04/18/18 08:00 Dose: 100 mls/hr Metronidazole (Flagyl) 500 mg in 100 mls @ 100 mls/hr IVPB Q8H [facility] PRN Reason: Protocol Last Admin: 04/18/18 08:40 Dose: 100 mls/hr Fat Emulsion Intravenous (Intralipid 20%) 250 mls @ 42 mls/hr IV DAILY@1800 [facility] Stop: 04/18/18 23:58 Chromium/Copper/Manganese/Zinc 1 ml/ Multivitamins/Vitamin C 10 ml/ Sodium Chloride 35 meq / Potassium Phosphate 30 mmole / Heparin Sodium (Porcine) 1, 000 units/ Magnesium Sulfate 6 meq/ Amino Acids 1,032.2278 mls @ 42 mls/hr IV .Q24H ONE Stop: 04/19/18 17:59 Insulin Human Regular (Novolin R) 0 unit SC ACHS [facility] PRN Reason: Protocol Last Admin: 04/18/18 11:33 Dose: Not Given Pantoprazole Sodium (Protonix Inj) 40 mg IVP DAILY [facility] Last Admin: 04/18/18 09:56 Dose: 40 mg - Labs Labs: 04/18/18 09:22 04/18/18 09:22 PT 12.0 SECONDS (9.7-12.2) 04/17/18 11:53 INR 1.1 04/17/18 11:53 APTT 32 SECONDS (21-34) 04/17/18 11:53 - Constitutional Appears: Non-toxic, No Acute Distress - Head Exam Head Exam: ATRAUMATIC, NORMOCEPHALIC - Eye Exam Eye Exam: EOMI - ENT Exam ENT Exam: Mucous Membranes Moist - Neck Exam Neck Exam: Full ROM - Respiratory Exam Respiratory Exam: NORMAL BREATHING PATTERN. absent: Accessory Muscle Use, Respiratory Distress - GI/Abdominal Exam GI & Abdominal Exam: Soft. absent: Distended, Firm, Guarding, Rigid, Tenderness , Rebound Additional comments: chronic midline wound 9x2cm and 2x2.5cm w. patel fibrin at wound bed, decreased from prior exams, non-tender, some purulent drainage noted from lower wound, no odor - Extremities Exam Extremities Exam: absent: Calf Tenderness, Pedal Edema - Neurological Exam Neurological Exam: Alert, Awake, Oriented x3 Assessment and Plan - Assessment and Plan (Free Text) Assessment: 72M s/p colectomy complicated by EC fistula and bleeding presents with chronic non-healing wound w. concerns for fistula -NPO w. ice chips -PICC line placed, will start TPN -ABX per ID -Wound vac placed, will change Q3-4 days -F/U cxs -GI/DVT ppx -d/w attending Zekaminiitis PGY4
--- NOTE | 2018-04-18 14:00 | CP.PCM.CON ---
History of Present Illness - History of Present Illness History of Present Illness: INFECTIOUS DISEASE CONSULT; Reason for consult ; Nonhealing wound/enterocutaneous fistula s/p exploratory laparotomy and RIGHT HEMICOLECTOMY. HPI: 72 year old [place]an-speaking male was admitted on 04/17/18 for nonhealing postsurgical wound which he developed after laparoscopy/right hemicolectomy in January 2018. Patient states he was managed as outpatient with local wound care and wound vacs which he managed as outpatient. Patient states he had to go for surgical intervention 3 times previously. Patient now comes in with seropurulent wound drainage from the enterocutaneous fistula. Patient denies any fever or chills but states he has poor appetite but is able to tolerate diet. Denies any nausea or vomiting. Patient seen today post operatively after having a wound VAC placed today and also with right upper arm PICC line placement. History obtained by an traffic sign erection supervisor JESSE Dumont. On admission patient was appropriately cultured and given a dose of Diflucan 400 mg with IV Zosyn 1 dose and IV Flagyl one dose in the ER. Infectious disease consult requested by PMD for IV antibiotics. PMH: right colon adenoma, EC fistula, DVT, LEO PSH: Right hemicolectomy, exploratomy laparotomy Meds: MAR reviewed Social: denies tobacco, denies alcohol use Allergies: Iodine Family hx: non-contributory Review of Systems - Constitutional Constitutional: Anorexia. absent: Chills, Fever - EENT Nose/Mouth/Throat: absent: Mouth Lesions, Odynophagia - Cardiovascular Cardiovascular: absent: Chest Pain, Dyspnea - Respiratory Respiratory: absent: Cough - Gastrointestinal Gastrointestinal: Change in Bowel Habits. absent: Abdominal Pain, Nausea, Vomiting - Genitourinary Genitourinary: absent: Dysuria, Urinary Hesitance, Freq UTI - Neurological Neurological: absent: Dizziness, Headaches - Hematologic/Lymphatic Hematologic: As Per HPI. absent: Lymphadenopathy Past Patient History - Past Medical History & Family History Past Medical History?: Yes - Past Social History Smoking Status: Former Smoker - PULMONARY Hx Respiratory Disorders: Yes Hx Sleep Apnea: Yes (POSITIVE STUDY (last year)) - NEUROLOGICAL Hx Neurological Disorder: No - HEENT Hx HEENT Problems: No - RENAL Hx Chronic Kidney Disease: No - ENDOCRINE/METABOLIC Hx Endocrine Disorders: No - HEMATOLOGICAL/ONCOLOGICAL Hx Blood Disorders: No - INTEGUMENTARY Hx Dermatological Problems: No Other/Comment: INFECTED SURGICAL WOUND - MUSCULOSKELETAL/RHEUMATOLOGICAL Hx Musculoskeletal Disorders: Yes Hx Arthritis: Yes - GASTROINTESTINAL Hx Gastrointestinal Disorders: Yes Hx Gastritis: Yes - GENITOURINARY/GYNECOLOGICAL Hx Genitourinary Disorders: No - PSYCHIATRIC Hx Psychophysiologic Disorder: No Hx Substance Use: No - SURGICAL HISTORY Other/Comment: bowel resection - ANESTHESIA Hx Anesthesia: Yes Hx Anesthesia Reactions: No Hx Malignant Hyperthermia: No Has any member of the family had a problem w/ anesthesia?: No Meds Allergies/Adverse Reactions: Allergies Allergy/AdvReac Type Severity Reaction Status Date / Time iodine Allergy Severe ANAPHYLAXIS Verified 04/17/18 10:42 - Medications Medications: Current Medications Collagenase (Santyl) 1 gm TOP DAILY [facility] Last Admin: 04/18/18 11:07 Dose: 1 applic Enoxaparin Sodium (Lovenox) 30 mg SC DAILY [facility] Last Admin: 04/18/18 09:56 Dose: 30 mg Gabapentin (Neurontin) 100 mg PO TID [facility] Last Admin: 04/18/18 13:08 Dose: 100 mg Sodium Chloride (Sodium Chloride 0.9%) 1,000 mls @ 75 mls/hr IV .[id number] [facility] Last Admin: 04/18/18 07:45 Dose: 75 mls/hr Piperacillin Sod/Tazobactam Sod (Zosyn 3.375 Gm Iv Premix) 3.375 gm in 50 mls @ 100 mls/hr IVPB Q8H [facility] PRN Reason: Protocol Last Admin: 04/18/18 08:00 Dose: 100 mls/hr Metronidazole (Flagyl) 500 mg in 100 mls @ 100 mls/hr IVPB Q8H [facility] PRN Reason: Protocol Last Admin: 04/18/18 08:40 Dose: 100 mls/hr Fat Emulsion Intravenous (Intralipid 20%) 250 mls @ 42 mls/hr IV DAILY@1800 [facility] Stop: 04/18/18 23:58 Chromium/Copper/Manganese/Zinc 1 ml/ Multivitamins/Vitamin C 10 ml/ Sodium Chloride 35 meq / Potassium Phosphate 30 mmole / Heparin Sodium (Porcine) 1, 000 units/ Magnesium Sulfate 6 meq/ Amino Acids 1,032.2278 mls @ 42 mls/hr IV .Q24H ONE Stop: 04/19/18 17:59 Insulin Human Regular (Novolin R) 0 unit SC ACHS [facility] PRN Reason: Protocol Last Admin: 04/18/18 11:33 Dose: Not Given Pantoprazole Sodium (Protonix Inj) 40 mg IVP DAILY [facility] Last Admin: 04/18/18 09:56 Dose: 40 mg Physical Exam - Constitutional Appears: No Acute Distress - Head Exam Head Exam: NORMAL INSPECTION - Eye Exam Eye Exam: PERRL - ENT Exam ENT Exam: Normal Oropharynx - Neck Exam Neck exam: Positive for: Normal Inspection (no) - Respiratory Exam Respiratory Exam: Clear to Auscultation Bilateral - Cardiovascular Exam Cardiovascular Exam: REGULAR RHYTHM, +S1, +S2 - GI/Abdominal Exam GI & Abdominal Exam: Hypoactive Bowel Sounds, Soft, Tenderness (AROUND THE WOUND. +VE VAC) - Extremities Exam Extremities exam: Positive for: pedal pulses present. Negative for: calf tenderness, pedal edema - Neurological Exam Neurological exam: Alert, CN II-XII Intact, Oriented x3, Reflexes Normal - Skin Skin Exam: Normal Color Results - Vital Signs Recent Vital Signs: Last Vital Signs Temp 97.9 F 04/18/18 08:00 Pulse 72 04/18/18 08:00 Resp 20 04/18/18 08:00 BP 122/82 04/18/18 08:00 Pulse Ox 97 04/18/18 08:00 - Labs Result Diagrams: 04/18/18 09:22 04/18/18 09:22 Labs: Laboratory Results - last 24 hr 04/17/18 04/17/18 04/17/18 11:53 17:22 21:55 WBC RBC Hgb Hct MCV MCH MCHC RDW Plt Count MPV Sodium Potassium Chloride Carbon Dioxide Anion Gap BUN Creatinine Est GFR ( Amer) Est GFR (Non-Af Amer) POC Glucose (mg/dL) 95 82 Random Glucose Calcium Magnesium Vitamin B12 224 L 04/18/18 04/18/18 04/18/18 07:14 09:22 09:22 WBC 5.2 RBC 4.35 L Hgb 11.6 L Hct 35.1 MCV 80.6 MCH 26.7 L MCHC 33.1 RDW 15.5 H Plt Count 238 MPV 8.3 Sodium 145 Potassium 3.2 L Chloride 109 H Carbon Dioxide 28 Anion Gap 11 BUN 5 L Creatinine 0.8 Est GFR ( Amer) > 60 Est GFR (Non-Af Amer) > 60 POC Glucose (mg/dL) 87 Random Glucose 91 Calcium 8.5 L Magnesium 2.0 Vitamin B12 04/18/18 11:08 WBC RBC Hgb Hct MCV MCH MCHC RDW Plt Count MPV Sodium Potassium Chloride Carbon Dioxide Anion Gap BUN Creatinine Est GFR ( Amer) Est GFR (Non-Af Amer) POC Glucose (mg/dL) 90 Random Glucose Calcium Magnesium Vitamin B12 - Imaging and Cardiology CT scan - abdomen/PELVISWITH BY MOUTH CONTRAST Status: Report reviewed by me ( see full report.) Assessment & Plan (1) Enterocutaneous fistula Assessment and Plan: PRESENTLY PATIENT HAS A WOUND vac IN PLACE DRAINING SEROPURULENT SANGUINOUS DRAINAGE. aGREE WITH PANCULTURES CONTINUE iv zOSYN 3.375 EVERY 8 HOURLY 04/17/18 CONTINUE iv fLAGYL 500 MG EVERY 8 HOURLY STARTED 04/17/18. F/U CULTURES TO ADJUST ANTIBIOTICS. DURATION OF ANTIBIOTIC DEPENDS ON THE HEALING PROCESS OF THE WOUND. WILL DISCUSS WITH SURGERY. Status: Acute (2) Intra-abdominal infection Status: Acute (3) S/P exploratory laparotomy Assessment and Plan: PATIENT HAD EXPLORATORY LAP/RIGHT HEMICOLECTOMY JANUARY 2018. PATIENT HAS HAD DEBRIDEMENTS 2-3 TIMES WITH INTERMITTENT WOUND VAC PLACEMENTS WITH POOR HEALING AND PERSISTENT DRAINAGE. fULL DETAILS OF MANAGEMENT NOT CLEAR / ? WAS PATIENT ON ANTIBIOTICS OUTPATIENT- pATIENT POOR HISTORIAN. Status: Acute
[2018-04-18] MEDS ORDERED: CHROMIUM IV ONE (18:00)
[2018-04-18] MEDS ORDERED: MULTIVITAMIN IV ONE (18:00)
[2018-04-18] MEDS ORDERED: TPN#1 IV ONE (18:00)
[2018-04-18] MEDS ORDERED: COPPER IV ONE (18:00)
[2018-04-18] MEDS ORDERED: Fat Emulsion 20% IV 250 ML IV SCH (18:00)
[2018-04-18] MEDS ORDERED: [UNRECOGNIZED DRUG - OTHER] IV ONE (18:00)
[2018-04-18] MEDS ORDERED: ZINC IV ONE (18:00)
[2018-04-18] MEDS ORDERED: MANGANESE IV ONE (18:00)
[2018-04-19 06:30] LABS: HEMOGLOBIN 11.4 g/dL (12.0-18.0); MEAN CELL VOLUME 81.3 fL (80.0-94.0); MEAN CORPUSCULAR HEMOGLOBIN 26.9 pg (27.0-31.0); MEAN CORPUSCULAR HGB CONC 33.1 g/dL (33.0-37.0); MEAN PLATELET VOLUME 8.6 fL (7.2-11.7); RBC 4.25 Mil/uL (4.40-5.90); RED CELL DISTRIBUTION WIDTH 15.7 % (11.5-14.5); WHITE BLOOD COUNT 5.1 K/uL (4.8-10.8)
[2018-04-19 06:44] LABS: BLOOD UREA NITROGEN 6 mg/dL (9-20); CALCIUM 8.3 mg/dl (8.6-10.4); GFR AFRICAN-AMERICAN > 60; GFR NON-AFRICAN AMERICAN > 60
[2018-04-19] MEDS: Piperacill/Tazo 3.375gm in Dex 3.375 GM/50 ML BAG IVPB SCH ×2 (08:15→16:07)
[2018-04-19] MEDS: (Novolin R) Insulin Human Regular 100 units/ml vial SC SCH ×4 (08:43→21:45)
[2018-04-19] MEDS: metroNIDAZOLE IV 500 mg/100 ml 500 MG/100 ML BAG IVPB SCH ×2 (08:45→16:41)
--- NOTE | 2018-04-19 08:54 | CP.PCM.PN ---
Subjective - Date & Time of Evaluation Date of Evaluation: 04/19/18 Time of Evaluation: 08:53 - Subjective Subjective: Surgery: Dr. Green Pt seen and examined. No acute events overnight. Pt is doing well and has no complaints this AM. Objective - Vital Signs/Intake and Output Vital Signs (last 24 hours): Temp Pulse Resp BP Pulse Ox 98.3 F 77 20 130/77 97 04/19/18 00:45 04/19/18 00:45 04/19/18 00:45 04/19/18 00:45 04/19/18 00:45 - Medications Medications: Current Medications Collagenase (Santyl) 1 gm TOP DAILY [facility] Last Admin: 04/18/18 11:07 Dose: 1 applic Enoxaparin Sodium (Lovenox) 30 mg SC DAILY [facility] Last Admin: 04/18/18 09:56 Dose: 30 mg Gabapentin (Neurontin) 100 mg PO TID [facility] Last Admin: 04/18/18 17:33 Dose: 100 mg Piperacillin Sod/Tazobactam Sod (Zosyn 3.375 Gm Iv Premix) 3.375 gm in 50 mls @ 100 mls/hr IVPB Q8H [facility] PRN Reason: Protocol Last Admin: 04/19/18 08:15 Dose: 100 mls/hr Metronidazole (Flagyl) 500 mg in 100 mls @ 100 mls/hr IVPB Q8H [facility] PRN Reason: Protocol Last Admin: 04/19/18 08:45 Dose: 100 mls/hr Chromium/Copper/Manganese/Zinc 1 ml/ Multivitamins/Vitamin C 10 ml/ Sodium Chloride 35 meq / Potassium Phosphate 30 mmole / Heparin Sodium (Porcine) 1, 000 units/ Magnesium Sulfate 6 meq/ Amino Acids 1,032.2278 mls @ 42 mls/hr IV .Q24H ONE Stop: 04/19/18 17:59 Last Admin: 04/18/18 17:32 Dose: 42 mls/hr Potassium Chloride (Potassium Chloride 20 Meq/100 Ml) 20 meq in 100 mls @ 50 mls/hr IVPB Q2 [facility] Stop: 04/19/18 13:59 Insulin Human Regular (Novolin R) 0 unit SC ACHS [facility] PRN Reason: Protocol Last Admin: 04/19/18 08:43 Dose: 1 unit Pantoprazole Sodium (Protonix Inj) 40 mg IVP DAILY [facility] Last Admin: 04/18/18 09:56 Dose: 40 mg - Labs Labs: 04/19/18 06:18 04/19/18 06:18 PT 12.0 SECONDS (9.7-12.2) 04/17/18 11:53 INR 1.1 04/17/18 11:53 APTT 32 SECONDS (21-34) 04/17/18 11:53 - Constitutional Appears: Non-toxic, No Acute Distress - Head Exam Head Exam: ATRAUMATIC, NORMOCEPHALIC - Eye Exam Eye Exam: EOMI - ENT Exam ENT Exam: Mucous Membranes Moist - Neck Exam Neck Exam: Full ROM - Respiratory Exam Respiratory Exam: NORMAL BREATHING PATTERN. absent: Accessory Muscle Use, Respiratory Distress - GI/Abdominal Exam GI & Abdominal Exam: Soft. 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 concerns for fistula -NPO w. ice chips -TPN, correct electrolytes prn, follow up on dietary recommendations -wound vac in place, no output, will change Q3-4 days -c/w abx per ID -GI/DVT ppx -d/w attending Zemaitis PGY4
[2018-04-19] MEDS: Collagenase 250 Units/gm Ointment(30 gm) TOP SCH (10:35)
[2018-04-19] MEDS: Enoxaparin 30 mg Syringe SC SCH (10:35)
--- NOTE | 2018-04-19 12:40 | CARD ---
APPROVED REPORT Date of service: 04/17/2018 EKG Measurement Heart [id number] <Conclusion> Normal sinus rhythm Nonspecific T wave changes inferior leads. Borderline EKG
[2018-04-19] MEDS ORDERED: TPN#2 IV ONE (18:00)
[2018-04-19] MEDS ORDERED: Fat Emulsion 20% IV 250 ML IV ONE (18:00)
[2018-04-20] MEDS: Piperacill/Tazo 3.375gm in Dex 3.375 GM/50 ML BAG IVPB SCH ×3 (00:25→15:52)
[2018-04-20] MEDS: metroNIDAZOLE IV 500 mg/100 ml 500 MG/100 ML BAG IVPB SCH ×3 (01:00→15:52)
[2018-04-20] MEDS: (Novolin R) Insulin Human Regular 100 units/ml vial SC SCH ×4 (07:39→21:38)
[2018-04-20] MEDS ORDERED: TPN#3 IV SCH (07:50)
[2018-04-20 08:00] LABS: HEMOGLOBIN 11.3 g/dL (12.0-18.0); MEAN CELL VOLUME 81.2 fL (80.0-94.0); MEAN CORPUSCULAR HGB CONC 33.2 g/dL (33.0-37.0); MEAN PLATELET VOLUME 8.9 fL (7.2-11.7); RBC 4.19 Mil/uL (4.40-5.90); RED CELL DISTRIBUTION WIDTH 16.2 % (11.5-14.5); WHITE BLOOD COUNT 3.9 K/uL (4.8-10.8)
[2018-04-20 08:33] LABS: BLOOD UREA NITROGEN 9 mg/dL (9-20); CALCIUM 8.2 mg/dl (8.6-10.4); GFR AFRICAN-AMERICAN > 60; GFR NON-AFRICAN AMERICAN > 60
--- NOTE | 2018-04-20 08:56 | CP.PCM.PN ---
Subjective - Date & Time of Evaluation Date of Evaluation: 04/20/18 Time of Evaluation: 08:50 - Subjective Subjective: Surgery: Dr. Green Pt seen and examined. No acute events overnight. No F/C. No abd pain. No N/V. Pt is hungry and would like to eat. Objective - Vital Signs/Intake and Output Vital Signs (last 24 hours): Temp Pulse Resp BP Pulse Ox 98.2 F 77 20 123/79 95 04/20/18 00:00 04/20/18 00:00 04/20/18 00:00 04/20/18 00:00 04/20/18 00:00 Intake and Output: 04/20/18 04/20/18 06:59 18:59 Intake Total 1485 Output Total 0 Balance 1485 - Medications Medications: Current Medications Collagenase (Santyl) 1 gm TOP DAILY [facility] Last Admin: 04/19/18 10:35 Dose: 1 applic Enoxaparin Sodium (Lovenox) 30 mg SC DAILY [facility] Last Admin: 04/19/18 10:35 Dose: 30 mg Gabapentin (Neurontin) 100 mg PO TID [facility] Last Admin: 04/19/18 17:10 Dose: 100 mg Piperacillin Sod/Tazobactam Sod (Zosyn 3.375 Gm Iv Premix) 3.375 gm in 50 mls @ 100 mls/hr IVPB Q8H [facility] PRN Reason: Protocol Last Admin: 04/20/18 07:54 Dose: 100 mls/hr Metronidazole (Flagyl) 500 mg in 100 mls @ 100 mls/hr IVPB Q8H [facility] PRN Reason: Protocol Last Admin: 04/20/18 07:54 Dose: 100 mls/hr Sodium Chloride 35 meq/Potassium Phosphate 45 mmole/Magnesium Sulfate 6 meq/ Chromium/Copper/Manganese/Seleni/Zn 1 ml/ Heparin Sodium (Porcine) 1,000 units/ Amino Acids 1,027.2278 mls @ 75 mls/hr IV .[id number] [facility] Stop: 04/20/18 17:59 Last Admin: 04/20/18 07:47 Dose: 75 mls/hr Insulin Human Regular (Novolin R) 0 unit SC ACHS [facility] PRN Reason: Protocol Last Admin: 04/20/18 07:39 Dose: Not Given Pantoprazole Sodium (Protonix Inj) 40 mg IVP DAILY [facility] Last Admin: 04/19/18 10:34 Dose: 40 mg - Labs Labs: 04/20/18 07:52 04/20/18 07:52 PT 12.0 SECONDS (9.7-12.2) 04/17/18 11:53 INR 1.1 04/17/18 11:53 APTT 32 SECONDS (21-34) 04/17/18 11:53 - Constitutional Appears: Non-toxic, No Acute Distress - Head Exam Head Exam: ATRAUMATIC, NORMOCEPHALIC - Eye Exam Eye Exam: EOMI - ENT Exam ENT Exam: Mucous Membranes Moist - Respiratory Exam Respiratory Exam: NORMAL BREATHING PATTERN. absent: Accessory Muscle Use, Respiratory Distress - GI/Abdominal Exam GI & Abdominal Exam: Soft. absent: Distended, Firm, Guarding, Rigid, Tenderness , Rebound Additional comments: midline incision w. 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 concerns for fistula -NPO w. ice chips -TPN, correct electrolytes prn -wound vac in place, no output, will change Q3-4 days -Urine Cx and Wound Cx negative, prelim Blood cx NGTD -c/w abx per ID -encourage OOB and ambulation -GI/DVT ppx -d/w attending Jose Angel PGY4
[2018-04-20] MEDS: Collagenase 250 Units/gm Ointment(30 gm) TOP SCH (09:12)
[2018-04-20] MEDS: Enoxaparin 30 mg Syringe SC SCH (09:13)
[2018-04-20] MEDS ORDERED: Fat Emulsion 20% IV 250 ML IV ONE (18:00)
[2018-04-20] MEDS ORDERED: TPN#4 IV SCH (18:00)
--- NOTE | 2018-04-20 23:46 | CP.PCM.PN ---
Subjective - Date & Time of Evaluation Date of Evaluation: 04/20/18 Time of Evaluation: 23:46 - Subjective Subjective: CHIEF COMPLAINTS TODAY : afebrile. c/o feeling hungry on TPN. NO ABDOMINAL PAIN ROS. HEENT : N. Resp : No cough, wheezing ,pleuritic CP ,or hemoptysis Cardio : No anginal CP, PND, orthopnea, palpitation GI : No abd.pain, n/v ,diarrhea or GI bleeding . INTERNAL AUDITOR : No headache, vertigo, focal deficit. Musculoskel : No joint swelling , Derm : No rash Psych : Normal affect. Ext : No swelling ,calf pain PE. Pt. is alert awake in no distress. V.S As noted in the chart Head ,ear nose,throat and eyes : Normal. Neck : Supple with normal carotids. Lungs: Clear air entry. Heart : S1 & S2 normal with S4. No murmur. Abd : MID LINE INCISION +VE WOUND VAC DRAINING SEROSANGUINOUS DRAINAGE Neuro : Moves all ext. with no localized deficit. Ext : No edema with intact pulses.Non tender calves Derm : No rashes or decubitus ulcer. LABS/RADIOLOGY: wbc 3.9, h/h 11.3/34.0 creat 0.8 blood cultures -ve for 3 days Abdominal wound culture 04/18/18 -ve growth Urine culture 04/18/18 -ve growth Objective - Vital Signs/Intake and Output Vital Signs (last 24 hours): Temp Pulse Resp BP Pulse Ox 97.7 F 69 20 152/76 H 97 04/20/18 15:00 04/20/18 15:00 04/20/18 15:00 04/20/18 15:00 04/20/18 15:00 Intake and Output: 04/20/18 04/21/18 18:59 06:59 Intake Total 600 825 Balance 600 825 - Medications Medications: Current Medications Collagenase (Santyl) 1 gm TOP DAILY [facility] Last Admin: 04/20/18 09:12 Dose: 1 applic Enoxaparin Sodium (Lovenox) 30 mg SC DAILY [facility] Last Admin: 04/20/18 09:13 Dose: 30 mg Gabapentin (Neurontin) 200 mg PO TID [facility] Last Admin: 04/20/18 17:18 Dose: 200 mg Piperacillin Sod/Tazobactam Sod (Zosyn 3.375 Gm Iv Premix) 3.375 gm in 50 mls @ 100 mls/hr IVPB Q8H [facility] PRN Reason: Protocol Last Admin: 04/20/18 15:52 Dose: 100 mls/hr Sodium Chloride 35 meq/Potassium Phosphate 45 mmole/Magnesium Sulfate 6 meq/ Chromium/Copper/Manganese/Seleni/Zn 1 ml/ Heparin Sodium (Porcine) 1,000 units/ Amino Acids 1,027.2278 mls @ 75 mls/hr IV .[id number] [facility] Stop: 04/21/18 07:41 Last Admin: 04/20/18 17:18 Dose: 75 mls/hr Sodium Chloride 35 meq/Potassium Phosphate 45 mmole/Magnesium Sulfate 6 meq/ Chromium/Copper/Manganese/Seleni/Zn 1 ml/ Heparin Sodium (Porcine) 1,000 units/ Amino Acids 1,027.2278 mls @ 75 mls/hr IV .[id number] [facility] Stop: 04/21/18 21:23 Insulin Human Regular (Novolin R) 0 unit SC ACHS [facility] PRN Reason: Protocol Last Admin: 04/20/18 21:38 Dose: Not Given Pantoprazole Sodium (Protonix Inj) 40 mg IVP DAILY [facility] Last Admin: 04/20/18 09:12 Dose: 40 mg - Labs Labs: 04/20/18 07:52 04/20/18 07:52 PT 12.0 SECONDS (9.7-12.2) 04/17/18 11:53 INR 1.1 04/17/18 11:53 APTT 32 SECONDS (21-34) 04/17/18 11:53 Assessment and Plan (1) Enterocutaneous fistula Assessment & Plan: patient with wound VAC +VE DRAINAGE. 04/18/18 DC IV FLAGYL IN VIEW OF LEUKOPENIA ON IV ZOSYN PRESENTLY 3.375 EVERY 8 HOURLY 04/17/18. WILL DISCUSS. Status: Acute (2) Intra-abdominal infection Status: Acute (3) S/P exploratory laparotomy Assessment & Plan: PATIENT HAD EXPLORATORY LAP/RIGHT HEMICOLECTOMY JANUARY 2018. Status: Acute
[2018-04-21] MEDS: Piperacill/Tazo 3.375gm in Dex 3.375 GM/50 ML BAG IVPB SCH ×3 (00:01→17:00)
[2018-04-21 07:16] LABS: HEMOGLOBIN 11.7 g/dL (12.0-18.0); MEAN CELL VOLUME 81.8 fL (80.0-94.0); MEAN PLATELET VOLUME 8.8 fL (7.2-11.7); RBC 4.35 Mil/uL (4.40-5.90); RED CELL DISTRIBUTION WIDTH 16.2 % (11.5-14.5); WHITE BLOOD COUNT 3.9 K/uL (4.8-10.8)
[2018-04-21 07:39] LABS: BLOOD UREA NITROGEN 10 mg/dL (9-20); CALCIUM 8.1 mg/dl (8.6-10.4); GFR AFRICAN-AMERICAN > 60; GFR NON-AFRICAN AMERICAN > 60
[2018-04-21] MEDS ORDERED: TPN#5 IV SCH (07:42)
[2018-04-21] MEDS: (Novolin R) Insulin Human Regular 100 units/ml vial SC SCH ×4 (07:48→21:22)
[2018-04-21] MEDS: Enoxaparin 30 mg Syringe SC SCH (09:07)
[2018-04-21] MEDS: Collagenase 250 Units/gm Ointment(30 gm) TOP SCH (09:13)
[2018-04-21] MEDS: Saccharomyces Boulardi 250 mg Cap PO SCH (13:24)
--- NOTE | 2018-04-21 15:08 | CP.PCM.PN ---
Subjective - Date & Time of Evaluation Date of Evaluation: 04/21/18 Time of Evaluation: 15:06 - Subjective Subjective: Surgery: Dr. Green Pt seen and examined. No complaints. Pt wants to eat more. Objective - Vital Signs/Intake and Output Vital Signs (last 24 hours): Temp Pulse Resp BP Pulse Ox 97.5 F L 65 20 136/85 96 04/21/18 10:00 04/21/18 10:00 04/21/18 10:00 04/21/18 10:00 04/21/18 10:00 Intake and Output: 04/21/18 04/21/18 06:59 18:59 Intake Total 1475 650 Balance 1475 650 - Medications Medications: Current Medications Collagenase (Santyl) 1 gm TOP DAILY [facility] Last Admin: 04/21/18 09:13 Dose: 1 applic Enoxaparin Sodium (Lovenox) 30 mg SC DAILY [facility] Last Admin: 04/21/18 09:07 Dose: 30 mg Gabapentin (Neurontin) 200 mg PO TID [facility] Last Admin: 04/21/18 13:23 Dose: 200 mg Piperacillin Sod/Tazobactam Sod (Zosyn 3.375 Gm Iv Premix) 3.375 gm in 50 mls @ 100 mls/hr IVPB Q8H [facility] PRN Reason: Protocol Last Admin: 04/21/18 07:58 Dose: 100 mls/hr Sodium Chloride 35 meq/Potassium Phosphate 45 mmole/Magnesium Sulfate 6 meq/ Chromium/Copper/Manganese/Seleni/Zn 1 ml/ Heparin Sodium (Porcine) 1,000 units/ Amino Acids 1,027.2278 mls @ 75 mls/hr IV .[id number] [facility] Stop: 04/21/18 21:23 Last Admin: 04/21/18 07:52 Dose: 75 mls/hr Fat Emulsion Intravenous (Intralipid 20%) 250 mls @ 75 mls/hr IV ONCE ONE Stop: 04/21/18 21:19 Sodium Chloride 35 meq/Potassium Phosphate 45 mmole/Magnesium Sulfate 6 meq/ Heparin Sodium (Porcine) 1,000 units/ Chromium/Copper/Manganese/Zinc 1 ml/ Multivitamins/Vitamin C 10 ml/Amino Acids 1,037.2278 mls @ 75 mls/hr IV .[id number] [facility] Stop: 08/14/18 07:50 Sodium Chloride 35 meq/Potassium Phosphate 45 mmole/Magnesium Sulfate 6 meq/ Heparin Sodium (Porcine) 1,000 units/ Chromium/Copper/Manganese/Zinc 1 ml/ Amino Acids 1,027.2278 mls @ 75 mls/hr IV .[id number] [facility] Stop: 04/22/18 18:00 Insulin Human Regular (Novolin R) 0 unit SC ACHS [facility] PRN Reason: Protocol Last Admin: 04/21/18 11:51 Dose: Not Given Pantoprazole Sodium (Protonix Inj) 40 mg IVP DAILY [facility] Last Admin: 04/21/18 09:07 Dose: 40 mg Saccharomyces Boulardii (Florastor) 250 mg PO DAILY [facility] Last Admin: 04/21/18 13:24 Dose: 250 mg - Labs Labs: 04/21/18 07:09 04/21/18 07:09 PT 12.0 SECONDS (9.7-12.2) 04/17/18 11:53 INR 1.1 04/17/18 11:53 APTT 32 SECONDS (21-34) 04/17/18 11:53 - Constitutional Appears: Non-toxic, No Acute Distress - Head Exam Head Exam: ATRAUMATIC, NORMOCEPHALIC - Eye Exam Eye Exam: EOMI - ENT Exam ENT Exam: Mucous Membranes Moist - Neck Exam Neck Exam: Full ROM - Respiratory Exam Respiratory Exam: NORMAL BREATHING PATTERN. absent: Accessory Muscle Use, Respiratory Distress - GI/Abdominal Exam GI & Abdominal Exam: Soft. absent: Distended, Firm, Guarding, Rigid, Tenderness , Rebound Additional comments: wound vac in place - Extremities Exam Extremities Exam: Calf Tenderness. 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
[2018-04-21] MEDS: TPN IV SCH (17:47)
[2018-04-21] MEDS ORDERED: Fat Emulsion 20% IV 250 ML IV ONE (18:00)
--- NOTE | 2018-04-21 23:28 | CP.PCM.PN ---
Subjective - Date & Time of Evaluation Date of Evaluation: 04/21/18 Time of Evaluation: 23:28 - Subjective Subjective: CHIEF COMPLAINTS TODAY : afebrile. c/o feeling hungry ADVANCING DIETAS PER SURGERY NO ABDOMINAL PAIN ROS. HEENT : N. Resp : No cough, wheezing ,pleuritic CP ,or hemoptysis Cardio : No anginal CP, PND, orthopnea, palpitation GI : No abd.pain, n/v ,diarrhea or GI bleeding . RELOCATION ASSOCIATE : No headache, vertigo, focal deficit. Musculoskel : No joint swelling , Derm : No rash Psych : Normal affect. Ext : No swelling ,calf pain PE. Pt. is alert awake in no distress. V.S As noted in the chart Head ,ear nose,throat and eyes : Normal. Neck : Supple with normal carotids. Lungs: Clear air entry. Heart : S1 & S2 normal with S4. No murmur. Abd : MID LINE INCISION +VE WOUND VAC WITH MINIMAL DRAINAGE Neuro : Moves all ext. with no localized deficit. Ext : No edema with intact pulses.Non tender calves Derm : No rashes or decubitus ulcer. LABS/RADIOLOGY: blood cultures -ve for 3 days Abdominal wound culture 04/18/18 -ve growth Urine culture 04/18/18 -ve growth Objective - Vital Signs/Intake and Output Vital Signs (last 24 hours): Temp Pulse Resp BP Pulse Ox 98.4 F 81 20 135/88 98 04/21/18 16:10 04/21/18 16:10 04/21/18 16:10 04/21/18 16:10 04/21/18 16:10 Intake and Output: 04/21/18 04/22/18 18:59 06:59 Intake Total 650 Balance 650 - Medications Medications: Current Medications Collagenase (Santyl) 1 gm TOP DAILY [facility] Last Admin: 04/21/18 09:13 Dose: 1 applic Enoxaparin Sodium (Lovenox) 30 mg SC DAILY [facility] Last Admin: 04/21/18 09:07 Dose: 30 mg Gabapentin (Neurontin) 200 mg PO TID [facility] Last Admin: 04/21/18 17:22 Dose: 200 mg Piperacillin Sod/Tazobactam Sod (Zosyn 3.375 Gm Iv Premix) 3.375 gm in 50 mls @ 100 mls/hr IVPB Q8H [facility] PRN Reason: Protocol Last Admin: 04/21/18 17:00 Dose: 100 mls/hr Sodium Chloride 35 meq/Potassium Phosphate 45 mmole/Magnesium Sulfate 6 meq/ Heparin Sodium (Porcine) 1,000 units/ Chromium/Copper/Manganese/Zinc 1 ml/ Multivitamins/Vitamin C 10 ml/Amino Acids 1,037.2278 mls @ 75 mls/hr IV .[id number] [facility] Stop: 04/22/18 07:50 Last Admin: 04/21/18 17:47 Dose: 75 mls/hr Sodium Chloride 35 meq/Potassium Phosphate 45 mmole/Magnesium Sulfate 6 meq/ Heparin Sodium (Porcine) 1,000 units/ Chromium/Copper/Manganese/Zinc 1 ml/ Amino Acids 1,027.2278 mls @ 75 mls/hr IV .[id number] [facility] Stop: 04/22/18 18:00 Insulin Human Regular (Novolin R) 0 unit SC ACHS [facility] PRN Reason: Protocol Last Admin: 04/21/18 21:22 Dose: Not Given Pantoprazole Sodium (Protonix Inj) 40 mg IVP DAILY [facility] Last Admin: 04/21/18 09:07 Dose: 40 mg Saccharomyces Boulardii (Florastor) 250 mg PO DAILY [facility] Last Admin: 04/21/18 13:24 Dose: 250 mg - Labs Labs: 04/21/18 07:09 04/21/18 07:09 PT 12.0 SECONDS (9.7-12.2) 04/17/18 11:53 INR 1.1 04/17/18 11:53 APTT 32 SECONDS (21-34) 04/17/18 11:53 Assessment and Plan (1) Enterocutaneous fistula Assessment & Plan: ON IV ZOSYN PRESENTLY 3.375 EVERY 8 HOURLY 04/17/18. CASE DISCUSSED WITH SURGICAL TEAM. CAN DC IV ZOSYN ON DISCHARGE AND CHANGE TO INVANZ 1GM IVPB QD DAILY X7 DAYS F/U PO AUGMENTIN 875MG PO BID X 14DAYS.. PO FLORSTAR 250MG PO HS DAILY X 21DAYS F/U CBC /BMP/LFTS IN OUTPT. CLINIC. LWC / WOUND VAC CHANGE PER SURGERY. Status: Acute (2) Intra-abdominal infection Status: Acute (3) S/P exploratory laparotomy Status: Acute
[2018-04-22] MEDS: Piperacill/Tazo 3.375gm in Dex 3.375 GM/50 ML BAG IVPB SCH ×3 (00:16→16:00)
[2018-04-22] MEDS: TPN IV SCH (07:56)
[2018-04-22] MEDS ORDERED: TPN # 7 IV SCH (08:00)
[2018-04-22] MEDS: (Novolin R) Insulin Human Regular 100 units/ml vial SC SCH ×4 (08:06→22:06)
[2018-04-22 10:02] LABS: HEMOGLOBIN 11.9 g/dL (12.0-18.0); MEAN CELL VOLUME 81.1 fL (80.0-94.0); MEAN CORPUSCULAR HEMOGLOBIN 26.8 pg (27.0-31.0); MEAN PLATELET VOLUME 9.3 fL (7.2-11.7); RBC 4.43 Mil/uL (4.40-5.90); RED CELL DISTRIBUTION WIDTH 16.6 % (11.5-14.5); WHITE BLOOD COUNT 4.1 K/uL (4.8-10.8)
[2018-04-22 10:17] LABS: ALBUMIN 2.9 g/dL (3.5-5.0); ALT/SGPT 30 U/L (21-72); AST/SGOT 32 U/L (17-59); BLOOD UREA NITROGEN 12 mg/dL (9-20); CALCIUM 8.3 mg/dl (8.6-10.4); GFR AFRICAN-AMERICAN > 60; GFR NON-AFRICAN AMERICAN > 60
[2018-04-22] MEDS: Saccharomyces Boulardi 250 mg Cap PO SCH (10:18)
[2018-04-22] MEDS: Collagenase 250 Units/gm Ointment(30 gm) TOP SCH (10:19)
[2018-04-22] MEDS: Enoxaparin 30 mg Syringe SC SCH (10:19)
--- NOTE | 2018-04-22 10:37 | CP.PCM.PN ---
Subjective - Date & Time of Evaluation Date of Evaluation: 04/22/18 Time of Evaluation: 10:34 - Subjective Subjective: Surgery: Dr. Green Pt seen and examined. No acute events overnight. Pt is hungry and wants to eat more. Objective - Vital Signs/Intake and Output Vital Signs (last 24 hours): Temp Pulse Resp BP Pulse Ox 97.7 F 75 20 139/80 95 04/21/18 23:52 04/21/18 23:52 04/21/18 23:52 04/21/18 23:52 04/21/18 23:52 - Medications Medications: Current Medications Collagenase (Santyl) 1 gm TOP DAILY [facility] Last Admin: 04/22/18 10:19 Dose: 1 applic Enoxaparin Sodium (Lovenox) 30 mg SC DAILY [facility] Last Admin: 04/22/18 10:19 Dose: 30 mg Gabapentin (Neurontin) 300 mg PO TID [facility] Last Admin: 04/22/18 10:18 Dose: 300 mg Piperacillin Sod/Tazobactam Sod (Zosyn 3.375 Gm Iv Premix) 3.375 gm in 50 mls @ 100 mls/hr IVPB Q8H [facility] PRN Reason: Protocol Last Admin: 04/22/18 08:06 Dose: 100 mls/hr Sodium Chloride 35 meq/Potassium Phosphate 45 mmole/Magnesium Sulfate 6 meq/ Heparin Sodium (Porcine) 1,000 units/ Chromium/Copper/Manganese/Zinc 1 ml/ Amino Acids 1,027.2278 mls @ 75 mls/hr IV .[id number] [facility] Stop: 04/22/18 18:00 Last Admin: 04/22/18 08:05 Dose: 75 mls/hr Insulin Human Regular (Novolin R) 0 unit SC ACHS [facility] PRN Reason: Protocol Last Admin: 04/22/18 08:06 Dose: 1 unit Pantoprazole Sodium (Protonix Inj) 40 mg IVP DAILY [facility] Last Admin: 04/22/18 10:18 Dose: 40 mg Saccharomyces Boulardii (Florastor) 250 mg PO DAILY [facility] Last Admin: 04/22/18 10:18 Dose: 250 mg - Labs Labs: 04/22/18 09:54 04/22/18 09:54 PT 12.0 SECONDS (9.7-12.2) 04/17/18 11:53 INR 1.1 04/17/18 11:53 APTT 32 SECONDS (21-34) 04/17/18 11:53 - Constitutional Appears: Non-toxic, No Acute Distress - Head Exam Head Exam: ATRAUMATIC, NORMOCEPHALIC - Eye Exam Eye Exam: EOMI - ENT Exam ENT Exam: Mucous Membranes Moist - Neck Exam Neck Exam: Full ROM - Respiratory Exam Respiratory Exam: NORMAL BREATHING PATTERN. absent: Accessory Muscle Use, Respiratory Distress - Cardiovascular Exam Cardiovascular Exam: REGULAR RHYTHM - GI/Abdominal Exam GI & Abdominal Exam: Soft. 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 Will D/C TPN and start low residue diet -wound vac in place, will change Q3-4 days -Urine Cx and Wound Cx negative, prelim Blood cx NGTD, awaiting results of stool studies -c/w abx per ID -encourage OOB and ambulation -GI/DVT ppx -d/w attending Fernandaitis PGY4
[2018-04-23] MEDS: Piperacill/Tazo 3.375gm in Dex 3.375 GM/50 ML BAG IVPB SCH ×3 (07:40→16:34)
[2018-04-23] MEDS: (Novolin R) Insulin Human Regular 100 units/ml vial SC SCH ×3 (07:42→16:32)
[2018-04-23 07:49] LABS: ALB/GLOB RATIO 1.1 (1.0-2.1); ALBUMIN 2.9 g/dL (3.5-5.0); ALT/SGPT 32 U/L (21-72); AST/SGOT 35 U/L (17-59); BLOOD UREA NITROGEN 11 mg/dL (9-20); CALCIUM 8.7 mg/dl (8.6-10.4); GFR AFRICAN-AMERICAN > 60; GFR NON-AFRICAN AMERICAN > 60
[2018-04-23] MEDS: Enoxaparin 30 mg Syringe SC SCH (09:09)
[2018-04-23] MEDS: Collagenase 250 Units/gm Ointment(30 gm) TOP SCH (09:11)
[2018-04-23 11:07] LABS: VITAMIN C 0.1 mg/dL (0.2-2.1)
[2018-04-23 15:41] VITALS: BP 118/70; PULSE 82; TEMP 98.1; O2SAT 97
--- NOTE | 2018-04-23 18:48 | CP.PCM.DIS ---
Provider - Provider Date of Admission: 04/17/18 13:39 Attending physician: Saúl Green MD Time Spent in preparation of Discharge (in minutes): 75 Hospital Course - Lab Results Lab Results: Micro Results 04/17/18 14:00 Blood Blood Culture - Final NO GROWTH AFTER 5 DAYS 04/17/18 14:00 Blood Gram Stain - Final TEST NOT PERFORMED 04/21/18 22:28 Stool Ova and Parasite Concentrate Exam - Final 04/17/18 12:00 Blood Blood Culture - Final NO GROWTH AFTER 5 DAYS 04/17/18 12:00 Blood Gram Stain - Final TEST NOT PERFORMED 04/18/18 04:03 Abdomen Gram Stain - Final 04/18/18 04:03 Abdomen Wound Culture - Final No growth. 04/18/18 04:03 Urine,Clean Catch Urine Culture - Final No Growth (<1,000 CFU/ML) Most Recent Lab Values WBC 4.1 K/uL (4.8-10.8) L 04/22/18 09:54 RBC 4.43 Mil/uL (4.40-5.90) 04/22/18 09:54 Hgb 11.9 g/dL (12.0-18.0) L 04/22/18 09:54 Hct 35.9 % (35.0-51.0) 04/22/18 09:54 MCV 81.1 fL (80.0-94.0) 04/22/18 09:54 MCH 26.8 pg (27.0-31.0) L 04/22/18 09:54 MCHC 33.0 g/dL (33.0-37.0) 04/22/18 09:54 RDW 16.6 % (11.5-14.5) H 04/22/18 09:54 Plt Count 217 K/uL (130-400) 04/22/18 09:54 MPV 9.3 fL (7.2-11.7) 04/22/18 09:54 Neut % (Auto) 65.0 % (50.0-75.0) 04/17/18 11:53 Lymph % (Auto) 25.0 % (20.0-40.0) 04/17/18 11:53 Sanders % (Auto) 6.4 % (0.0-10.0) 04/17/18 11:53 Eos % (Auto) 3.3 % (0.0-4.0) 04/17/18 11:53 Baso % (Auto) 0.3 % (0.0-2.0) 04/17/18 11:53 Neut # (Auto) 4.1 K/uL (1.8-7.0) 04/17/18 11:53 Lymph # (Auto) 1.6 K/uL (1.0-4.3) 04/17/18 11:53 Sanders # (Auto) 0.4 K/uL (0.0-0.8) 04/17/18 11:53 Eos # (Auto) 0.2 K/uL (0.0-0.7) 04/17/18 11:53 Baso # (Auto) 0.0 K/uL (0.0-0.2) 04/17/18 11:53 PT 12.0 SECONDS (9.7-12.2) 04/17/18 11:53 INR 1.1 04/17/18 11:53 APTT 32 SECONDS (21-34) 04/17/18 11:53 Sodium 142 mmol/L (132-148) 04/23/18 07:21 Potassium 3.9 mmol/L (3.6-5.2) 04/23/18 07:21 Chloride 107 mmol/L (98-107) 04/23/18 07:21 Carbon Dioxide 29 mmol/L (22-30) 04/23/18 07:21 Anion Gap 10 (10-20) 04/23/18 07:21 BUN 11 mg/dL (9-20) 04/23/18 07:21 Creatinine 1.1 mg/dL (0.8-1.5) 04/23/18 07:21 Est GFR ( Amer) > 60 04/23/18 07:21 Est GFR (Non-Af Amer) > 60 04/23/18 07:21 POC Glucose (mg/dL) 103 mg/dL (65-110) 04/23/18 16:14 Random Glucose 95 mg/dL (75-110) 04/23/18 07:21 Calcium 8.7 mg/dl (8.6-10.4) 04/23/18 07:21 Phosphorus 3.0 mg/dL (2.5-4.5) 04/23/18 07:21 Magnesium 2.3 mg/dL (1.6-2.3) 04/23/18 07:21 Total Bilirubin 0.5 mg/dL (0.2-1.3) 04/23/18 07:21 AST 35 U/L (17-59) 04/23/18 07:21 ALT 32 U/L (21-72) 04/23/18 07:21 Alkaline Phosphatase 120 U/L (38-126) 04/23/18 07:21 Total Protein 5.6 g/dL (6.3-8.3) L 04/23/18 07:21 Albumin 2.9 g/dL (3.5-5.0) L 04/23/18 07:21 Globulin 2.7 gm/dL (2.2-3.9) 04/23/18 07:21 Albumin/Globulin Ratio 1.1 (1.0-2.1) 04/23/18 07:21 Prealbumin 24.5 mg/dL (17.6-36.0) 04/17/18 11:53 Vitamin B12 224 pg/mL (239-931) L 04/17/18 11:53 Vitamin C 0.1 mg/dL (0.2-2.1) L 04/18/18 09:29 Urine Color Yellow (YELLOW) 04/17/18 11:53 Urine Clarity Clear (Clear) 04/17/18 11:53 Urine pH 5.0 (5.0-8.0) 04/17/18 11:53 Ur Specific Sparkill 1.014 (1.003-1.030) 04/17/18 11:53 Urine Protein Negative mg/dL (NEGATIVE) 04/17/18 11:53 Urine Glucose (UA) Normal mg/dL (Normal) 04/17/18 11:53 Urine Ketones Negative mg/dL (NEGATIVE) 04/17/18 11:53 Urine Blood Negative (NEGATIVE) 04/17/18 11:53 Urine Nitrate Negative (NEGATIVE) 04/17/18 11:53 Urine Bilirubin Negative (NEGATIVE) 04/17/18 11:53 Urine Urobilinogen Normal mg/dL (0.2-1.0) 04/17/18 11:53 Ur Leukocyte Esterase Trace Carlotta/uL (Negative) 04/17/18 11:53 Urine WBC (Auto) 1 /hpf (0-5) 04/17/18 11:53 Urine RBC (Auto) < 1 /hpf (0-3) 04/17/18 11:53 - Hospital Course Hospital Course: 72M with psh of Laparoscopic R hemicolectomy in January 2018 complicated by enterocutaneous fistula and post-operative bleeding requiring take backs. Pt presents for chronic non-healing midline wound and complaints of general weakness and fatigue. Pt's wound has been managed out patient with local wound care with minimal progress. The inferior portion of the wound is now starting to drain sero/purulent fluid. The pt denies any fevers or chills. He has decreased appetite but is able to tolerate diet. He denies nausea and vomiting, he is having normal BM. He does have complaints of constant R thigh pain with no alleviating or aggravating factors which has been increasing in severity over past month. CT A/P showed no significant change since 04/09/18, iliocolonic anastamosis in RUQ , no obstruction, mural thickening of small bowel loops, encapsulated structure containing soft tissue suggestive of necrosis. Wound vac applied and ID consulted for antibiotic course. Patient clinically improved. Patient is clear for discharge per ID and Surgery. Patient is to come to the infusion center for daily IV antibiotics for the first week, then start two weeks of oral antibiotics after. He will have Probiotics, GI prophylaxis, and nerve pain medication during that time. To reiterate: Invanz 1 gm IVPB daily for 1 week at the infusion center followed by Augmentin 875 by mouth twice a day for 2 weeks Florastor 250mg by mouth at bedtime for the full three weeks Protonix 40 by mouth daily for the full three weeks Neurontin 300 by mouth three time a day for the full three weeks. He is to follow up at the surgery clinic downstairs next [place], 05/01, with Dr. Green to check on his wound vaccuum and antibiotic regimen. If any symptoms should return or worsen, please come back to the ED. Plan was discussed with the patient who understood and agreed. This is a summary of the hospital course. For more details refer to the EMR. - Date & Time of H&P Date of H&P: 04/23/18 Time of H&P: 15:30 Discharge Exam - Head Exam Head Exam: ATRAUMATIC, NORMOCEPHALIC - Eye Exam Eye Exam: EOMI, Normal appearance - ENT Exam ENT Exam: Mucous Membranes Moist, Normal Exam - Respiratory Exam Respiratory Exam: Clear to PA & Lateral, NORMAL BREATHING PATTERN. absent: Rales, Rhonchi - Cardiovascular Exam Cardiovascular Exam: +S1, +S2 - GI/Abdominal Exam GI & Abdominal Exam: Normal Bowel Sounds, Soft. absent: Firm, Rebound, Rigid, Tenderness Additional comments: wound vac in place - Extremities Exam Extremities exam: normal capillary refill, pedal pulses present Additional comments: PICC line in right upper arm - Neurological Exam Neurological exam: Alert, Normal Gait, Oriented x3, Reflexes Normal - Psychiatric Exam Psychiatric exam: Normal Affect, Normal Mood - Skin Skin Exam: Dry, Intact, Normal Color, Warm Discharge Plan - Discharge Medications Prescriptions: Amoxicillin/Clavulanate [Augmentin 875 MG-125 MG] 1 tab PO BID #28 tab Ertapenem [Invanz] 1 gm IVPB DAILY #7 pds Gabapentin [Neurontin] 300 mg PO TID #60 cap Pantoprazole Sodium [Protonix] 40 mg PO DAILY #21 tablet.[address] Cristian Salgado [Florastor] 250 mg PO HS #21 cap - Follow Up Plan Condition: STABLE Disposition: HOME/ ROUTINE Instructions: Enterocutaneous Fistula (DC), Negative Pressure Wound Therapy Additional Instructions: Patient is clear for discharge per ID and Surgery. Patient is to come to the infusion center for daily IV antibiotics for the first week, then start two weeks of oral antibiotics after. He will have Probiotics, GI prophylaxis, and nerve pain medication during that time. To reiterate: Invanz 1 gm IVPB daily for 1 week at the infusion center followed by Augmentin 875 by mouth twice a day for 2 weeks Florastor 250mg by mouth at bedtime for the full three weeks Protonix 40 by mouth daily for the full three weeks Neurontin 300 by mouth three time a day for the full three weeks. He is to follow up at the surgery clinic downstairs next [facility], 05/01, with Dr. Green to check on his wound vaccuum and antibiotic regimen. If any symptoms should return or worsen, please come back to the ED. Plan was discussed with the patient who understood and agreed. Referrals: [facility] at [facility] [Outside]
== END 2018-04-23 18:24 | disposition home or self-care (01) | DRG 452 ==
LOC: C.ER 10:37 → C.9E 13:39 → C.3T 16:35
PROVIDERS: ADMIT Surgery; ATTEND Surgery
PROC: 02HV33Z Insertion of Infusion Device into Superior Vena Cava, Percutaneous Approach (ICD-10-PCS; principal; 2018-04-18)
PROC: 3E0436Z Introduction of Nutritional Substance into Central Vein, Percutaneous Approach (ICD-10-PCS; 2018-04-18)
DX: T81.89XA Other complications of procedures, not elsewhere classified, initial encounter (principal); K63.2 Fistula of intestine; T81.4XXD Infection following a procedure, subsequent encounter; D72.819 Decreased white blood cell count, unspecified; G89.28 Other chronic postprocedural pain; G47.33 Obstructive sleep apnea (adult) (pediatric); R53.1 Weakness; M19.90 Unspecified osteoarthritis, unspecified site; Z86.010 Personal history of colon polyps; Z87.891 Personal history of nicotine dependence; Z90.49 Acquired absence of other specified parts of digestive tract; Z86.718 Personal history of other venous thrombosis and embolism

== ENCOUNTER 2018-04-27 14:34 | Emergency (ER) | payer OTHER ==
[2018-04-27 14:51] VITALS: BMI 30.7
[2018-04-27 14:54] VITALS: PULSE 85; RESP 18
--- NOTE | 2018-04-27 15:58 | C.PDOC ---
History Of Present Illness 72 yo male with PSH of hemicolectomy complicated by entercutaneous fistula admitted on 04/17/18 for nonhealing midline wound. He was discharged on 04/23/18 with wound vacuum and instructed to come to ED for dressing changes. Last changed 4 days ago. Notes he feels well and presents no complaints. Denies fever , redness, pain, change in diet or other complaints. PMH: right colon adenoma, EC fistula, DVT, LEO PSH: Right hemicolectomy, exploratomy laparotomy Time Seen by Provider: 04/27/18 15:26 Chief Complaint (Nursing): Medical Clearance History Per: Patient History/Exam Limitations: no limitations Onset/Duration Of Symptoms: Days Current Symptoms Are (Timing): Still Present Past Medical History Vital Signs: Last Vital Signs Temp 98.3 F 04/27/18 16:43 Pulse 85 04/27/18 16:43 Resp 18 04/27/18 16:43 BP 128/68 04/27/18 16:43 Pulse Ox 100 04/27/18 16:43 - Medical History PMH: Arthritis, Colonic Polyps, Deep Vein Thrombosis ("one year ago" as per patient), Gastritis, Sleep Apnea (POSITIVE STUDY (last year)) Denies: Chronic Kidney Disease Surgical History: Endoscopy - [facility] Procedures (02/06/18) DRAINAGE OF ABD WALL WITH DRAIN DEV, PERC ENDO APPROACH (02/06/18) EXCISION OF ABD SUBCU/FASCIA, OPEN APPROACH (02/06/18) EXCISION OF LARGE INTESTINE, OPEN APPROACH (02/06/18) INSERTION OF INFUSION DEV INTO SUP VENA CAVA, PERC APPROACH (04/17/18) INTRODUCTION OF NUTRITIONAL INTO CENTRAL VEIN, PERC APPROACH (04/17/18) INTRODUCTION OF NUTRITIONAL INTO PERIPH VEIN, PERC APPROACH (02/06/18) REPAIR MESENTERY, PERCUTANEOUS ENDOSCOPIC APPROACH (02/06/18) RESECTION OF RIGHT LARGE INTESTINE, PERC ENDO APPROACH (02/06/18) Family History: States: Unknown Family Hx - Social History Hx Alcohol Use: Yes Hx Substance Use: No - Immunization History Hx Tetanus Toxoid Vaccination: No Hx Influenza Vaccination: No Hx Pneumococcal Vaccination: Yes Review Of Systems Constitutional: Negative for: Fever Cardiovascular: Negative for: Chest Pain Respiratory: Negative for: Shortness of Breath Gastrointestinal: Negative for: Nausea, Vomiting, Abdominal Pain, Hematochezia, Hematemesis Physical Exam - Physical Exam Appears: Well, Non-toxic, No Acute Distress Skin: Warm, Dry, Other ((+) midline wound vac intact ) Head: Normacephalic Eye(s): bilateral: Normal Inspection, EOMI Nose: Normal Oral Mucosa: Moist Neck: Normal, Normal ROM, Supple Chest: Symmetrical Respiratory: No Accessory Muscle Use Gastrointestinal/Abdominal: Normal Exam, Soft, No Tenderness Back: Normal Inspection Extremity: Normal ROM Neurological/Psych: Oriented x3, Normal Speech ED Course And Treatment O2 Sat by Pulse Oximetry: 99 Progress Note: Pt was seen and evaluated by surgical assistant, Dr Walter who changes wound vac. Pt was instructed to follow up with the surgical clinic on as scheduled. Disposition - Disposition Disposition: HOME/ ROUTINE Disposition Time: 16:06 Condition: STABLE Additional Instructions: Follow up with the clinic on 05/01/18. Return to ER if symptoms persist or worsen. Instructions: Negative Pressure Wound Therapy Forms: [facility] (Irish) Print Language: NEPALI - Clinical Impression Clinical Impression: Encounter for management of wound VAC
--- NOTE | 2018-04-27 16:34 | CP.PCM.CON ---
History of Present Illness - History of Present Illness History of Present Illness: Surgery: Dr. Green CC: Wound vac change HPI: 72M well known to service w. hx of chonic non-healing midline wound presents to ED for wound vac change. Pt has no complaints. PMH: right colon adenoma, EC fistula, DVT, LEO PSH: Right hemicolectomy, exploratomy laparotomy Meds: MAR reviewed Social: denies tobacco, denies alcohol use Allergies: Iodine Family hx: non-contributory Review of Systems - Review of Systems All systems: reviewed and no additional remarkable complaints except (hpi) Past Patient History - Past Medical History & Family History Past Medical History?: Yes - Past Social History Smoking Status: Former Smoker - PULMONARY Hx Sleep Apnea: Yes (POSITIVE STUDY (last year)) - NEUROLOGICAL Hx Neurological Disorder: No - HEENT Hx HEENT Problems: No - RENAL Hx Chronic Kidney Disease: No - ENDOCRINE/METABOLIC Hx Endocrine Disorders: No - HEMATOLOGICAL/ONCOLOGICAL Hx Blood Disorders: No - INTEGUMENTARY Hx Dermatological Problems: Yes Other/Comment: INFECTED SURGICAL WOUND with wound vac - MUSCULOSKELETAL/RHEUMATOLOGICAL Hx Arthritis: Yes - GASTROINTESTINAL Hx Gastritis: Yes - GENITOURINARY/GYNECOLOGICAL Hx Genitourinary Disorders: No - PSYCHIATRIC Hx Substance Use: No - SURGICAL HISTORY Hx Surgeries: Yes Other/Comment: bowel resection - ANESTHESIA Hx Anesthesia: Yes Hx Anesthesia Reactions: No Hx Malignant Hyperthermia: No Meds Allergies/Adverse Reactions: Allergies Allergy/AdvReac Type Severity Reaction Status Date / Time iodine Allergy Severe ANAPHYLAXIS Verified 04/27/18 14:51 Physical Exam - Constitutional Appears: Non-toxic, No Acute Distress - Head Exam Head Exam: ATRAUMATIC, NORMOCEPHALIC - Eye Exam Eye Exam: EOMI - ENT Exam ENT Exam: Mucous Membranes Moist - Neck Exam Neck exam: Positive for: Full Rom - Respiratory Exam Respiratory Exam: NORMAL BREATHING PATTERN. absent: Accessory Muscle Use, Respiratory Distress - GI/Abdominal Exam GI & Abdominal Exam: Soft. absent: Distended, Firm, Guarding, Rebound, Rigid, Tenderness Additional comments: midline wound 8x0.5cm good grannulation tissue in center, small amounts of patel fibrin at wound base, no odor, wound at umbilicus pretty much healed - Extremities Exam Extremities exam: Negative for: calf tenderness, pedal edema - Neurological Exam Neurological exam: Alert, Oriented x3 Results - Vital Signs Recent Vital Signs: Last Vital Signs Temp 98.1 F 04/27/18 14:52 Pulse 85 04/27/18 14:52 Resp 18 04/27/18 14:52 BP 112/73 04/27/18 14:52 Pulse Ox 99 04/27/18 16:07 Assessment & Plan - Assessment and Plan (Free Text) Assessment: 72M w. chronic midline abd wound presenting for wound vac change, wound improved -Pt to follow up in clinic this 05/01 -d/w attending Jose Angel PGY4
[2018-04-27 16:44] VITALS: BP 128/68; TEMP 98.3
[2018-04-27 18:47] VITALS: O2SAT 99
== END 2018-04-27 16:39 | disposition home or self-care (01) ==
LOC: C.ER 14:34
DX: Z48.01 Encounter for change or removal of surgical wound dressing (principal)

== ENCOUNTER 2018-05-04 10:04 | Emergency (ER) | payer OTHER ==
[2018-05-04 10:05] VITALS: BMI 30.7
[2018-05-04 10:19] VITALS: BP 133/85; PULSE 90; RESP 16; TEMP 98; O2SAT 96
--- NOTE | 2018-05-04 11:38 | C.PDOC ---
History Of Present Illness 72 yo male with PSH of hemicolectomy complicated by entercutaneous fistula admitted on 04/17/18 for nonhealing midline wound. He was discharged on 04/23/18 with wound vacuum and instructed to come to ED for dressing changes. Last changed on 04/27. Notes he feels well and presents no complaints. Denies fever, redness, pain, change in diet or other complaints Chief Complaint (Nursing): Wound Check History Per: Patient History/Exam Limitations: no limitations Past Medical History Reviewed: Historical Data, Nursing Documentation, Vital Signs Vital Signs: Last Vital Signs Temp 98.0 F 05/04/18 10:17 Pulse 90 05/04/18 10:17 Resp 16 05/04/18 10:17 BP 133/85 05/04/18 10:17 Pulse Ox 96 05/04/18 13:43 - Medical History PMH: Arthritis, Colonic Polyps, Deep Vein Thrombosis ("one year ago" as per patient), Gastritis, Sleep Apnea (POSITIVE STUDY (last year)) Denies: Chronic Kidney Disease Surgical History: Endoscopy - [facility] Procedures (02/06/18) DRAINAGE OF ABD WALL WITH DRAIN DEV, PERC ENDO APPROACH (02/06/18) EXCISION OF ABD SUBCU/FASCIA, OPEN APPROACH (02/06/18) EXCISION OF LARGE INTESTINE, OPEN APPROACH (02/06/18) INSERTION OF INFUSION DEV INTO SUP VENA CAVA, PERC APPROACH (04/17/18) INTRODUCTION OF NUTRITIONAL INTO CENTRAL VEIN, PERC APPROACH (04/17/18) INTRODUCTION OF NUTRITIONAL INTO PERIPH VEIN, PERC APPROACH (02/06/18) REPAIR MESENTERY, PERCUTANEOUS ENDOSCOPIC APPROACH (02/06/18) RESECTION OF RIGHT LARGE INTESTINE, PERC ENDO APPROACH (02/06/18) Family History: States: No Known Family Hx - Social History Hx Alcohol Use: No Hx Substance Use: No - Immunization History Hx Tetanus Toxoid Vaccination: No Hx Influenza Vaccination: No Hx Pneumococcal Vaccination: Yes Review Of Systems Constitutional: Negative for: Fever, Chills Gastrointestinal: Negative for: Nausea, Vomiting Neurological: Negative for: Weakness, Numbness Physical Exam - Physical Exam Appears: Non-toxic, No Acute Distress Skin: Normal Color, Warm, Dry, No Rash, Other (midline wound vac intact) Head: Atraumatic Eye(s): bilateral: Normal Inspection Nose: Normal Oral Mucosa: Moist Lips: Normal Appearing Neck: Normal ROM Cardiovascular: Rhythm Regular, No Murmur Respiratory: Normal Breath Sounds, No Accessory Muscle Use Extremity: Normal ROM, No Deformity, No Swelling Neurological/Psych: Oriented x3, Normal Speech ED Course And Treatment O2 Sat by Pulse Oximetry: 96 Pulse Ox Interpretation: Normal (RA) Progress Note: Paged surgery resident who was scribed in OR. Called who sts if patient can't wait, can be d/c and instructed to return tomorrow morning at 9 am. Patient preferred to be d/c home today. Patient has no complains on discharge. Disposition - Disposition Referrals: Saúl Green MD [Staff Provider] - Disposition: HOME/ ROUTINE Disposition Time: 13:40 Condition: STABLE Additional Instructions: Return tomorrow at 9 am to be seen by trade show specialist. Instructions: Wound Care (DC) Forms: [employer] (Namibian) - Clinical Impression Clinical Impression: Encounter for postoperative wound check - Scribe Statement The provider has reviewed the documentation as recorded by the Scribe (Erin Buck) All medical record entries made by the Scribe were at my direction and personally dictated by me. I have reviewed the chart and agree that the record accurately reflects my personal performance of the history, physical exam, medical decision making, and the department course for this patient. I have also personally directed, reviewed, and agree with the discharge instructions and disposition.
== END 2018-05-04 13:55 | disposition home or self-care (01) ==
LOC: C.ER 10:04
DX: Z48.01 Encounter for change or removal of surgical wound dressing (principal)

== ENCOUNTER 2018-05-05 10:18 | Emergency (ER) | payer OTHER ==
[2018-05-05 10:18] VITALS: BMI 30.7
[2018-05-05 10:29] VITALS: RESP 18; O2SAT 99
[2018-05-05 14:39] VITALS: BP 134/86; PULSE 76; TEMP 98.3
--- NOTE | 2018-05-05 15:48 | CP.PCM.CON ---
History of Present Illness - History of Present Illness History of Present Illness: PGY-1 Surgery consult note for Dr. Felicita Green CC: Wound vac change HPI: 72M with pmhx of chonic midline wound presents to ED for wound vac change. Patient came to ED yesterday 05/04 but decided to leave and to come back today for wound change. Last change was 04/27. Patient has no current complains today. Pt denies pain in wound area, fevers, chills or bloody and/or purulent drainage from site. PMH: right colon adenoma, EC fistula, DVT, LEO PSH: Right hemicolectomy, exploratomy laparotomy Meds: MAR reviewed Social: former smoker (1 pack/day x 30 years). Quitted smoking 15 years ago. Pt denies tobacco, denies alcohol use and illicit drug use. Allergies: Iodine (dizziness) Family hx: diabetes (father) Review of Systems - Review of Systems All systems: reviewed and no additional remarkable complaints except Review of Systems: hpi Past Patient History - Past Medical History & Family History Past Medical History?: Yes - Past Social History Smoking Status: Former Smoker - PULMONARY Hx Sleep Apnea: Yes (POSITIVE STUDY (last year)) - NEUROLOGICAL Hx Neurological Disorder: No - HEENT Hx HEENT Problems: No - RENAL Hx Chronic Kidney Disease: No - ENDOCRINE/METABOLIC Hx Endocrine Disorders: No - HEMATOLOGICAL/ONCOLOGICAL Hx Blood Disorders: No - INTEGUMENTARY Hx Dermatological Problems: Yes Other/Comment: INFECTED SURGICAL WOUND with wound vac - MUSCULOSKELETAL/RHEUMATOLOGICAL Hx Arthritis: Yes - GASTROINTESTINAL Hx Gastritis: Yes - GENITOURINARY/GYNECOLOGICAL Hx Genitourinary Disorders: No - PSYCHIATRIC Hx Psychophysiologic Disorder: No Hx Substance Use: No - SURGICAL HISTORY Other/Comment: ABD SX - ANESTHESIA Hx Anesthesia: Yes Hx Anesthesia Reactions: No Hx Malignant Hyperthermia: No Meds Allergies/Adverse Reactions: Allergies Allergy/AdvReac Type Severity Reaction Status Date / Time iodine Allergy Severe ANAPHYLAXIS Verified 05/05/18 10:25 Physical Exam - Constitutional Appears: Non-toxic, No Acute Distress - Head Exam Head Exam: ATRAUMATIC, NORMOCEPHALIC - Eye Exam Eye Exam: EOMI, Normal appearance - ENT Exam ENT Exam: Mucous Membranes Moist - Neck Exam Neck exam: Positive for: Normal Inspection - Respiratory Exam Respiratory Exam: NORMAL BREATHING PATTERN. absent: Accessory Muscle Use, Respiratory Distress - GI/Abdominal Exam GI & Abdominal Exam: Soft. absent: Distended, Firm, Guarding, Rebound, Tenderness Additional comments: 8x 0.5 cm midline abdominal wound. Good granulation tissue in center. patel fibrin in lower aspect of wound and left lateral inner side of wound, non odorous, non purulent. wound in umbilicus healed and covered with dry dressing, clean, nonbloody, nonpurulent. - Neurological Exam Neurological exam: Alert, Oriented x3 - Psychiatric Exam Psychiatric exam: Normal Affect, Normal Mood Results - Vital Signs Recent Vital Signs: Last Vital Signs Temp 98.3 F 05/05/18 14:38 Pulse 76 05/05/18 14:38 Resp 18 05/05/18 14:38 BP 134/86 05/05/18 14:38 Pulse Ox 99 05/05/18 14:38 Assessment & Plan - Assessment and Plan (Free Text) Assessment: 72 year old make with chronic midline abd wound presenting for wound change every 3 days Plan: - Patient to return to ED in 72 hours (05/08) for wound vac change. - Patient's records from [facility] were given to Medical records to be added to patient's EMR - As per Dr. Green, no imaging needed at this time. Plan was discussed with Dr Felicita Bone PGY-1 - Date & Time Date: 05/05/18 Time: 10:30
--- NOTE | 2018-05-05 16:27 | C.PDOC ---
History Of Present Illness 72 y/o male presents to ED for wound vac change. Patient seen few days ago for same and was told to return to ED for dressing change by surgical nurse. Patient reports no fever, vomiting, diarrhea or any other complaints at this time. Time Seen by Provider: 05/05/18 10:28 Chief Complaint (Nursing): Abnormal Skin Integrity History Per: Patient History/Exam Limitations: no limitations Onset/Duration Of Symptoms: Days Current Symptoms Are (Timing): Still Present Past Medical History Reviewed: Historical Data, Nursing Documentation, Vital Signs Vital Signs: Last Vital Signs Temp 98.3 F 05/05/18 14:38 Pulse 76 05/05/18 14:38 Resp 18 05/05/18 14:38 BP 134/86 05/05/18 14:38 Pulse Ox 99 05/05/18 16:30 - Medical History PMH: Arthritis, Colonic Polyps, Deep Vein Thrombosis ("one year ago" as per patient), Gastritis, Sleep Apnea (POSITIVE STUDY (last year)) Surgical History: Endoscopy - [facility] Procedures (02/06/18) DRAINAGE OF ABD WALL WITH DRAIN DEV, PERC ENDO APPROACH (02/06/18) EXCISION OF ABD SUBCU/FASCIA, OPEN APPROACH (02/06/18) EXCISION OF LARGE INTESTINE, OPEN APPROACH (02/06/18) INSERTION OF INFUSION DEV INTO SUP VENA CAVA, PERC APPROACH (04/17/18) INTRODUCTION OF NUTRITIONAL INTO CENTRAL VEIN, PERC APPROACH (04/17/18) INTRODUCTION OF NUTRITIONAL INTO PERIPH VEIN, PERC APPROACH (02/06/18) REPAIR MESENTERY, PERCUTANEOUS ENDOSCOPIC APPROACH (02/06/18) RESECTION OF RIGHT LARGE INTESTINE, PERC ENDO APPROACH (02/06/18) Family History: States: No Known Family Hx - Social History Hx Alcohol Use: No Hx Substance Use: No - Immunization History Hx Tetanus Toxoid Vaccination: No Hx Influenza Vaccination: No Hx Pneumococcal Vaccination: Yes Review Of Systems Constitutional: Negative for: Fever, Chills Gastrointestinal: Positive for: Abdominal Pain. Negative for: Nausea, Vomiting , Diarrhea Skin: Negative for: Rash Physical Exam - Physical Exam Appears: Non-toxic, No Acute Distress Skin: Normal Color, Dry, No Rash Head: Atraumatic, Normacephalic Eye(s): bilateral: Normal Inspection Oral Mucosa: Moist Cardiovascular: Rhythm Regular Respiratory: Normal Breath Sounds, No Rales, No Rhonchi, No Wheezing Gastrointestinal/Abdominal: Soft, No Tenderness, No Guarding, No Rebound, Other (wound vac on mid abdomen non erythematous and not warm to touch) Back: No CVA Tenderness Neurological/Psych: Oriented x3, Normal Speech ED Course And Treatment O2 Sat by Pulse Oximetry: 99 (RA) Pulse Ox Interpretation: Normal Progress Note: vice president fixed income changed dresing, patient tolerated well and discharged with follow up in 3 days. Disposition - Disposition Disposition: HOME/ ROUTINE Disposition Time: 14:20 Condition: GOOD Additional Instructions: ABEL AGUAYO, thank you for letting us take care of you today. Your provider was Mynor Nicole DO and you were treated for FOLLOW UP. The emergency medical care you received today was directed at your acute symptoms. If you were prescribed any medication, please fill it and take as directed. It may take several days for your symptoms to resolve. Return to the Emergency Department if your symptoms worsen, do not improve, or if you have any other problems. Please contact your doctor or call one of the physicians/clinics you have been referred to that are listed on the Patient Visit Information form that is included in your discharge packet. Bring any paperwork you were given at discharge with you along with any medications you are taking to your follow up visit. Our treatment cannot replace ongoing medical care by a primary care provider outside of the emergency department. Thank you for allowing the [facility] team to be part of your care today. Follow up here in the emergency room in 3 days for wound care. Instructions: Surgical Wound (DC) Forms: [employer] (German) - Clinical Impression Clinical Impression: Encounter for postoperative wound check - Scribe Statement The provider has reviewed the documentation as recorded by the Jvibdane Neumann All medical record entries made by the Scribe were at my direction and personally dictated by me. I have reviewed the chart and agree that the record accurately reflects my personal performance of the history, physical exam, medical decision making, and the department course for this patient. I have also personally directed, reviewed, and agree with the discharge instructions and disposition.
== END 2018-05-05 14:38 | disposition home or self-care (01) ==
LOC: C.ER 10:18
DX: Z48.01 Encounter for change or removal of surgical wound dressing (principal)

== ENCOUNTER 2018-05-08 16:05 | Emergency (ER) | payer MEDICAID, OTHER ==
[2018-05-08 16:05] VITALS: BMI 30.7
[2018-05-08 16:14] VITALS: BP 142/77; PULSE 97; RESP 18; TEMP 98.1; O2SAT 96
--- NOTE | 2018-05-08 16:22 | C.PDOC ---
History Of Present Illness 72 year old male presents to ER for wound vac change. Patient seen few days ago for same and was told to return to ED for dressing change by cardiovascular surgical tech. Patient reports no fever, vomiting, diarrhea or any other complaints at this time. Time Seen by Provider: 05/08/18 16:20 Chief Complaint (Nursing): Wound Check History Per: Patient History/Exam Limitations: no limitations Onset/Duration Of Symptoms: Days Ago Current Symptoms Are (Timing): Still Present Location Of Injury: Anterior: Abdomen Recent travel outside of the [place]: No Past Medical History Reviewed: Historical Data, Nursing Documentation, Vital Signs Vital Signs: Last Vital Signs Temp 98.1 F 05/08/18 16:12 Pulse 97 H 05/08/18 16:12 Resp 18 05/08/18 16:12 BP 142/77 05/08/18 16:12 Pulse Ox 96 05/08/18 16:50 - Medical History PMH: Arthritis, Colonic Polyps, Deep Vein Thrombosis ("one year ago" as per patient), Gastritis, Sleep Apnea (POSITIVE STUDY (last year)) Denies: Chronic Kidney Disease Surgical History: Endoscopy - [facility] Procedures (02/06/18) DRAINAGE OF ABD WALL WITH DRAIN DEV, PERC ENDO APPROACH (02/06/18) EXCISION OF ABD SUBCU/FASCIA, OPEN APPROACH (02/06/18) EXCISION OF LARGE INTESTINE, OPEN APPROACH (02/06/18) INSERTION OF INFUSION DEV INTO SUP VENA CAVA, PERC APPROACH (04/17/18) INTRODUCTION OF NUTRITIONAL INTO CENTRAL VEIN, PERC APPROACH (04/17/18) INTRODUCTION OF NUTRITIONAL INTO PERIPH VEIN, PERC APPROACH (02/06/18) REPAIR MESENTERY, PERCUTANEOUS ENDOSCOPIC APPROACH (02/06/18) RESECTION OF RIGHT LARGE INTESTINE, PERC ENDO APPROACH (02/06/18) Family History: States: Unknown Family Hx - Social History Hx Alcohol Use: No Hx Substance Use: No - Immunization History Hx Tetanus Toxoid Vaccination: No Hx Influenza Vaccination: No Hx Pneumococcal Vaccination: Yes Review Of Systems Constitutional: Negative for: Fever Gastrointestinal: Positive for: Abdominal Pain. Negative for: Vomiting, Diarrhea Skin: Positive for: Other (Wound vac) Physical Exam - Physical Exam Appears: Non-toxic Skin: Warm, Dry Head: Atraumatic, Normacephalic Eye(s): bilateral: Normal Inspection Oral Mucosa: Moist Chest: Symmetrical, No Tenderness Cardiovascular: Rhythm Regular Respiratory: Normal Breath Sounds, No Rales, No Rhonchi, No Wheezing Gastrointestinal/Abdominal: Soft, No Tenderness, Other (wound vac on mid abdomen non erythematous and not warm to touch) Back: No CVA Tenderness Neurological/Psych: Oriented x3, Normal Speech ED Course And Treatment O2 Sat by Pulse Oximetry: 96 (Room air) Pulse Ox Interpretation: Normal Medical Decision Making Medical Decision Making: resident services supervisor Carlton evaluated the patient and discussed case with surgeon Dr Green and they removed the wound vac. Dressing was applied. patient instructed to do wet to dry dressings daily and expressed understanding. They will now follow up with Dr Green in his office. Disposition Counseled Patient/Family Regarding: Diagnosis, Need For Followup - Disposition Referrals: Saúl Green MD [Staff Provider] - Disposition: HOME/ ROUTINE Disposition Time: 16:49 Condition: GOOD Additional Instructions: Cambiar el vendaje diariamente hmedo a seco seguimiento con el cirurufino Green Instructions: Wound Care (DC) Print Language: GERMAN - POA Present On Arrival: None - Clinical Impression Clinical Impression: Encounter for postoperative wound check, Encounter for management of wound VAC - PA / CORPORATION SECRETARY / Resident Statement MD/DO has reviewed & agrees with the documentation as recorded. - Scribe Statement The provider has reviewed the documentation as recorded by the Scribdane Hendrickson All medical record entries made by the Scribe were at my direction and personally dictated by me. I have reviewed the chart and agree that the record accurately reflects my personal performance of the history, physical exam, medical decision making, and the department course for this patient. I have also personally directed, reviewed, and agree with the discharge instructions and disposition.
--- NOTE | 2018-05-08 17:01 | CP.PCM.CON ---
History of Present Illness - History of Present Illness History of Present Illness: Surger: Dr. Green CC: wound check HPI: 72M well known to service presents for evaluation of chronic wound. Review of Systems - Review of Systems All systems: reviewed and no additional remarkable complaints except (HPI) Past Patient History - Past Medical History & Family History Past Medical History?: Yes - Past Social History Smoking Status: Former Smoker - PULMONARY Hx Sleep Apnea: Yes (POSITIVE STUDY (last year)) - NEUROLOGICAL Hx Neurological Disorder: No - HEENT Hx HEENT Problems: No - RENAL Hx Chronic Kidney Disease: No - ENDOCRINE/METABOLIC Hx Endocrine Disorders: No - HEMATOLOGICAL/ONCOLOGICAL Hx Blood Disorders: No - INTEGUMENTARY Hx Dermatological Problems: Yes Other/Comment: INFECTED SURGICAL WOUND with wound vac - MUSCULOSKELETAL/RHEUMATOLOGICAL Hx Arthritis: Yes - GASTROINTESTINAL Hx Gastritis: Yes - GENITOURINARY/GYNECOLOGICAL Hx Genitourinary Disorders: No - PSYCHIATRIC Hx Substance Use: No - SURGICAL HISTORY Hx Surgeries: Yes - ANESTHESIA Hx Anesthesia: Yes Hx Anesthesia Reactions: No Hx Malignant Hyperthermia: No Meds Allergies/Adverse Reactions: Allergies Allergy/AdvReac Type Severity Reaction Status Date / Time iodine Allergy Severe ANAPHYLAXIS Verified 05/08/18 16:14 Physical Exam - Constitutional Appears: Non-toxic, No Acute Distress - Head Exam Head Exam: ATRAUMATIC, NORMOCEPHALIC - Eye Exam Eye Exam: EOMI - ENT Exam ENT Exam: Mucous Membranes Moist - Neck Exam Neck exam: Positive for: Full Rom - Respiratory Exam Respiratory Exam: NORMAL BREATHING PATTERN. absent: Accessory Muscle Use, Respiratory Distress - GI/Abdominal Exam Additional comments: midline wound 8x0.3cm good grannulation tissue in center, beefy red base - Extremities Exam Extremities exam: Negative for: calf tenderness, pedal edema - Neurological Exam Neurological exam: Alert, Oriented x3 Results - Vital Signs Recent Vital Signs: Last Vital Signs Temp 98.1 F 05/08/18 16:12 Pulse 97 H 05/08/18 16:12 Resp 18 05/08/18 16:12 BP 142/77 05/08/18 16:12 Pulse Ox 96 05/08/18 16:58 Assessment & Plan - Assessment and Plan (Free Text) Assessment: 72M w. chronic midline wound -daily wet to dry dressing changes -F/U w. Dr. Green next -d/w attending Zemaitis PGY4
== END 2018-05-08 16:59 | disposition home or self-care (01) ==
LOC: C.ER 16:05
DX: Z48.01 Encounter for change or removal of surgical wound dressing (principal); Z87.891 Personal history of nicotine dependence

== ENCOUNTER 2018-11-19 07:32 | Day surgery (SDC) | payer OTHER, MEDICAID | END 2018-11-19 11:45 | disposition home or self-care (01) | LOC: C.ENDO 07:32 | DX: K43.2 Incisional hernia without obstruction or gangrene (principal); D12.2 Benign neoplasm of ascending colon; Z86.010 Personal history of colon polyps ==